=== PATIENT | female | born 1960 | race Caucasian/White ===

== ENCOUNTER 2020-06-28 12:04 | Outpatient (NON) | payer BC, SELFPAY ==
[2020-06-28 14:14] LABS: Influenza Control Positive
== END 2020-06-28 12:05 ==
PROVIDERS: Family Provider Nurse Practitioner Family; PCP Family Medicine; Visit Provider Family Medicine
DX: R05 Cough (principal)
CPT/HCPCS: 87804

== ENCOUNTER 2021-01-23 14:11 | Emergency (ER) | payer BC, SELFPAY ==
--- NOTE | ~2021-01-23 | XR_ITS ---
EXAMINATION: XR chest 2V DATE: 01/23/2021 15:20 INDICATION: Left chest pain. TECHNIQUE: Frontal and lateral views of the chest were obtained. COMPARISON: Chest 2 views 04/17/2019 FINDINGS: The chest demonstrates clear lungs without pneumonia, pleural effusion, or pneumothorax. Th e heart size is normal. There are changes of anterior fusion procedure in cervical spine. Surgical cl ips in the right upper quadrant are likely from cholecystectomy. IMPRESSION: 1. No acute cardiopulmonary disease. Reviewed, dictated and finalized at location A.
[2021-01-23 14:22] VITALS: BP 140/66; PULSE 75; RESP 18; TEMP 36.9; O2SAT 98
--- NOTE | 2021-01-23 14:37 | ED.GENADULT ---
HPI - General Adult General Chief complaint: Chest Pain Stated complaint: muscle spasms on left side Time Seen by Provider: 01/23/21 14:38 Source: patient and RN notes reviewed Mode of arrival: ambulatory Limitations: no limitations History of Present Illness HPI narrative: 60-year-old female presents with concern for left lateral muscle spasming and pain. Reports a gripping feeling with no precipitating or relieving factors. She denies shortness of breath, chest pain, chest pressure, diaphoresis, nausea, dizziness. She denies syncope or near syncope. She denies injury or trauma. She denies bruising, redness, warmth. Patient has a history of hypertension, obesity, anemia, high cholesterol. MD complaint: Muscle spasms Related Data Home Medications Medication Instructions Recorded Confirmed alosetron 1 mg tablet 1 - 2 mg PO DAILY PRN 04/22/19 01/23/21 aspirin 81 mg tablet,delayed 81 mg PO DAILY 04/22/19 01/23/21 release cholecalciferol (vitamin D3) 125 5,000 unit PO DAILY 04/22/19 01/23/21 mcg (5,000 unit) capsule naproxen 250 mg tablet 500 mg PO BID 04/22/19 01/23/21 phytonadione (vitamin K1) 100 mcg 90 mcg PO DAILY 04/22/19 01/23/21 tablet duloxetine 60 mg capsule,delayed 60 mg PO DAILY 11/24/19 01/23/21 release carbamazepine 200 mg 200 mg PO Q12H tablet 01/19/21 01/23/21 tablet,extended release,12 hr diltiazem HCl 240 mg PO DAILY 01/23/21 01/23/21 hydralazine 20 mg PO BID PRN 01/23/21 01/23/21 levocetirizine 5 mg PO .PRN 01/23/21 01/23/21 levothyroxine 75 mcg PO DAILY 01/23/21 01/23/21 losartan 100 mg PO DAILY 01/23/21 01/23/21 Allergies Allergy/AdvReac Type Severity Reaction Status Date / Time phenobarbital Allergy Unknown Rash Verified 01/23/21 14:57 Sulfa (Sulfonamide Allergy Unknown Nausea and Verified 01/23/21 14:57 Antibiotics) Vomiting Review of Systems Review of Systems: CONSTITUTIONAL: Denies malaise, chills, sweats, or fever. CARDIOVASCULAR: Denies chest pain, palpitations, or edema. Reports left lateral chest muscle spasming/gripping RESPIRATORY: Denies cough or dyspnea. GASTROINTESTINAL: Denies abdominal pain, nausea, vomiting SKIN: Denies bruising, redness, open skin, warmth MUSCULOSKELETAL: Denies myalgia. Reports left lateral chest muscle spasming/gripping NEUROLOGIC: Denies numbness, weakness, or headache. PSYCHIATRIC: Denies anxiety or depression. All systems reviewed & are unremarkable except as noted in HPI and below PMFSH Past Medical History Medical History Anemia Anxiety Arthritis Depression Fibromyalgia Gallbladder disease Hallux rigidus, left foot HLD (hyperlipidemia) HTN (hypertension) Hypothyroid IBS (irritable bowel syndrome) Lipoma of back PVC (premature ventricular contraction) Temporal lobe seizure Wears hearing aid Surgical History Surgical History History of appendectomy History of cholecystectomy Hx of cervical spine surgery Titanium plate and screws Family History Family History Mother Family history of thyroid disease Hypertension Grandparent Family history of thyroid disease Family history of kidney disease Family history of Alzheimer's disease Father Diabetes mellitus Hypertension Family history of malignant neoplasm Family history of kidney disease Other Cerebrovascular accident Family history of arthritis Social History Social History Smoking status: Never smoker Second hand tobacco smoke exposure: No Alcohol intake: never Substance use: never Substance use type: does not use 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
[2021-01-23 14:41] VITALS: PULSE 67
--- NOTE | 2021-01-23 14:59 | ECG_ITS ---
Measurements Intervals [place] Rate: 67 P: 55 SC: 171 QRS: 79 QRSD: 105 T: 83 QT: 414 QTc: 439 Interpretive Statements SINUS RHYTHM INCOMPLETE RIGHT BUNDLE BRANCH BLOCK BORDERLINE T WAVE ABNORMALITY- HIGH LATERAL LEADS BORDERLINE ECG Electronically Signed On 01-24-2021 11:38:25 CDT by Song Higginbotham D.O.
== END 2021-01-23 15:37 | disposition home or self-care (01) ==
PROVIDERS: Emergency Provider Nurse Practitioner; PCP Family Medicine
DX: R07.89 Other chest pain (principal); F41.9 Anxiety disorder, unspecified; M19.90 Unspecified osteoarthritis, unspecified site; M79.7 Fibromyalgia; E78.5 Hyperlipidemia, unspecified; I10 Essential (primary) hypertension; E03.9 Hypothyroidism, unspecified; Z79.82 Long term (current) use of aspirin
CPT/HCPCS: 71046; 93005; 99213; G0463

== ENCOUNTER 2021-02-28 10:05 | Emergency (ER) | payer BC, SELFPAY ==
[2021-02-28 10:43] VITALS: BP 129/83; PULSE 73; RESP 18; TEMP 36.3; O2SAT 97
--- NOTE | 2021-02-28 11:00 | ED.URI ---
HPI - URI/Sore Throat General Chief Complaint: Upper Respiratory Infection Stated Complaint: Sore Throat,Cough,Diarrhea Time Seen by Provider: 02/28/21 11:00 Source: patient and RN notes reviewed Mode of arrival: ambulatory Limitations: no limitations History of Present Illness HPI Narrative: 1-year-old female presents to the [facility] with complaints of sore throat, cough, diarrhea. Patient states she has had a cough for approximately 8 days. Woke up this morning with a sore throat. Denies fevers. Sore throat when swallowing. Denies nausea or vomiting. No abdominal pain or chest pain No treatment prior to arrival Related Data Home Medications Medication Instructions Recorded Confirmed alosetron 1 mg tablet 1 - 2 mg PO DAILY PRN 04/22/19 01/23/21 aspirin 81 mg tablet,delayed 81 mg PO DAILY 04/22/19 01/23/21 release cholecalciferol (vitamin D3) 125 5,000 unit PO DAILY 04/22/19 01/23/21 mcg (5,000 unit) capsule naproxen 250 mg tablet 500 mg PO BID 04/22/19 01/23/21 phytonadione (vitamin K1) 100 mcg 90 mcg PO DAILY 04/22/19 01/23/21 tablet duloxetine 60 mg capsule,delayed 60 mg PO DAILY 11/24/19 01/23/21 release carbamazepine 200 mg 200 mg PO Q12H tablet 01/19/21 01/23/21 tablet,extended release,12 hr hydralazine 20 mg PO BID PRN 01/23/21 01/23/21 levocetirizine 5 mg PO .PRN 01/23/21 01/23/21 Allergies Allergy/AdvReac Type Severity Reaction Status Date / Time phenobarbital Allergy Unknown Rash Verified 02/28/21 11:02 Sulfa (Sulfonamide Allergy Unknown Nausea and Verified 02/28/21 11:02 Antibiotics) Vomiting Review of Systems Review of Systems: All systems reviewed & are unremarkable except as noted in HPI and below Constitutional: Constitutional: Reports no additional constitutional complaints, Denies chills and Denies fever(s) Eyes: Eyes: Reports no additional eye complaints ENT: Reports as per HPI and Reports sore throat Cardiovascular: Cardiovascular: Reports no additional cardiovascular complaints and Denies chest pain Respiratory: Respiratory: Reports as per HPI, Reports cough, Denies dyspnea and Denies wheezing Gastrointestinal: Gastrointestinal: Reports no additional gastrointestinal complaints, Denies abdominal pain, Denies nausea and Denies vomiting Musculoskeletal: Musculoskeletal: Reports no additional musculoskeletal complaints Integumentary/Breasts: Skin/Breast: Reports system reviewed and no additional complaints, except as docu Neurologic: Reports system reviewed and no additional complaints, except as documented Psychiatric: Psychiatric: Reports no additional psychiatric complaints Allergic/Immunologic: Allergic/Immunologic: Reports no additional allergic/immunologic complaints PMFSH Past Medical History Medical History Anemia Anxiety Arthritis Depression Fibromyalgia Gallbladder disease Hallux rigidus, left foot HLD (hyperlipidemia) HTN (hypertension) Hypothyroid IBS (irritable bowel syndrome) Lipoma of back PVC (premature ventricular contraction) Temporal lobe seizure Wears hearing aid Surgical History Surgical History History of appendectomy History of cholecystectomy Hx of cervical spine surgery Titanium plate and screws Family History Family History Mother Family history of thyroid disease Hypertension Grandparent Family history of thyroid disease Family history of kidney disease Family history of Alzheimer's disease Father Diabetes mellitus Hypertension Family history of malignant neoplasm Family history of kidney disease Other Cerebrovascular accident Family history of arthritis Social History Social History Smoking status: Never smoker Second hand tobacco smoke exposure: No Alcohol intake: never Substance use: never Sub
[2021-03-02 01:27] LABS: SARS-CoV-2 RNA PCR Negative
== END 2021-02-28 11:38 | disposition home or self-care (01) ==
PROVIDERS: Emergency Provider Nurse Practitioner; PCP Family Medicine
DX: B34.9 Viral infection, unspecified (principal); I10 Essential (primary) hypertension; E03.9 Hypothyroidism, unspecified; E78.5 Hyperlipidemia, unspecified; Z79.82 Long term (current) use of aspirin; Z20.822 Contact with and (suspected) exposure to COVID-19
CPT/HCPCS: 87081; 87880; 99213; C9803; G0463; U0003; U0005

== ENCOUNTER 2021-05-10 07:37 | Outpatient (CLI) | payer BC, SELFPAY ==
--- NOTE | 2021-05-16 11:21 | WPDHOMESLEEP ---
Sleep Study - Home Unattended Date of Study: 05/10/21 <Mis Orozco DO - Last Filed: 05/16/21 11:53> Ordering Provider: Juan Jose Branch APRN <Mis Orozco DO - Last Filed: 05/16/21 11:53> Interpreting Provider: Mis Orozco DO <Mis Orozco, DO - Last Filed: 05/16/21 11:53> Home Sleep Study Type: Apnea Link Air <Mis Orozco DO - Last Filed: 05/16/21 11:53> Height: 1.65 m <Mis Orozco DO - Last Filed: 05/16/21 11:53> Weight: 97.976 kg <Mis Orozco DO - Last Filed: 05/16/21 11:53> Body Mass Index: 35.9 <Mis Orozco DO - Last Filed: 05/16/21 11:53> Neck Circumference (inches): 16 <Mis Orozco DO - Last Filed: 05/16/21 11:53> Romulus: 16 <Mis Orozco DO - Last Filed: 05/16/21 11:53> Reason for Sleep Study Unrefreshing sleep, daytime hypersomnia <Mis Orozco DO - Last Filed: 05/16/21 11:53> Sleep History The patient is a 61-year-old female with anxiety, depression, fibromyalgia, temporal lobe seizures, hypertension, hypothyroidism, irritable bowel syndrome, and anemia that had a home sleep test ordered by her practical ministries professor for unrefreshing sleep and daytime hypersomnia. The patient denies awakening from sleep short of breath. She rarely awakens at night with heartburn, belching or cough. She occasionally snores loud enough that others complain. She rarely has trouble sleeping when she has a cold. She denies waking up gasping for air throughout the night. He denies having breathing problems at night observed by others. She denies sweating excessively at night. She rarely notices heart palpitations or irregular heartbeats during the night. She occasionally falls asleep during the day but never while driving. She denies cataplexy. She denies having trouble at work due to sleepiness. She rarely feels unable to move when waking up her falling asleep. She rarely experiences vivid dreamlike scenes upon awakening or falling asleep. He rarely has nightmares. She rarely has thoughts racing through her mind. She occasionally feels sad or depressed but rarely feels anxious. She frequently has muscular tension. He rarely notices parts of her body jerk. She occasionally has crawling and aching feelings in her legs as well as leg pain during the night. She denies grinding her teeth during sleep when awakening with morning jaw pain. She is occasionally bothered by pain during the day and awakened by pain during the night. She frequently wakes up feeling stiff in the morning with sore and achy muscles. She goes to bed at 10:30 p.m. on weekdays and between 11:00 p.m. and midnight on the weekends. It takes her 10 minutes to fall asleep. She wakes up 1-2 times per night. When she awakens, she will use the restroom or find something boring on TV. She can fall asleep within 15 minutes. She awakens at 5:45 a.m. on weekdays and 10:00 a.m. on the weekends. She typically gets 7 hours of sleep per night. She currently lives with her . She does not consume any caffeinated beverages within 2 hours of bedtime. She does not engage in physical exercise before bedtime. She will read and watch television before falling asleep. She will take naps during the afternoon or evening on the weekends but they are not refreshing. She drinks 3-4 caffeinated beverages per day. She will drink 1 alcoholic beverage per month. She denies tobacco and recreational drug use. <Mis Orozco DO - Last Filed: 05/16/21 11:53> [facility] Past Medical History Medical History: Medical History Anemia Anxiety Arthritis Depression Fibromyalgia Gallbladder disease Hallux rigidus, left foot HLD (hyperlipidemia) HTN (hypertension) Hypothyroid IBS (irritable bowel syndrome) Lipoma of back PVC (premature ventricular contraction) Temporal lobe seizure We
[2021-05-16 11:27] VITALS: BMI 35.9
== END 2021-05-11 13:30 | disposition home or self-care (01) ==
LOC: ANHCSM 07:37
PROVIDERS: PCP Family Medicine; Visit Provider Nurse Practitioner Family
DX: G47.33 Obstructive sleep apnea (adult) (pediatric) (principal)
CPT/HCPCS: 95806

== ENCOUNTER 2021-09-21 08:07 | Outpatient (CLI) | payer BC, SELFPAY ==
--- NOTE | ~2021-09-21 | MM_ITS ---
EXAMINATION: MM screening lizbet BI w tl HISTORY: Screening mammogram TECHNIQUE: Craniocaudal and mediolateral oblique 3-D tomosynthesis images were obtained and synthetic 2-D images were generated. CAD analysis was submitted and interpreted. COMPARISON: 02/21/2019 bilateral screening mammogram examination BREAST PARENCHYMAL COMPOSITION: There are scattered areas of fibroglandular density. FINDINGS: There is no evidence of suspicious mass, calcification, or architectural distortion to sugg est malignancy in either breast. There has been no suspicious interval change. IMPRESSION: 1. No mammographic evidence of malignancy. 2. Recommend routine screening mammography in one year. BI-RADS Category 1: Negative Reviewed, dictated and finalized at location A.
== END 2021-09-21 08:08 | disposition home or self-care (01) ==
LOC: ANHIMG 08:09
PROVIDERS: PCP Family Medicine; Visit Provider Family Medicine
DX: Z12.31 Encounter for screening mammogram for malignant neoplasm of breast (principal)
CPT/HCPCS: 77063; 77067

== ENCOUNTER → 2021-12-24 12:18 | Outpatient (CLI) | payer BC, SELFPAY ==
--- NOTE | ~2021-12-24 | XR_ITS ---
XR chest 2V 12/24/2021 12:32 Indication: Edema. Dyspnea. Procedure: 2 view chest Comparison: 01/23/2021 Findings: Heart size normal for technique. There is left basilar atelectasis. No focal pneumonia, erin ma, pleural effusion or pneumothorax. The lungs are hyperinflated which is consistent with, but not d iagnostic of chronic obstructive pulmonary disease. There are anterior fusion changes at the cervicot horacic junction. Impression: 1: Left basilar atelectasis. Reviewed, dictated and finalized at location A. Impression: 1: Left basilar atelectasis.
== END ==
PROVIDERS: PCP Family Medicine; Visit Provider Family Medicine
DX: R60.9 Edema, unspecified (principal); J98.11 Atelectasis
CPT/HCPCS: 71046

== ENCOUNTER → 2022-01-19 11:03 | Outpatient (CLI) | payer BC, SELFPAY ==
--- NOTE | ~2022-01-19 | US_ITS ---
EXAMINATION: US pelvic complete w TV DATE: 01/19/2022 11:37 INDICATION: Left lower quadrant pain Comparison:No prior studies for comparison. TECHNIQUE: Multiple transabdominal and endovaginal sonographic images of the pelvis performed. FINDINGS: The uterus measures 5.4 x 1.8 x 3.1 cm. The endometrial complex measures 3 mm. There is tra ce fluid in the endometrium. There are cervical calcifications. The right ovary measures 1.8 x 0.7 x 1 cm and the left ovary is not visualized. There is no free fluid in the pelvis. There are no abnormal masses seen on either side. IMPRESSION: 1. Unremarkable pelvic ultrasound. Reviewed, dictated and finalized at location B.
== END ==
PROVIDERS: PCP Family Medicine; Visit Provider Family Medicine
DX: R10.2 Pelvic and perineal pain (principal); R10.32 Left lower quadrant pain
CPT/HCPCS: 76830; 76856

== ENCOUNTER → 2022-05-11 12:44 | Outpatient (CLI) | payer BC, SELFPAY ==
--- NOTE | ~2022-05-11 | CT_ITS ---
EXAMINATION: CT abdomen pelvis w con DATE: 05/11/2022 13:10 INDICATION: Pelvic and perineal pain TECHNIQUE: Computed tomography (CT) of the abdomen and pelvis was performed with 100 cc Omnipaque 350 intravenous contrast. The dose-length product was 922.65 mGy-cm. Automated exposure control and iter ative reconstruction technique were employed. COMPARISON: Ultrasound pelvis dated 01/19/2022 FINDINGS: Lung bases are unremarkable. Heart size normal. No significant pleural or pericardial effus ion. The liver, spleen, pancreas, adrenal glands and kidneys are unremarkable. There are cholecystect neto clips. Nonobstructive bowel gas pattern. No significant vascular abnormality. No lymphadenopathy. No abnormal pelvic masses or fluid collections. There is osteoarthritis of the hips. There is lumbar fusion at L4-5. There is severe lumbar spondylosis. IMPRESSION: 1. No acute abdominal abnormality. Reviewed, dictated and finalized at location A. C LEADER
[2022-05-11 13:03] LABS: Estimated Glomerular Filt Rate > 60
== END ==
PROVIDERS: PCP Family Medicine; Visit Provider Obstetrics & Gynecology
DX: R10.2 Pelvic and perineal pain (principal)
CPT/HCPCS: 74177; Q9967

== ENCOUNTER → 2022-06-02 12:26 | Outpatient (CLI) | payer BC, SELFPAY ==
--- NOTE | ~2022-06-02 | XR_ITS ---
EXAMINATION: XR hip BI wo pelvis INDICATION: Bilateral hip pain TECHNIQUE: Two views of each hip are obtained. COMPARISON: None available FINDINGS: Bone alignment is normal. There is no fracture. There is mild right and moderate left hip o steoarthritis. There are changes of posterior fusion at L4-5. IMPRESSION: 1. Mild right and moderate left hip osteoarthritis. Reviewed, dictated and finalized at location B. EE DEVELOPER
--- NOTE | ~2022-06-02 | XR_ITS ---
EXAMINATION: XR chest 2V DATE: 06/02/2022 13:15 INDICATION: Cough, unspecified TECHNIQUE: PA and lateral views of the chest are obtained. COMPARISON: 12/24/2021 FINDINGS: The lungs are free of acute opacities. No pleural effusion or pneumothorax. The cardiomedia stinal silhouette is normal. There is moderate thoracic spondylosis. Surgical clips in the upper abdo men on the lateral view are likely from prior cholecystectomy. There are changes of anterior fusion i n the lower cervical spine. IMPRESSION: 1. No acute cardiopulmonary abnormality. Reviewed, dictated and finalized at location B. RAL MAINTENANCE ENGINEER
== END ==
PROVIDERS: PCP Nurse Practitioner Family; Visit Provider Nurse Practitioner Family
DX: R05.9 Cough, unspecified (principal); M25.551 Pain in right hip; M25.552 Pain in left hip; M16.0 Bilateral primary osteoarthritis of hip
CPT/HCPCS: 71046; 73521

== ENCOUNTER 2022-07-31 10:29 | Outpatient (CLI) | payer BC, SELFPAY ==
--- NOTE | ~2022-07-31 | XR_ITS ---
EXAMINATION: XR lg joint inject/asp w image DATE: 07/31/2022 11:39 INDICATION: Left hip arthritis. TECHNIQUE: A time-out was performed to verify the patient's name, date of , and procedure to b e performed. The procedure including the risks, benefits, and alternatives was discussed with the pat ient. Risks discussed included bleeding and infection. The patient understood the risks and agreed to proceed. The skin overlying the left hip joint was prepped and draped in usual sterile fashion. An esthetic was administered with 1% lidocaine subcutaneously. A 22 G needle was advanced under fluoros copic guidance into the joint. Subsequently, injectate consisting of 2 mL 0.5% bupivacaine and 1 mL 80 mg/mL Depo-Medrol was instilled. The needle was removed and the entry site was cleaned and dresse d. There were no immediate complications. Fluoroscopy exposure time was 0.1 minutes. The total numbe r of images was 1. FINDINGS: Real-time fluoroscopy demonstrates the needle in the left hip joint. Patient's pain prior t o procedure:5/10. Patient's pain following the procedure: 0/10. IMPRESSION: 1. Fluoroscopy guided left hip joint injection of local anesthetic and steroid with decrease in the p atient's presenting pain. Reviewed, dictated and finalized at location A. IFIED CYTOTECHNOLOGIST IMPRESSION: 1. Fluoroscopy guided left hip joint injection of local anesthetic and steroid with decrease in the patient's presenting pain.
== END 2022-07-31 10:30 | disposition home or self-care (01) ==
PROVIDERS: PCP Nurse Practitioner Family; Visit Provider Nurse Practitioner Family
DX: M16.12 Unilateral primary osteoarthritis, left hip (principal)
CPT/HCPCS: 20610; 77002; J1040

== ENCOUNTER → 2022-09-08 08:01 | Outpatient (CLI) | payer BC, SELFPAY ==
--- NOTE | ~2022-09-08 | MR_ITS ---
EXAMINATION: MR hip LT wo con DATE: 09/08/2022 08:49 INDICATION: Left hip pain TECHNIQUE: Magnetic resonance imaging (MRI) of the left hip was performed without intravenous contra st. Sequences included full-field axial PD-weighted FS FSE and T1-weighted FSE, coronal of the pelvis with PD-weighted FS FSE, small field of view of the left hip with axial PD-weighted FS FSE, sagitta l PD-weighted FS FSE and coronal PD weighted FS FSE. Additional radial T1-weighted FGR oriented ortho gonal to the acetabular rim were obtained for evaluation of the labrum. COMPARISON: None FINDINGS: Bones/labrum/cartilage: Alignment is normal. No fracture, avascular necrosis or pathologic marrow replacing process. There i s moderate osteoarthritis at the left hip with prominent cartilage loss resulting in anterosuperior p redominant nonuniform joint space narrowing. There is subarticular cystic change at the anterosuperio r and superolateral aspects of the acetabulum and mild subarticular marrow edema at the anterosuperio r femoral head. There is degenerative tearing of the anterior to posterior superior left acetabular l abrum. The contralateral right hip joint space appears relatively preserved on the larger field-of-vi ew images. Lumbar spondylosis with moderate to severe right-sided predominant disc height loss at L3- L4 and associated degenerative endplate remodeling resulting in mild right-sided L3 vertebral body he ight loss. L4-L5 posterior spinal fusion with bilateral vertical jennifer and pedicle screw fixation. Fluid: Bilateral moderate sized likely reactive left hip joint effusion. Physiologic amount of fluid in the right hip. 7 mm diameter ganglion cyst arising from the right hip joint and extending 1.9 cm in proxi mal distal length between the anterior right acetabulum and the deep margin of the right iliacus musc le. No bursitis or other abnormal fluid collections. Soft tissues: Normal and symmetric muscle bulk and signal in the pelvis and visualized proximal thighs. The iliopso as, gluteal and proximal hamstring tendons are normal. 9 mm low signal intensity fibroid at the fundu s of the anteverted uterus. Limited evaluation of visceral organs of the pelvis is unremarkable. No pathologically enlarged pelvic/inguinal lymphadenopathy. IMPRESSION: 1. Moderate left hip osteoarthritis with high-grade acetabular chondromalacia, degenerative tearing o f the left acetabular labrum and moderate likely reactive left hip joint effusion. Reviewed, dictated and finalized at location A. IMPRESSION: 1. Moderate left hip osteoarthritis with high-grade acetabular chondromalacia, degenerative tearing of the left acetabular labrum and moderate likely reactive left hip joint effusion.
== END ==
PROVIDERS: PCP Family Medicine; Visit Provider Orthopaedic Surgery
DX: M25.552 Pain in left hip (principal); M16.12 Unilateral primary osteoarthritis, left hip; M94.252 Chondromalacia, left hip; S73.192A Other sprain of left hip, initial encounter
CPT/HCPCS: 73721

== ENCOUNTER 2022-10-23 13:52 | Outpatient (CLI) | payer BC, SELFPAY ==
[2022-10-23 17:36] LABS: Urine Cotinine NEGATIVE
[2022-10-27 17:38] LABS: Carbamazepine Tegretol 6.3 mcg/mL (4.0-12.0)
== END 2022-10-23 13:53 | disposition home or self-care (01) ==
PROVIDERS: Anesthesiology; PCP Family Medicine; Visit Provider Orthopaedic Surgery
DX: M16.12 Unilateral primary osteoarthritis, left hip (principal); G40.109 Localization-related (focal) (partial) symptomatic epilepsy and epileptic syndromes with simple partial seizures, not intractable, without status epilepticus; Z01.818 Encounter for other preprocedural examination
CPT/HCPCS: 36415; 80156; 80307; 87081

== ENCOUNTER 2022-10-26 08:14 | Outpatient (CLI) | payer BC, SELFPAY ==
[2022-10-26 09:00] LABS: Sodium 129 mmol/L (137-145)
== END 2022-10-26 08:15 | disposition home or self-care (01) ==
LOC: ANHSURGERY 08:16
PROVIDERS: Anesthesiology; PCP Family Medicine; Visit Provider Orthopaedic Surgery
DX: Z01.818 Encounter for other preprocedural examination (principal); M16.12 Unilateral primary osteoarthritis, left hip; I10 Essential (primary) hypertension
CPT/HCPCS: 36415; 84295; 86850; 86900; 86901

== ENCOUNTER 2022-11-07 15:52 | Observation (INO) | payer BC, SELFPAY ==
[2022-10-23 14:07] VITALS: BMI 37.2
--- NOTE | 2022-10-23 14:49 | PC.NURSE ---
Report to the Outpatient Waiting Room, entrance under the green pavilion located off [facility], at time _0600 on date _11/06/22 . Planned Procedure Time: __0730 . Time changes happen often and if your time is changed the preop area will call you the afternoon before. - You and your visitor will be asked to self-screen and do not enter if you have any COVID symptoms. - A mask is optional within the hospital at this time. Patients may have clear liquids (water, carbonated beverages, clear teas, apple juice) until 3 hours prior to surgery with a maximum of 20 ounces. - No food from midnight until time of surgery - Infants may have breast milk until 4 hours before surgery, formula 6 hours prior to surgery. - Children will be allowed to drink immediately following surgery. If applicable, please bring a bottle or sippy cup to assist with drinking. Juice, water, soda, and popsicles are readily available. For infants on formula, please bring formula the day of surgery. Pacifiers are allowed. Take the following medications with a SIP of water the morning of surgery: ___DILTIAZEM,HYDRALAZINE,LEVOTHYROXINE DO NOT STOP ANY OF YOUR OTHER PRESCRIPTION MEDICATIONS PRIOR TO SURGERY ?EXCEPT THE FOLLOWING Medications to discontinue per physician ASPIRIN AND NAPROXEN 7 DAYS PRE OP .LAST DOSE 10/29/22____.ALL VITAMINS/SUPPLEMENTS 3 DAYS PRE OP .LAST DOSE 11/02/22 Please no make-up, nail latvian, hairspray, perfume, deodorant, or body powder the day of surgery. No jewelry (including any body piercings) or valuables the day of surgery, leave them at home. Please take a shower or bath the night before, or the morning of, surgery with an antibacterial soap. Wear comfortable, loose fitting clothing. Children are encouraged to wear pajamas. - Jewelry must be removed prior to entering the operating room. Rings and piercings that are not removed may be cut off. - The hospital will not accept responsibility for valuables. - Please leave all valuables, including medications, at home the day of surgery. If you are going home after surgery, a licensed stage driver must drive you home. - NO public transportation without another adult if you receive anesthesia. - We recommend that an adult stay with you for 24 hours following discharge. - We also recommend that you do not drive, make important decision, drink alcoholic beverages, or take any drugs that were not prescribed by your health care provider for at least 24 hours after your discharge time. For Pediatric surgeries, we recommend two adults accompany the child home. Follow any additional instructions given to you from your surgeon. If you or anyone in your household have experienced Covid symptoms in the past week, please notify your surgeon or the nurse liaison at the phone number below for possible testing. VERBAL AND WRITTEN instructions given to _PATIENT AND SPOUSE SCOTT and asked if any additional questions and then verbalized understanding. Patient advised to call surgeon office or pre surgery nurse liaison [phone] if any additional questions.
--- NOTE | 2022-10-23 14:57 | PC.NURSE ---
Report to the Outpatient Waiting Room, entrance under the green pavilion located off [facility], at time _0600 on date ___11/06/22____. Planned Procedure Time: ___30 . Time changes happen often and if your time is changed the preop area will call you the afternoon before. - You and your visitor will be asked to self-screen and do not enter if you have any COVID symptoms. - A mask is optional within the hospital at this time. Patients may have clear liquids (water, carbonated beverages, clear teas, apple juice) until 3 hours prior to surgery with a maximum of 20 ounces. - No food from midnight until time of surgery - Infants may have breast milk until 4 hours before surgery, formula 6 hours prior to surgery. - Children will be allowed to drink immediately following surgery. If applicable, please bring a bottle or sippy cup to assist with drinking. Juice, water, soda, and popsicles are readily available. For infants on formula, please bring formula the day of surgery. Pacifiers are allowed. Take the following medications with a SIP of water the morning of surgery: _DILTIAZEM,LEVOTHYROXINE, HYDRALAZINE DO NOT STOP ANY OF YOUR OTHER PRESCRIPTION MEDICATIONS PRIOR TO SURGERY ?EXCEPT THE FOLLOWING Medications to discontinue per physician ASPIRIN AND NAPROXEN 7 DAYS PRE OP. LAST DOSE_10/29/22. ALL VITAMINS/SUPPLEMENTS 3 DAYS PRE OP.LAST DOSE 11/02/22 Please no make-up, nail lithuanian, hairspray, perfume, deodorant, or body powder the day of surgery. No jewelry (including any body piercings) or valuables the day of surgery, leave them at home. Please take a shower or bath the night before, or the morning of, surgery with an antibacterial soap. Wear comfortable, loose fitting clothing. Children are encouraged to wear pajamas. - Jewelry must be removed prior to entering the operating room. Rings and piercings that are not removed may be cut off. - The hospital will not accept responsibility for valuables. - Please leave all valuables, including medications, at home the day of surgery. If you are going home after surgery, a licensed furniture mover driver must drive you home. - NO public transportation without another adult if you receive anesthesia. - We recommend that an adult stay with you for 24 hours following discharge. - We also recommend that you do not drive, make important decision, drink alcoholic beverages, or take any drugs that were not prescribed by your health care provider for at least 24 hours after your discharge time. For Pediatric surgeries, we recommend two adults accompany the child home. Follow any additional instructions given to you from your surgeon. If you or anyone in your household have experienced Covid symptoms in the past week, please notify your surgeon or the nurse liaison at the phone number below for possible testing. VERBAL AND WRITTEN instructions given to ___PT AND SPOUSE SCOTT and asked if any additional questions and then verbalized understanding. Patient advised to call surgeon office or pre surgery nurse liaison [phone] if any additional questions.
[2022-10-23 15:18] VITALS: BP 149/74; PULSE 62; RESP 18; TEMP 37.4; O2SAT 98
--- NOTE | 2022-11-03 07:35 | PM.IMHP ---
H&P: HPI History of Present Illness Date/Time: 11/03/22 07:35 Chief Complaint: Left hip DJD Narrative: 62-year-old female patient of Dr. Barr who presents today for left anterior total hip arthroplasty. Patient has been having progressively worsening symptoms in the hip for the last year. She had a cortisone injection in the hip in July of this year which gave her minimal improvement of her symptoms. She does not tolerate anti-inflammatories due to GI intolerance. At this point patient is having severe pain in the hip and groin area with weight-bearing and activities. She has had an MRI scan recently left hip which is shown significant progression of the osteoarthritis in her hip. Patient is miserable and feels at this point she is ready proceed with total hip arthroplasty rather continue nonsurgical treatment. Review of Systems Review of Systems: All systems reviewed & are unremarkable except as noted in HPI and below PMFSH Past Medical History Medical History Anemia Anxiety Arthritis Chronic bronchitis Chronic right hip pain Degenerative joint disease (DJD) of hip Depression Fibromyalgia Gallbladder disease Hallux rigidus, left foot HLD (hyperlipidemia) HTN (hypertension) Hypothyroid IBS (irritable bowel syndrome) Lipoma of back Pain of left hip Preoperative clearance PVC (premature ventricular contraction) Temporal lobe seizure Trochanteric bursitis of left hip URI (upper respiratory infection) Wears hearing aid Surgical History Surgical History H/O esophagogastroduodenoscopy History of appendectomy History of cholecystectomy Hx of cervical spine surgery Titanium plate and screws Family History Family History Mother Family history of thyroid disease Hypertension Grandparent Family history of thyroid disease Family history of kidney disease Family history of Alzheimer's disease Father Diabetes mellitus Hypertension Family history of malignant neoplasm Family history of kidney disease Other Cerebrovascular accident Family history of arthritis Social History Social History Smoking status: Never smoker Second hand tobacco smoke exposure: No Additional smoking assessment comments: DENIES ANY FORM OF TOBACCO USE Alcohol intake: current Alcohol use details: ONE DRINK PER MONTH Substance use: never Substance use type: does not use Lack of Transportation: No Lack of Food: Never True Current Housing: I Have Housing Concerned About Future Housing: No Difficulty Paying Gas/Electric Bills: No Difficulty Paying for Meds: No Currently Unemployed: No Education: High School Diploma/GED Difficulty w/ Childcare or Family Care: No Living arrangements: with family 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/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: 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 Gender identity (if verbalized by the patient): Female Sexual Orientation (if Verbalized by the Patient): Straight or Heterosexual Spiritual care concerns: No Agree to blood products: Yes Meds Home Medications and Allergies Home Medications Medication Instructions Recorded Confirmed Type aspirin 81 mg tablet,delayed 81 mg PO DAILY 04/22/19 10/23/22 History release cholecalciferol (vitamin D3) 125 5,000 unit PO DAILY 04/22/19 10/23/22 History mcg (5,000 unit) capsule phytonadione (vitamin K1) 100 mcg 90 mcg PO DAILY 04/22/19 10/23/22 History tablet albuterol sulfate 90 mcg/actuation 2 puff inhalation Q4H PRN 03/04/21 10/23/22 History aerosol inhaler (Ventolin HFA) Shortness Of Breath pantoprazole 40 mg tablet,delayed 40 mg PO QAM 09/11/21 10/23/22 History release (Protonix) levothyroxine 75 mcg tablet See Rx Instructions .Route 06/06/22 10/23/22 Rx .COMPLEX #90 t
[2022-11-06] VITALS (12 sets, daily range): BP systolic 118–154; BP diastolic 64–92; PULSE 70–89; RESP 12–20; TEMP 35.8–37.2; O2SAT 92–98; BMI 36.3
--- NOTE | 2022-11-06 06:46 | WPDANESEPPF ---
Anes - Initial Pre Proc Eval Procedure: Operation Date: 11/06/22 07:30 Proposed Procedures p Left Total Hip Arthroplasty, Anterior Approach - Lalo Smith MD Date/Time: 11/06/22 06:46 Surgeon: Lalo Smith MD Pre Op Diagnosis: O.A. Left Hip Patient Data Age: 62 Gender: F Height: 1.6 m Weight: 95.4 kg Last Vital Signs Temp 37.4 C 10/23/22 15:18 Pulse 62 10/23/22 15:18 Resp 18 10/23/22 15:18 BP 149/74 H 10/23/22 15:18 Pulse Ox 98 10/23/22 15:18 O2 Del Method Room Air 10/23/22 15:18 Allergies Allergy/AdvReac Type Severity Reaction Status Date / Time phenobarbital Allergy Unknown Rash Verified 10/23/22 14:08 Sulfa (Sulfonamide AdvReac Unknown Nausea and Verified 11/05/22 09:13 Antibiotics) Vomiting atorvastatin AdvReac Cough Verified 10/23/22 14:33 lisinopril AdvReac Cough Verified 10/23/22 14:34 Home Medications Medication Instructions Recorded Confirmed Type aspirin 81 mg tablet,delayed 81 mg PO DAILY 04/22/19 10/23/22 History release cholecalciferol (vitamin D3) 125 5,000 unit PO DAILY 04/22/19 10/23/22 History mcg (5,000 unit) capsule phytonadione (vitamin K1) 100 mcg 90 mcg PO DAILY 04/22/19 10/23/22 History tablet albuterol sulfate 90 mcg/actuation 2 puff inhalation Q4H PRN 03/04/21 10/23/22 History aerosol inhaler (Ventolin HFA) Shortness Of Breath pantoprazole 40 mg tablet,delayed 40 mg PO QAM 09/11/21 10/23/22 History release (Protonix) levothyroxine 75 mcg tablet See Rx Instructions .Route 06/06/22 10/23/22 Rx .COMPLEX #90 tabs losartan 100 mg tablet See Rx Instructions .Route 06/06/22 10/23/22 Rx .COMPLEX #90 tabs levocetirizine 5 mg tablet See Rx Instructions .Route 07/06/22 10/23/22 Rx .COMPLEX #90 tabs spironolactone 25 mg tablet See Rx Instructions .Route 07/06/22 10/23/22 Rx .COMPLEX #90 tabs carbamazepine 200 mg See Rx Instructions .Route 09/04/22 10/23/22 Rx tablet,extended release,12 hr .COMPLEX #180 tabs (Tegretol XR) diltiazem HCl 240 mg capsule,24 See Rx Instructions .Route 09/04/22 10/23/22 Rx hr,extended release .COMPLEX #90 caps acetaminophen 500 mg capsule 1,000 mg PO BID PRN Pain 10/23/22 10/23/22 History ascorbic acid (vitamin C) 500 mg 500 mg PO DAILY 10/23/22 10/23/22 History tablet calcium carb,cit ER 600 mg-vit D3 1 tablet PO DAILY 10/23/22 10/23/22 History 12.5 mcg (500 unit) tablet,ext.rel (Citracal-D3 Slow Release) multivitamin 1 tablet PO DAILY 10/23/22 10/23/22 History naproxen 250 mg tablet 500 mg PO PRN PRN Pain 10/23/22 10/23/22 History vortioxetine 10 mg tablet 20 mg PO HS 10/23/22 10/23/22 History (Trintellix) meloxicam 7.5 mg tablet See Rx Instructions .Route 10/26/22 Rx .COMPLEX #60 tabs hydralazine 10 mg tablet See Rx Instructions .Route 11/01/22 Rx .COMPLEX #360 tabs tizanidine 4 mg tablet See Rx Instructions .Route 11/03/22 Rx .COMPLEX #20 tabs Patient hx anesthesia problems: none Family hx anesthesia problems: none Results Review: All pre-operative results and documents have been reviewed as part of the pre-operative evaluation. [facility] Past Medical History Medical History Anemia Anxiety Arthritis Chronic bronchitis Chronic right hip pain Degenerative joint disease (DJD) of hip Depression Fibromyalgia Gallbladder disease Hallux rigidus, left foot HLD (hyperlipidemia) HTN (hypertension) Hypothyroid IBS (irritable bowel syndrome) Lipoma of back Pain of left hip Preoperative clearance PVC (premature ventricular contraction) Temporal lobe seizure Trochanteric bursitis of left hip URI (upper respiratory infection) Wears hearing aid Surgical History Surgical History H/O esophagogastroduodenoscopy History of appendectomy History of cholecystectomy Hx of cervical spine surgery Titanium plate and screws Family History Family
[2022-11-06] MEDS: TRANEXAMIC ACID 1,000MG/ISO100 1,000 MG/100 ML BAG 200 MG IVPB (06:50)
[2022-11-06] MEDS: LACTATED RINGERS 1,000 ML 30 ML IV CONT ×2 (06:52→11:53)
[2022-11-06] MEDS: ACETAMINOPHEN 500 MG TABLET 1000 MG PO ×3 (06:53→17:20)
[2022-11-06 06:59] LABS: Sodium 129 mmol/L (137-145)
--- NOTE | 2022-11-06 07:15 | WPDHPUPDATE1 ---
History and Physical Update Update Date/Time: 11/06/22 07:15 History and Physical has been reviewed, including an updated exam of the patient. There are NO changes in the patient's condition. Risks, benefits, and alternatives have been discussed and questions answered. Patient agrees to proceed with procedure.
[2022-11-06] MEDS: ceFAZolin 2 GM/D5W 50 ML 2 GM/50 ML BAG IVPB (07:30)
[2022-11-06] MEDS: ceFAZolin SODIUM 1 GM VIAL 3 GM (07:54)
[2022-11-06] MEDS: ceFAZolin SODIUM 1 GM VIAL 2 GM IV PUSH (11:20)
[2022-11-06] MEDS: TRANEXAMIC ACID 1,000 MG/10 ML AMPUL 1000 MG IV PUSH (11:24)
[2022-11-06] MEDS: KETOROLAC 15 MG/ML VIAL (*BKC) IV PUSH ×3 (11:35→17:26)
--- NOTE | 2022-11-06 11:39 | W.PM.PROC2 ---
Procedure Note - Detailed Date of Procedure 11/06/22 Pre-op Diagnosis O.A. Left Hip ,obesity Post-op Diagnosis Same Procedure Performed Left total hip arthroplasty direct anterior approach Surgeon Lalo Smith MD [employer] Lul Anesthesia General Description of Procedure Patient was brought to the operating room and general anesthesia was administered. Boots were applied to the feet after supplemental padding and she was transferred to the OSI Pelham table and the left hip prepped draped usual fashion. Her obesity added to the difficulty of the procedure adding approximately 1 hour of working time. BMI 36.3. A 10 cm longitudinal incision was made starting 3 cm lateral to the ASIS and dissection carried down to the fascia over the tensor fascia nel which was longitudinally incised in its midportion. This was elevated off the anterior 1/2 of the TFL muscle in the interval between rectus femoris and TFL developed. Ascending lateral femoral circumflex vessels were identified and ligated with suture divided. A retractor was placed over the anteromedial capsule the hip joint the hip abducted internally rotated and the gluteus minimus elevated off the lateral capsule. Standard inverted T capsulotomy was performed. Lateral capsule released from saddle of the femur, femoral neck osteotomy made according to preoperative templating. Femoral head was removed. It measured 47 mm in diameter. Acetabulum was exposed labrum excised remaining articular cartilage curetted. The femur was externally rotated and extended and the interval between conjoined tendon and piriformis incised allowing the piriformis to slip posteriorly over tip the greater trochanter remaining well attached. This allowed the conjoined tendon to recess a little bit. A small tip of lateral capsule was excised for exposure. The leg back horizontal position external rotation traction acetabulum was exposed. We medialized to the medial wall with a 42 Reamer and gradually reamed up to 49 mm which was too tight for the 50 trial. A light reaming with a 50 mm Reamer was performed and the 50 trial fit snugly. The 50 mm pinnacle shell cluster hole was impacted at 40? of abduction and anteversion such at the anterior shell edge was just under the anterior rim of the acetabulum and the posterior edge of the shell about 3 mm proud of the posterior rim. An excellent Press-Fit was achieved a single screw placed in the ilium. Thirty-two inner diameter polyethylene liner was impacted without difficulty. The femur was externally rotated extended. Her obesity made access the proximal femur more difficult but we carefully optimized positions of the retractors without having to do additional releases and adequate access. The 6 broach still had rotational wiggle the 7 broach fit well. Initial trialing with the size 1 head and conservative depth on the broach revealed equal leg lengths according to the lesser trochanters matching the preoperative leg length and I felt the offset was a little bit diminished. Therefore we countersunk the broach another 3.5 mm and trialed with +5 head and this gave equal leg lengths appropriate stability and soft tissue tension and matched the preoperative template relative to offset. We calcar planed. The cancellous bone within the femur was very soft but the medial neck cortical bone was very satisfactory we will lower to be weight-bearing as tolerated. The size 7 Actis standard offset stem was impacted and fully seated without difficulty. There were no cracks. Excellent stability of the stem. We trialed and the +5 was still the appropriate choice and we placed the +5 ceramic head 32 diameter without difficulty after thorough irrigation of the wound and drying of the trunnion. Hip was again reduced stability soft tissue tension reconfirmed the appropriate. Intraoperative fluoroscopic x-ray was obtained. Capsule was reapproximated superiorly with 2. Vicryl. Local anesthetic
--- NOTE | 2022-11-06 12:04 | PM.OP ---
Procedure Note - Brief Procedure Note - Brief Date of procedure: 11/06/22 O.A. Left Hip Procedure performed: Left anterior total hip arthroplasty Surgeon: DEEPIKA Ye Description of procedure: 62-year-old female who underwent left anterior total hip arthroplasty on 11/06. I was involved procedure including positioning patient on the OR table in 1st assisting to time surgery. Total time spent was 4 hours Urine output (mL): -600.0
[2022-11-06] MEDS: ONDANSETRON INJ 4 MG/2 ML VIAL IV PUSH (12:30)
[2022-11-06] MEDS: diphenhydrAMINE HCl INJ 50 MG/ML VIAL 25 MG IV PUSH (13:01)
--- NOTE | 2022-11-06 13:10 | ADMGEN ---
This patient, Beata Gauthier, was admitted to 2 Medical Room 241-01. Patient/family oriented to hospital policies and general routines including ID bracelet, bed and alarms, visiting hours, pain management, procedures, bathroom and other care routines, personal items, smoking policy, room service/diet, and visiting hours. Information on how to activate the Rapid Response Team has been discussed. Patient/Family are encouraged to report perceived risks to care and to ask questions if they do not understand what they are told or what they should do.
[2022-11-06] MEDS: oxyCODONE HCL (*CRX) 5 MG TAB IR PO ×3 (13:20→21:21)
[2022-11-06] MEDS: SODIUM CHLORIDE 0.9% IV 1,000 ML 125 ML IV CONT ×2 (13:28→23:29)
[2022-11-06] MEDS: ceFAZolin 1 GM/NS 50 ML 1 GM/50 ML BAG IVPB ×2 (14:41→22:41)
--- NOTE | 2022-11-06 16:05 | PM.IMCN ---
Assessment and Plan Assessment and plan (1) History of total left hip replacement: Code(s): Z96.642 - Presence of left artificial hip joint Status: Acute Assessment and Plan: See operative report. Analgesic as per orthopedic surgeon PT OT per orthopedic surgeon Postop care per orthopedic surgeon DVT prophylaxis is as per orthopedic surgery, the patient has SCDs (2) Hypothyroid: Code(s): E03.9 - Hypothyroidism, unspecified Status: Acute Assessment and Plan: Continue with levothyroxine and check thyroid level. (3) Seizure: Code(s): R56.9 - Unspecified convulsions Status: Acute Assessment and Plan: Continue with home medications. Continue with carbamazepine (4) HLD (hyperlipidemia): Code(s): E78.5 - Hyperlipidemia, unspecified Status: Acute Assessment and Plan: Low-fat heart healthy diet (5) HTN (hypertension): Code(s): I10 - Essential (primary) hypertension Status: Acute Assessment and Plan: Continue with losartan. May consider holding spironolactone her sodium is low. Continue with diltiazem (6) Anemia: Code(s): D64.9 - Anemia, unspecified Status: Acute Assessment and Plan: Her H&H will need to be monitored. (7) Anxiety: Code(s): F41.9 - Anxiety disorder, unspecified Status: Acute Assessment and Plan: Continue with Trintellix HPI Data of Consult Consult date: 11/07/22 Requesting Physician: Lalo Smith MD Primary Care Provider: Lenard Barr MD Consult Narrative Narrative: Beata Gauthier is a 62 year old female who underwent a anterior approach left hip arthroplasty. Please see the operative report from 11/06/2022. The patient has been complaining of bilateral hip pain with the left being greater than the right. This is been chronic and it continues to cause her great pain it radiates to her inner thigh and her front of her quad. The patient has been taking Tylenol naproxen at home. The patient has had lumbar spine injections in the past. Patient has tried Tylenol and said I see rest and muscle relaxers. She has had a previous back surgery. The patient was admitted S same-day surgery per orthopedic physician. The hospitalist was consulted on 11/06/2022. Review of Systems Review of Systems: All systems reviewed & are unremarkable except as noted in HPI and below Constitutional: Constitutional: Reports as per HPI and Reports no additional constitutional complaints Eyes: Eyes: Reports as per HPI and Reports no additional eye complaints ENT: Reports system reviewed and no additional complaints, except as documented and Reports Normal hearing present Cardiovascular: Cardiovascular: Reports no additional cardiovascular complaints Respiratory: Respiratory: Reports no additional respiratory complaints and Reports no additional respiratory complaints Gastrointestinal: Gastrointestinal: Reports as per HPI and Reports no additional gastrointestinal complaints Musculoskeletal: Musculoskeletal: Reports no additional musculoskeletal complaints Integumentary/Breasts: Skin/Breast: Reports system reviewed and no additional complaints, except as docu and Reports as per HPI Neurologic: Reports system reviewed and no additional complaints, except as documented, Reports as per HPI and Reports Normal hearing present Psychiatric: Psychiatric: Reports no additional psychiatric complaints and Reports as per HPI Endocrine: Endocrine: Reports no additional endocrine complaints Hematologic/Lymphatic: Hematologic/Lymphatic: Reports no additional hematologic/lymphatic complaints Allergic/Immunologic: Allergic/Immunologic: Reports no additional allergic/immunologic complaints [facility] Past Medical History Medical History (Updated 11/07/22 @ 00:47 by Blanche Staples NP) Anemia Anxiety Arthritis Chronic bronchitis Chronic right hip pain Degenerative joint disease (DJD) of
--- NOTE | 2022-11-06 16:11 | PCPTNOTE ---
On 11/06/22, the student, [Macarena Dale], provided care and completed [facility] documentation on this patient. I have reviewed the student's documentation and agree with the findings.
[2022-11-06] MEDS: VANCOMYCIN 1,000 MG/NS 250 ML 1,000 MG/250 ML BAG 250 MG IVPB (18:19)
[2022-11-06] MEDS: FAMOTIDINE 20 MG TABLET PO (22:41)
[2022-11-06] MEDS: MORPHINE SULFATE (*CRX) 2 MG/ML INJ IV PUSH (22:50)
--- NOTE | ~2022-11-07 | XR_ITS ---
EXAMINATION: XR hip LT 1V w AP pelvis DATE: 11/06/2022 11:54 INDICATION: Left hip arthroplasty. Postop. TECHNIQUE: An anteroposterior view of the pelvis and single view of left hip were obtained. COMPARISON: Pelvis and hip radiographs 06/02/2022 FINDINGS: There is a total left hip arthroplasty in near-anatomic alignment. No fracture. There is mi ld right hip osteoarthritis. Soft tissue gas and a surgical drain are noted near left hip. IMPRESSION: 1. Total left hip arthroplasty in near-anatomic alignment. Reviewed, dictated and finalized at location A.
--- NOTE | ~2022-11-07 | XR_ITS ---
EXAMINATION: XR surgery orthopedic DATE: 11/06/2022 11:27 INDICATION: Left hip arthroplasty. TECHNIQUE: A single intraoperative fluoroscopic view of left hip was obtained. I was not present. Flu oroscopy exposure time was 61 seconds. COMPARISON: Left hip radiograph 11/06/2022 FINDINGS: There is a total left hip arthroplasty in near-anatomic alignment. IMPRESSION: 1. Total left hip arthroplasty in near-anatomic alignment. Reviewed, dictated and finalized at location A.
[2022-11-07] MEDS: ACETAMINOPHEN 500 MG TABLET 1000 MG PO ×4 (00:30→18:09)
[2022-11-07] MEDS: oxyCODONE HCL (*CRX) 5 MG TAB IR PO ×7 (01:43→20:58)
[2022-11-07 02:49] VITALS: BP 132/55; PULSE 99; RESP 18; TEMP 36.9; O2SAT 95
[2022-11-07] MEDS: MORPHINE SULFATE (*CRX) 2 MG/ML INJ IV PUSH ×2 (03:40→10:15)
[2022-11-07] MEDS: LEVOTHYROXINE SODIUM 75 MCG TABLET BY MOUTH (05:29)
[2022-11-07] MEDS: ceFAZolin 1 GM/NS 50 ML 1 GM/50 ML BAG IVPB (06:07)
[2022-11-07 06:09] LABS: Basophils Percent Auto 0.3 % (0.2-1.2); Eosinophils Percent Auto 0.1 % (0-4.4); Hematocrit 29.5 % (37.0-47.0); Hemoglobin 9.7 g/dL (12.0-15.0); Immature Granulocyte Absolute 0.06 K/mm3 (0.00-0.031); Immature Granulocyte Percent A 0.5 % (0-0.5); Lymphocytes Absolute Auto 1.37 K/mm3 (0.9-3.2); Lymphocytes Percent Auto 10.6 % (18.3-44.2); Mean Corpuscular HGB Conc 32.9 g/dl (32-36); Mean Corpuscular Hemoglobin 28.7 pg (26-34); Mean Corpuscular Volume 87.3 fl (80-100); Mean Platelet Volume 9.3 fl (7.4-10.4); Monocytes Absolute Auto 1.3 K/mm3 (0.1-0.6); Monocytes Percent Auto 10.2 % (2.6-8.5); Neutrophils Absolute Auto 10.2 K/mm3 (1.3-6.7); Neutrophils Percent Auto 78.3 % (45.5-73.1); Platelet Count Result 326 k/mm3 (150-375); Red Blood Count 3.38 M/mm3 (4.2-5.4)
[2022-11-07 06:24] LABS: Anion Gap 4 mmol/L (8-16); Blood Urea Nitrogen 12 mg/dL (7-17); Calcium 7.9 mg/dL (8.4-10.2); Carbon Dioxide 28 mmol/L (22-30); Chloride 93 mmol/L (98-107); Estimated CRCL calculation 67 ml/min; Estimated Glomerular Filt Rate > 60; Glucose 115 mg/dL (65-110); Potassium 3.9 mmol/L (3.4-5.0); Sodium 125 mmol/L (137-145)
--- NOTE | 2022-11-07 06:24 | PM.PNORT ---
Subjective Subjective Date/Time Seen: 11/07/22 06:24 Interval history: Postop day 1 patient is alert. Her drain is out. She was up walking yesterday with physical therapy she is afebrile. She is having more pain overnight with soft tissue block wore off. She did require 2 doses of morphine. She is having a little bit of nausea this morning most likely from that. Patient is not been getting her prn dosing of oxycodone and I spoke with the nurse about this. Dressing dry and intact. Patient's sodium was 125 this morning. Has a history of hyponatremia. She is asymptomatic from this. Hemoglobin is 9.7. Plan will be to have the patient work with therapy today. She will be discharged home either later this morning or this afternoon depending on how she does with therapy. We will have her recheck her sodium tomorrow to make sure that she is stabilized. Objective Data Vital Signs Vital Signs: Vital Signs - 24 hr 11/06/22 06:25 11/06/22 11:55 11/06/22 12:10 Temperature 37.2 C 36.4 C Pulse Rate 73 70 75 Respiratory Rate 16 13 13 Blood Pressure 118/70 125/64 142/71 H Pulse Oximetry 98 96 98 Oxygen Delivery Room Air Simple Face Mask Simple Face Mask Oxygen Flow Rate 8 8 11/06/22 12:25 11/06/22 12:40 11/06/22 13:04 Temperature 36.1 C L Pulse Rate 80 75 77 Respiratory Rate 16 12 18 Blood Pressure 142/92 H 129/69 129/74 Pulse Oximetry 92 92 97 Oxygen Delivery Simple Face Mask Room Air Oxygen Flow Rate 8 11/06/22 13:19 11/06/22 13:47 11/06/22 13:10 Temperature 36.1 C L 36.4 C L Pulse Rate 77 72 Respiratory Rate 18 18 18 Blood Pressure 129/74 124/73 Pulse Oximetry 97 98 98 Oxygen Delivery Room Air Oxygen Flow Rate 11/06/22 15:01 11/06/22 14:49 11/06/22 18:38 Temperature 35.8 C L 36.8 C Pulse Rate 81 87 Respiratory Rate 18 18 Blood Pressure 130/72 144/77 H Pulse Oximetry 96 98 Oxygen Delivery Room Air Oxygen Flow Rate 11/06/22 20:00 11/06/22 22:49 11/07/22 02:49 Temperature 36.5 C 36.9 C Pulse Rate 89 99 Respiratory Rate 20 18 Blood Pressure 154/74 H 132/55 L Pulse Oximetry 98 95 Oxygen Delivery Room Air Oxygen Flow Rate Intake/Output Intake/Output: Intake & Output 11/04/22 11/05/22 11/06/22 11/07/22 23:59 23:59 23:59 23:59 Intake Total 3240 Output Total 60 Balance 3240 -60 Meds/Results Medications: Active Medications Generic Name Dose Route Start Last Admin Trade Name Freq PRN Reason Stop Dose Admin Acetaminophen 1,000 mg 11/06/22 13:04 11/07/22 05:29 Acetaminophen 500 Mg Tablet PO 1,000 mg Q6HR GILLIAN Administration Albuterol 2 puff 11/06/22 13:04 Albuterol Sulfate (*Sp) Aerosol 1 Puff INHALATION Q4HRT PRN Shortness Of Breath Apixaban 2.5 mg 11/07/22 09:00 Apixaban 2.5 Mg Tablet PO Q12HR [facility] Aspirin 81 mg 11/07/22 09:00 Aspirin 81 Mg Enteric Tablet PO DAILY [facility] Celecoxib 100 mg 11/07/22 09:00 Celecoxib 100 Mg Capsule PO DAILY [facility] Diltiazem HCl 240 mg 11/07/22 09:00 Diltiazem Hcl Cd 240 Mg Cap.Er.24h BY MOUTH QAM [facility] Doxycycline Hyclate 100 mg 11/07/22 09:00 Doxycycline Hyclate 100 Mg Tablet PO Q12HR [facility] Famotidine 20 mg 11/06/22 21:00 11/06/22 22:41 Famotidine 20 Mg Tablet PO 20 mg Q12HR [facility] Administration Home Med 1 each 11/06/22 21:00 11/06/22 21:21 Home Medication Carbamazepine Xr 200 Mg Tab.Er.12h BY MOUTH 12/06/22 20:59 1 each Q12HR [facility] Administration Hydroxyzine HCl 50 mg 11/06/22 13:04 Hydroxyzine Hcl 25 Mg Tablet PO Q4H PRN Itching Cefazolin Sodium 1 gm in 50 mls @ 100 mls/hr 11/06/22 15:00 11/07/22 06:07 Ancef 1 Gm/Ns 50 Ml IVPB 11/07/22 07:29 100 mls/hr Q8H GILLIAN Administration Vancomycin HCl 1,000 mg in 250 mls @ 250 mls/hr 11/06/22 19:00 11/06/22 19:19 Vancomycin 1,000 Mg/Ns 250 Ml IVPB 11/07/22 07:59 Infused Q12H GILLIAN Infusion Levothyroxine Sodium 75 mcg 11/07/22 0
[2022-11-07] MEDS: ONDANSETRON INJ 4 MG/2 ML VIAL IV PUSH ×4 (06:31→22:20)
[2022-11-07] MEDS: VANCOMYCIN 1,000 MG/NS 250 ML 1,000 MG/250 ML BAG 125 MG IVPB (06:38)
--- NOTE | 2022-11-07 06:40 | PM.DS ---
DS: Admitting Diagnosis Discharge Date 11/07 Admitting Diagnosis Left hip DJD DS: Discharge Diagnosis Discharge Diagnosis (1) History of total left hip replacement: Code(s): Z96.642 - Presence of left artificial hip joint Status: Acute DS: Summary Hospital Course Hospital Course: 62-year-old female underwent left anterior total hip arthroplasty on 11/06. Underwent the procedure without complications postoperatively she is afebrile vital signs are stable. Postop day 1 she was alert. Pain is controlled. Drain is out dressing is dry. Morning labs show her sodium at 125.. Patient has a history of hyponatremia, she is asymptomatic from this. Hemoglobin is 9.7. Patient was up walking the day of surgery with therapy. She is weight-bearing as tolerated but she is to use the walker for the 1st month. She is on Eliquis for DVT prophylaxis. She will also go home on a 2 week course of doxycycline. She be on Celebrex 100 mg for 10 days for heterotopic bone formation prophylaxis. She will also go home on Senokot and MiraLax for constipation. She is on Tylenol as well as oxycodone 5 mg for pain control. She will be discharged home on 11/07. Patient was advised to keep leg elevated home swelling. She was advised any questions or concerns she is to call the office. Will have patient get another Chem panel done in 2 days to check her sodium level. Time Spent with Patient Time attestation: Total time spent providing and/or coordinating discharge services: DS: Data Data Completed and Pending Labs on day of discharge: Labs from last 24 hours 11/07/22 11/06/22 05:11 06:41 WBC 13.0 H RBC 3.38 L Hgb 9.7 L Hct 29.5 L MCV 87.3 MCH 28.7 MCHC 32.9 RDW 13.0 Plt Count 326 MPV 9.3 Immature Gran % (Auto) 0.5 Neut % (Auto) 78.3 H Lymph % (Auto) 10.6 L [place] % (Auto) 10.2 H Eos % (Auto) 0.1 Baso % (Auto) 0.3 Lymph # (Auto) 1.37 [place] # (Auto) 1.3 H Eos # (Auto) 0.0 Baso # (Auto) 0.0 Abs Immat Gran (auto) 0.06 H Absolute Neuts (auto) 10.2 H Absolute Nucleated RBC 0.0 Nucleated RBC % 0.0 Sodium 125 L 129 L Potassium 3.9 Chloride 93 L Carbon Dioxide 28 Anion Gap 4 L BUN 12 D Creatinine 0.80 Estim Creat Clear Calc 67 Estimated GFR > 60 Glucose 115 H Calcium 7.9 L TSH (Reflex) Pending Discharge Plan Discharge Patient Disposition: Home, Self-Care Discharge Instructions: LALO SMITH M[facility], [place] [id number] [place] [address] POST-OPERATIVE DISCHARGE INSTRUCTIONS ANTERIOR TOTAL HIP ARTHROPLASTY 1. Move toes/feet up and down every hour while awake. 2. Be up walking every hour while awake. 3. Use cane in hand opposite of side of hip surgery or walker as comfort allows. Avoid sitting in a chair unless eating, receiving visitors or using the toilet. 4. When resting, lie on back with leg elevated above heart to minimize swelling. Significant swelling could indicate a blood clot and if this occurs, call the office (or go to the ER) to have a venous ultrasound performed. 5. Wound Care: Keep dry sponge on wound for 2 weeks. Use minimal tape. 6. Follow weight bearing status as instructed. Use walker for 1 month 7. May shower with dressing off. Patient Instructions: Pain Management (DC), Joint Replacement Surgery (DC) Follow-up/Referrals: Lalo Smith MD [Physician] - Keep Reg. Scheduled Appt. Discharge Medications: New acetaminophen 500 mg Tablet 1,000 mg PO Q6HR Qty: 90 0RF Eliquis 2.5 mg Tablet 2.5 mg PO Q12HR Qty: 70 0RF celecoxib [Celebrex] 100 mg Capsule 100 mg PO DAILY Qty: 10 0RF sennosides-docusate sodium [Senokot-S] 8.6-50 mg Tablet 2 tab-cap PO BID Qty: 60 0RF doxycycline hyclate 100 mg Tablet 100 mg PO Q12HR Qty: 28 0RF oxycodone 5 mg Tablet 5 mg PO Q4H Qty: 40 0RF polyethylene glycol 3350 [
[2022-11-07 06:49] VITALS: BP 118/64; PULSE 95; RESP 18; TEMP 36.7; O2SAT 96
[2022-11-07 07:04] LABS: Thyroid Stimulating Hormone Reflex 0.319 uIU/mL (0.465-4.68)
--- NOTE | 2022-11-07 07:33 | P.PNAN_ITS ---
Anes - Prog Note Post-Op Date/Time: 11/07/22 07:33 Vital Signs: Last Vital Signs Temp 36.9 C 11/07/22 02:49 Pulse 99 11/07/22 02:49 Resp 18 11/07/22 02:49 BP 132/55 L 11/07/22 02:49 Pulse Ox 95 11/07/22 02:49 O2 Del Method Room Air 11/06/22 20:00 O2 Flow Rate 8 11/06/22 12:25 Pain Score (VAS): 1 I/O: Intake & Output 11/06/22 11/06/22 11/07/22 15:59 23:59 07:59 Intake Total 1200 2040 50 Output Total 60 Balance 1200 0 -10 Laboratory Tests 11/07/22 05:11 11/07/22 05:11 11/07/22 05:11 WBC 13.0 H RBC 3.38 L Hgb 9.7 L Hct 29.5 L MCV 87.3 MCH 28.7 MCHC 32.9 RDW 13.0 Plt Count 326 MPV 9.3 Immature Gran % (Auto) 0.5 Neut % (Auto) 78.3 H Lymph % (Auto) 10.6 L [place] % (Auto) 10.2 H Eos % (Auto) 0.1 Baso % (Auto) 0.3 Lymph # (Auto) 1.37 [place] # (Auto) 1.3 H Eos # (Auto) 0.0 Baso # (Auto) 0.0 Abs Immat Gran (auto) 0.06 H Absolute Neuts (auto) 10.2 H Absolute Nucleated RBC 0.0 Nucleated RBC % 0.0 Sodium 125 L Potassium 3.9 Chloride 93 L Carbon Dioxide 28 Anion Gap 4 L BUN 12 D Creatinine 0.80 Estim Creat Clear Calc 67 Estimated GFR > 60 Glucose 115 H Calcium 7.9 L TSH (Reflex) 0.319 L Free T4 Pending Patient Feedback: Patient satisfied with anesthetic care.
[2022-11-07 08:02] LABS: Free T4 Free Thyroxine Reflex 2.49 ng/dL (0.78-2.19)
--- NOTE | 2022-11-07 08:10 | PCPTNOTE ---
Attempted to see patient for PT, however patient was eating breakfast.
[2022-11-07] MEDS: DOXYCYCLINE HYCLATE 100 MG TABLET PO ×2 (08:21→22:23)
[2022-11-07] MEDS: SENNA/DOCUSATE SODIUM TABLET 2 TAB PO ×2 (08:21→16:59)
[2022-11-07] MEDS: LOSARTAN POTASSIUM 100 MG TABLET BY MOUTH (08:21)
[2022-11-07] MEDS: FAMOTIDINE 20 MG TABLET PO ×2 (08:21→22:22)
[2022-11-07] MEDS: SODIUM CHLORIDE 0.9% IV 1,000 ML 100 ML IV CONT (09:00)
[2022-11-07] MEDS: APIXABAN 2.5 MG TABLET PO ×2 (10:21→22:22)
[2022-11-07] MEDS: CELECOXIB 100 MG CAPSULE PO (10:21)
[2022-11-07] MEDS: ASPIRIN 81 MG ENTERIC TABLET PO (10:21)
[2022-11-07] MEDS: CHOLECALCIFEROL 1,000 UNITS TABLET 5000 UNITS PO (10:21)
[2022-11-07 10:50] VITALS: BP 137/62; PULSE 89; RESP 18; TEMP 36.8; O2SAT 96
--- NOTE | 2022-11-07 13:00 | PM.IMPN ---
Progress Note: A&P Assessment and Plan (1) History of total left hip replacement: Code(s): Z96.642 - Presence of left artificial hip joint Status: Acute Assessment and Plan: See operative report. Analgesic as per orthopedic surgeon PT OT per orthopedic surgeon Postop care per orthopedic surgeon DVT prophylaxis is as per orthopedic surgery, the patient has SCDs (2) Hyponatremia: Code(s): E87.1 - Hypo-osmolality and hyponatremia Status: Acute Assessment and Plan: On day of surgery patient's sodium was 129. Repeat BMP revealed sodium of 125. Hold spironolactone Repeat sodium q.6 hours Would recommend monitoring overnight (3) Hypothyroid: Code(s): E03.9 - Hypothyroidism, unspecified Status: Acute Assessment and Plan: Continue with levothyroxine TSH was 0.319 and free T4 was 2.49 (4) Seizure: Code(s): R56.9 - Unspecified convulsions Status: Acute Assessment and Plan: Continue with home medications. Continue with carbamazepine (5) HLD (hyperlipidemia): Code(s): E78.5 - Hyperlipidemia, unspecified Status: Acute Assessment and Plan: Low-fat heart healthy diet (6) HTN (hypertension): Code(s): I10 - Essential (primary) hypertension Status: Acute Assessment and Plan: Continue with losartan. May consider holding spironolactone her sodium is low. Continue with diltiazem Subjective Date/time seen: 11/07/22 13:00 Interval history: Pt continues to work with therapy. She is having pain in her left hip still. She had some nausea and vomiting early this morning but it has since resolved. She denies dizziness, headache, chest pain, shortness of breath, and diarrhea. Low sodium is likely due to a combination of things such as patient recently having surgery, antidepressant, anti seizure medication, and pain medication. Review of Systems Review of Systems: All systems reviewed & are unremarkable except as noted in HPI and below Exam Narrative: GENERAL: Comfortable, no acute distress HENMT: moist mucous membranes EYES: EOM intact b/l NECK: no lymphadenopathy RESPIRATORY: clear to auscultation CARDIO: RRR GI: soft, nontender, bowel sounds present SKIN: no rashes EXTREMITIES: Left hip Tegaderm intact and dry. Minimal bruising and swelling. Objective Data Vital Signs Vital Signs: Vital Signs - 24 hr 11/06/22 13:04 11/06/22 13:19 11/06/22 13:47 Temperature 97.0 F L 97.0 F L 97.5 F L Pulse Rate 77 77 72 Respiratory Rate 18 18 18 Blood Pressure 129/74 129/74 124/73 Pulse Oximetry 97 97 98 Oxygen Delivery 11/06/22 13:10 11/06/22 15:01 11/06/22 14:49 Temperature 96.5 F L Pulse Rate 81 Respiratory Rate 18 18 Blood Pressure 130/72 Pulse Oximetry 98 96 Oxygen Delivery Room Air Room Air 11/06/22 18:38 11/06/22 20:00 11/06/22 22:49 Temperature 98.3 F 97.7 F Pulse Rate 87 89 Respiratory Rate 18 20 Blood Pressure 144/77 H 154/74 H Pulse Oximetry 98 98 Oxygen Delivery Room Air 11/07/22 02:49 11/07/22 06:49 11/07/22 08:30 Temperature 98.4 F 98.0 F Pulse Rate 99 95 Respiratory Rate 18 18 Blood Pressure 132/55 L 118/64 Pulse Oximetry 95 96 Oxygen Delivery Room Air 11/07/22 10:50 Temperature 98.3 F Pulse Rate 89 Respiratory Rate 18 Blood Pressure 137/62 Pulse Oximetry 96 Oxygen Delivery Intake/Output Intake/Output: Intake & Output 11/04/22 11/05/22 11/06/22 11/07/22 23:59 23:59 23:59 23:59 Intake Total 3240 170 Output Total 360 Balance 3240 -190 Meds/Results Medications: Active Medications Generic Name Dose Route Start Last Admin Trade Name Jomarq PRN Reason Stop Dose Admin Acetaminophen 1,000 mg 11/06/22 13:04 11/07/22 12:17 Acetaminophen 500 Mg Tablet PO 1,000 mg Q6HR GILLIAN Administration Albuterol 2 puff 11/06/22 13:04 Albuterol Sulfate (*Sp) Ae
[2022-11-07 14:20] VITALS: BP 128/60; PULSE 76; RESP 18; TEMP 37; O2SAT 96
[2022-11-07 15:14] LABS: Sodium 123 mmol/L (137-145)
[2022-11-07 18:34] LABS: Creatinine Urine 32.5 mg/dL
[2022-11-07 18:36] LABS: Sodium Urine Random 9 meq/L
[2022-11-07 18:40] VITALS: BP 144/71; PULSE 78; RESP 16; TEMP 36.6; O2SAT 98
[2022-11-07 19:32] LABS: Sodium 124 mmol/L (137-145)
[2022-11-07 19:49] VITALS: BP 135/68; PULSE 82; RESP 18; TEMP 36.7; O2SAT 97
[2022-11-08] MEDS: oxyCODONE HCL (*CRX) 5 MG TAB IR PO ×4 (00:07→13:04)
[2022-11-08] MEDS: ACETAMINOPHEN 500 MG TABLET 1000 MG PO ×3 (00:07→11:49)
[2022-11-08 02:00] VITALS: BP 136/51; PULSE 90; RESP 18; TEMP 36.7; O2SAT 99
[2022-11-08 05:07] LABS: Basophils Percent Auto 0.4 % (0.2-1.2); Eosinophils Absolute Auto 0.1 K/mm3 (0-0.3); Eosinophils Percent Auto 0.6 % (0-4.4); Hematocrit 27.6 % (37.0-47.0); Hemoglobin 8.9 g/dL (12.0-15.0); Immature Granulocyte Absolute 0.04 K/mm3 (0.00-0.031); Immature Granulocyte Percent A 0.4 % (0-0.5); Lymphocytes Absolute Auto 1.58 K/mm3 (0.9-3.2); Lymphocytes Percent Auto 16.1 % (18.3-44.2); Mean Corpuscular HGB Conc 32.2 g/dl (32-36); Mean Corpuscular Hemoglobin 28.4 pg (26-34); Mean Corpuscular Volume 88.2 fl (80-100); Mean Platelet Volume 9.1 fl (7.4-10.4); Monocytes Absolute Auto 1.4 K/mm3 (0.1-0.6); Monocytes Percent Auto 13.8 % (2.6-8.5); Neutrophils Absolute Auto 6.7 K/mm3 (1.3-6.7); Neutrophils Percent Auto 68.7 % (45.5-73.1); Platelet Count Result 259 k/mm3 (150-375); Red Blood Count 3.13 M/mm3 (4.2-5.4); White Blood Count 9.8 K/mm3 (4.5-10.0)
[2022-11-08 05:18] LABS: Alanine Aminotransferase 37 U/L (6-35); Albumin Level 3.4 g/dL (3.5-5.1); Alkaline Phosphatase 83 U/L (38-126); Anion Gap 4 mmol/L (8-16); Aspartate Amino Transferase 35 U/L (14-36); Bilirubin,Total 0.5 mg/dL (0.2-1.3); Blood Urea Nitrogen 7 mg/dL (7-17); Calcium 8.2 mg/dL (8.4-10.2); Carbon Dioxide 29 mmol/L (22-30); Chloride 95 mmol/L (98-107); Estimated CRCL calculation 87 ml/min; Estimated Glomerular Filt Rate > 60; Glucose 103 mg/dL (65-110); Potassium 3.7 mmol/L (3.4-5.0); Sodium 128 mmol/L (137-145)
[2022-11-08] MEDS: ONDANSETRON INJ 4 MG/2 ML VIAL IV PUSH ×3 (05:32→13:04)
[2022-11-08] MEDS: LEVOTHYROXINE SODIUM 75 MCG TABLET BY MOUTH (05:34)
[2022-11-08 05:51] LABS: Cortisol Random 3.58 ug/dL
[2022-11-08 06:00] VITALS: BP 135/49; PULSE 93; RESP 18; TEMP 36.6; O2SAT 99
[2022-11-08 08:00] VITALS: O2SAT 99
[2022-11-08] MEDS: DOXYCYCLINE HYCLATE 100 MG TABLET PO (09:48)
[2022-11-08] MEDS: APIXABAN 2.5 MG TABLET PO (09:48)
[2022-11-08] MEDS: CELECOXIB 100 MG CAPSULE PO (09:48)
[2022-11-08] MEDS: CHOLECALCIFEROL 1,000 UNITS TABLET 5000 UNITS PO (09:48)
[2022-11-08] MEDS: ASPIRIN 81 MG ENTERIC TABLET PO (09:48)
[2022-11-08] MEDS: SENNA/DOCUSATE SODIUM TABLET 2 TAB PO (09:48)
[2022-11-08] MEDS: LOSARTAN POTASSIUM 100 MG TABLET BY MOUTH (09:48)
[2022-11-08] MEDS: FAMOTIDINE 20 MG TABLET PO (09:48)
--- NOTE | 2022-11-08 12:13 | PM.PNORT ---
Subjective Subjective Date/Time Seen: 11/08/22 12:13 Interval history: Day 2 patient is alert. Nausea has improved. His sodium is up to 128 this morning and is being rechecked right now. Patient's pain is not more manageable. She was having a lot of difficulty yesterday with nausea as well as pain control and with the low sodium she was kept overnight for fluid restrictions. Overall symptoms are improving. Patient is doing well with physical therapy as well. As long as her sodium level is stable or is improved from this morning's we will discharge her home this afternoon. Objective Data Vital Signs Vital Signs: Vital Signs - 24 hr 11/07/22 14:20 11/07/22 18:40 11/07/22 19:49 Temperature 37.0 C 36.6 C 36.7 C Pulse Rate 76 78 82 Respiratory Rate 18 16 18 Blood Pressure 128/60 144/71 H 135/68 Pulse Oximetry 96 98 97 Oxygen Delivery 11/08/22 02:00 11/08/22 06:00 11/08/22 08:00 Temperature 36.7 C 36.6 C Pulse Rate 90 93 Respiratory Rate 18 18 Blood Pressure 136/51 L 135/49 L Pulse Oximetry 99 99 99 Oxygen Delivery Room Air Intake/Output Intake/Output: Intake & Output 11/05/22 11/06/22 11/07/22 11/08/22 23:59 23:59 23:59 23:59 Intake Total 3240 2180 540 Output Total 2860 750 Balance 3246 -680 -210 Meds/Results Medications: Active Medications Generic Name Dose Route Start Last Admin Trade Name Freq PRN Reason Stop Dose Admin Acetaminophen 1,000 mg 11/06/22 13:04 11/08/22 11:49 Acetaminophen 500 Mg Tablet PO 1,000 mg Q6HR GILLIAN Administration Albuterol 2 puff 11/06/22 13:04 Albuterol Sulfate (*Sp) Aerosol 1 Puff INHALATION Q4HRT PRN Shortness Of Breath Apixaban 2.5 mg 11/07/22 09:00 11/08/22 09:48 Apixaban 2.5 Mg Tablet PO 2.5 mg Q12HR GILLIAN Administration Aspirin 81 mg 11/07/22 09:00 11/08/22 09:48 Aspirin 81 Mg Enteric Tablet PO 81 mg DAILY GILLIAN Administration Celecoxib 100 mg 11/07/22 09:00 11/08/22 09:48 Celecoxib 100 Mg Capsule PO 100 mg DAILY GILLIAN Administration Diltiazem HCl 240 mg 11/07/22 09:00 11/08/22 09:48 Diltiazem Hcl Cd 240 Mg Cap.Er.24h BY MOUTH 240 mg QAM GILLIAN Administration Doxycycline Hyclate 100 mg 11/07/22 09:00 11/08/22 09:48 Doxycycline Hyclate 100 Mg Tablet PO 100 mg Q12HR GILLIAN Administration Famotidine 20 mg 11/06/22 21:00 11/08/22 09:48 Famotidine 20 Mg Tablet PO 20 mg Q12HR GILLIAN Administration Home Med 1 each 11/06/22 21:00 11/08/22 10:53 Home Medication Carbamazepine Xr 200 Mg Tab.Er.12h BY MOUTH 12/06/22 20:59 1 each Q12HR GILLIAN Administration Hydroxyzine HCl 50 mg 11/06/22 13:04 Hydroxyzine Hcl 25 Mg Tablet PO Q4H PRN Itching Levothyroxine Sodium 75 mcg 11/07/22 06:30 11/08/22 05:34 Levothyroxine Sodium 75 Mcg Tablet BY MOUTH 75 mcg DAILY@0630 GILLIAN Administration Losartan Potassium 100 mg 11/07/22 09:00 11/08/22 09:48 Losartan Potassium 100 Mg Tablet BY MOUTH 100 mg QAM GILLIAN Administration Miscellaneous Information 0 each 11/06/22 00:01 11/07/22 18:10 Vortioxetine [Trintellix] 10 Mg = Non Form- Can Pt Use [facility]? XX 12/06/22 00:00 Not Given [facility] Miscellaneous Information 0 each 11/06/22 00:01 11/07/22 18:09 Phytonadione (Vitamin K1) 100 Mcg Tablet = Non Formulary XX 12/06/22 00:00 Not Given [facility] Morphine Sulfate 2 mg 11/06/22 13:04 11/07/22 10:15 Morphine Sulfate (*Crx) 2 Mg/Ml Inj IV PUSH 2 mg Q3H PRN Administration Pain Rated 7-10 Naloxone HCl 0.1 mg 11/06/22 13:04 Naloxone Hcl 0.4 Mg/Ml Vial IV PUSH Q2M PRN Opiate Reversal Non-Formulary Medication 90 mcg 11/07/22 09:00 Phytonadione (Vitamin K1) PO 12/07/22 08:59 DAILY GILLIAN Non-Formulary Medication 20 mg 11/06/22 21:00 Vortioxetine [Trintellix] PO 12/06/22 20:59 HS GILLIAN Ondansetron HCl 4 mg 11/06/22 13:04 11/08/22 09:20 Ondansetron Inj 4 Mg/2 Ml Vial IV PUSH 4
--- NOTE | 2022-11-08 12:14 | PM.DS ---
DS: Admitting Diagnosis Discharge Date 11/08 Admitting Diagnosis Left hip DJD DS: Discharge Diagnosis Discharge Diagnosis (1) History of total left hip replacement: Code(s): Z96.642 - Presence of left artificial hip joint Status: Acute DS: Summary Hospital Course Hospital Course: This is an addendum to original discharge summary. Patient had left total hip arthroplasty anterior approach done on 11/06. Postop day 1 her sodiums were low and went down to 123. She is having quite a bit of nausea and had difficulty with pain control as well. It was best felt at the patient should stay in additional night to his low sodium. She had fluid restrictions as well as IV fluids given. Overall her symptoms have improved. Pain overall is well controlled at this point. Nausea has gone away completely. The morning of postop day 2 sodium was 128. Patient typically runs between [id number]. It is going to be rechecked 1 more time prior to her discharge. I talked with the patient about her low sodium which is chronic and she is going to talk with her primary care doctor about possibly switching some her medications to see if this will improve this for the future. Otherwise patient is doing well. Time Spent with Patient Time attestation: Total time spent providing and/or coordinating discharge services: DS: Data Data Completed and Pending Labs on day of discharge: Labs from last 24 hours 11/08/22 11/08/22 11/07/22 12:02 04:35 19:09 WBC 9.8 RBC 3.13 L Hgb 8.9 L Hct 27.6 L MCV 88.2 MCH 28.4 MCHC 32.2 RDW 13.0 Plt Count 259 MPV 9.1 Immature Gran % (Auto) 0.4 Neut % (Auto) 68.7 Lymph % (Auto) 16.1 L [place] % (Auto) 13.8 H Eos % (Auto) 0.6 Baso % (Auto) 0.4 Lymph # (Auto) 1.58 [place] # (Auto) 1.4 H Eos # (Auto) 0.1 Baso # (Auto) 0.0 Abs Immat Gran (auto) 0.04 H Absolute Neuts (auto) 6.7 Absolute Nucleated RBC 0.0 Nucleated RBC % 0.0 Sodium Pending 128 L 124 L Potassium 3.7 Chloride 95 L Carbon Dioxide 29 Anion Gap 4 L BUN 7 D Creatinine 0.60 L Estim Creat Clear Calc 87 Estimated GFR > 60 Glucose 103 Calcium 8.2 L Total Bilirubin 0.5 AST 35 ALT 37 H Alkaline Phosphatase 83 Total Protein 6.0 L Albumin 3.4 L Random Cortisol 3.58 Ur Random Sodium Urine Creatinine 11/07/22 11/07/22 18:06 14:54 WBC RBC Hgb Hct MCV MCH MCHC RDW Plt Count MPV Immature Gran % (Auto) Neut % (Auto) Lymph % (Auto) [place] % (Auto) Eos % (Auto) Baso % (Auto) Lymph # (Auto) [place] # (Auto) Eos # (Auto) Baso # (Auto) Abs Immat Gran (auto) Absolute Neuts (auto) Absolute Nucleated RBC Nucleated RBC % Sodium 123 L Potassium Chloride Carbon Dioxide Anion Gap BUN Creatinine Estim Creat Clear Calc Estimated GFR Glucose Calcium Total Bilirubin AST ALT Alkaline Phosphatase Total Protein Albumin Random Cortisol Ur Random Sodium 9 Urine Creatinine 32.5 Discharge Plan Discharge Attending physician on discharge: Lalo Smith Consulting providers: Blanche Staples Discharging Clinician: Joshua Mccarty Patient Disposition: Home, Self-Care Activity: may shower Diet: as tolerated Discharge Instructions: LALO SMITH M[facility], [address] [address] POST-OPERATIVE DISCHARGE INSTRUCTIONS ANTERIOR TOTAL HIP ARTHROPLASTY 1. Move toes/feet up and down every hour while awake. 2. Be up walking every hour while awake. 3. Use cane in hand opposite of side of hip surgery or walker as comfort allows. Avoid sitting in a chair unless eating, receiving visitors or using the toilet. 4. When resting, lie on back with leg elevated above heart to minimize swelling. Significant swelling could indicate a blood clot
--- NOTE | 2022-11-08 12:36 | PM.IMPN ---
Progress Note: A&P Assessment and Plan (1) History of total left hip replacement: Code(s): Z96.642 - Presence of left artificial hip joint Status: Acute Assessment and Plan: See operative report. Analgesic as per orthopedic surgeon PT OT per orthopedic surgeon Postop care per orthopedic surgeon DVT prophylaxis is as per orthopedic surgery, the patient has SCDs (2) Hyponatremia: Code(s): E87.1 - Hypo-osmolality and hyponatremia Status: Acute Assessment and Plan: On day of surgery patient's sodium was 129. Repeat BMP revealed sodium of 125. Hold spironolactone Repeat sodium was 123 and IV fluids were dc'ed and pt put on fluid restriction of 1800 mL 6/7 sodium 128, repeat in the afternoon (3) Hypothyroid: Code(s): E03.9 - Hypothyroidism, unspecified Status: Acute Assessment and Plan: Continue with levothyroxine TSH was 0.319 and free T4 was 2.49 (4) Seizure: Code(s): R56.9 - Unspecified convulsions Status: Acute Assessment and Plan: Continue with home medications. Continue with carbamazepine (5) HLD (hyperlipidemia): Code(s): E78.5 - Hyperlipidemia, unspecified Status: Acute Assessment and Plan: Low-fat heart healthy diet (6) HTN (hypertension): Code(s): I10 - Essential (primary) hypertension Status: Acute Assessment and Plan: Continue with losartan. May consider holding spironolactone her sodium is low. Continue with diltiazem Subjective Date/time seen: 11/08/22 12:36 Interval history: patient up to the chair and discussed the working with therapy. Patient doing better than yesterday. Her nausea vomiting have stopped. She denies dizziness, chest pain, shortness a breath. Plan for repeat sodium this afternoon if sodium is at 128 or above she is clear for discharge. Review of Systems Review of Systems: All systems reviewed & are unremarkable except as noted in HPI and below Exam Narrative: GENERAL: Comfortable, no acute distress HENMT: moist mucous membranes EYES: EOM intact b/l NECK: no lymphadenopathy RESPIRATORY: clear to auscultation CARDIO: RRR GI: soft, nontender, bowel sounds present SKIN: no rashes EXTREMITIES: Left hip Tegaderm intact and dry. Minimal bruising and swelling. Objective Data Vital Signs Vital Signs: Vital Signs - 24 hr 11/07/22 14:20 11/07/22 18:40 11/07/22 19:49 Temperature 98.6 F 97.9 F 98.0 F Pulse Rate 76 78 82 Respiratory Rate 18 16 18 Blood Pressure 128/60 144/71 H 135/68 Pulse Oximetry 96 98 97 Oxygen Delivery 11/08/22 02:00 11/08/22 06:00 11/08/22 08:00 Temperature 98.0 F 97.9 F Pulse Rate 90 93 Respiratory Rate 18 18 Blood Pressure 136/51 L 135/49 L Pulse Oximetry 99 99 99 Oxygen Delivery Room Air Intake/Output Intake/Output: Intake & Output 11/05/22 11/06/22 11/07/22 11/08/22 23:59 23:59 23:59 23:59 Intake Total 3240 2180 540 Output Total 2860 750 Balance 3240 -680 -210 Meds/Results Medications: Active Medications Generic Name Dose Route Start Last Admin Trade Name Freq PRN Reason Stop Dose Admin Acetaminophen 1,000 mg 11/06/22 13:04 11/08/22 11:49 Acetaminophen 500 Mg Tablet PO 1,000 mg Q6HR GILLIAN Administration Albuterol 2 puff 11/06/22 13:04 Albuterol Sulfate (*Sp) Aerosol 1 Puff INHALATION Q4HRT PRN Shortness Of Breath Apixaban 2.5 mg 11/07/22 09:00 11/08/22 09:48 Apixaban 2.5 Mg Tablet PO 2.5 mg Q12HR GILLIAN Administration Aspirin 81 mg 11/07/22 09:00 11/08/22 09:48 Aspirin 81 Mg Enteric Tablet PO 81 mg DAILY GILLIAN Administration Celecoxib 100 mg 11/07/22 09:00 11/08/22 09:48 Celecoxib 100 Mg Capsule PO 100 mg DAILY GILLIAN Administration Diltiazem HCl 240 mg 11/07/22 09:00 11/08/22 09:48 Diltiazem Hcl Cd 240 Mg Cap.Er.24h BY MOUTH 240 mg QAM [facility] Administratio
[2022-11-08 13:47] LABS: Sodium 126 mmol/L (137-145)
== END 2022-11-08 14:53 | disposition home or self-care (01) ==
LOC: ANHSURGERY 16:32 → ANH2MED 16:32
PROVIDERS: Internal Medicine Critical Care Medicine; Nurse Practitioner; Physician Assistant Surgical; Admitting Provider Orthopaedic Surgery; PCP Family Medicine; Visit Provider Orthopaedic Surgery
PROC: (CPT 27130; principal; 2022-11-06 07:30)
DX: M16.12 Unilateral primary osteoarthritis, left hip (principal); D64.9 Anemia, unspecified; E87.1 Hypo-osmolality and hyponatremia; E03.9 Hypothyroidism, unspecified; E78.5 Hyperlipidemia, unspecified; F41.9 Anxiety disorder, unspecified; F32.A Depression, unspecified; M79.7 Fibromyalgia; I10 Essential (primary) hypertension; K58.9 Irritable bowel syndrome, unspecified; M70.62 Trochanteric bursitis, left hip; F10.90 Alcohol use, unspecified, uncomplicated; Z82.49 Family history of ischemic heart disease and other diseases of the circulatory system; Z82.61 Family history of arthritis; Z79.82 Long term (current) use of aspirin; Z79.51 Long term (current) use of inhaled steroids; Z79.1 Long term (current) use of non-steroidal anti-inflammatories (NSAID); Z79.899 Other long term (current) drug therapy
CPT/HCPCS: 27130; 36415; 73501; 80048; 80053; 82533; 82570; 84295; 84300; 84439; 84443; 85025; 97110; 97161; 97165; 97530; 97535; 99199; A9270; C1776; G0378; J0171; J0690; J1100; J1170; J1200; J1885; J2250; J2270; J2370; J2405; J2704; J2795; J3010; J3370; J7030; J7120

== ENCOUNTER 2023-03-05 11:58 | Outpatient (CLI) | payer BC, SELFPAY ==
--- NOTE | ~2023-03-05 | DEXA_ITS ---
Bone Density Report Name: CHRISTI MEI Age: 62 Sex: Female Ethnicity: White Date of : 1960 Indication: postmenopausal; screening for osteoporosis; parental hip fracture; height loss; seizure disorder; Referring Provider: YUMI MA Study: Bone densitometry was performed. Exam Date: March 05, 2023 Accession number: [id number] Bone Density: Region BMD T-score Z-score Classification AP Spine (L1, L2, L3) 1.318 2.7 4.4 Normal Femoral Neck (Right) 0.663 -1.7 -0.2 Osteopenia Total Hip (Right) 0.805 -1.1 0.1 Osteopenia World Health Organization criteria for BMD impression classify patients as: Normal (T-score at or above -1.0), Osteopenia (T-score between -1.0 and -2.5), or Osteoporosis (T-score at or below -2.5). 10-year Fracture Risk(1): Major Osteoporotic Fracture 17% Hip Fracture 1.0% Reported Risk Factors: [place] (), Neck BMD=0.663, BMI=32.8, parental fracture (1) FRAX(R) Version 3.08. Fracture probability calculated for an untreated patient. Fracture probability may be lower if the patient has received treatment. Clinical Information Provided by Patient: Parent has had a hip fracture Has used the following medications: Vitamin D, Calcium, LEVOTHYROXINE Has the following medical conditions: Any Seizure Disorders Patient maximum height was 65.5 Menopause Age: 44 No regular weight bearing exercise Drinks caffeinated beverages Onset of menses at age 9 Number of children 0 Impression: The patient has low bone mass, based on the Right Femoral Neck T-score. The patient has an estimated ten-year risk of hip fracture of 1% and an estimated ten-year risk of major fracture of 17%, based on the WHO FRAX algorithm. The patient has risk factors, including: parental hip fracture. Discussion: BONE DENSITY IS LOW AT ONE OR MORE SKELETAL SITES. This patient's lowest T-score is low at one or more skeletal sites. It meets the World Health Organization's (WHO) criteria for ?low bone mass? (T-score between -1.0 and -2.5). The patient's 10-year risk of fracture as calculated by FRAX is less than the threshold where pharmacological therapy is recommended by the National Osteoporosis Foundation (NOF). However, all treatment decisions require clinical judgment and consideration of individual patient factors, including patient preferences, comorbidities, previous drug use, risk factors not captured in the FRAX model (e.g., frailty, falls, vitamin D deficiency, increased bone turnover, interval significant decline in bone density) and possible under or overestimation of fracture risk by FRAX. The patient should follow a healthful lifestyle (good nutrition with adequate calcium and vitamin D, and appropriate weight-bearing exercise). Follow-Up: Consider repeating this study in 2 to 3 years to reassess this patient's status, or sooner if th
--- NOTE | ~2023-03-05 | DEXA_ITS ---
Bone Density Report Name: CHRISTI MEI Age: 62 Sex: Female Ethnicity: White Date of : 1960 Indication: postmenopausal; screening for osteoporosis; parental hip fracture; height loss; seizure disorder; Referring Provider: YUMI MA Study: Bone densitometry was performed. Exam Date: March 05, 2023 Accession number: [id number] Bone Density: Region BMD T-score Z-score Classification Total Forearm (Left) 0.394 -3.3 -1.7 1/3 Forearm (Left) 0.524 -2.8 -1.1 UD Forearm (Left) 0.270 -2.8 -1.5 World Health Organization criteria for BMD impression classify patients as: Normal (T-score at or above -1.0), Osteopenia (T-score between -1.0 and -2.5), or Osteoporosis (T-score at or below -2.5). Clinical Information Provided by Patient: Parent has had a hip fracture Has used the following medications: Vitamin D, Calcium, LEVOTHYROXINE Has the following medical conditions: Any Seizure Disorders Patient maximum height was 65.5 Menopause Age: 44 No regular weight bearing exercise Drinks caffeinated beverages Onset of menses at age 9 Number of children 0 Impression: The patient has osteoporosis, based on the Left Third Radius T-score. The patient has risk factors, including: parental hip fracture. Discussion: INCREASED RISK OF FRACTURE. BONE DENSITY IS UNDESIRABLY LOW AT ONE OR MORE SKELETAL SITES, CONSISTENT WITH POSTMENOPAUSAL OSTEOPOROSIS. This patient's lowest T-score meets the World Health Organization's (WHO) criteria for osteoporosis at one or more sites (T-score -2.5 or below). In untreated patients, the risk of osteoporotic fracture increases approximately two-fold for each 1.0 SD decrease in T-score. Low bone density is not the only risk factor for fracture; also consider factors such as patient's age, frailty or poor health, risk of falling, risk of injury, previous osteoporotic fracture, family history of osteoporosis, cigarette smoking, low body weight, etc. Not everyone with low bone mineral density has osteoporosis; osteomalacia and other metabolic bone disorders should also be considered. Patients who have osteoporosis should be evaluated for specific diseases and conditions (secondary causes) that may cause or contribute to bone loss. The [place] [employer]ocrin[employer] (AACE) and National Osteoporosis Foundation (NOF) recommend pharmacologic intervention for all postmenopausal women whose T-score is in this range. The patient should follow a healthful lifestyle (good nutrition with adequate calcium and vitamin D, and appropriate weight-bearing exercise). Follow-Up: Consider a repeat BMD and Vertebral Fracture Assessment (VFA) exam in 2 years or sooner if medically necessary, to reassess this patient's status. Reported by: [facility] on 03/05/2023 12:53:00 PM. Reviewed, dictated and finalized at location AKaykay MUNOZ
== END 2023-03-05 11:59 ==
LOC: MICIMG 12:00
PROVIDERS: PCP Obstetrics & Gynecology; Visit Provider Orthopaedic Surgery
DX: M81.0 Age-related osteoporosis without current pathological fracture (principal); M85.89 Other specified disorders of bone density and structure, multiple sites
CPT/HCPCS: 77080; 77081

== ENCOUNTER 2023-09-25 17:55 | Emergency (ER) | payer OTHER, BC, SELFPAY ==
[2023-09-25] VITALS (12 sets, daily range): BP systolic 119–183; BP diastolic 70–96; PULSE 68–83; RESP 10–36; TEMP 36.9; O2SAT 97–100
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
[2023-09-25] MEDS: ONDANSETRON INJ 4 MG/2 ML VIAL IV PUSH ×2 (18:31→19:36)
[2023-09-25 19:11] LABS: Basophils Absolute Auto 0.1 K/mm3 (0.0-0.1); Basophils Percent Auto 0.7 % (0.2-1.2); Eosinophils Absolute Auto 0.2 K/mm3 (0-0.3); Eosinophils Percent Auto 2.1 % (0-4.4); Hematocrit 36.8 % (37.0-47.0); Hemoglobin 12.4 g/dL (12.0-15.0); Immature Granulocyte Absolute 0.01 K/mm3 (0.00-0.031); Immature Granulocyte Percent A 0.1 % (0-0.5); Lymphocytes Absolute Auto 1.69 K/mm3 (0.9-3.2); Lymphocytes Percent Auto 22.4 % (18.3-44.2); Mean Corpuscular HGB Conc 33.7 g/dl (32-36); Mean Corpuscular Hemoglobin 28.2 pg (26-34); Mean Corpuscular Volume 83.6 fl (80-100); Mean Platelet Volume 8.8 fl (7.4-10.4); Monocytes Absolute Auto 0.7 K/mm3 (0.1-0.6); Monocytes Percent Auto 8.7 % (2.6-8.5); Platelet Count Result 290 k/mm3 (150-375); Red Cell Distribution Width 13.2 % (11.5-14.5); White Blood Count 7.6 K/mm3 (4.5-10.0)
[2023-09-25 19:21] LABS: Prothrombin Time 13.2 Seconds (11.1-14.7)
[2023-09-25 19:23] LABS: Partial Thromboplastin Time 31.1 Seconds (22.3-36.8)
[2023-09-25 19:26] LABS: Alanine Aminotransferase 20 U/L (6-35); Albumin Level 4.5 g/dL (3.5-5.1); Alkaline Phosphatase 95 U/L (38-126); Anion Gap 8 mmol/L (4-12); Aspartate Amino Transferase 25 U/L (14-36); Bilirubin,Total 0.5 mg/dL (0.2-1.3); Blood Urea Nitrogen 21 mg/dL (7-17); Carbon Dioxide 25 mmol/L (22-30); Chloride 99 mmol/L (98-107); Creatine Kinase 68 U/L (30-135); Estimated CRCL calculation 82 ml/min; Estimated Glomerular Filt Rate > 60; Glucose 101 mg/dL (65-110); Potassium 3.7 mmol/L (3.4-5.0); Sodium 132 mmol/L (137-145)
[2023-09-25 19:27] LABS: Lactic Acid Reflex 0.7 mmol/L (0.7-2.0)
[2023-09-25 19:39] LABS: Appearance Urine Clear (Clear); Bilirubin Urine Negative (Negative); Blood Urine Negative (Negative); Color Urine Yellow (Yellow); Glucose Urine UA Negative (Negative); Ketones Urine Negative (Negative); Leukocyte Esterase Ur Negative LEU/UL (Negative); Nitrate Urine Negative (Negative); Protein Urine Negative (Negative); Specific Grav Ur 1.009 (1.001-1.035); Urobilinogen Urine 0.2 mg/dL (<2.0); pH Urine 7.5 (5.0-9.0)
[2023-09-25 19:44] LABS: Add Urine Microscopic? NO
[2023-09-25] MEDS: TETANUS,DIPHTHERIA,AC PERTUSSIS ADULT (0.5 ML) BOOSTRIX IM (23:02)
== END 2023-09-25 23:13 | disposition home or self-care (01) ==
PROVIDERS: Emergency Provider Student in an Organized Health Care Education/Training Program; PCP Family Medicine
DX: S39.012A Strain of muscle, fascia and tendon of lower back, initial encounter (principal); F41.9 Anxiety disorder, unspecified; M19.90 Unspecified osteoarthritis, unspecified site; F32.A Depression, unspecified; G40.909 Epilepsy, unspecified, not intractable, without status epilepticus; I10 Essential (primary) hypertension; E78.5 Hyperlipidemia, unspecified; E03.9 Hypothyroidism, unspecified; M79.7 Fibromyalgia; V48.0XXA Car driver injured in noncollision transport accident in nontraffic accident, initial encounter; Z23 Encounter for immunization
CPT/HCPCS: 36415; 70450; 70496; 70498; 71260; 72125; 72129; 72132; 74177; 80053; 81003; 82550; 83605; 85025; 85610; 85730; 86850; 86900; 86901; 90471; 90715; 96374; 96376; 99284; J2405; Q9967

== ENCOUNTER 2024-01-02 15:46 | Outpatient (CLI) | payer BC, SELFPAY ==
--- NOTE | ~2024-01-02 | MM_ITS ---
EXAMINATION: MM screening lizbet BI w tl HISTORY: Screening mammogram TECHNIQUE: Craniocaudal and mediolateral oblique 3-D tomosynthesis images were obtained and synthetic 2-D images were generated. CAD analysis was submitted and interpreted. COMPARISON: 09/21/2021, 02/21/2019 BREAST PARENCHYMAL COMPOSITION:Not Dense. There are scattered areas of fibroglandular density. FINDINGS: No suspicious mass, calcification, or architectural distortion are identified in either seven ast to suggest malignancy. There has been no suspicious interval change. IMPRESSION: No mammographic evidence of malignancy. Recommend routine screening mammography in one year. BI-RADS Category 1: Negative Reviewed, dictated and finalized at location .
== END 2024-01-02 15:47 | disposition home or self-care (01) ==
LOC: ANHIMG 15:47
PROVIDERS: PCP Family Medicine; Visit Provider Nurse Practitioner Family
DX: Z12.31 Encounter for screening mammogram for malignant neoplasm of breast (principal)
CPT/HCPCS: 77063; 77067

== ENCOUNTER 2024-04-27 13:22 | Emergency (ER) | payer BC, SELFPAY ==
--- NOTE | 2024-04-27 13:29 | ED_ITS ---
HPI - General Adult General Chief complaint: Upper Respiratory Infection Stated complaint: upper respiratory Time Seen by Provider: 04/27/24 13:29 Source: patient Mode of arrival: ambulatory Limitations: no limitations History of Present Illness HPI narrative: 64-year-old female patient presents to [facility] with complaints of cold symptoms patient states last week when she got her COVID and influenza vaccine and states then has been having some sinus congestion, runny nose, fatigue, body aches and a cough. Patient states the cough got worse about 2 days ago. Denies any chest pain or shortness of breath. Patient states that she has been running just 99 fevers. Patient denies any fever today. Patient denies any abdominal pain, nausea, vomiting or diarrhea. Denies any ear pain or sore throat. Related Data Home Medications Medication Instructions Recorded Confirmed cholecalciferol (vitamin D3) 125 5,000 unit PO DAILY 04/22/19 04/27/24 mcg (5,000 unit) capsule pantoprazole 40 mg tablet,delayed 40 mg PO QAM 09/11/21 04/27/24 release (Protonix) ascorbic acid (vitamin C) 500 mg 500 mg PO DAILY 10/23/22 04/27/24 tablet calcium ER 600 mg (as carb,cit)-D3 1 tablet PO DAILY 10/23/22 04/27/24 12.5 mcg (500 unit) tablet, ext.rel (Citracal-D3 Slow Release) multivitamin 1 tablet PO DAILY 10/23/22 04/27/24 escitalopram oxalate 20 mg tablet 20 mg PO DAILY 09/28/23 04/27/24 (Lexapro) alosetron 1 mg tablet 1 mg DAILY 04/27/24 04/27/24 Allergies Allergy/AdvReac Type Severity Reaction Status Date / Time phenobarbital Allergy Unknown Rash Verified 04/27/24 13:34 Sulfa (Sulfonamide AdvReac Unknown Nausea and Verified 04/27/24 13:34 Antibiotics) Vomiting atorvastatin AdvReac Cough Verified 04/27/24 13:34 lisinopril AdvReac Cough Verified 04/27/24 13:34 Review of Systems Review of Systems: CONSTITUTIONAL: Denies fever, chills, or sweats. EYES: Denies visual changes, redness, or discharge. ENT: Denies rhinorrhea, congestion, sore throat, or otalgia. CARDIOVASCULAR: Denies chest pain, palpitations, or edema. RESPIRATORY: Denies cough or dyspnea. GASTROINTESTINAL: Denies abdominal pain, nausea, vomiting, or diarrhea. GENITOURINARY: Denies dysuria or hematuria. SKIN: Denies rash or itching. MUSCULOSKELETAL: Denies back pain, joint pain, or myalgia. NEUROLOGIC: Denies headache, numbness, or weakness. PSYCHIATRIC: Denies anxiety or depression. FOR[facility]LY [facility], [facility] Past Medical History Medical History Anemia Anxiety Arthritis Chronic bronchitis Chronic right hip pain Degenerative joint disease (DJD) of hip Depression Fibromyalgia Gallbladder disease Hallux rigidus, left foot HLD (hyperlipidemia) HTN (hypertension) Hypothyroid IBS (irritable bowel syndrome) Lipoma of back Pain of left hip Preoperative clearance PVC (premature ventricular contraction) Temporal lobe seizure Trochanteric bursitis of left hip URI (upper respiratory infection) Wears hearing aid Surgical History Surgical History H/O esophagogastroduodenoscopy History of appendectomy History of cholecystectomy History of total left hip replacement 11/06/2022 Hx of cervical spine surgery Titanium plate and screws Family History Family History Mother Family history of thyroid disease Hypertension Grandparent Family history of thyroid disease Family history of kidney disease Family history of Alzheimer's disease Father Diabetes mellitus Hypertension Family history of malignant neoplasm Family history of kidney disease Other Cerebrovascular accident Family history of arthritis Social History Social History Social History: She lives with her Bk. She has no children. 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 Code status full code Smoking status: Never smoker Second hand tobacco smoke exposure: No Additional smoking assessment comments: DENIES ANY FORM OF TOBACCO USE Alcohol intake: current Drinks per week: 1 Alcohol use details: ONE DRINK PER MONTH Substance use: never Substance use type: does not use Do You Feel Safe in your Home?: Yes Lack of Transportation: No Lack of Food: Never True Current Housing: I Have Housing Concerned About Future Housing: No Difficulty Paying Gas/Electric Bills: No Difficulty Paying for Meds: No Currently Unemployed: No Education: Master's Degree or Higher Difficulty w/ Childcare or Family Care: No Living arrangements: with family Occupation/Education: 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 There is no relevant family history perti nent to the presenting complaint. Exam Narrative: GENERAL: Well-appearing, well-nourished, and in no acute distress. HEAD: Normocephalic, atraumatic. EYES: PERRLA and EOMI. ENT: Nares With erythema edema noted bilaterally, no rhinorrhea or epistaxis. Mucous membranes moist. posterior pharynx with some postnasal drip present. Bilateral TMs are clear with no erythema or foreign bodies the canal. NECK: Supple. No lymphadenopathy CHEST: Clear to auscultation. No respiratory distress. Patient able talk in clear complete sentences. HEART: Regular rate and rhythm. No murmur heard. Normal peripheral pulses. ABDOMEN: Soft, nontender, nondistended, normal active bowel sounds. EXTREMITIES: Normal range of motion. No edema. SKIN: Warm, dry, no rash. NEURO: No focal deficits. Alert and oriented x3. Course Course Level of Care: Express Care Visit Vital Signs Vital signs: Vital Signs Temperature 36.6 C 04/27/24 13:35 Pulse Rate 84 04/27/24 13:35 Respiratory Rate 18 04/27/24 13:35 Blood Pressure 129/72 04/27/24 13:35 Pulse Oximetry 98 04/27/24 13:35 Oxygen Delivery Room Air 04/27/24 13:35 Temperature 36.6 C 04/27/24 13:35 Pulse Rate 84 04/27/24 13:35 Respiratory Rate 18 04/27/24 13:35 Blood Pressure 129/72 04/27/24 13:35 Pulse Oximetry 98 04/27/24 13:35 Oxygen Delivery Room Air 04/27/24 13:35 Vital signs reviewed. Medical Decision Making MDM Narrative Medical decision making narrative: Discussed with patient that her lungs sound nice and clear and I do not have any concerns for any pneumonia at this time. Discussed with her that this is most likely either a virus possibly immune reaction from after she got her vaccines. Discussed with patient that we will provide her some Tessalon Perles and some steroids to help with the coughing and sinus drainage she can also take [id number] 24 hour antihistamine as well as a Flonase to help with the symptoms discussed with patient if she has worsening symptoms the fever continues or the she develops chest pain or shortness of breath and the coughing does not improve I would highly that she either come back for re-evaluation or see her primary doctor. Patient verbalized understanding denies any other questions or concerns at this time. Differential Diagnosis Differential Diagnosis: Differential diagnosis: Allergic rhinitis, chronic sinusitis, tonsillitis, acute sinusitis, infectious mononucleosis, seasonal influenza, pertussis, diphtheria, meningococcal disease, viral syndrome, viral bronchitis, RSV, COVID- 19 Vital Signs Vital Signs: Vital Signs Temperature 36.6 C 04/27/24 13:35 Pulse Rate 84 04/27/24 13:35 Respiratory Rate 18 04/27/24 13:35 Blood Pressure 129/72 04/27/24 13:35 Pulse Oximetry 98 04/27/24 13:35 Oxygen Delivery Room Air 04/27/24 13:35 Temperature 36.6 C 04/27/24 13:35 Pulse Rate 84 04/27/24 13:35 Respiratory Rate 18 04/27/24 13:35 Blood Pressure 129/72 04/27/24 13:35 Pulse Oximetry 98 04/27/24 13:35 Oxygen Delivery Room Air 04/27/24 13:35 Critical Care Time Critical Care Time Critical Care Time: No Discharge Plan Discharge Clinical Impression: Viral URI with cough Patient Disposition: Home, Self-Care Condition: Stable Instructions: Antibiotic Form, Acute Cough (ED) Additional Instructions: Viral illness may last between 7-12days; antibiotic is NOT recommended at this time. Recommend antihistamine such as Benadryl at night time and Claritin/Zyrtec/Demetria during the day Cough syrup may cause drowsiness; avoid driving or take it at night time. Also, recommend symptomatic treatment includes: rest, fluids, and increase humidity of the air at home. Recommend Acetaminophen or nonsteroidal anti-inflammatory agents (NSAIDs) as directed in the bottle to reduce fever and/pain/headache. Avoid smoking/second-hand smoke. Limit visits to areas with large crowds. Please schedule a follow-up visit with your personal physician for further evaluation and treatment within 3-5days. Including recheck and discussion of your blood pressure. If your symptoms persist, change or worsen significantly before you can contact your personal physician then please, without delay, go to the emergency department for further evaluation. Prescriptions: New benzonatate 200 mg capsule 200 mg PO TID PRN (Reason: cough) 10 Days Qty: 30 0RF prednisone 20 mg tablet 20 mg PO DAILY 5 Days Qty: 5 0RF No Action alosetron 1 mg tablet 1 mg DAILY cholecalciferol (vitamin D3) 5,000 unit capsule 5,000 unit PO DAILY escitalopram oxalate [Lexapro] 20 mg tablet 20 mg PO DAILY tizanidine 4 mg tablet 4 mg PO TID PRN (Reason: muscle spasticity) Qty: 20 0RF spironolactone 25 mg tablet See Rx Instructions .ROUTE .COMPLEX Qty: 90 1RF Dose Instruction: TAKE 1 TABLET BY MOUTH DAILY Rx Instructions: TAKE 1 TABLET BY MOUTH DAILY albuterol sulfate [Ventolin HFA] 90 mcg/actuation HFA aerosol inhaler 2 puff inhalation Q4H PRN (Reason: shortness of breath or wheezing) Qty: 8.5 0RF rosuvastatin 5 mg tablet 5 mg PO DAILY Qty: 90 0RF calcium carb, citrate-vit D3 [Citracal-D3 Slow Release] 600 mg-12.5 mcg (500 unit) Tablet Extended Release 1 tablet PO DAILY ascorbic acid (vitamin C) 500 mg Tablet 500 mg PO DAILY multivitamin Tablet 1 tablet PO DAILY acetaminophen 500 mg Tablet 1,000 mg PO Q6HR Qty: 90 0RF pantoprazole [Protonix] 40 mg tablet,delayed release (DR/EC) 40 mg PO QAM carbamazepine [Tegretol XR] 200 mg tablet extended release 12 hr 400 mg PO .HS Qty: 180 2RF Patient Comments: TAKES 2 TABS AT HS Rx Instructions: name brand only losartan 100 mg tablet See Rx Instructions .ROUTE .COMPLEX Qty: 90 1RF Dose Instruction: TAKE 1 TABLET BY MOUTH DAILY Rx Instructions: TAKE 1 TABLET BY MOUTH DAILY diltiazem HCl 240 mg capsule,extended release 24 hr 240 mg PO DAILY Qty: 90 1RF levothyroxine 75 mcg tablet See Rx Instructions .ROUTE .COMPLEX Qty: 90 1RF Dose Instruction: TAKE 1 TABLET BY MOUTH DAILY Rx Instructions: TAKE 1 TABLET BY MOUTH DAILY hydralazine 10 mg tablet See Rx Instructions .ROUTE .COMPLEX Qty: 60 1RF Dose Instruction: TAKE 2 TABLETS BY MOUTH TWICE DAILY FOR HIGH BLOOD PRESSURE. DO NOT TAKE IF BLOOD PRESSURE IS AT OR BELOW 110/50 Rx Instructions: TAKE 2 TABLETS BY MOUTH TWICE DAILY FOR HIGH BLOOD PRESSURE. DO NOT TAKE IF BLOOD PRESSURE IS AT OR BELOW 110/50 Follow-up/Referrals: UNKNOWN,DOCTOR [Primary Care Provider] - Time of Disposition: 13:52
[2024-04-27 13:35] VITALS: BP 129/72; PULSE 84; RESP 18; TEMP 36.6; O2SAT 98
== END 2024-04-27 13:56 | disposition home or self-care (01) ==
PROVIDERS: Emergency Provider Nurse Practitioner Family
DX: J06.9 Acute upper respiratory infection, unspecified (principal); R05.9 Cough, unspecified; M79.7 Fibromyalgia; E78.5 Hyperlipidemia, unspecified; I10 Essential (primary) hypertension; E03.9 Hypothyroidism, unspecified; F41.9 Anxiety disorder, unspecified; F32.A Depression, unspecified; Z96.642 Presence of left artificial hip joint
CPT/HCPCS: 99213; G0463

== ENCOUNTER 2024-07-17 08:35 | Outpatient (CLI) | payer BC, SELFPAY ==
--- NOTE | ~2024-07-17 | US_ITS ---
EXAMINATION: US thyroid DATE: 07/17/2024 09:33 INDICATION: Goiter. TECHNIQUE: Multiple ultrasound images of the thyroid were obtained. COMPARISON: None. FINDINGS: The right thyroid lobe measures 4.7 x 1.8 x 2.0 cm. The left thyroid lobe measures 4.7 x 1.5 x 1.3 c m. In the right thyroid lobe, there is a 9 mm solid, hypoechoic, wider than tall nodule with ill-def ined margin without echogenic foci (TI-RADS TR4). In the right thyroid lobe, there is an 8 mm solid, hypoechoic, wider than tall nodule with ill-defined margin without echogenic foci (TR4). In the left thyroid lobe, there is a 12 mm solid, hypoechoic, wider than tall nodule with ill-defined margin and macrocalcification (TR4). IMPRESSION: 1. Small thyroid nodules. Thyroid ultrasound is recommended in one year. Reviewed, dictated and finalized at location A. FLAKER
--- OUTSIDE RECORDS SUMMARY | 2024-07-17 08:45 | XMS_ITS | Encounter Summary ---
Author Organization [facility] Address [facility] [place] [address] Care Team Providers Care Logging Assistant Name Role Phone YoshiTaryn Primary Care Provider [phone] Miguel Nguyen MD Unavailable [phone] Lenard Barr MD Primary Care Provider [phone] Encounter Details Date Type Department Care Team (Late st Contact Info) Description 08/28/2017 Abstract [facility] at [facility], [facility] [address] [place] [address] Asher Aparicio MA Social History Tobacco Use Types Packs/Day Years Used Date Smoking Tobacco: Never Smokeless Tobacco: Never Alcohol Use Standard Drinks/Week Comments Yes 0 (1 standard drink = 0.6 oz pur e alcohol) wine once a month Comments Unknown Sex and Gender Information Value Date Recorded Sex Assigned at Not on file Legal Sex Female 4:45 PM CDT Gender Identity Female 07/06/2021 4:30 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 [address] [place] [address] Loreta Ramirez PA [address] [facility], [address] [place] [address] 11/07/2024 2:40 PM CDT Office Visit [facility] [address] [id number] Nic Ricks MD [address] [facility] [address] [place] [address] documented as of this encounter Procedures Procedure Name Priority Date/Time Associated Diagnosis Comments FOLATE (OUTSIDE LAB) Routine 11/17/2020 CBC (OUTSIDE LAB) Routine 11/17/2020 VITAMIN B-12 Routine 11/17/2020 FREE T3 Routine 11/17/2020 COMPREHENSIVE METABOLIC PANEL Routine 11/17/2020 LIPID PANEL Routine 11/17/2020 HEMOGLOBIN, GLYCOSYLATED Routine 11/17/2020 THYROID STIM HORMONE TSH Routine 11/17/2020 VITAMIN D, 25 OH Routine 11/17/2020 COMPREHENSIVE METABOLIC PANEL Routine 08/10/2017 CBC (OUTSIDE LAB) Routine 06/01/2017 FREE T3 Routine 06/01/2017 THYROXINE, FREE (FT4) Routine 06/01/2017 THYROID STIM HORMONE TSH Routine 06/01/2017 MAGNESIUM Routine 06/01/2017 CBC (OUTSIDE LAB) Routine 03/10/2017 FREE T3 Routine 03/10/2017 COMPREHENSIVE METABOLIC PANEL Routine 03/10/2017 LIPID PANEL Routine 03/10/2017 THYROXINE, FREE (FT4) Routine 03/10/2017 documented in this encounter Results * HEMOGLOBIN, GLYCOSYLATED (11/17/2020) HGB A1C 5.3 % 11/17/2020 [facility] Final Result * VITAMIN D, 25 OH (11/17/2020) VITAMIN D 25 HYDROXY S/P/B 41 11/17/2020 us [facility] Final Result * FOLATE (OUTSIDE LAB) (11/17/2020) FOLATE 20.5 11/17/2020 us [facility] LAB-OUTSIDE/ABSTRACTED Final Result * VITAMIN B-12 (11/17/2020) VITAMIN B12 S/P/B 733 11/17/2020 us [facility] Final Result * CBC (OUTSIDE LAB) (11/17/2020) WBC 5.7 HGB 12.7 HCT 38.2 PLT 312 11/17/2020 us [facility] LAB-OUTSIDE/ABSTRACTED Final Result * FREE T3 (11/17/2020) FREE T3 3.0 11/17/2020 [facility] Final Result * THYROID STIM HORMONE, TSH (11/17/2020) TSH 1.15 11/17/2020 us [facility] Final Result * (ABNORMAL) COMPREHENSIVE METABOLIC PANEL (11/17/2020) Pathologist [facility] [place] SODIUM S/P/B 135 POTASSIUM S/P/B 4.7 CO2 31 CHLORIDE S/P/B 98 GLUCOSE 92 mg/dL CALCIUM S/P/B 9.2 BUN 18 CREATININE S/P/B 0.78 0.5 - 1.0 EGFR AFR. AMER. 94(A) <=90 EGFR NON-AFR. AMER. 81 <=90 ALKALINE PHOSPHATASE S/P/B 77 ALT 19 AST 15 BILIRUBIN TOTAL S/P/B 0.5 ALBUMIN S/P/B 4.4 3.5 - 5.0 TOTAL PROTEIN S/P/B 6.9 GLOBULIN 2.5 11/17/2020 us Doc [facility] Final Result * LIPID PANEL (11/17/2020) Pathologist [facility] [place] CHOLESTEROL 236 HDL 90 TRIGLYCERIDES 56 NON HDL CHOLESTEROL 146 LDL (CALCULATED) 131 11/17/2020 us Doc [facility] Final Result * COMPREHENSIVE METABOLIC PANEL (08/10/2017) Pathologist [facility] [place] SODIUM S/P/B 135 POTASSIUM S/P/B 4.4 CO2 30 CHLORIDE S/P/B 98 GLUCOSE 78 mg/dL CALCIUM S/P/B 9.5 BUN 16 CREATININE S/P/B 0.87 0.5 - 1.0 EGFR AFR. AMER. 85 <=90 EGFR NON-AFR. AMER. 73 <=90 ALKALINE PHOSPHATASE S/P/B 73 ALT 19 AST 14 BILIRUBIN TOTAL S/P/B 0.3 ALBUMIN S/P/B 4.3 3.5 - 5.0 TOTAL PROTEIN S/P/B 7.2 GLOBULIN 2.9 08/10/2017 us [facility] Final Result * CBC (OUTSIDE LAB) (06/01/2017) WBC 5.5 HGB 12.9 HCT 36.7 PLT 301 06/01/2017 us [facility] LAB-OUTSIDE/ABSTRACTED Final Result * FREE T3 (06/01/2017) FREE T3 2.8 06/01/2017 us [facility] Final Result * THYROXINE, FREE (FT4) (06/01/2017) FREE T4 1.4 06/01/2017 us [facility] Edited Resul t - Final * THYROID STIM HORMONE, TSH (06/01/2017) TSH 0.51 06/01/2017 us Doc [facility] Final Result * MAGNESIUM (06/01/2017) MAGNESIUM 2.1 06/01/2017 us Doc [facility] Final Result * THYROXINE, FREE (FT4) (03/10/2017) FREE T4 0.96 03/10/2017 us Doc [facility] Final Result * FREE T3 (03/10/2017) Pathologist [facility] [place] FREE T3 2.5 03/10/2017 us Doc [facility] Final Result * LIPID PANEL (03/10/2017) Pathologist [facility] [place] CHOLESTEROL 232 HDL 77 TRIGLYCERIDES 55 LDL (CALCULATED) 144 03/10/2017 us Doc [facility] Final Result * COMPREHENSIVE METABOLIC PANEL (03/10/2017) Pathologist [facility] [place] SODIUM S/P/B 131 POTASSIUM S/P/B 3.7 CO2 31 CHLORIDE S/P/B 91 GLUCOSE 86 mg/dL CALCIUM S/P/B 8.9 BUN 10 CREATININE S/P/B 0.74 0.5 - 1.0 EGFR NON-AFR. AMER. >60 <=90 ALKALINE PHOSPHATASE S/P/B 78 ALT 19 AST 15 BILIRUBIN TOTAL S/P/B 0.4 ALBUMIN S/P/B 3.9 3.5 - 5.0 TOTAL PROTEIN S/P/B 6.9 03/10/2017 us Doc [facility] Final Result * CBC (OUTSIDE LAB) (03/10/2017) [facility] [place] [facility] WBC 4.6 HGB 13.1 HCT 35.9 PLT 277 03/10/2017 us Doc [facility] LAB-OUTSIDE/ABSTRACTED Final Result documented in this encounter Visit Diagnoses Not on filedocumented in this encounter Care Teams Logging Assistant Relationship Specialty Start Date End Date Taryn Belle DO PCP - General FAMILY PRACTICE 07/05/17 07/04/22 Lenard Barr MD Counts include 234 beds at the [facility] [place] [address] PCP - General FAMILY PRACTICE 07/05/22 Miguel Nguyen MD [facility] [address] [place] [address] [place] [facility] Associate CARDIOVASCULAR DISEASE 07/27/17 documented as of this encounter
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
--- OUTSIDE RECORDS SUMMARY | 2024-07-17 08:45 | XMS_ITS | Data Portability ---
Author Organization [place] - [facility], Main Office Address [address] [place] [address] Care Team Providers Care Machine Staker Name Role Phone CARLOS BARR Primary Care Provider CARLOS BARR Referring Provider [phone] Assessment Encounter Date Assessment Date Assessment LastModified by Organization Details LastModified Time 10/11/2022 10/11/2022 Impression: Patient has severe osteoarthritis of the left hip. She has moderately severe superior joint space narrowing which has definitely progressed in only 4 and half months. She had intra-articular cortisone injection in the left hip 2 and half months ago on 07/31/2022. The MRI scan shows rather pronounced arthropathy change with diffuse bone marrow edema in the supra acetabular ileum and extensive subchondral cystic changes in the superolateral acetabulum which were present on the x-ray from 06/02/2022 but are now more pronounced. Also I think she has some fracturing through the thin remaining subchondral bone at the superolateral acetabular rim where there is extensive bone loss as seen in the MRI images due to subchondral cyst formation that location. I have discussed options with her. Her options are to continue living with this problem. It will not improve but will tend to progress with time. She is at some risk for continued rapid progression which can result in progressive fragmentation of the superolateral acetabulum which could potentially compromise acetabular shell fixation during hip replacement surgery. That is not predictable. She is not tolerating nonsteroidal anti-inflammatory medication currently. I would advise against any further cortisone injections in the setting of rapidly progressive osteoarthritis of the hip which can become destructive. This was explained to her. Her other option is to undergo total hip replacement. She is aware of this option and has decided that she would like to proceed with total hip replacement at this time. I have discussed with her my preference for direct anterior approach total hip replacement. I explained the OB numbness around the incision. I discussed risks of surgery with her in detail. She has had a little bit higher risk for complications because of her obesity. With her BMI of greater than 35 she would be a candidate for extended oral antibiotics after surgery. She has no personal or family history of DVT. I discussed my preference for using Eliquis for 5 weeks after surgery for DVT prophylaxis. She states that her teeth are fine. I explained that we would want her to take antibiotics before dental work in the future explained the risk of developing infection in a joint replacement if she has dental abscess or any other bacterial infection should arise during her lifetime. Risk of surgical complications such as fracture, component loosening, component wear and breakage, leg length discrepancy, dislocation of the hip were discussed . Risk of bleeding and transfusion, nerve injury discussed. Risk of medical complications such as heart attack stroke pulmonary embolism and were reviewed. Patient does have history of seizures and takes medication for that and there is risk of seizure perioperatively as well and risk of GI bleeding. She is currently taking pantoprazole to treat the ulceration her lower esophagus. Patient does take a baby aspirin daily. If she has coronary artery disease than she should continue with this. I would recommend that she consult with her binder fixer on that question. If she does continue with a baby aspirin she may have a little bit more blood loss during her surgery and it may increase the risk of her transfusion little bit. I explained that we would use [employer]. With her history of chest pain and her history of severe hypertension necessitating p.r.n. use of hydralazine, I would recommend that she have a thorough evaluation by her binder fixer before surgery for cardiac risk assessment. I have explained to her the possibility that may be developing a destructive rapidly progressive osteoarthritis problem in her left hip and it would be prudent for her to start using a walker cafeteria or lunchroom checker. 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 I would recommend we check a 25 hydroxy vitamin-D level and supplement it if it is low. She does take a calcium +D tablet 1200 mg 1 per day and 5000 units D3 1 per day. We will proceed as discussed. I have given her the Ortho info handout on total hip replacement as well as the direct anterior approach booklet . with respect to prophylaxis against heterotopic ossification, in her case, she has history of allergy to sulfa and intolerance to meloxicam and recent ulceration and her GE junction and risk of GI bleeding so I think the risk of complications from nonsteroidal anti-inflammatory medication be greater than the risk of her having clinically significant heterotopic ossification. 60 minutes were spent in total care this patient with more than half of this time spent in [id number] care. Not available 10/17/2022 18:58:24 11/17/2022 11/17/2022 HPI: Patient returns. She is 11 days out from left anterior total hip arthroplasty. Overall doing well. She is on her Eliquis. We did check her sodium since she has home and it was 130. She has not yet talked with primary care doctor about her hyponatremia and medications but is scheduled to do that. We did get a copy of bone density that was done in 2019 and her T-score was -2.3. We have reordered new 1. Bones were soft at the time surgery. She did have some bone loss of the acetabulum and we are having her use the walker for the 1st month. She has a couple more days of her doxycycline and 1 more day of her Celebrex. She is taking the Tylenol and the oxycodone. Physical exam: Patient appears to be doing well. She has no real complaints. She has some soreness around the incision area and in the thigh which is typical. Incisions well healed. No swelling in either lower extremity. She is walking with her walker. She is weight-bearing as tolerated. Impression: Patient is doing relatively well 11 days out left anterior total hip arthroplasty. Again she will continue with the walker to we see her back. She will remain on the Eliquis for her 5 week course. See her back at her 1 month follow-up with x-rays at that time Not available 11/17/2022 12:29:58 12/04/2022 12/04/2022 Patient returns up 4 weeks after left total hip arthroplasty direct anterior approach. She is doing well. She takes 1 oxycodone tablet at night and takes Tylenol for pain during the day if needed. She notes twinges of pain in the left hip with certain movements but otherwise is quite comfortable. She finished her 10 day course of Celebrex. She is taking Eliquis and has 7 more days remaining to take to complete the 5 week course. On exam today she is able to walk well with her walker. I showed her how to use a cane in the right hand and she walks well with that also. She does not feel she will require physical therapy. She feels ready to switch the cane now. Her incision looks perfect. She had glue remaining on the skin which we removed with isopropyl alcohol. She has no swelling in the knee calf or ankle. She would like to be released to health worker starting day after tomorrow as tolerated. I will see her back in 4 weeks assess her progress. She will keep practicing with her walking as her comfort allows. Not available 12/04/2022 15:08:55 01/01/2023 01/01/2023 HPI: Patient returns. She is 2 months out from left anterior total hip arthroplasty. At this point she is having no symptoms in the hip. She has been up and active is comfortable. She still carries the cane with her when she goes out of the house but is not using it around the house. Physical exam: Patient is walking very well. She is not lying on the cane at all. She has limp. No edema in either lower extremity. Impression: Patient is doing well 2 months out left anterior total hip arthroplasty. We will see her back at her 1 year follow-up with x-rays left hip at that time or sooner if she has problems. Long-term risk of infection was discussed. Not available 01/01/2023 14:26:05 Plan of Treatment Reminders Order Date Submit Date Provider Last Modified By Organization Details Last Modified Time Details Appointments None recorded. Lab vitamin D, 25-hydroxy, total, serum - fax results to 2022 023 BARBARA Not available 10:13:19 Referral None recorded. Procedures None recorded. Surgeries None recorded. Imaging XR, hip + pelvis, unilateral 2022 023 [facility] [place], [facility] [facility] [address], [place], [address], 10:08:46 XR, hip + pelvis, unilateral 2022 023 [facility] [place], [address], [place], [address], 14:41:08 Medication Orders None recorded. Patient TargetsNo targets recorded. Patient InstructionsNo instructions recorded. Reason for Referral None Reported. Results Created Date Observation Date Name Description Value Unit Range Abnormal Flag Note LastModifiedBy Organization Detail LastModifiedTime 10/12/19 XR, hip + pelvi s, unila teral No observ ation record ed. [facility] [address], [place], [address], 10/17/2022 18:46:01 10/12/1906/02/2022 XR, hip + pelvi s, bilat eral, 2 view No observ ation record ed. Not Available 2022 17:47:04 10/12/19 23 09/08/2022 MRI, hip, w/o contr ast No observ ation record ed. Not Available 2022 17:47:23 10/12/19 23 07/31/2022 CORTI SONE INJEC TION, HIP (PROC ) No observ ation record ed. Not Available 2022 17:47:45 11/07/19 23 11/06/2022 XR, knee No observ ation record ed. [address], [place], [address], 11/07/2022 12:04:30 11/07/19 23 11/06/2022 XR, hip, unila teral No observ ation record ed. [place] [id number] [facility] [address], [place], [address], 11/07/2022 12:05:07 11/07/19 23 07/26/2018 bone densi ty No observ ation record ed. Not Available 2022 15:49:00 11/18/1907/26/2018 DEXA No observ ation record ed. Not Available 2022 16:44:46 12/05/19 XR, hip + pelvi s, unila teral No observ ation record ed. [facility] [place] [address], [place], [address], 12/04/2022 15:07:22 03/05/20 23 03/05/2023 bone densi ty No observ ation record ed. [facility] [address], [place], [address], 03/06/2023 10:15:24 03/05/2003/05/2023 bone densi ty No observ ation record ed. [email or web address] [facility] [address], [place], [address], 03/13/2023 16:28:41 03/20/2003/05/2023 bone densi ty No observ ation record ed. [facility] [address], [place], [address], 03/20/2023 11:34:13 Result Notes None recorded. Problems Name Problem SNOMED Code Status Onset Date Resolution Date Notes Provider Name and Address Organization Details Recorded Time Pain of left hip joint 3464356707368 00 Active 2022 JOAQUÍN Rousseau, [employer] 3 10:00:23 Vitamin D deficiency 01597940 Active 2022 ANDREA Pro, [employer] 3 11:25:22 Osteoporosi s 02943387 Active 2022 ANDREA Pro, [facility] 3 12:22:46 Problem Notes None recorded. Procedures Surgical History Date Name Laterality Status Provider Name and Address Organization Details Recorded Time Back Surgery completed JOAQUÍN Rousseau [employer] 10/11/2022 10:16:45 procedure on neck completed Darcy stout [facility] 10/11/2022 10:16:52 Appendectomy completed Darcy Lizarraga [facility] 10/11/2022 10:17:06 Gallbladder Surgery completed Darcy Lizarraga [facility] 10/11/2022 10:17:13 Carpal tunnel completed Darcy Lizarraga [facility] 10/11/2022 10:17:23 Imaging Results Imaging Date Name Status LastModified by [facility] Details LastModified Time 10/11/2022 XR, hip + pelvis, unilateral completed [facility] [address] [facility] [address], [place], [address], 10/17/2022 18:46:01 06/02/2022 XR, hip + pelvis, bilateral, 2 view completed Information not available 10/11/2022 17:47:04 09/08/2022 MRI, hip, w/o contrast completed Information not available 10/11/2022 17:47:23 07/31/2022 CORTISONE INJECTION, HIP (PROC) completed Information not available 10/11/2022 17:47:45 11/06/2022 XR, knee completed [address], [place], [address], 11/07/2022 12:04:30 11/06/2022 XR, hip, unilateral completed [email or web address] [place] [address] [facility] [address], [place], [address], 11/07/2022 12:05:07 07/26/2018 bone density completed Information not available 11/08/2022 15:49:00 07/26/2018 DEXA completed Information no t available 11/17/2022 16:44:46 12/04/2022 XR, hip + pelvis, unilateral completed [facility] [address], [place], [address], 12/04/2022 15:07:22 03/05/2023 bone density completed [facility] [address], [place], [address], 03/06/2023 10:15:24 03/05/2023 bone density completed [facility] [address], [place], [address], 03/13/2023 16:28:41 03/05/2023 bone density completed [facility] [address], [place], [address], 03/20/2023 11:34:13 Procedure Notes None recorded. Medical Equipment None Reported. Allergies Allergen ID Allergen Name Allergen Category Reaction Reaction Severity Criticality Documentation Date Start Date Code Code System Note Provider Name and Address Organization Details Recorded Time 91431 phenobarb ital medicatio n Not available Not available Not available 10/11/2022 8134 RxNorm JOAQUÍN Rousseau [facility] [employer] 09:59:39 53045 Substance with sulfonami de structure and antibacte rial mechanism of action (substanc e) medicatio n Not available Not available Not available 10/11/2022 30002 8003 SNOMED JOAQUÍN Rousseau [facility] [employer] 3 09:59:46 Medications Name Sig Start Date Stop Date Status Note LastModified by Organization Details LastModified Time amoxicillin 500 mg capsule TAKE 4 CAPSULES 1 HOUR BEFORE DENTAL APPOINTME NT active Not Available Not Available No t Available cholestyram ine (bulk) powder 11/17 completed Not Available Not Available Not Available hydralazine 10 mg tablet TAKE 2 TABLETS BY MOUTH TWICE DAILY FOR HIGH BLOOD PRESSURE. DO NOT TAKE IF BLOOD PRESSURE IS AT OR BELOW 110/50 active Not Available Not Available No t Available polyethylen e glycol 3350 17 gram oral powder packet MIX AND DRINK 1 PACKET EVERY MORNING 06/16 /2023 completed Not Available Not Available Not Available atorvastati n 10 mg tablet Take 1 tablet every day by oral route. 11/17 completed Not Available Not Available Not Available tizanidine 4 mg tablet TAKE 1 TABLET BY MOUTH THREE TIMES A DAY NEEDED FOR MUSCLE SPASTICIT Y active Not Available Not Available No t Available Tegretol XR 200 mg tablet,exte nded release TAKE 2 TABLETS BY MOUTH AT BEDTIME active Not Available Not Available No t Available acetaminoph en 500 mg tablet TAKE 2 TABLETS BY MOUTH EVERY 6 HOURS active Not Available Not Available No t Available spironolact one 25 mg tablet TAKE 1 TABLET BY MOUTH EVERY DAY active Not Available Not Available No t Available levothyroxi ne 75 mcg tablet TAKE 1 TABLET BY MOUTH EVERY DAY active Not Available Not Available No t Available alosetron 1 mg tablet TAKE 1 TABLET BY MOUTH DAILY active Not Available Not Available No t Available pantoprazol e 40 mg tablet,jaymie yed release TAKE 1 TABLET BY MOUTH EVERY DAY active Not Available Not Available No t Available hyoscyamine 0.[address] by sublingua l route. active Not Available Not Available No t Available methylpredn isolone 4 mg tablets in a dose pack TAKE 6 TABLETS ON DAY 1 DIRECTED ON PACKAGE AND DECREASE BY 1 TAB EACH DAY FOR A TOTAL OF 6 DAYS active Not Available Not Available No t Available albuterol sulfate HFA 90 mcg/actuati on aerosol inhaler INHALE 2 PUFFS EVERY 4 HOURS NEEDED FOR WHEEZE OR FOR SHORTNESS OF BREATH active Not Available Not Available No t Available celecoxib 100 mg capsule TAKE 1 CAPSULE BY MOUTH DAILY 12/04 completed Not Available Not Available Not Available ondansetron 4 mg disintegrat ing tablet DISSOLVE 1 TABLET EVERY 8 HOURS NEEDED FOR NASUEA/VO MITING active Not Available Not Available No t Available losartan 100 mg tablet TAKE 1 TABLET BY MOUTH EVERY DAY active Not Available Not Available No t Available doxycycline hyclate 100 mg tablet TAKE 1 TABLET BY MOUTH EVERY 12 HOURS 12/04 completed Not Available Not Available Not Available oxycodone 5 mg tablet Take 1 tablet every 4 hours by oral route. 01/01 completed Not Available Not Available Not Available escitalopra m 10 mg tablet TAKE 1 TABLET BY MOUTH EVERY DAY active Not Available Not Available No t Available escitalopra m 20 mg tablet TAKE 1 TABLET BY MOUTH EVERY DAY active Not Available Not Available No t Available rosuvastati n 5 mg tablet TAKE 1 TABLET BY MOUTH NIGHTLY AT BEDTIME. active Not Available Not Available No t Available Vitamin C active Not Available Not Ashely ilable Not Available aspirin active Not Available Not Avail able Not Available naproxen 11/17 completed Not Available Not Available Not Available Tylenol 11/17 completed Not Available Not Available Not Available Citracal active Not Available Not Avai lable Not Available Brachial Plexus Tray 11/17 completed Not Available Not Available Not Available levocetiriz ine 5 mg tablet TAKE 1 TABLET BY MOUTH DAILY active Not Available Not Available No t Available Eliquis 2.5 mg tablet TAKE 1 TABLET BY MOUTH EVERY 12 HOURS 01/01 completed Not Available Not Available Not Available Stimulant Laxative Plus 8.6 mg-50 mg tablet TAKE 2 TABLETS BY MOUTH TWICE DAILY 12/04 completed Not Available Not Available Not Available Trintellix 10 mg tablet TAKE 1 TABLET BY MOUTH EVERY DAY 11/17 completed Not Available Not Available Not Available Trintellix 20 mg tablet Take 1 tablet every day by oral route. 12/04 completed Not Available Not Available Not Available Tiadylt ER 240 mg capsule,ext ended release TAKE 1 CAPSULE BY MOUTH DAILY active Not Available Not Available No t Available losartan potassium (bulk) active Not Available Not Available Not Available MK-7 active Not Available Not Availa ble Not Available Vitals Date Recorded Body height Body mass index (BMI) Body weight Provider Name and Address Organization Details Last Updated DateTime 10/11/2022 160.02 cm 38.1 kg/m2 65264.36 g Darcy Lizarraga [facility] [employer] 10/11/2022 10:21:35 Date Recorded Body height Provider Name an d Address Organization Details Last Updated DateTime 11/17/2022 160.02 cm Darcy Lizarraga [facility] [employer] [facility] [employer] 11/17/2022 11:17:56 Date Recorded Body height Provider Name an d Address Organization Details Last Updated DateTime 12/04/2022 160.02 cm Darcy Lizarraga [facility] [employer] [facility] 12/04/2022 14:21:10 Date Recorded Body height Provider Name an d Address Organization Details Last Updated DateTime 01/01/2023 160.02 cm JOAQUÍN Rousseau [place] [facility] 01/01/2023 14:04:50 Social History None recorded. Functional Status None recorded. Mental Status None recorded. Family History Relationship Description Onset Age of this Age Resolved Age Notes LastModified by Organization Details LastModified Time Father Family history of malignant neoplasm Not available 2022 10:15:30 Father Hypertensive disorder [email or web address] Not available 2022 10:15:54 Father Diabetes mellitus [email or web address] Not available 2022 10:16:11 Father Kidney disease [email or web address] Not available 2022 10:16:27 Mother Hypertensive disorder Not available 2022 10:15:54 Medical History Condition Response ARTHRITIS Y HYPERTENSION Y OSTEOPOROSIS Y Gynecological HistoryNo gynecological history recorded. Obstetrics History GPAL:G 0 P 0 0 0 0 Past Encounters Encounter ID Performer Location Encounter Start Date Encounter Closed Date Diagnosis/Indication Diagnosis SNOMED-CT Code Diagnosis ICD10 Code Diagnosis Note [id number] Lalo Smith MD [facility] [address] [place] [address] 10/11/2022 09:44:13 10/18/2022 14:41:08 Pain of left hip joint 4602789828 87070 M25.552 Vitamin D deficiency 347 83378 E55.9 [id number] DEEPIKA Lilly [facility] [address] [place] [address] 11/17/2022 11:08:44 11/17/2022 12:33:09 Pain of left hip joint 9845038744 32413 M25.552 [id number] Lalo Smith MD [facility] [address] [place] [address] 12/04/2022 14:18:11 12/04/2022 15:09:53 History of total replacement of left hip joint 1342472880 477416 Z96.642 [id number] DEEPIKA Lilly [facility] [address] [place] [address] 01/01/2023 14:02:02 01/01/2023 15:07:06 Pain of left hip joint 1786561951 20639 M25.552 Health Concerns Section Related Observation LastModified by Organization Detai ls LastModified Time None Recorded Concern Status LastModified by Organization Details LastModified Time None Recorded Advance Directives Directive None Recorded Payers Encounter Date Sequence Insurance Name Policy Number Policy Avilez Covered Member ID Avilez Member ID Guarantor Name 10/11/2022 1 [id number] Bk Gauthier [id number] Beata Brarwalter 11/17/2022 1 [place] [id number] Bk Parsonter [id number] Beata Buchwalter 12/04/2022 1 [place] [id number] Bk Gauthier [id number] Beata Buchwalter 01/01/2023 1 [place] [id number] Bk Gauthier [id number] Beatakristina Brarwalter Notes Date Note Type Note Provider Name and Address Organization Details Recorded Time 10/11/2022 text/html Patient is a 62-year-old female referred by Dr. Barr for evaluation of her left hip. She started having pain in her left hip approximately 8-10 months ago. She feels it in the left groin side of the hip thigh and knee. It bothers her walking climbing stairs and even lying in bed and sometimes she requires assistance putting on her underwear and pants. At time she feels a stinging sensation that radiates down her leg to her ankle. She denies pins and needle sensations or actual numbness. She can only walk about a quarter of a mi. She feels the left leg is become a little bit short. She has been limping more. She has tried naproxen 440 mg twice daily. Ten she tried meloxicam which she could not tolerate. She was started on a weight loss diet 1 month ago and has lost 10 lb in 1 month. Since starting her weight loss program she tried naproxen again and it bothers him quite a bit. Last fall she was diagnosed with shaft skis ring and underwent dilation of esophageal stricture and has a hiatal hernia. There was some ulceration in the distal esophagus according to patient. She had x-rays of both hips AP pelvis and the lumbar spine June 02, 2022 and I reviewed films. There is L4-5 posterior fusion with pedicle screws. She had moderate osteoarthritis changes of left hip. She had an MRI scan of her left hip on 09/08/2022 and it seemed that the joint space narrowing appeared much worse than on the previous x-rays and there is likely a fracture of the superior lateral acetabular rim with fracture line through subchondral bone at that location. There are extensive superolateral acetabular degenerative cysts through which the subchondral bone fracture is noted and mild subarticular marrow edema in the anterior superior femoral head. Incidental note was made of severe lumbar spondylosis changes with disc height loss at L3-4 and degenerative endplate remodeling changes the. Incidental note is made of a ganglion cyst arising from the right hip joint extending 1.9 cm proximal distal length between anterior right acetabulum and deep margin of right iliacus muscle. The abductor tendons looked intact. Reactive joint effusion moderate size was noted. There is rather diffuse bone marrow edema in the supra-acetabular ilium adjacent to where the extensive subchondral cystic changes are noted mild edema in the center of the femoral head and neck as well which is reactive due to severe arthropathy change.She had a cortisone shot under fluoroscopic guidance into the left hip on 07/31/2022, Prior to the MRI scan. Her past medical history is also significant for history of temporal lobe seizures. Her lumbar fusion was in 2007. She had cervical spine surgery in 2004. She does have history of bouts of severe hypertension and she uses hydralazine on as-needed basis. She has a binder fixer Dr.Anjan [facility] who she sees in [place]. She lists allergies to sulfa and phenobarbital. Lalo Smith MD [address] [place] [address], [facility] [address], [place], [address], [facility] [employer] 10/17/2022 18:58:42 OBGyn Episode No OBEpisode recorded.
--- OUTSIDE RECORDS SUMMARY | 2024-07-17 08:45 | XMS_ITS | Encounter Summary ---
Author Organization [facility] Address [facility] [place] [address] Care Team Providers Care Aircraft Motor Mechanic Name Role Phone Taryn Belle Primary Care Provider [phone] Miguel Nguyen MD Unavailable [phone] Lenard Barr MD Primary Care Provider [phone] Encounter Details Date Type Department Care Team (Latest Contact Info) Description 04/09/2018 Abstract [facility] , Rayna Gaming MD Social History Tobacco Use Types Packs/Day Years Used Date Smoking Tobacco: Never Smokeless Tobacco: Never Alcohol Use Standard Drinks/Week Comments Yes 0 (1 standard drink = 0.6 oz pur e alcohol) wine once a month Comments Unknown Sex and Gender Information Value Date Recorded Sex Assigned at Not on file Legal Sex Female 4:45 PM CDT Gender Identity Female 07/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. [facility] [address] [place] [address] Loreta Ramirez PA [address] [facility], [address] [place] [address] 11/07/2024 2:40 PM CDT Office Visit [facility] [address] [id number] Nic Ricks MD 3 [facility] [address] [place], [place] [id number] documented as of this encounter Visit Diagnoses Not on filedocumented in this encounter Care Teams Aircraft Motor Mechanic Relationship Specialty Start Date End Date Taryn Belle DO PCP - General FAMILY PRACTICE 07/05/17 07/04/22 Lenard Barr MD [address] [place] [address] PCP - General FAMILY PRACTICE 07/05/22 Miguel Nguyen MD Three [facility]. [address] [place] [address] [place] Skip Load Driver CARDIOVASCULAR DISEASE 07/27/17 documented as of this encounter
--- OUTSIDE RECORDS SUMMARY | 2024-07-17 08:45 | XMS_ITS ---
Author Organization [facility] [employer] Address [address] [place] [address] Care Team Providers Care Post Production Assistant Name Role Phone Rohan Jerry Unavailable [phone] Migration, Provider Unavailable Unavailable Allergies Allergen (clinical drug ingredient) Drug/Non Drug Allergy documented on EMR Reaction Allergy Type Onset Date Status Substance with sulfonamide structure and antibacterial mechanism of action (substance) SULFA (SULFONAMIDE ANTIBIOTICS) (uncoded) Unknown Allergy 11/30/2022 Active phenobarbital PHENobarbital Unknown Drug Allergy Active REASON FOR VISIT EMR-Arun Medications Medication SIG (Take, Route, Frequency, Duration) Notes Start Date End Date Status hydrALAZINE HCl 10 MG Oral 09/18/2023 Active Escitalopram Oxalate 10 MG Oral 09/18/2023 Active ALPRAZolam 0.5 MG Oral 09/18/2023 A ctive Ferrous Sulfate 325 (65 Fe) MG Oral 09/18/2023 Active TEGretol-XR 200 MG Oral 09/18/2023 Active Savella 50 MG Oral 09/18/2023 Activ e Rosuvastatin Calcium 5 MG Oral 09/18/2023 Active Viibryd 40 MG Oral 09/18/2023 Activ e DULoxetine HCl 30 MG Oral 09/18/2023 Active Atorvastatin Calcium 20 MG Oral 09/18/2023 Active Levocetirizine Dihydrochloride 5 MG Oral 09/18/2023 Active tiZANidine HCl 4 MG Oral 09/18/2023 Active ProAir HFA 108 (90 Base) MCG/ACT Inhalation 09/18/2023 Active Escitalopram Oxalate 20 MG Oral 09/18/2023 Active Spironolactone 25 MG Oral 09/18/2023 Active Ondansetron 4 MG Oral 09/18/2023 Ac tive Hyoscyamine Sulfate 0.125 MG Sublingual 09/18/2023 Active TIADYLT ER 240 MG CAPSULE,EXTENDED RELEASE *Reorder from [facility] for eRx and Interaction Alerts* 09/18/2023 Active Nitrofurantoin Monohyd Macro 100 MG Oral 09/18/2023 Active methylPREDNISolone 4 MG Oral 09/18/2023 Active DULoxetine HCl 60 MG Oral 09/18/2023 Active Acetaminophen Extra Strength 500 MG Oral 09/18/2023 Active Alosetron HCl 1 mg Oral 09/18/2023 Active Pantoprazole Sodium 40 MG Oral 09/18/2023 Active Levothyroxine Sodium 75 MCG Oral 09/18/2023 Active Losartan Potassium 100 MG Oral 09/18/2023 Active Amoxicillin 500 MG Oral 09/18/2023 Active Alosetron HCl 0.5 mg Oral 09/18/2023 Active Social History Sex Assigned At : Social History Observation Description Sex Assigned At Female [facility]ters En[facility] [address] [address] [facility]/21/[facility]23 Provider Migration Plan Of Treatment No Information Progress Notes * CHRISTI MEI JDOB:[birth year] (63 yo F)Acc No.[id number]:10/21/2023 Patient: CHRISTI HUERTA :1960 A ge:63 Y S ex:Female Address:[address] [place] [id number] Subjective: * Chief Complaints: * E MR-Arun * Medical History: * Federal Mediator History: M igrated GYNHistory M igrated GYNHistory:: Abnormal Pap: N Modified Date:05/02/2021,Age at First Child: 21 Modified Date:04/04/2023,Age at Menarche: 11 Modified Date:04/04/2023,Date of Last Mammogram: 06/04/2021 Modified Date:04/04/2023,LMP: Unknown Modified Date:04/04/2023,Sexual Problems: Y Modified Date:05/02/2021,Sexually Active: N Modified Date:05/02/2021, . * Surgical History: A ny surgical history Carpal tunnel surgery (85726) Removal of gallbladder (60785) Appendectomy (00752) Removal of ovarian cyst ([id number]) Cataract surgery (96016) Colectomy (81206) Procedure on neck ([id number]) Procedure on back ([id number]) * Hospitalization/Major Diagno stic Procedure: * Family History: U nspecified Relation: Depressive disorder . M aternal Aunt: Hypothyroidism . F ather: Hypothyroidism , Family history of cancer , Diabetes mellitus . M other: Hypothyroidism . M aternal Grandmother: Hypothyroidism . S ister: Hypothyroidism . * Social History: M igrated Social History: M igrated Social History: Alcohol Intake: Occasional 09/19/2019,Tobacco Years: Never smoker 09/19/2019. * Medications: T akingPantoprazole Sodium 40 MG Tablet Delayed Release Oral DULoxetine HCl 60 MG Capsule Delayed Release Particles Oral Levothyroxine Sodium 75 MCG Tablet Oral Acetaminophen Extra Strength 500 MG Tablet Oral Ondansetron 4 MG Tablet Disintegrating Oral TIADYLT ER 240 MG CAPSULE,EXTENDED RELEASE , Notes to Pharmacist: *Reorder from [employer] for eRx and Interaction Alerts*ALPRAZolam 0.5 MG Tablet Oral hydrALAZINE HCl 10 MG Tablet Oral Alosetron HCl 1 mg Tablet Oral Rosuvastatin Calcium 5 MG Tablet Oral ProAir HFA 108 (90 Base) MCG/ACT Aerosol Solution Inhalation tiZANidine HCl 4 MG Tablet Oral DULoxetine HCl 30 MG Capsule Delayed Release Particles Oral Escitalopram Oxalate 10 MG Tablet Oral Alosetron HCl 0.5 mg Tablet Oral Amoxicillin 500 MG Capsule Oral Losartan Potassium 100 MG Tablet Oral TEGretol-XR 200 MG Tablet Extended Release 12 Hour Oral Escitalopram Oxalate 20 MG Tablet Oral Levocetirizine Dihydrochloride 5 MG Tablet Oral Savella 50 MG Tablet Oral Viibryd 40 MG Tablet Oral Atorvastatin Calcium 20 MG Tablet Oral Ferrous Sulfate 325 (65 Fe) MG Tablet Oral Hyoscyamine Sulfate 0.125 MG Tablet Sublingual Sublingual methylPREDNISolone 4 MG Tablet Therapy Pack Oral Nitrofurantoin Monohyd Macro 100 MG Capsule Oral Spironolactone 25 MG Tablet Oral Taking Pantoprazole Sodium 40 MG Tablet Delayed Release Oral Taking DULoxetine HCl 60 MG Capsule Delayed Release Particles Oral Taking Levothyroxine Sodium 75 MCG Tablet Oral Taking Acetaminophen Extra Strength 500 MG Tablet Oral Taking Ondansetron 4 MG Tablet Disintegrating Oral Taking TIADYLT ER 240 MG CAPSULE,EXTENDED RELEASE , Notes to Pharmacist: *Reorder from [facility] for eRx and Interaction Alerts*Taking ALPRAZolam 0.5 MG Tablet Oral Taking hydrALAZINE HCl 10 MG Tablet Oral Taking Alosetron HCl 1 mg Tablet Oral Taking Rosuvastatin Calcium 5 MG Tablet Oral Taking ProAir HFA 108 (90 Base) MCG/ACT Aerosol Solution Inhalation Taking tiZANidine HCl 4 MG Tablet Oral Taking DULoxetine HCl 30 MG Capsule Delayed Release Particles Oral Taking Escitalopram Oxalate 10 MG Tablet Oral Taking Alosetron HCl 0.5 mg Tablet Oral Taking Amoxicillin 500 MG Capsule Oral Taking Losartan Potassium 100 MG Tablet Oral Taking TEGretol-XR 200 MG Tablet Extended Release 12 Hour Oral Taking Escitalopram Oxalate 20 MG Tablet Oral Taking Levocetirizine Dihydrochloride 5 MG Tablet Oral Taking Savella 50 MG Tablet Oral Taking Viibryd 40 MG Tablet Oral Taking Atorvastatin Calcium 20 MG Tablet Oral Taking Ferrous Sulfate 325 (65 Fe) MG Tablet Oral Taking Hyoscyamine Sulfate 0.125 MG Tablet Sublingual Sublingual Taking methylPREDNISolone 4 MG Tablet Therapy Pack Oral Taking Nitrofurantoin Monohyd Macro 100 MG Capsule Oral Taking Spironolactone 25 MG Tablet Oral * Allergies: S ULFA (SULFONAMIDE ANTIBIOTICS): Allergy - Onset Date 11/30/2022HENobarbital: Allergy - Onset Date 11/30/2022 Objective: * Vitals: * Physical Examination: Assessment: Plan: * Treatment: PDMP report request complete d on 01/03/2024 09:04:07 AM - Rohan Jerry Procedure Codes: * true * Date: Generated for Cordell ballesteros/Martha/Chandu on: 0 07/17/2024 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
--- OUTSIDE RECORDS SUMMARY | 2024-07-17 08:45 | XMS_ITS | Patient Health Record ---
Author Organization [facility] Address [address] [place] [address] Care Team Providers Care Rig Builder Helper Name Role Phone Kam Francis Primary Care Provider [phone] Reason For Referral No Information Immunizations Vaccine Route Administration Date Status Comme nts COVID-19 Vaccine Happy Kidz 2ND IM Intramuscular 05/25/2020 Administered EUA provided (publication date ). Pt tolerated well and denied questions or concerns. COVID-19 Vaccine Happy Kidz 2ND IM Intramuscular 06/11/2020 Administered Internet Marketing Coordinator: Meme. EUA given. Patient tolerated well. FLU VAC NO PRSV 4VAL 6 mo+ IM Intramuscular 03/19/2020 Administered Patient signed consent form. Patient tolerated well. VIS date 01/16/19 Plan Of Treatment No Information
--- OUTSIDE RECORDS SUMMARY | 2024-07-17 08:46 | XMS_ITS | Clinical Summary ---
Author Organization [facility] Address [address] [place] [address] Care Team Providers Care Manager Science Name Role Phone Miguel Nguyen MD Unavailable [phone] Lenard Barr MD Primary Care Provider [phone] Allergies Active Allergy Reactions Criticality Noted Date Comments Atorvastatin Unknown 07/20/2023 Phenobarbital Unknown 07/26/2017 Sulfa Antibiotics Unknown 04/26/2012 Medications TEGRETOL-XR 200 MG 12 hr tablet Take 2 tablets (400 mg total) by mouth daily. 4 07/23/19 18 Active levothyroxine 75 MCG tablet Take 1 tablet (75 mcg total) by mouth daily. 5 07/21/19 18 Active losartan 100 MG tablet Take 1 tablet (100 mg total) by mouth daily. 5 05/20/20 17 Active spironolactone 25 MG tablet Take 1 tablet (25 mg total) by mouth daily. 1 07/09/19 18 Active Menaquinone-7 (VITAMIN K2) 100 MCG Cap Take 1 capsule (100 mcg total) by mouth daily. 07/27/19 18 Active vitamin C 500 MG tablet Take 1 tablet (500 mg total) by mouth daily. 07/27/19 18 Active acetaminophen 325 MG tablet Take 2 tablets (650 mg total) by mouth 2 (two) times daily. And as needed 07/27/19 18 Active Cholecalciferol (VITAMIN D) 1000 UNIT tablet Take 1 tablet (1,000 Units total) by mouth daily. Active Levocetirizine Dihydrochloride 5 MG Tab Take 1 tablet (5 mg total) by mouth daily as needed. 0 05/13/20 18 Active hydrALAZINE 10 MG tablet Take 2 tablets (20 mg total) by mouth 2 (two) times daily. Evening dose is PRN 06/19/19 20 Active dilTIAZem ER 240 MG 24 hr capsule Take 1 capsule (240 mg total) by mouth daily. 06/09/19 21 Active HYOSCYAMINE 0.125 MG SL tabletIndications: Irritable bowel syndrome with diarrhea DISSOLVE 1 TABLET(0.12 5 MG) UNDER THE TONGUE EVERY 6 HOURS NEEDED FOR CRAMPING 360 tablet 1 08/09/19 22 Active cholestyramine (QUESTRAN) 4 GM/DOSE powderIndications: Diarrhea, unspecified type DISSOLVE 4GM(ONE SCOOPFUL) IN WATER AND DRINK TWICE DAILY BEFORE MEALS 378 g 2 06/08/19 23 Active calcium citrate-vitamin D (CITRACAL PETITES/VIT D) 200-6.25 MG-MCG Tab Take 1 tablet by mouth daily. Active escitalopram (LEXAPRO) 20 MG tablet Take 1 tablet (20 mg total) by mouth daily. 10/06/19 24 Active Alosetron HCl (LOTRONEX) 1 MG TabIndications:Irr itable bowel syndrome with diarrhea Take 1 tablet by mouth 2 (two) times daily. 60 tablet 11 11/06/19 24 025 Active Alosetron HCl 1 MG TabIndications:Irr itable bowel syndrome with diarrhea TAKE 1 TABLET BY MOUTH EVERY DAY 90 tablet 04/21/20 24 Active pantoprazole EC (PROTONIX) 40 MG tabletIndications: Schatzki's ring,Hiatal hernia TAKE 1 TABLET BY MOUTH EVERY DAY 90 tablet 1 04/22/20 24 Active rosuvastatin (CRESTOR) 5 MG tablet TAKE 1 TABLET BY MOUTH NIGHTLY AT BEDTIME. 90 tablet 1 07/01/19 25 Active rosuvastatin (CRESTOR) 5 MG tablet TAKE 1 TABLET BY MOUTH NIGHTLY AT BEDTIME. 90 tablet 1 01/01/20 24 025 Discontinued Active Problems Problem Noted Date Diagnosed Date Left lower quadrant pain 03/06/2022 Hiatal hernia 09/19/2021 Overview (09/19/2021): Added automatically from request for surgery [id number] Ulcer of esophagus without bleeding 09/19/2021 Overview (09/19/2021): Added automatically from request for surgery [id number] Pharyngoesophageal dysphagia 08/17/2021 Overview (08/17/2021): Added automatically from request for surgery [id number] Diarrhea, unspecified type 08/17/2021 Overview (08/17/2021): Added automatically from request for surgery [id number] Irritable bowel syndrome with diarrhea Overview (08/17/2021): Added automatically from request for surgery [id number] Schatzki's ring 08/17/2021 Overview (08/17/2021): Added automatically from request for surgery [id number] Obesity (BMI 30.0-34.9) 07/27/2017 Fibromyalgia 07/27/2017 PAC (premature atrial contraction) 07/27/2017 PVC (premature ventricular contraction) 07/27/19 18 PAT (paroxysmal atrial tachycardia) ([facility] [place] [facility]) 07/27/2017 Knee pain, left 10/13/2013 Rib pain on left side 08/28/2013 Lipoma 08/19/2013 Muscular aches 08/19/2013 Right shoulder pain 08/11/2013 Urinary frequency 08/11/2013 Urinary tract infection 08/11/2013 Muscle spasm 07/30/2013 Community acquired pneumonia 04/24/2013 Wheezing 04/24/2013 Cough 04/18/2013 Dermatofibroma 04/01/2013 Skin disorder 02/17/2013 Ingrowing toenail 01/24/2013 Depression 09/03/2012 Fatigue 07/21/2012 Hypothyroidism 07/21/2012 Arthralgia of toe, unspecified laterality 2011 Contusion of hand 04/26/2012 Contusion of hip 04/26/2012 Sprain of left wrist 04/26/2012 Palpitations Assessment & Plan (07/22/2022 10:36 AM EXTRACTIVE METALLURGIST): Symptoms are well controlled. Continue cardizem. Assessment & Plan (07/08/2021 8:17 AM EXTRACTIVE METALLURGIST): Previous HM obtained revealing isolated PACs PVCs and runs of premature atrial complexes. She underwent echocardiogram with Dr. jennings that showed normal left ventricular function and no significant valvular abnormalities. No issues at present Essential hypertension Assessment & Plan (07/22/2022 10:35 AM EXTRACTIVE METALLURGIST): Blood pressure is elevated today. Encouraged home blood pressure monitoring. Continue current antihypertensive regimen. No changes made to antihypertensive therapy. Assessment & Plan (07/08/2021 8:15 AM EXTRACTIVE METALLURGIST): Blood pressure is well controlled with no changes in regimen at this time Encouraged to continue to monitor at home and log and call office with any concerns in future. Hyperlipidemia Assessment & Plan (07/22/2022 10:36 AM EXTRACTIVE METALLURGIST): Lipids are elevated. She is intermediate risk for ASCVD and I have recommended that she start atorvastatin 20. Check lipids in 3 months. Assessment & Plan (07/08/2021 8:15 AM EXTRACTIVE METALLURGIST): Non known CAD or risk equivalent - Last lipid panel obtained 2017 - ASCVD 10 year risk based on those number is 5.8% - recommend lipid panel for review and encourage diet and exercise for risk modification. Resolved Problems Problem Noted Date Diagnosed Date Resolved Date Joint pain, hip 04/26/2012 07/20/2023 Immunizations Name Administration Dates Next Due Influenza Adult (Generic) 03/19/2020,03/04/2020 PFIZER COVID-19 (ORIGINAL FO RMULATION, PURPLE CAP) mRNA, LNP-S, PF, 30 MCG/0.3 ML DOSE 06/11/2020,05/25/2020 Tdap (Generic) 08/17/2013 Family History Relation Status Comments Brother 1 Alive Brother 2 Alive Father (Age 75) Maternal Grandfather (Age 86) Maternal Grandmother (Age 86) Mother Alive Paternal Grandfather (Age 74) Paternal Grandmother (Age 69) Sister Alive Social History Tobacco Use Types Packs/Day Years Used Date Smoking Tobacco: Never Smokeless Tobacco: Never Alcohol Use Standard Drinks/Week Comments Yes 0 (1 standard drink = 0.6 oz pur e alcohol) wine once a month PHQ-2 Answer Date Recorded Patient Health Questionnaire-2 Score 0 09/08/2022 Comments No Sex and Gender Information Value Date Recorded Sex Assigned at Not on file Legal Sex Female 4:45 PM CDT Gender Identity Female 07/06/2021 4:30 AM EXTRACTIVE METALLURGIST Sexual Orientation Not on file 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 on file Not on f ile Last Filed Vital Signs Vital Sign Reading Time Taken Comments Blood Pressure 134/66 11/06/2023 3:30 PM CDT Pulse 65 11/06/2023 3:30 PM CDT Temperature 36 C (96.8 F) 09/08/2022 3:04 PM CDT Respiratory Rate 12 11/06/2023 3:30 PM CDT Oxygen Saturation 98% 11/06/2023 3:30 PM CDT Inhaled Oxygen Concentration - - Weight 87.7 kg (193 lb 6.4 oz) 11/06/2023 3:30 P M CDT Height 165.1 cm (5' 5 ) 07/20/2023 1:52 PM EXTRACTIVE METALLURGIST Body Mass Index 32.18 07/20/2023 1:52 PM EXTRACTIVE METALLURGIST Plan of Treatment Upcoming Encounters Date Type Department Care Team (Late st Contact Info) Description 07/25/2024 10:45 AM EXTRACTIVE METALLURGIST [facility] [address] [place] [phone] Miguel Nguyen MD [facility]. [address] [place], [place] [phone] Loreta Ramirez PA [address] [facility], [address] [place], [place] [id number] 11/07/2024 2:40 PM CDT Office Visit [facility] [place] [address] [place] [address] Nic Ricks MD [address] [facility] [address] [place], [place] [phone] Health Maintenance Due Date Last Done Comments Colorectal Cancer Screening Colonoscopy (10 Years) 1960 Hepatitis C 1976 Zoster Vaccines (1 of 2) 2008 Mammogram Screening 07/11/2015 07/11/2013 RSV Immunization or 60+ Years (1 - Risk 60-74 years 1-dose series) 2018 Dexa Scan (General) 2023 07/11/2013 Pneumococcal Vaccine: 65+ Years (1 of 1 - PCV) 2023 DTaP, Tdap and Td Vaccines ( 2 - Td or Tdap) 08/18/2023 08/17/2013 COVID-19 Vaccine (3 - 2023-2 5 season) 2024 06/11/2020, 05/25/2020 Influenza Adult (#1) 2024 03/19/2020, 03/04/2020 PHQ-2 (Physician Kelly) 06/04/2024 09/08/2022 Meningococcal B Vaccine Aged Out No l onger eligible based on patient's age to complete this topic Meningococcal Vaccine Aged Out No concepcion fiona eligible based on patient's age to complete this topic RSV Immunizations Under 20 Months Aged Out No longer eligible b ased on patient's age to complete this topic Procedures Procedure Name Priority Date/Time Associated Diagnosis Comments MG SCREENING JULIA DIGI Routine 07/11/2013 3:48 PM EXTRACTIVE METALLURGIST BONE DENSITY/DEXA Routine 07/11/2013 2:3 3 PM EXTRACTIVE METALLURGIST from Last 3 Months or Most Recently Relevant to Health Maintenance Results * MG SCREENING JULIA DIGI (07/11/2013 3:48 PM EXTRACTIVE METALLURGIST) Anatomical Region Laterality Modality Breast Bilateral Mammography 07/11/2013 3:48 PM EXTRACTIVE METALLURGIST 07/11/2013 3:48 PM EXTRACTIVE METALLURGIST Narrative 07/11/2013 4:44 PM EXTRACTIVE METALLURGIST CHRISTI GAUTHIER MD: TYE VAZQUEZ ACCT: [id number] ADMIT/SERVICE DATE: 07/11/13 DISCHARGE DATE: : 1960 PT TYPE: REG CLI SEX: F ORD SITE: [facility] STUDY DATE REPORT # PROCEDURE CODE PROCEDURE 07/11/13 [id number] SCMAMDGB MG SCREEN MAMMO DIGITAL BI EXTORDERID [id number] CHART DOCUMENT DIVISION OF RADIOLOGY ACCESSION # EXAM DATE EXAM DESCRIPTION [id number] 07/11/2013 MG SCREEN MAMMO DIGITAL BI IMAGING STUDIES: BILATERAL SCREENING MAMMOGRAMS WITH COMPUTER DETECTION 07-11-2013 HISTORY: NO CURRENT COMPLAINTS. ROUTINE EXAM. FINDINGS: 1. BILATERAL SCREENING MAMMOGRAMS WITH COMPUTER DETECTION 07-11-2013. COMPARISON 10-19-2010 AND 12-11-2011 EXAMS. 2. MILD SCATTERED FIBROGLANDULAR TISSUE PATTERN IS SIMILAR IN OVERALL APPEARANCE. BENIGN NODULARITY AND BENIGN CALCIFICATIONS PRESENT. 3. NO MALIGNANT MICROCALCIFICATIONS, NEW DOMINANT MASSES OR ARCHITECTURAL DISTORTION. 4. NO SKIN THICKENING OR NIPPLE RETRACTION. AXILLARY REGIONS ARE WITHIN NORMAL LIMITS. CONCLUSION: 1. NO MAMMOGRAPHIC EVIDENCE OF MALIGNANCY. 2. BI RADS CATEGORY #2. ROUTINE YEARLY FOLLOW-UP IS SUGGESTED. MQSA MAMMOGRAM CLASSIFICATION BI-RADS CATEGORY 0-NEED ADDITIONAL IMAGING EVALUATION BI-RADS CATEGORY 1-NEGATIVE BI-RADS CATEGORY 2-BENIGN FINDINGS BI-RADS CATEGORY 3-PROBABLY BENIGN FINDING-SHORT INTERVAL FOLLOW UP SUGGESTED BI-RADS CATEGORY 4-SUSPICIOUS ABNORMALITY-BIOPSY SHOULD BE CONSIDERED BI-RADS CATEGORY 5-HIGHLY SUGGESTIVE OF MALIGNANCY-APPROPRIATE ACTION SHOULD BE TAKEN A. A NEGATIVE REPORT SHOULD NOT DELAY A BIOPSY IF A DOMINANT OR CLINICALLY SUSPICIOUS MASS IS PRESENT. B. ADENOSIS AND DENSE BREASTS MAY OBSCURE AN UNDERLYING NEOPLASM. C. COMPUTER AIDED DETECTION UTILIZED IN THE INTERPRETATION OF THIS STUDY ELECTRONICALLY SIGNED BY Yariel TAVAREZ MD 07/11/2013 16:42 PS/DJM 07/11/2013 3:48 P 07/11/2013 4:02 P JOB NO: DOC NO: [id number] CC: Procedure Note Rayna Coe MD - 03/27/2018 CHRISTI GAUTHIER ORDERING MD: TYE VAZQUEZ ACCT: [id number] ADMIT/SERVICE DATE: 07/11/13 DISCHARGE DATE: : 1960 PT TYPE: REG CLI SEX: F ORD SITE: [facility] STUDY DATE REPORT # PROCEDURE CODE PROCEDURE 07/11/13 [id number] SCMAMDGB MG SCREEN MAMMO DIGITAL BI EXTORDERID [id number] CHART DOCUMENT DIVISION OF RADIOLOGY ACCESSION # EXAM DATE EXAM DESCRIPTION [id number] 07/11/2013 MG SCREEN MAMMO DIGITAL BI IMAGING STUDIES: BILATERAL SCREENING MAMMOGRAMS WITH COMPUTER DETECTION 07-11-2013 HISTORY: NO CURRENT COMPLAINTS. ROUTINE EXAM. FINDINGS: 1. BILATERAL SCREENING MAMMOGRAMS WITH COMPUTER DETECTION 07-11-2013. COMPARISON 10-19-2010 AND 12-11-2011 EXAMS. 2. MILD SCATTERED FIBROGLANDULAR TISSUE PATTERN IS SIMILAR IN OVERALL APPEARANCE. BENIGN NODULARITY AND BENIGN CALCIFICATIONS PRESENT. 3. NO MALIGNANT MICROCALCIFICATIONS, NEW DOMINANT MASSES OR ARCHITECTURAL DISTORTION. 4. NO SKIN THICKENING OR NIPPLE RETRACTION. AXILLARY REGIONS ARE WITHIN NORMAL LIMITS. CONCLUSION: 1. NO MAMMOGRAPHIC EVIDENCE OF MALIGNANCY. 2. BI RADS CATEGORY #2. ROUTINE YEARLY FOLLOW-UP IS SUGGESTED. MQSA MAMMOGRAM CLASSIFICATION BI-RADS CATEGORY 0-NEED ADDITIONAL IMAGING EVALUATION BI-RADS CATEGORY 1-NEGATIVE BI-RADS CATEGORY 2-BENIGN FINDINGS BI-RADS CATEGORY 3-PROBABLY BENIGN FINDING-SHORT INTERVAL FOLLOW UP SUGGESTED BI-RADS CATEGORY 4-SUSPICIOUS ABNORMALITY-BIOPSY SHOULD BE CONSIDERED BI-RADS CATEGORY 5-HIGHLY SUGGESTIVE OF MALIGNANCY-APPROPRIATE ACTION SHOULD BE TAKEN A. A NEGATIVE REPORT SHOULD NOT DELAY A BIOPSY IF A DOMINANT ORCLINICALLY SUSPICIOUS MASS IS PRESENT. B. ADENOSIS AND DENSE BREASTS MAY OBSCURE AN UNDERLYING NEOPLASM. C. COMPUTER AIDED DETECTION UTILIZED IN THE INTERPRETATION OF THIS STUDY ELECTRONICALLY SIGNED BY Yariel TAVAREZ MD 07/11/2013 16:42 PS/DJM 07/11/2013 3:48 P 07/11/2013 4:02 P JOB NO: DOC NO: [id number] CC: Tye GONZALEZ MAMMO Final Result * BONE DENSITY/DEXA (07/11/2013 2:33 PM EXTRACTIVE METALLURGIST) Anatomical Region Laterality Modality Bone Bone Density 07/11/2013 2:33 PM EXTRACTIVE METALLURGIST 07/11/2013 2:33 PM EXTRACTIVE METALLURGIST Narrative 07/11/2013 3:42 PM EXTRACTIVE METALLURGIST CHRISTI GAUTHIER MD: TYE VAZQUEZ C ACCT: [id number] ADMIT/SERVICE DATE: 07/11/13 DISCHARGE DATE: : 1960 PT TYPE: REG CLI SEX: F ORD SITE: [facility] STUDY DATE REPORT # PROCEDURE CODE PROCEDURE 07/11/13 [id number] DEXASCAN XR DEXA SCAN EXTORDERID [id number] CHART DOCUMENT DIVISION OF RADIOLOGY ACCESSION # EXAM DATE EXAM DESCRIPTION [id number] 07/11/2013 XR DEXA SCAN IMAGING STUDIES: BONE DENSITY STUDY 07-11-2013 HISTORY: 53 Y/O FEMALE WITH MENOPAUSE IN 2004. NO CALCIUM SUPPLEMENTS. PRIOR HISTORY OF ACTONEL THERAPY. CONCLUSION: 07-11-2013 10-19-2010 1. L2-L4 LUMBAR SPINE A. BMD OF 1.303 GRAMS/CM. SQ. A. BMD OF 1.482 GRAMS/CM. SQ. B. T SCORE OF 2.0 B. T SCORE OF 2.4 C. NORMAL YOUNG ADULT RANGE T SCORE C. NORMAL YOUNG ADULT RANGE T SCORE D. NEGLIGIBLE FRACTURE RISK D. NEGLIGIBLE FRACTURE RISK 2. LEFT FEMORAL NECK A. BMD OF 0.768 GRAMS/CM. SQ. A. BMD OF 0.911GRAMS/CM.SQ. B. T SCORE OF -0.7 B. T SCORE OF -0.6 C. NORMAL YOUNG ADULT RANGE T SCORE C. NORMAL YOUNG ADULT RANGE T SCORE D. VERY LOW FRACTURE RISK D. VERY LOW FRACTURE RISK RECOMMENDATION: CONTINUATION OF REPLACEMENT THERAPY WITH REPEAT IMAGING IN TWO YEARS. ELECTRONICALLY SIGNED BY Yariel TAVAREZ MD 07/11/2013 15:41 PS/DJM 07/11/2013 2:33 P 07/11/2013 2:48 P JOB NO: DOC NO: [id number] CC: Procedure Note Rayna Coe MD - 03/28/2018 CHRISTI GAUTHIER ORDERING MD: TYE VAZQUEZ C ACCT: [id number] ADMIT/SERVICE DATE: 07/11/13 DISCHARGE DATE: : 1960 PT TYPE: REG CLI SEX: F ORD SITE: [facility] STUDY DATE REPORT # PROCEDURE CODE PROCEDURE 07/11/13 [id number] DEXASCAN XR DEXA SCAN EXTORDERID [id number] CHART DOCUMENT DIVISION OF RADIOLOGY ACCESSION # EXAM DATE EXAM DESCRIPTION [id number] 07/11/2013 XR DEXA SCAN IMAGING STUDIES: BONE DENSITY STUDY 07-11-2013 HISTORY: 53 Y/O FEMALE WITH MENOPAUSE IN 2004. NO CALCIUM SUPPLEMENTS. PRIOR HISTORY OF ACTONEL THERAPY. CONCLUSION: 07-11-2013 10-19-2010 1. L2-L4 LUMBAR SPINE A. BMD OF 1.303 GRAMS/CM. SQ. A. BMD OF 1.482 GRAMS/CM. SQ. B. T SCORE OF 2.0 B. T SCORE OF 2.4 C. NORMAL YOUNG ADULT RANGE T SCORE C. NORMAL YOUNG ADULT RANGE T SCORE D. NEGLIGIBLE FRACTURE RISK D. NEGLIGIBLE FRACTURE RISK 2. LEFT FEMORAL NECK A. BMD OF 0.768 GRAMS/CM. SQ. A. BMD OF 0.911GRAMS/CM.SQ. B. T SCORE OF -0.7 B. T SCORE OF -0.6 C. NORMAL YOUNG ADULT RANGE T SCORE C. NORMAL YOUNG ADULT RANGE T SCORE D. VERY LOW FRACTURE RISK D. VERY LOW FRACTURE RISK RECOMMENDATION: CONTINUATION OF REPLACEMENT THERAPY WITH REPEAT IMAGING IN TWO YEARS. ELECTRONICALLY SIGNED BY Yariel TAVAREZ MD 07/11/2013 15:41 PS/JORDY 07/11/2013 2:33 P 07/11/2013 2:48 P JOB NO: DOC NO: [id number] CC: Tye GONZALEZ DEXA Final Result from Last 3 Months or Most Recently Relevant to Health Maintenance Insurance Care Teams Manager Science Relationship Specialty Start Date End Date Lenard Barr MD [address] [place] [id number] PCP - General FAMILY PRACTICE 07/05/22 Miguel Nguyen MD [facility] [address] [place] [address] Filomena Clinical Nursing Professor CARDIOVASCULAR DISEASE 07/27/17
--- OUTSIDE RECORDS SUMMARY | 2024-07-17 08:46 | XMS_ITS | Patient Health Record ---
Author Organization [facility] [employer] Address [address] [place] [address] Care Team Providers Care Getter Welder Name Role Phone Rohan Jerry Unavailable [phone] Migration, Provider Unavailable Unavailable Allergies Allergen (clinical drug ingredient) Drug/Non Drug Allergy documented on EMR Reaction Allergy Type Onset Date Status Substance with sulfonamide structure and antibacterial mechanism of action (substance) SULFA (SULFONAMIDE ANTIBIOTICS) (uncoded) Unknown Allergy 11/30/2022 Active phenobarbital PHENobarbital Unknown Drug Allergy Active Reason For Referral No Information Medications Medication SIG (Take, Route, Frequency, Duration) Notes Start Date End Date Status Pantoprazole Sodium 40 MG Oral 09/18/2023 Active tiZANidine HCl 4 MG Oral 09/18/2023 Active Escitalopram Oxalate 20 MG 1 tablet Oral Once a day for 90 days 09/18/2023 Active Levothyroxine Sodium 75 MCG Oral 09/18/2023 Active Hyoscyamine Sulfate 0.125 MG Sublingual 09/18/2023 Active Acetaminophen Extra Strength 500 MG Oral 09/18/2023 Active Alosetron HCl 0.5 mg Oral 09/18/2023 Active hydrALAZINE HCl 10 MG Oral 09/18/2023 Active Rosuvastatin Calcium 5 MG Oral 09/18/2023 Active ProAir HFA 108 (90 Base) MCG/ACT Inhalation 09/18/2023 Active Losartan Potassium 100 MG Oral 09/18/2023 Active Spironolactone 25 MG Oral 09/18/2023 Active ALPRAZolam 0.5 MG Oral 09/18/2023 A ctive TEGretol-XR 200 MG Oral 09/18/2023 Active TIADYLT ER 240 MG CAPSULE,EXTENDED RELEASE *Reorder from Jajah for eRx and Interaction Alerts* 09/18/2023 Active Immunizations Vaccine Route Administration Date Status Comme nts Tdap Unknown 08/17/2013 Administered Tdap Unknown 03/09/2017 Administered Pfizer Biontech Covid-19 Vac cine 2nd dose Unknown 05/25/2020 Administered Pfizer Biontech Covid-19 Vac cine 2nd dose Unknown 06/11/2020 Administered Pfizer Biontech Covid-19 Vac cine 2nd dose Unknown 04/08/2021 Administered Influenza, seasonal, injecta ble, preservative free, 3 yrs and above Unknown 03/04/2020 Administered Influenza, high dose seasonal Unknown 04/04/2016 Admini stered Influenza virus vaccine, quadrivalent (IIV4), split virus, 0.25 mL dosage Unknown 03/23/2019 Administered Social History Sex Assigned At : Social History Observation Description Sex Assigned At Female Vital Signs Height-cm 165.10 cm 01/03/2024 Weight-kg 89.36 kg 01/03/2024 Height 65.00 in 01/03/2024 Weight 197 lbs 01/03/2024 BMI 32.78 kg/m2 01/03/2024 Encounters Encounter Location Date Provider Diagnosis [facility] [place] [address] [facility] [address] [address] 09/18/2023 Rohan Jerry Post-traumatic stress disorder, chronic F43.12 ; Generalized anxiety disorder F41.1 and Major depressive disorder, recurrent, mild F33.0 [facility] [address] [address] 01/03/2024 Rohan Jerry Generalized anxiety disorder F41.1 ; Post-traumatic stress disorder, chronic F43.12 ; Other fatigue R53.83 ; Primary insomnia F51.01 and Depression, major, recurrent, in remission F33.[address] [address] 08/24/[address] [facility] [place] [address] [facility] [address] [address] 10/20/[address] [facility] [address] [address] 10/21/2023 Provider Migration Assessments Encounter Date Diagnosis (ICD Code) Assessment Notes Treatment Notes Treatment Clinical Notes Section Notes 09/18/2023 Major depressive disorder, recurrent, mild (ICD-10 - F33.0) 09/18/2023 Generalized anxiety disorder (ICD-10 - F41.1) 09/18/2023 Post-traumatic stress disorder, chronic (ICD-10 - F43.12) 01/03/2024 Generalized anxiety disorder (ICD-10 - F41.1) [...] increased need for Alprazolam. Plan Of Treatment No Information Insurance Providers Payer Name Payer Address Payer Phone Subscriber Number Group Number Insured Name Patient Relationship to Insured Coverage Start Date Coverage End Date [employer] [address] [place] [address] [id number] CHRISTI GOLDBERG Self - patient is the insured Medical (General) History Medical History History ICD Code Problems: Acute bronchitis Anemia Chronic post-traumatic stress disorder Costal chondritis Dizziness Fatigue Generalized anxiety disorder Hyperlipidemia Hypertensive disorder Hyponatremia Impairment of balance Irritable bowel syndrome Lipoma of back Long-term drug therapy Mild recurrent major depression Moderate recurrent major depression Primary insomnia , Surgical History Surgery Date(Month/Year) Removal of gallbladder (87230) Procedure on neck (246487219) Removal of ovarian cyst (556480495) Any surgical history Cataract surgery (08041) Carpal tunnel surgery (75963) Colectomy (72730) Appendectomy (16026) Procedure on back ([id number])
--- OUTSIDE RECORDS SUMMARY | 2024-07-17 08:46 | XMS_ITS | Referral Summary ---
Author Organization [facility] Address [address] [place] [address] Care Team Providers Care Hydrogen Plant Operations Manager Name Role Phone Taryn Belle DO Primary Care Provider + Allergies Active Allergy Reactions Criticality Noted Date Comments Phenobarbital Hives Medium 12/31/2017 Sulfa (Sulfonamide Antibiotics) Nausea only Low Medications levothyroxine sodium (TIROSINT) 75 mcg capsule Take 75 mcg by mouth every morning. Active losartan (COZAAR) 50 mg tablet Take 50 mg by mouth every morning. Active diltiaZEM (CARDIZEM) 120 mg tablet Take 120 mg by mouth daily . Active spironolactone (ALDACTONE) 25 mg tablet Take 25 mg by mouth exercise teacher before breakfast. Active vilazodone (VIIBRYD) 40 mg tabletIndication s:major depressive disorder Take 40 mg by mouth every morning. Active carBAMazepine (TEGretol) 200 mg tablet Take 400 mg by mouth daily . Active folic acid (FOLVITE) 1 mg tablet Take 1 mg by mouth every morning. Active phytonadione, vit K1, (PHYTONADIONE, VITAMIN K1,) 100 mcg tablet Take 100 mcg by mouth every morning. Active acetaminophen (TYLENOL) 500 mg tablet Take 1,000 mg by mouth 2 (two) times a day as needed for pain. Active UNABLE TO FIND - ENTER DRUG NAME IN NOTES TO PHARMACY Med Name: [facility] Living Omegagize 2 caps AM Active UNABLE TO FIND - ENTER DRUG NAME IN NOTES TO PHARMACY Med Name: [facility] Living Sulfurzyme 1 tab per day in am Active UNABLE TO FIND - ENTER DRUG NAME IN NOTES TO PHARMACY Med Name: Multi Collagen 1 tab in AM Active glucosamine-flores droitin 500-400 mg capsule Take 3 capsules by mouth every morning. Active lactobacillus comb no.10 20 billion cell capsule Take by mouth. Activ e UNABLE TO FIND - ENTER DRUG NAME IN NOTES TO PHARMACY Med Name: Plexus XFactor Plus 1 tab in am Active aspirin 81 mg tablet Take 1 tablet (81 mg total) by mouth nightly. May resume in 7 days 8 Active cholecalciferol (VITAMIN D3) 2,000 unit capsule Take 2,000 Units by mouth daily . Active alosetron (LOTRONEX) 0.5 mg tabletIndication s:Diarrhea Predominant Irritable Bowel Syndrome Take 0.5 mg by mouth daily Indications: Diarrhea Predominant Irritable Colon. Active CALCIUM ORAL Take 1,600 mg by mouth daily . Active hydrALAZINE (APRESOLINE) 10 mg tabletIndication s:hypertension Take 20 mg by mouth 2 (two) times a day Active Active Problems Problem Noted Date Diagnosed Date Status post lumbar spinal fusion 08/14/2019 Assessment & Plan (08/14/2019 3:45 PM CDT): Ms. Gauthier is doing extremely well after posterior lumbar decompression and fusion at L4-5. She does not have any signs of radiculopathy or significant back pain. She does have a degenerative scoliosis of her lumbar spine. I will repeat some x-rays in two years time to make sure that this does not radiographically progress. She will call our office for an appointment around that time. We will get AP and lateral lumbar spine films at that visit for comparison. Resolved Problems Problem Noted Date Diagnosed Date Resolved Date Lumbar stenosis 08/08/2018 08/14/2019 Assessment & Plan (08/08/2018 5:30 PM RETAIL SUPPORT MANAGER): Ms. Gauthier is doing extremely well after lumbar decompression and fusion. She has had relief of her preoperative leg symptoms. She is working without any problems. I discussed with her that I think it is okay for her chiropractor to to the treatments of her low back without any restrictions. I plan to see her back in 1 year's time with AP and lateral lumbar spine films at that time. Social History Tobacco Use Types Packs/Day Years Used Date Smoking Tobacco: Never Smokeless Tobacco: Never Alcohol Use Standard Drinks/Week Comments Yes 0 (1 standard drink = 0.6 oz pur e alcohol) 1-2 per month Comments No Sex and Gender Information Value Date Recorded Sex Assigned at Not on file Legal Sex Female 10:51 AM CDT Gender Identity Not on file Sexual Orientation Not on file Last Filed Vital Signs Vital Sign Reading Time Taken Comments Blood Pressure 103/80 02/08/2018 8:01 AM CDT Pulse 98 02/08/2018 8:01 AM CDT Temperature 37.4 C (99.4 F) 02/08/2018 8:01 AM CDT Respiratory Rate 12 08/14/2019 2:14 PM CDT Oxygen Saturation 98% 02/08/2018 8:01 AM CDT Inhaled Oxygen Concentration - - Weight 89.1 kg (196 lb 6.4 oz) 08/14/2019 2:14 P M CDT Height 163.8 cm (5' 4.5 ) 08/14/2019 2:14 PM CDT Body Mass Index 33.19 08/14/2019 2:14 PM CDT Plan of Treatment Not on file Medical Devices Implanted Type Area Shelter Monitor Device Identifier Shelf Expiration Date Model / Serial / Lot Core Link [id number] West Point 6.5mm 40mm Spine Pedicle Screw Bone 5500 Series - [id number] Implanted:Qty: 4 on 02/06/2018 by Boogie Wesley MD at [facility] Screw N/A: Lumbar-Sacral Spine Core Link [id number] / / Core Link [id number] [place] Point Screw Set 5500 Series - [id number] Implanted:Qty: 4 on 02/06/2018 by Boogie Wesley MD at [facility] Screw N/A: Vertebrae Core Link [id number] / / Core Link [id number] West Point 5.5mm 35mm Line Prebent Estevan Spinal Nonsterile 5500 Series - [id number] Implanted:Qty: 1 on 02/06/2018 by Boogie Wesley MD at [facility] N/A: Vertebrae Core Link [id number] / / Core Link [id number] West Point 5.5mm 40mm Line Prebent Estevan Spinal Nonsterile 5500 Series - [id number] Implanted:Qty: 1 on 02/06/2018 by Boogie Wesley MD at [facility] N/A: Vertebrae Core Link [id number] / / [place] [address] [place] [address] Advance Directives For more information, please contact: [phone] * Full Code (Latest Code Status on File) Date Activated Date Inactivated Comments 02/06/2018 12:33 PM 02/08/2018 2:59 PM Care Teams Hydrogen Plant Operations Manager Relationship Specialty Start Date End Date Taryn Belle DO [address] [place] [address] PCP - General 03/25/18
--- OUTSIDE RECORDS SUMMARY | 2024-07-17 08:46 | XMS_ITS ---
Author Organization [facility] Address [address] [place] [address] Care Team Providers Care Interventional Sale Consultant Name Role Phone Rohan Jerry Unavailable [phone] Migration, Provider Unavailable Unavailable REASON FOR VISIT [facility] Social History Sex Assigned At : Social History Observation Description Sex Assigned At Female Encounters Encounter Location Date Provider Diagnosis [facility] gis.to [facility] [address] [place] [address] 10/20/2023 Provider Migration Plan Of Treatment No Information Progress Notes * CHRISTIANORADHA CHRISTI MikeDOB:[birth year] (63 yo F)Acc No.[id number]:10/20/2023 Patient: CHRISTI HUERTA :1960 A ge:63 Y S ex:Female Address:[address] [place] [address] Subjective: * Chief Complaints: * E MR-Arun * Medical History: * Surgical History: * Hospitalization/Major Diagno stic Procedure: * Medications: Objective: * Vitals: * Physical Examination: Assessment: Plan: * Treatment: PDMP report request complete d on 01/03/2024 09:04:07 AM - Rohan Jerry * Procedure Codes: * true * Date: Generated for Printi ng/Faxing/eTransmitting on: 0 07/17/2024 08:45 AM TRAVELING REPAIR ACCOUNTANT
--- OUTSIDE RECORDS SUMMARY | 2024-07-17 08:46 | XMS_ITS | Clinical Summary ---
Author Organization [facility] Address [address] [place] [address] Care Team Providers Care Dentist Attendant Name Role Phone Taryn Belle DO Primary [...] mg tablet Take 25 mg by mouth taker off hemp fiber before breakfast. Active vilazodone (VIIBRYD) 40 mg [...] 08/14/2019 Assessment & Plan (08/08/2018 5:30 PM METAL FURNITURE POLISHER): Ms. Gauthier is doing extremely well after [...] lateral lumbar spine films at that time. Surgical History Surgery Date Site/Laterality Comments APPENDECTOMY CHOLECYSTECTOMY OVARIAN CYSTECTOMY BREAST LUMPECTOMY CERVICAL FUSION CARPAL TUNNEL RELEASE LUMBAR FUSION 02/02/2018 - 03/03/2018 L4-5 Lumbar Fusion (Dr. Wesley) Medical History Medical History Date Comments Postmenopausal Seizure, temporal lobe (CMS/HCC) (HCC) Presents as wave sensation. Fully aware during. Last seizure about 1 year ago Hearing loss Hypertension Depression Heart palpitations PVCs, PACs--- noted on holter in June 2017. Followed with Dr Izquierdo for cardiology. Also had neg echo Lumbar stenosis Hypothyroidism Fibromyalgia Delayed emergence from general anesthesia PONV (postoperative nausea and vomiting) Obesity (BMI 30-39.9) BMI 32 Uterine fibroid Social History Tobacco Use Types Packs/Day Years [...] on file Sexual Orientation Not on file Obstetrics History Last Filed Vital Signs Vital Sign Reading [...] on file Medical Devices Implanted Type Area Portrait Studio Photographer Device Identifier Shelf Expiration Date Model / Serial / Lot Core Link [id number] Conesus 6.5mm 40mm Spine Pedicle Screw Bone 5500 Series - [id number] Implanted:Qty: 4 on 02/06/2018 by Boogie Wesley MD at [facility] Screw N/A: Lumbar-Sacral Spine Core Link [id number] / / Core Link [id number] Conesus Screw Set 5500 Series - [id number] Implanted:Qty: 4 on 02/06/2018 by Boogie Wesley MD at [facility] Screw N/A: Vertebrae Core Link [id number] / / Core Link [id number] Conesus 5.5mm 35mm Line Prebent Estevan Spinal Nonsterile 5500 Series - [id number] Implanted:Qty: 1 on 02/06/2018 by Boogie Wesley MD at [facility] N/A: Vertebrae Core Link [id number] / / Core Link [id number] Conesus 5.5mm 40mm Line Prebent Estevan Spinal Nonsterile 5500 Series - [id number] Implanted:Qty: 1 on 02/06/2018 by Boogie Wesley MD at [facility] N/A: Vertebrae Core Link [id number] / / Insurance [facility] Advance Directives For more information, please contact: [phone] * Full Code (Latest Code Status on File) Date Activated Date Inactivated Comments 02/06/2018 12:33 PM 02/08/2018 2:59 PM Care Teams Dentist Attendant Relationship Specialty Start Date End Date Taryn Belle DO [address] [place] [address] [facility] - General 03/25/18
--- OUTSIDE RECORDS SUMMARY | 2024-07-17 08:46 | XMS_ITS | Encounter Summary ---
Author Organization [facility] Address [address] [place] [address] Care Team Providers Care Purchasing Contracting Clerk Name Role Phone Miguel Nguyen MD Unavailable [phone] Lenard Barr MD Primary Care Provider [phone] Encounter Details Date Type Department Care Team ([facility] Contact Info) Description 07/25/2022 Abstract [facility] [address] Asher Aparicio MA Social History Tobacco Use Types Packs/Day Years Used Date Smoking Tobacco: Never Smokeless Tobacco: Never Alcohol Use Standard Drinks/Week Comments Yes 0 (1 standard drink = 0.6 oz pur e alcohol) wine once a month PHQ-2 Answer Date Recorded PHQ-2 Score - If the patient scores above 3, please move on to questions 3-9 0 08/05/2021 Comments No Sex and Gender Information Value Date Recorded Sex Assigned at Not on file Legal Sex Female 4:45 PM CDT Gender Identity Female 07/06/2021 4:30 AM ICE SKATING INSTRUCTOR Sexual Orientation Not on file 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 Unable to assess 07/21/2022 3:16 PM ICE SKATING INSTRUCTOR documented as of this encounter Plan of Treatment Upcoming Encounters Date Type Department Care Team ([facility] Contact Info) Description 07/25/2024 10:45 AM ICE SKATING INSTRUCTOR Office Visit [facility] [address] [place] [address] Miguel Nguyen MD Three [facility]. [address] [place] [address] Loreta Ramirez PA 3 [facility], [address] [place] [address] 11/07/2024 2:40 PM CDT Office Visit [facility] [place] [address] [place] [address] Nic Ricks MD [address] [facility] [address] [place] [address] documented as of this encounter Procedures Procedure Name Priority Date/Time Associated Diagnosis Comments LIPID PANEL Routine 11/14/2023 CK (CPK) Routine 11/14/2023 ALT/SGPT Routine 11/14/2023 CBC (OUTSIDE LAB) Routine 08/10/2023 LIPID PANEL Routine 08/10/2023 CK (CPK) Routine 08/10/2023 COMPREHENSIVE METABOLIC PANEL Routine 11/22/2022 COMPREHENSIVE METABOLIC PANEL Routine 11/10/2022 BNP Routine 12/23/2021 COMPREHENSIVE METABOLIC PANEL Routine 12/23/2021 LIPID PANEL Routine 12/23/2021 CBC, MANUAL DIFF Routine 12/23/2021 THYROID STIM HORMONE TSH Routine 12/23/2021 documented in this encounter Results * LIPID PANEL (11/14/2023) CHOLESTEROL 199 HDL 84 TRIGLYCERIDES 55 NON HDL CHOLESTEROL 115 LDL (CALCULATED) 101 11/14/2023 us Default History Genericprovider LABORATORY Edited Result - Final * CK (CPK) (11/14/2023) CPK 53 11/14/2023 us Default History Genericprovider LABORATORY Edited Result - Final * ALT/SGPT (11/14/2023) ALT 15 11/14/2023 us Default History Genericprovider LABORATORY Edited Result - Final * LIPID PANEL (08/10/2023) CHOLESTEROL 243 HDL 88 TRIGLYCERIDES 61 NON HDL CHOLESTEROL 155 LDL (CALCULATED) 140 08/10/2023 us Default History Genericprovider LABORATORY Edited Result - Final * CK (CPK) (08/10/2023) CPK 47 08/10/2023 us Default History Genericprovider LABORATORY Edited Result - Final * CBC (OUTSIDE LAB) (08/10/2023) WBC 5.9 HGB 11.7 HCT 35.6 PLT 317 08/10/2023 us Default History Genericprovider LAB-OUTSIDE/ABST RACTED Final Result * COMPREHENSIVE METABOLIC PANEL (11/22/2022) Pathologist [facility] SODIUM S/P/B 132 GLUCOSE 110 mg/dL BUN 17 CREATININE S/P/B 0.70 0.5 - 1.0 CALCIUM S/P/B 9.2 POTASSIUM S/P/B 4.5 CHLORIDE S/P/B 95 GFR ESTIMATE 97 Default History Genericprovider LABORATORY Final Result * COMPREHENSIVE METABOLIC PANEL (11/10/2022) Pathologist [facility] SODIUM S/P/B 130 GLUCOSE 100 mg/dL AST 21 BUN 7 CREATININE S/P/B 0.63 0.5 - 1.0 CALCIUM S/P/B 8.4 POTASSIUM S/P/B 3.6 CHLORIDE S/P/B 91 ALT 24 GFR ESTIMATE 99 [facility] Result * BNP (12/23/2021) [facility] B TYPE NATRIURETIC PEPTIDE 44 12/23/2021 [facility] Final Result * COMPREHENSIVE METABOLIC PANEL (12/23/2021) [facility] SODIUM S/P/B 138 GLUCOSE 95 mg/dL AST 16 BUN 11 CREATININE S/P/B 0.79 0.5 - 1.0 CALCIUM S/P/B 9.1 POTASSIUM S/P/B 4.3 CHLORIDE S/P/B 100 ALT 23 GFR ESTIMATE 84 Result [facility] Genericprovider LABORATORY Final Result * LIPID PANEL (12/23/2021) [facility] CHOLESTEROL 241 TRIGLYCERIDES 83 HDL 83 LDL (CALCULATED) 140 NON HDL CHOLESTEROL 158 [facility] Final Result * CBC, MANUAL DIFF (12/23/2021) [facility] WBC 5.5 HGB 12.1 HCT 35.9 PLT 310 Default History Genericprovider LABORATORY Final Result * THYROID STIM HORMONE, TSH (12/23/2021) TSH 1.06 us Default History Genericprovider LABORATORY Final Result documented in this encounter Visit Diagnoses Not on filedocumented in this encounter Additional Health Concerns Assessment Noted Time PHQ-9 Depression Total Score: 0 08/06/19 22 12:51 PM ICE SKATING INSTRUCTOR documented as of this encounter Care Teams Purchasing Contracting Clerk Relationship Specialty Start Date End Date Lenard Barr MD [facility] [place] [address] PCP - General FAMILY PRACTICE 07/05/22 Miguel Nguyen MD [facility] [address] [place] [address] Garrison Grooving Machine Operator CARDIOVASCULAR DISEASE 07/27/17 documented as of this encounter
== END 2024-07-17 08:36 | disposition home or self-care (01) ==
PROVIDERS: PCP Nurse Practitioner Family; Visit Provider Internal Medicine
DX: M81.0 Age-related osteoporosis without current pathological fracture (principal); E04.2 Nontoxic multinodular goiter; E03.9 Hypothyroidism, unspecified; I10 Essential (primary) hypertension; E87.1 Hypo-osmolality and hyponatremia
CPT/HCPCS: 76536

== ENCOUNTER 2024-08-08 12:31 | Outpatient (CLI) | payer BC, SELFPAY ==
--- NOTE | ~2024-08-08 | US_ITS ---
EXAMINATION: US FNA w image guidance DATE: 08/08/2024 13:23 INDICATION: Left thyroid nodule. TECHNIQUE: The procedure and its benefits and risks were discussed with the patient. Risks specifically discusse d included bleeding. The patient verbalized understanding of the risks and agreed to proceed. The nec k was prepped and draped in the usual sterile manner. 1% lidocaine was used for local anesthesia. 8 passes were made with a 25G needle into the lesion under ultrasound guidance. There were no immedia te complications. FINDINGS: Grayscale ultrasound images demonstrate needles advanced into a 12 mm nodule in left thyroid lobe for biopsy. IMPRESSION: 1. Ultrasound-guided fine needle aspiration of a left thyroid nodule. Reviewed, dictated and finalized at location A. MONIA REFRIGERATION WORKER
--- OUTSIDE RECORDS SUMMARY | 2024-08-08 12:54 | XMS_ITS | Encounter Summary ---
Author Organization [facility] Address [facility] [place] [address] Care Team Providers Care Complaint Analyst Name Role Phone YoshiTaryn Primary Care Provider [phone] Miguel Nguyen MD Unavailable [phone] Lenard Barr MD Primary Care Provider [phone] Encounter Details Date Type Department Care Team (Latest Contact Info) Description 04/09/2018 Abstract [facility] , Rayna Gaming MD Social History Tobacco Use Types Packs/Day Years Used Date Smoking Tobacco: Never Smokeless Tobacco: Never Alcohol Use Standard Drinks/Week Comments Yes 0 (1 standard drink = 0.6 oz pur e alcohol) wine once a month Comments Unknown Sex and Gender Information Value Date Recorded Sex Assigned at Female 08/01/2024 1:06 PM LOAN UNDERWRITER Legal Sex Female 4:45 PM CDT Gender Identity Female 07/06/2021 4:30 AM LOAN UNDERWRITER Sexual Orientation Not on file 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 [facility] [address] [place] [address] documented as of this encounter Visit Diagnoses Not on filedocumented in this encounter Care Teams Complaint Analyst Relationship Specialty Start Date End Date Taryn Belle DO PCP - General FAMILY PRACTICE 07/05/17 07/04/22 Lenard Barr MD [address] [place] [address] PCP - General FAMILY PRACTICE 07/05/22 Miguel Nguyen MD [facility]. [facility] [address] [place] [address] Filomena Director Of Student Financial Aid CARDIOVASCULAR DISEASE 07/27/17 documented as of this encounter
--- OUTSIDE RECORDS SUMMARY | 2024-08-08 12:54 | XMS_ITS | Encounter Summary ---
Author Organization [facility] Address [facility] [place] [address] Care Team Providers Care Breakdown Worker Name Role Phone YoshiTaryn Primary Care Provider [phone] Miguel Nguyen MD Unavailable [phone] Lenard Barr MD Primary Care Provider [phone] Encounter Details Date Type Department Care Team (Late st Contact Info) Description 08/28/2017 Abstract [facility] at [facility], [facility] [address] [place] [address] Asher Aparicio MA Social History Tobacco Use Types Packs/Day Years Used Date Smoking Tobacco: Never Smokeless Tobacco: Never Alcohol Use Standard Drinks/Week Comments Yes 0 (1 standard drink = 0.6 oz pur e alcohol) wine once a month Comments Unknown Sex and Gender Information Value Date Recorded Sex Assigned at Female 08/01/2024 1:06 PM AUTOMOTIVE LEASING SALES REPRESENTATIVE Legal Sex Female 4:45 PM CDT Gender Identity Female 07/06/2021 4:30 AM AUTOMOTIVE LEASING SALES REPRESENTATIVE Sexual Orientation Not on file 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 [place] [address] documented as of this encounter Procedures Procedure [...] Result * (ABNORMAL) COMPREHENSIVE METABOLIC PANEL (11/17/2020) SODIUM S/P/B 135 POTASSIUM S/P/B 4.7 CO2 [...] Result * LIPID PANEL (11/17/2020) Pathologist [facility] CHOLESTEROL 236 HDL 90 TRIGLYCERIDES 56 NON HDL CHOLESTEROL 146 LDL (CALCULATED) 131 11/17/2020 us Doc [facility] LABORATORY Final Result * COMPREHENSIVE METABOLIC PANEL (08/10/2017) SODIUM S/P/B 135 POTASSIUM S/P/B 4.4 CO2 [...] LABORATORY Final Result * FREE T3 (03/10/2017) FREE T3 2.5 03/10/2017 us Doc [facility] Abstract LABORATORY Final Result * LIPID PANEL (03/10/2017) Pathologist [facility] CHOLESTEROL 232 HDL 77 TRIGLYCERIDES 55 LDL (CALCULATED) 144 03/10/2017 us Doc [facility] Abstract LABORATORY Final Result * COMPREHENSIVE METABOLIC PANEL (03/10/2017) Pathologist [facility] SODIUM S/P/B 131 POTASSIUM S/P/B 3.7 CO2 [...] Final Result * CBC (OUTSIDE LAB) (03/10/2017) Pathologist [facility] WBC 4.6 HGB 13.1 HCT 35.9 PLT 277 03/10/2017 us Doc [facility] Abstract LAB-OUTSIDE/ABSTRACTED Final Result documented in this encounter Visit Diagnoses Not on filedocumented in this encounter Care Teams Breakdown Worker Relationship Specialty Start Date End Date Taryn Belle DO PCP - General FAMILY PRACTICE 07/05/17 07/04/22 Lenard Barr MD [address] [place] [address] PCP - General FAMILY PRACTICE 07/05/22 Miguel Nguyen MD Three [facility]. [facility] [address] [place] [address] [place] Senior Accounts Payable Clerk CARDIOVASCULAR DISEASE 07/27/17 documented as of this encounter
--- OUTSIDE RECORDS SUMMARY | 2024-08-08 12:54 | XMS_ITS | Patient Health Record ---
Author Organization Replaced by [facility] Address [address] [place] [address] Care Team Providers Care Roller Print Tender Name Role Phone Kam Francis Primary Care Provider Reason For Referral No Information Immunizations Vaccine Route Administration Date Status Comme nts COVID-19 Vaccine My Luv My Life My Heartbeats 2ND IM Intramuscular 05/25/2020 Administered EUA provided (publication date ). Pt tolerated well and denied questions or concerns. COVID-19 Vaccine My Luv My Life My Heartbeats 2ND IM Intramuscular 06/11/2020 Administered Tissue Inserter: [employer]. EUA given. Patient tolerated well. FLU VAC NO PRSV 4VAL 6 mo+ IM Intramuscular 03/19/2020 Administered Patient signed consent form. Patient tolerated well. VIS date 01/16/19 Plan Of Treatment No Information
--- OUTSIDE RECORDS SUMMARY | 2024-08-08 12:54 | XMS_ITS ---
Author Organization [facility] Address [address] [place] [address] Care Team Providers Care Hourly Shift Manager Name Role Phone Rohan Jerry Unavailable [phone] Allergies Allergen (clinical drug ingredient) Drug/Non Drug [...] ER 240 MG CAPSULE,EXTENDED RELEASE *Reorder from [facility] for eRx and Interaction Alerts* 09/18/2023 Active Pantoprazole Sodium 40 MG Oral 09/18/2023 Active Levothyroxine Sodium 75 MCG Oral 09/18/2023 Active Social History Sex Assigned At : Social History Observation Description Sex Assigned At Female Vital Signs Height 65.00 in 01/03/2024 Weight 197 lbs 01/03/2024 BMI 32.78 kg/m2 01/03/2024 Height-cm 165.10 cm 01/03/2024 Weight-kg 89.36 kg 01/03/2024 Encounters Encounter Location Date Provider Diagnosis [facility] [address] [facility] [address] [place] [address] 01/03/2024 Rohan Oropezaa Generalized anxiety disorder F41.1 [...] Follow Up: 6 Months, Reason: depression, anxiety Provider Name:Rohan herman, 08/21/2024 11:45:00 AM, [address] [facility] [address], [facility] [address], [place], [address], Progress Notes * CHRISTI MEIDOB:[birth year] (63 yo F)Acc No.[id number]:01/03/2024 Patient: CHRISTI HUERTA Provider: PRAFUL MICHEL :1960 A ge:63 Y S ex:Female Date:01/03/2024 Address:[address] [place], [place] [address] Subjective: * Chief Complaints: * 1 . [...] RELEASE , Notes to Pharmacist: *Reorder from [facility] for eRx and Interaction Alerts*, Taking ALPRAZolam [...] anxiety) * Billing Information: * Visit Code: 50730 OFFICE OUTPATIENT VISIT 25 MINUTES DETAILED HISTORY AND EXAM/MODERATE MEDICAL DECISION MAKING. * Procedure Codes: * Sign off status: Completed true * Provider: PRAFUL MICHEL Date: 01/03/2024 Generated for Cordell Mcmahon/Chandu on: 0 08/08/2024 12:54 PM MAJOR GIFTS DIRECTOR History and Physical Notes * HPI (History [...] Total: (0 to 4) No Anx iety [place]-Suicide Severity Rating Scale Suicide Risk (CSRS-screener) in [...]
--- OUTSIDE RECORDS SUMMARY | 2024-08-08 12:54 | XMS_ITS ---
Author Organization [facility] Address [address] [place] [address] Care Team Providers Care Hand Worker Name Role Phone Rohan Jerry Unavailable [phone] Migration, Provider Unavailable Unavailable Allergies Allergen (clinical [...] ER 240 MG CAPSULE,EXTENDED RELEASE *Reorder from [facility] for eRx and Interaction Alerts* 09/18/2023 [...] Female Encounters Encounter Location Date Provider Diagnosis [place] [id number] [address] 10/21/2023 Provider Migration Plan Of Treatment Next Appt Details Provider Name:Rohan herman, 08/21/2024 11:45:00 AM, [facility], [place] [address], [place], [address], Progress Notes * CHRISTI MEIDOB:[birth year] (63 yo F)Acc No.[id number]:10/21/2023 Patient: CHRISTI HUERTA :1960 A ge:63 Y S ex:Female Address:[address] [place] [address] Subjective: * Chief Complaints: * E MR-Raun * Medical History: * 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 * Surgical History: A ny surgical history Carpal tunnel surgery (56293) Removal of gallbladder (04876) Appendectomy (10287) Removal of ovarian cyst ([id number]) Cataract surgery (93309) Colectomy (48924) Procedure on neck (727234955) Procedure on back ([id number]) * Hospitalization/Major Diagno stic Procedure: * Family [...] RELEASE , Notes to Pharmacist: *Reorder from [facility] for eRx and Interaction Alerts*ALPRAZolam 0.5 MG [...] RELEASE , Notes to Pharmacist: *Reorder from [facility] for eRx and Interaction Alerts*Taking ALPRAZolam [...] Date: Generated for Cordell ballesteros/Martha/Chandu on: 0 08/08/2024 12:54 PM TACTICAL RESPONSE GROUP OFFICER
--- OUTSIDE RECORDS SUMMARY | 2024-08-08 12:54 | XMS_ITS ---
Author Organization [facility] Address [address] [place] [address] Care Team Providers Care Remote Encoding Center Manager Name Role Phone Rohan Jerry Unavailable [phone] Migration, Provider Unavailable Unavailable REASON FOR VISIT EMR-[facility] Social History Sex Assigned At : Social History Observation Description Sex Assigned At Female Encounters Encounter Location Date Provider Diagnosis [facility] [address] [place] [address] 10/20/2023 Provider Migration Plan Of Treatment Next Appt Details Provider Name:Rohan herman, 08/21/2024 11:45:00 AM, [address], [facility] [address], [place], [address], Progress Notes * CHRISTI MEIDOB:[birth year] (63 yo F)Acc No.[id number]:10/20/2023 Patient: Sherly MEJIACHRISTI :1960 A ge:63 Y S ex:Female Address:[address] [place], [address] Subjective: * Chief Complaints: * E MR-Arun * Medical History: * Surgical History: * Hospitalization/Major Diagno stic Procedure: * Medications: Objective: * Vitals: * Physical Examination: Assessment: Plan: * Treatment: PDMP report request complete d on 01/03/2024 09:04:07 AM - Rohan Jerry * Procedure Codes: * true * Date: Generated for Printi ng/Martha/Chandu on: 0 08/08/2024 12:54 PM ELECTRICAL ACCESSORIES II ASSEMBLER
--- OUTSIDE RECORDS SUMMARY | 2024-08-08 12:55 | XMS_ITS | Clinical Summary ---
Author Organization [facility] Address [address] [place] [address] Care Team Providers Care Pond Worker Name Role Phone Miguel Nguyen MD Unavailable Lenard Barr MD Primary Care Provider [phone] Allergies Active Allergy Reactions Criticality Noted Date Comments Atorvastatin Unknown 07/20/2023 Phenobarbital Unknown 07/26/2017 Sulfa Antibiotics Unknown 04/26/2012 Medications TEGRETOL-XR 200 MG 12 hr tablet Take 2 tablets (400 mg total) by mouth daily. 4 018 Active levothyroxine 75 MCG tablet Take 1 tablet (75 mcg total) by mouth daily. 5 018 Active losartan 100 MG tablet Take 1 tablet (100 mg total) by mouth daily. 5 017 Active spironolactone 25 MG tablet Take 1 tablet (25 mg total) by mouth daily. 1 018 Active vitamin C 500 MG tablet Take 1 tablet (500 mg total) by mouth daily. 018 Active acetaminophen 325 MG tablet Take 2 tablets (650 mg total) by mouth 2 (two) times daily. And as needed 018 Active Cholecalciferol (VITAMIN D) 1000 UNIT tablet Take 1 tablet (1,000 Units total) by mouth daily. Active hydrALAZINE 10 MG tablet Take 2 tablets (20 mg total) by mouth 2 (two) times daily. Evening dose is PRN 020 Active dilTIAZem ER 240 MG 24 hr capsule Take 1 capsule (240 mg total) by mouth daily. 021 Active HYOSCYAMINE 0.125 MG SL tabletIndications: Irritable bowel syndrome with diarrhea DISSOLVE 1 TABLET(0.125 MG) UNDER THE TONGUE EVERY 6 HOURS NEEDED FOR CRAMPING 360 tablet 1 022 Active calcium citrate-vitamin D (CITRACAL PETITES/VIT D) 200-6.25 MG-MCG Tab Take 1 tablet by mouth daily. Active escitalopram (LEXAPRO) 20 MG tablet Take 1 tablet (20 mg total) by mouth daily. 024 Active Alosetron HCl 1 MG TabIndications:Irr itable bowel syndrome with diarrhea TAKE 1 TABLET BY MOUTH EVERY DAY 90 tablet 024 Active pantoprazole EC (PROTONIX) 40 MG tabletIndications: Schatzki's ring,Hiatal hernia TAKE 1 TABLET BY MOUTH EVERY DAY 90 tablet 1 024 Active rosuvastatin (CRESTOR) 5 MG tablet TAKE 1 TABLET BY MOUTH NIGHTLY AT BEDTIME. 90 tablet 1 025 Active Denosumab (PROLIA SC) Inject into the skin every 6 (six) months. Active multi vitamin/minerals (CENTRUM ADULTS) tablet Take 1 tablet by mouth daily. Active NON FORMULARY Take 2 tablets by mouth 2 (two) times a day. LIPO FLAVORNOID Active Menaquinone-7 (VITAMIN K2) 100 MCG Cap Take 1 capsule (100 mcg total) by mouth daily. 018 2024 Discontinued( Discontinued by another clinician) Levocetirizine Dihydrochloride 5 MG Tab Take 1 tablet (5 mg total) by mouth daily as needed. 0 018 2024 Discontinued( Discontinued by another clinician) cholestyramine (QUESTRAN) 4 GM/DOSE powderIndications: Diarrhea, unspecified type DISSOLVE 4GM(ONE SCOOPFUL) IN WATER AND DRINK TWICE DAILY BEFORE MEALS 378 g 2 023 2024 Discontinued( Pt. elected to discontinue med) Alosetron HCl (LOTRONEX) 1 MG TabIndications:Irr itable bowel syndrome with diarrhea Take 1 tablet by mouth 2 (two) times daily. 60 tablet 11 024 2024 Discontinued( Duplicate Med) Active Problems Problem Noted Date Diagnosed Date Left lower quadrant pain 03/06/2022 Hiatal hernia 09/19/2021 Overview (09/19/2021): Added automatically from request for surgery [id number] Ulcer of esophagus without bleeding 09/19/2021 Overview (09/19/2021): Added automatically from request for surgery [id number] Pharyngoesophageal dysphagia 08/17/2021 Overview (08/17/2021): Added automatically from request for surgery [id number] Diarrhea, unspecified type 08/17/2021 Overview (08/17/2021): Added automatically from request for surgery [id number] Irritable bowel syndrome with diarrhea Overview (08/17/2021): Added automatically from request for surgery [id number] Schatzki's ring 08/17/2021 Overview (08/17/2021): Added automatically from request for surgery [id number] Obesity (BMI 30.0-34.9) 07/27/2017 Fibromyalgia 07/27/2017 PAC (premature atrial contraction) 07/27/2017 PVC (premature ventricular contraction) 07/27/19 18 PAT (paroxysmal atrial tachycardia) ([facility]) Knee pain, left 10/13/2013 Rib pain on [...] left wrist 04/26/2012 Palpitations Assessment & Plan (07/25/2024 1:45 PM WILDLIFE SCIENCE PROFESSOR): Patient denies any recent palpitations. Continue diltiazem. Assessment & Plan (07/22/2022 10:36 AM WILDLIFE SCIENCE PROFESSOR): Symptoms are well controlled. Continue cardizem. Assessment & Plan (07/08/2021 8:17 AM WILDLIFE SCIENCE PROFESSOR): Previous HM obtained revealing isolated PACs PVCs and runs of premature atrial complexes. She underwent echocardiogram with Dr. jennings that showed normal left ventricular function and no significant valvular abnormalities. No issues at present Essential hypertension Assessment & Plan (07/25/2024 1:46 PM WILDLIFE SCIENCE PROFESSOR): Blood pressure well-controlled in office today. Continue losartan, diltiazem, spironolactone, and hydralazine. Assessment & Plan (07/22/2022 10:35 AM WILDLIFE SCIENCE PROFESSOR): Blood pressure is elevated today. Encouraged home blood pressure monitoring. Continue current antihypertensive regimen. No changes made to antihypertensive therapy. Assessment & Plan (07/08/2021 8:15 AM WILDLIFE SCIENCE PROFESSOR): Blood pressure is well controlled with no changes in regimen at this time Encouraged to continue to monitor at home and log and call office with any concerns in future. Hyperlipidemia Assessment & Plan (07/25/2024 1:47 PM WILDLIFE SCIENCE PROFESSOR): Last lipid panel with an LDL of 101. Her ASCVD risk score is 6.2% over the next 10 years. She continues on rosuvastatin without any significant myalgias. Assessment & Plan (07/22/2022 10:36 AM WILDLIFE SCIENCE PROFESSOR): Lipids are elevated. She is intermediate risk for ASCVD and I have recommended that she start atorvastatin 20. Check lipids in 3 months. Assessment & Plan (07/08/2021 8:15 AM WILDLIFE SCIENCE PROFESSOR): Non known CAD or risk equivalent - Last lipid panel obtained 2017 - ASCVD 10 year risk based on those number is 5.8% - recommend lipid panel for review and encourage diet and exercise for risk modification. Resolved Problems Problem Noted Date Diagnosed Date Resolved Date Joint pain, hip 04/26/2012 07/20/2023 Encounters Date Type Department Care Team Description 07/25/2024 10:45 AM WILDLIFE SCIENCE PROFESSOR [facility] [address] [place] [address] Miguel Nguyen MD Lanter, Megan N, PA Hypertension; Lipids 07/25/2024 Travel from Last 3 Months Immunizations Name Administration Dates Next Due Influenza [...] Sex Assigned at Female 08/01/2024 1:06 PM WILDLIFE SCIENCE PROFESSOR Legal Sex Female 4:45 PM CDT Gender Identity Female 07/06/2021 4:30 AM WILDLIFE SCIENCE PROFESSOR Sexual Orientation Not on file 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 on file Not on f ile Last Filed Vital Signs Vital Sign Reading Time Taken Comments Blood Pressure 120/70 07/25/2024 10:39 AM WILDLIFE SCIENCE PROFESSOR Pulse 71 07/25/2024 10:39 AM WILDLIFE SCIENCE PROFESSOR Temperature 36 C (96.8 F) 09/08/2022 3:04 PM CDT Respiratory Rate 12 11/06/2023 3:30 PM CDT Oxygen Saturation 98% 11/06/2023 3:30 PM CDT Inhaled Oxygen Concentration - - Weight 91.6 kg (202 lb) 07/25/2024 10:39 AM WILDLIFE SCIENCE PROFESSOR Height 165.1 cm (5' 5 ) 07/25/2024 10:39 AM WILDLIFE SCIENCE PROFESSOR Body Mass Index 33.61 07/25/2024 10:39 AM WILDLIFE SCIENCE PROFESSOR Plan of Treatment Upcoming Encounters Date Type Department Care Team (Late st Contact Info) Description 11/07/2024 2:40 PM CDT Office Visit [facility] [place] [address] [place] [address] Nic Ricks MD [address] [facility] [address] [place] [address] 07/31/2025 10:15 AM WILDLIFE SCIENCE PROFESSOR [facility] [address] [place] [address] Miguel Nguyen MD Three [facility]. [facility] [address] [place], [place] [id number] Health Maintenance Due Date Last Done Comments [...] Adult (#1) 2024 03/19/2020, 03/04/2020 PHQ-2 (Physician [place]) 06/04/2024 09/08/2022 Meningococcal B Vaccine Aged Out [...] SCREENING JULIA DIGI Routine 07/11/2013 3:48 PM WILDLIFE SCIENCE PROFESSOR BONE DENSITY/DEXA Routine 07/11/2013 2:3 3 PM WILDLIFE SCIENCE PROFESSOR from Last 3 Months or Most Recently Relevant to Health Maintenance Results * MG SCREENING JULIA DIGI (07/11/2013 3:48 PM WILDLIFE SCIENCE PROFESSOR) Anatomical Region Laterality Modality Breast Bilateral Mammography 07/11/2013 3:48 PM WILDLIFE SCIENCE PROFESSOR 07/11/2013 3:48 PM WILDLIFE SCIENCE PROFESSOR Narrative 07/11/2013 4:44 PM WILDLIFE SCIENCE PROFESSOR CHRISTI GAUTHIER ORDERING MD: TYE BARROW ACCT: [id number] ADMIT/SERVICE DATE: 07/11/13 DISCHARGE DATE: : 1960 PT TYPE: REG CLI SEX: F ORD SITE: [facility] STUDY DATE REPORT # PROCEDURE CODE PROCEDURE 07/11/13 [id number] SCMAMDGB MG SCREEN MAMMO DIGITAL BI EXTORDERID [id number] CHART DOCUMENT DIVISION OF RADIOLOGY ACCESSION # EXAM DATE EXAM DESCRIPTION [id number] 07/11/2013 MG SCREEN MAMMO DIGITAL BI IMAGING [...] CATEGORY #2. ROUTINE YEARLY FOLLOW-UP IS SUGGESTED. [facility] MAMMOGRAM CLASSIFICATION BI-RADS CATEGORY 0-NEED ADDITIONAL IMAGING [...] 07/11/2013 4:02 P JOB NO: DOC NO: [id number] CC: Procedure Note Rayna Coe MD - 03/27/2018 CHRISTI GAUTHIER ORDERING MD: TYE BARROW ACCT: [id number] ADMIT/SERVICE DATE: 07/11/13 DISCHARGE DATE: : 1960 PT TYPE: REG CLI SEX: F ORD SITE: [facility] STUDY DATE REPORT # PROCEDURE CODE PROCEDURE 07/11/13 [id number] SCMAMDGB MG SCREEN MAMMO DIGITAL BI EXTORDERID [id number] CHART DOCUMENT DIVISION OF RADIOLOGY ACCESSION # EXAM DATE EXAM DESCRIPTION [id number] 07/11/2013 MG SCREEN MAMMO DIGITAL BI IMAGING [...] CATEGORY #2. ROUTINE YEARLY FOLLOW-UP IS SUGGESTED. [facility] MAMMOGRAM CLASSIFICATION BI-RADS CATEGORY 0-NEED ADDITIONAL IMAGING [...] 07/11/2013 4:02 P JOB NO: DOC NO: [id number] CC: Tye GONZALEZ MAMMO Final Result * BONE DENSITY/DEXA (07/11/2013 2:33 PM WILDLIFE SCIENCE PROFESSOR) Anatomical Region Laterality Modality Bone Bone Density 07/11/2013 2:33 PM WILDLIFE SCIENCE PROFESSOR 07/11/2013 2:33 PM WILDLIFE SCIENCE PROFESSOR Narrative 07/11/2013 3:42 PM WILDLIFE SCIENCE PROFESSOR CHRISTI GAUTHIER ORDERING MD: TYE BARROW C ACCT: [id number] ADMIT/SERVICE DATE: 07/11/13 DISCHARGE DATE: : 1960 PT TYPE: REG CLI SEX: F ORD SITE: [facility] STUDY DATE REPORT # PROCEDURE CODE PROCEDURE 07/11/13 [id number] DEXASCAN XR DEXA SCAN EXTORDERID [id number] CHART DOCUMENT DIVISION OF RADIOLOGY ACCESSION # EXAM DATE EXAM DESCRIPTION [id number] 07/11/2013 XR DEXA SCAN IMAGING STUDIES: BONE [...] 07/11/2013 2:48 P JOB NO: DOC NO: [id number] CC: Procedure Note Rayna Coe MD - 03/28/2018 CHRISTI GAUTHIER ORDERING MD: TYE BARROW ACCT: [id number] ADMIT/SERVICE DATE: 07/11/13 DISCHARGE DATE: : 1960 PT TYPE: REG CLI SEX: F ORD SITE: [facility] STUDY DATE REPORT # PROCEDURE CODE PROCEDURE 07/11/13 [id number] DEXASCAN XR DEXA SCAN EXTORDERID [id number] CHART DOCUMENT DIVISION OF RADIOLOGY ACCESSION # EXAM DATE EXAM DESCRIPTION [id number] 07/11/2013 XR DEXA SCAN IMAGING STUDIES: BONE [...] 07/11/2013 2:48 P JOB NO: DOC NO: [id number] CC: us Tye Mike Barrow DISTRIBUTOR OF DIRECTORIES DEXA Final Result from Last 3 Months or Most Recently Relevant to Health Maintenance Insurance Care Teams Pond Worker Relationship Specialty Start Date End Date Lenard Barr MD [address] [place] [address] PCP - General FAMILY PRACTICE 07/05/22 Miguel Nguyen MD [facility] [address] [place] [address] Filomena Chief Of Surgery CARDIOVASCULAR DISEASE 07/27/17
--- OUTSIDE RECORDS SUMMARY | 2024-08-08 12:55 | XMS_ITS | Clinical Summary ---
Author Organization [facility] Address [address] [place] [address] Care Team Providers Care Collections Specialist Name Role Phone Taryn Belle DO Primary [...] mg tablet Take 25 mg by mouth loan processing supervisor before breakfast. Active vilazodone (VIIBRYD) 40 mg [...] 08/14/2019 Assessment & Plan (08/08/2018 5:30 PM PRODUCT MANAGEMENT CONSULTANT): Ms. Gauthier is doing extremely well after [...] History Date Comments Postmenopausal Seizure, temporal lobe (HCC) Pre sents as wave sensation. Fully aware during. Last [...] on file Medical Devices Implanted Type Area Spanish Lecturer Device Identifier Shelf Expiration Date Model / Serial / Lot Core Link [id number] [place] 6.5mm 40mm Spine Pedicle Screw Bone 5500 Series - [id number] Implanted:Qty: 4 on 02/06/2018 by Boogie Wesley MD at [facility] Screw N/A: Lumbar-Sacral Spine Core Link [id number] / / Core Link [id number] [place] Screw Set 5500 Series - [id number] Implanted:Qty: 4 on 02/06/2018 by Boogie Wesley MD at [facility] Screw N/A: Vertebrae Core Link [id number] / / Core Link [id number] [place] 5.5mm 35mm Line Prebent Estevan Spinal Nonsterile 5500 Series - [id number] Implanted:Qty: 1 on 02/06/2018 by Boogie Wesley MD at [facility] N/A: Vertebrae Core Link [id number] / / Core Link [id number] [place] 5.5mm 40mm Line Prebent Estevan Spinal Nonsterile 5500 Series - [id number] Implanted:Qty: 1 on 02/06/2018 by Boogie Wesley MD at [facility] N/A: Vertebrae Core Link [id number] / / Insurance Advance Directives For more information, please contact: [phone] * Full Code (Latest Code Status on File) Date Activated Date Inactivated Comments 02/06/2018 12:33 PM 02/08/2018 2:59 PM Care Teams Collections Specialist Relationship Specialty Start Date End Date Taryn Belle DO [address] [place] [id number] [facility] - General 03/25/18
--- OUTSIDE RECORDS SUMMARY | 2024-08-08 12:55 | XMS_ITS | Encounter Summary ---
Author Organization [facility] Address [address] [place] [address] Care Team Providers Care Statue Carver Name Role Phone Miguel Nguyen MD Unavailable [phone] Lenard Barr MD Primary Care Provider [phone] Encounter Details Date Type Department Care Team ([facility] Contact Info) Description 07/25/2022 Abstract [facility] [address] Asher Aparicio MA Social History Tobacco Use [...] Sex Assigned at Female 08/01/2024 1:06 PM LITHOGRAPH DESIGNER Legal Sex Female 4:45 PM CDT Gender Identity Female 07/06/2021 4:30 AM LITHOGRAPH DESIGNER Sexual Orientation Not on file 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 Unable to assess 07/21/2022 3:16 PM LITHOGRAPH DESIGNER documented as of this encounter Plan of Treatment Upcoming Encounters Date Type Department Care Team (Late Contact Info) Description 11/07/2024 2:40 PM CDT Office Visit [facility] [place] [address] [place] [phone] Nic Ricks MD 3 [facility] [address] [place] [address] 07/31/2025 10:15 AM LITHOGRAPH DESIGNER [facility] [address] [place] [address] Miguel Nguyen MD Three [facility] [address] [place], [place] [id number] documented as of this encounter Procedures Procedure [...] Final * ALT/SGPT (11/14/2023) ALT 15 11/14/2023 Default History Genericprovider LABORATORY Edited Result - Final * LIPID PANEL (08/10/2023) CHOLESTEROL 243 HDL 88 TRIGLYCERIDES 61 NON HDL CHOLESTEROL 155 LDL (CALCULATED) 140 08/10/2023 Default History Genericprovider LABORATORY Edited Result - Final * CK (CPK) (08/10/2023) CPK 47 08/10/2023 us Default History Genericprovider LABORATORY Edited Result - Final * CBC (OUTSIDE LAB) (08/10/2023) WBC 5.9 HGB 11.7 HCT 35.6 PLT 317 08/10/2023 Default History Genericprovider LAB-OUTSIDE/ABST RACTED Final Result * COMPREHENSIVE METABOLIC PANEL (11/22/2022) SODIUM S/P/B 132 GLUCOSE 110 mg/dL BUN 17 CREATININE S/P/B 0.70 0.5 - 1.0 CALCIUM S/P/B 9.2 POTASSIUM S/P/B 4.5 CHLORIDE S/P/B 95 GFR ESTIMATE 97 Default History Genericprovider LABORATORY Final Result * COMPREHENSIVE METABOLIC PANEL (11/10/2022) Pathologist [facility] SODIUM S/P/B 130 GLUCOSE 100 mg/dL AST 21 BUN 7 CREATININE S/P/B 0.63 0.5 - 1.0 CALCIUM S/P/B 8.4 POTASSIUM S/P/B 3.6 CHLORIDE S/P/B 91 ALT 24 GFR ESTIMATE 99 Result [facility] Default History Genericprovider LABORATORY Final Result * BNP (12/23/2021) [facility] B TYPE NATRIURETIC PEPTIDE 44 12/23/2021 Result [facility] Default History Genericprovider LABORATORY Final Result * COMPREHENSIVE METABOLIC PANEL (12/23/2021) [facility] SODIUM S/P/B 138 GLUCOSE 95 mg/dL AST 16 BUN 11 CREATININE S/P/B 0.79 0.5 - 1.0 CALCIUM S/P/B 9.1 POTASSIUM S/P/B 4.3 CHLORIDE S/P/B 100 ALT 23 GFR ESTIMATE 84 Result [facility] Default History Genericprovider LABORATORY Final Result * LIPID PANEL (12/23/2021) [facility] CHOLESTEROL 241 TRIGLYCERIDES 83 HDL 83 LDL (CALCULATED) 140 NON HDL CHOLESTEROL 158 Result [facility] Default History Genericprovider LABORATORY Final Result * CBC, MANUAL DIFF (12/23/2021) [facility] WBC 5.5 HGB 12.1 HCT 35.9 PLT 310 Result [facility] Default History Genericprovider LABORATORY Final Result * THYROID STIM HORMONE, TSH (12/23/2021) [facility] TSH 1.06 Result [facility] Default History Genericprovider LABORATORY Final Result documented in this encounter Visit Diagnoses Not on filedocumented in this encounter Additional Health Concerns Assessment Noted Time PHQ-9 Depression Total Score: 0 08/06/19 22 12:51 PM LITHOGRAPH DESIGNER documented as of this encounter Care Teams Statue Carver Relationship Specialty Start Date End Date Lenard Barr MD [facility] [place] [address] PCP - General FAMILY PRACTICE 07/05/22 Miguel Nguyen MD [facility] [address] [place] [address] [employer] Packager CARDIOVASCULAR DISEASE 07/27/17 documented as of this encounter
--- OUTSIDE RECORDS SUMMARY | 2024-08-08 12:55 | XMS_ITS | Patient Health Record ---
Author Organization [facility] As [email or web address] Address [address] [place] [address] Care Team Providers Care Toilet Products Molder Name Role Phone Rohan Jerry Unavailable [phone] Migration, Provider Unavailable Unavailable Allergies Allergen (clinical [...] ER 240 MG CAPSULE,EXTENDED RELEASE *Reorder from [employer] for eRx and Interaction Alerts* 09/18/2023 Active Immunizations Vaccine Route Administration Date Status Comme nts Influenza virus vaccine, quadrivalent (IIV4), split virus, 0.25 mL dosage Unknown 03/23/2019 Administered Influenza, high dose seasonal Unknown 04/04/2016 Admini stered Influenza, seasonal, injecta ble, preservative free, 3 yrs and above Unknown 03/04/2020 Administered Pfizer [employer]iontech Covid-19 Vac cine 2nd dose Unknown 05/25/2020 Administered Pfizer [employer] Covid-19 Vac cine 2nd dose Unknown 06/11/2020 Administered Pfizer [employer] Covid-19 Vac cine 2nd dose Unknown 04/08/2021 Administered Tdap Unknown 08/17/2013 Administered Tdap Unknown 03/09/2017 Administered Social History Sex Assigned At : Social History Observation Description Sex Assigned At Female Vital Signs Height-cm 165.10 cm 01/03/2024 Weight-kg 89.36 kg 01/03/2024 Height 65.00 in 01/03/2024 Weight 197 lbs 01/03/2024 BMI 32.78 kg/m2 01/03/2024 Encounters Encounter Location Date Provider Diagnosis [facility] [place] [id number] [facility] [address] [address] 09/18/2023 Rohan Jerry Post-traumatic stress disorder, chronic F43.12 ; Generalized anxiety disorder F41.1 and Major depressive disorder, recurrent, 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 [facility] [email or web address] [address] 01/03/2024 Rohan Jerry Generalized anxiety disorder F41.1 ; Post-traumatic stress disorder, chronic F43.12 ; Other fatigue R53.83 ; Primary insomnia F51.01 and Depression, major, recurrent, in remission F33.40 [facility] [email or web address] [address] 08/24/2023 Provider Migration [facility] [email or web address] [address] 10/20/2023 Provider Migration [facility] [email or web address] [address] 10/21/2023 Provider Migration Assessments Encounter Date Diagnosis [...] increased need for Alprazolam. Plan Of Treatment Next Appt Details Provider Name:Rohan herman, 08/21/2024 11:45:00 AM, [address] [facility] [address], [facility] [address], [place], [address], Insurance Providers Payer Name Payer Address Payer Phone Subscriber Number Group Number Insured Name Patient Relationship to Insured Coverage Start Date Coverage End Date [facility] [address] [place] [address] [id number] CHRISTI GOLDBERG Self - patient is the [...] Surgical History Surgery Date(Month/Year) Removal of gallbladder (67351) Procedure on neck (365556002) Removal of ovarian cyst (671689121) Any surgical history Cataract surgery (49269) Carpal tunnel surgery (28268) Colectomy (09048) Appendectomy (46605) Procedure on back (644520058)
--- OUTSIDE RECORDS SUMMARY | 2024-08-08 12:55 | XMS_ITS | Referral Summary ---
Author Organization [facility] Address [address] [place] [address] Care Team Providers Care Lock And Dam Repairer Name Role Phone Taryn Belle DO Primary [...] mg tablet Take 25 mg by mouth looper operator before breakfast. Active vilazodone (VIIBRYD) 40 mg [...] 08/14/2019 Assessment & Plan (08/08/2018 5:30 PM BEATER LEAD): Ms. Gauthier is doing extremely well after [...] on file Medical Devices Implanted Type Area Clinical Physician Assistant Device Identifier Shelf Expiration Date Model / Serial / Lot Core Link [id number] [employer] 6.5mm 40mm Spine Pedicle Screw Bone 5500 Series - [id number] Implanted:Qty: 4 on 02/06/2018 by Boogie Wesley MD at [facility] Screw N/A: Lumbar-Sacral Spine Core Link [id number] / / Core Link [id number] [employer] Screw Set 5500 Series - [id number] Implanted:Qty: 4 on 02/06/2018 by Boogie Wesley MD at [facility] Screw N/A: Vertebrae Core Link [id number] / / Core Link [id number] [employer] 5.5mm 35mm Line Prebent Setevan Spinal Nonsterile 5500 Series - [id number] Implanted:Qty: 1 on 02/06/2018 by Boogie Wesley MD at [facility] N/A: Vertebrae Core Link [id number] / / Core Link [id number] [employer] 5.5mm 40mm Line Prebent Estevan Spinal Nonsterile 5500 Series - [id number] Implanted:Qty: 1 on 02/06/2018 by Boogie Wesley MD at [facility] N/A: Vertebrae Core Link [id number] / / Insurance [place] [address] [address] Advance Directives For more information, please contact: [phone] * Full Code (Latest Code Status on File) Date Activated Date Inactivated Comments 02/06/2018 12:33 PM 02/08/2018 2:59 PM Care Teams Lock And Dam Repairer Relationship Specialty Start Date End Date Taryn Belle DO [address] [place] [address] PCP - General 03/25/18
== END 2024-08-08 12:32 | disposition home or self-care (01) ==
PROVIDERS: PCP Nurse Practitioner Family; Visit Provider Internal Medicine
DX: E03.9 Hypothyroidism, unspecified (principal); E04.1 Nontoxic single thyroid nodule
CPT/HCPCS: 10005; 88172; 88173; 88305

== ENCOUNTER 2024-08-15 08:41 | Outpatient (CLI) | payer BC, SELFPAY ==
--- NOTE | ~2024-08-15 | MR_ITS ---
EXAMINATION: MR brain/brain stem wo/w con DATE: 08/15/2024 10:10 INDICATION: Multiple sclerosis. TECHNIQUE: Magnetic resonance imaging (MRI) of the brain and brainstem was performed without and with 18 mL ProHance intravenous contrast. COMPARISON: Brain MRI 04/29/2019 FINDINGS: There are scattered areas of nonspecific increased T2-weighted signal intensity in the cere bral white matter and darrell with slight worsening from 04/29/19, which is within normal limits for the patient's age. There is no intracranial hemorrhage, acute infarction, or abnormal intracranial mass lesion. The ventricles are normal in size. There are likely changes of ocular lens replacement surger ies. The paranasal sinuses are clear. The mastoid air cells are normal. IMPRESSION: 1. Normal aging brain. Reviewed, dictated and finalized at location L. IMPRESSION: 1. Normal aging brain.
--- OUTSIDE RECORDS SUMMARY | 2024-08-15 09:02 | XMS_ITS | Data Portability ---
Author Organization [place] [facility] [employer], Main Office Address [address] [place] [address] Care Team Providers Care Eligibility Worker Name Role Phone CARLOS BARR Primary Care Provider CARLOS BARR Referring Provider [phone] Assessment Encounter Date Assessment Date Assessment LastModified [...] would recommend that she consult with her item repair manager on that question. If she does continue [...] she have a thorough evaluation by her item repair manager before surgery for cardiac risk assessment. 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 I believe she does have some pathologic [...] than half of this time spent in [id number] care. Not available 10/17/2022 18:58:24 11/17/2022 11/17/2022 [...] She would like to be released to grain oilseed or pasture farm worker starting day after tomorrow as tolerated. [...] XR, hip + pelvis, unilateral 2022 023 [facility] [place], [facility] [facility] [address], [place], [address], 10:08:46 XR, hip + pelvis, unilateral 2022 023 [facility] [place], [address], [place], [address], 14:41:08 Medication Orders None recorded. Patient TargetsNo targets recorded. Patient InstructionsNo instructions recorded. Reason for Referral None Reported. Results Created Date Observation Date Name Description Value Unit Range Abnormal Flag Note LastModifiedBy Organization Detail LastModifiedTime 10/12/19 XR, hip + pelvi s, unila teral No observ ation record ed. [facility] [place] [address], [place], [address], 10/17/2022 18:46:01 10/12/1906/02/2022 XR, hip + pelvi [...] XR, knee No observ ation record ed. [address], [place], [address], 11/07/2022 12:04:30 11/07/19 23 11/06/2022 XR, hip, unila teral No observ ation record ed. [place] [id number] [facility] [address], [place], [address], 11/07/2022 12:05:07 11/07/19 23 07/26/2018 bone densi ty No observ ation record ed. Not Available 2022 15:49:00 11/18/1907/26/2018 DEXA No observ ation record ed. Not Available 2022 16:44:46 12/05/19 XR, hip + pelvi s, unila teral No observ ation record ed. [facility] [place] [address], [place], [address], 12/04/2022 15:07:22 03/05/20 23 03/05/2023 bone densi ty No observ ation record ed. [email or web address] [facility] [address], [place], [address], 03/06/2023 10:15:24 03/05/2003/05/2023 bone densi ty No observ ation record ed. [facility] [address], [place], [address], 03/13/2023 16:28:41 03/20/2003/05/2023 bone densi ty No observ ation record ed. [facility] [address], [place], [address], 03/20/2023 11:34:13 Result Notes None recorded. Problems Name Problem SNOMED Code Status Onset Date Resolution Date Notes Provider Name and Address Organization Details Recorded Time Pain of left hip joint 4813918147078 00 Active 2022 JOAQUÍN Rousseau, [employer] 3 10:00:23 Vitamin D deficiency 26520119 Active 2022 ANDREA Pro, [employer] 3 11:25:22 Osteoporosi s 48108380 Active 2022 ANDREA Pro, [employer] 3 12:22:46 Problem Notes None recorded. Procedures Surgical History Date Name Laterality Status Provider Name and Address Organization Details Recorded Time Back Surgery completed JOAQUÍN Rousseau [employer] 10/11/2022 10:16:45 procedure on neck completed Darcy stout [facility] 10/11/2022 10:16:52 Appendectomy completed Darcy Lizarraga [facility] 10/11/2022 10:17:06 Gallbladder Surgery completed Darcy Lizarraga [facility] 10/11/2022 10:17:13 Carpal tunnel completed Darcy Lizarraga [facility] 10/11/2022 10:17:23 Imaging Results Imaging Date Name Status LastModified by [facility] Details LastModified Time 10/11/2022 XR, hip + pelvis, unilateral completed [facility] [place] [address] [facility] [address], [place], [address], 10/17/2022 18:46:01 06/02/2022 XR, hip + pelvis, bilateral, 2 view completed Information not available 10/11/2022 17:47:04 09/08/2022 MRI, hip, w/o contrast completed Information not available 10/11/2022 17:47:23 07/31/2022 CORTISONE INJECTION, HIP (PROC) completed Information not available 10/11/2022 17:47:45 11/06/2022 XR, knee completed [address], [address], 11/07/2022 12:04:30 11/06/2022 XR, hip, unilateral completed [email or web address] [place] [address] [facility] [address], [place], [address], 11/07/2022 12:05:07 07/26/2018 bone density completed Information not available 11/08/2022 15:49:00 07/26/2018 DEXA completed Information no t available 11/17/2022 16:44:46 12/04/2022 XR, hip + pelvis, unilateral completed [facility] [place] [address], [place], [address], 12/04/2022 15:07:22 03/05/2023 bone density completed [email or web address] [facility] [address], [place], [address], 03/06/2023 10:15:24 03/05/2023 bone density completed [email or web address] [facility] [address], [place], [address], 03/13/2023 16:28:41 03/05/2023 bone density completed [facility] [address], [place], [address], 03/20/2023 11:34:13 Procedure Notes None recorded. Medical Equipment None Reported. Allergies Allergen ID Allergen Name Allergen Category Reaction Reaction Severity Criticality Documentation Date Start Date Code Code System Note Provider Name and Address Organization Details Recorded Time 52019 phenobarb ital medicatio n Not available Not available Not available 10/11/2022 8134 RxNorm JOAQUÍN Rousseau [facility] [employer] 09:59:39 47108 Substance with sulfonami de structure and antibacte rial mechanism of action (substanc e) medicatio n Not available Not available Not available 10/11/2022 23718 8003 SNOMED JOAQUÍN Rousseau [facility] [employer] 3 09:59:46 Medications Name Sig Start Date [...] Updated DateTime 10/11/2022 160.02 cm 38.1 kg/m2 73998.36 g Darcy Lizarraga [facility] [employer] 10/11/2022 10:21:35 Date Recorded Body height Provider Name an d Address Organization Details Last Updated DateTime 11/17/2022 160.02 cm Darcy Lizarraga [facility] [employer] [facility] [employer] 11/17/2022 11:17:56 Date Recorded Body height Provider Name an d Address Organization Details Last Updated DateTime 12/04/2022 160.02 cm Darcy Lizarraga [facility] [employer] [facility] 12/04/2022 14:21:10 Date Recorded Body height Provider Name an d Address Organization Details Last Updated DateTime 01/01/2023 160.02 cm JOAQUÍN Rousseau [place] [facility] 01/01/2023 14:04:50 Social History None recorded. Functional Status None recorded. Mental Status None recorded. Family History Relationship Description Onset Age of this Age Resolved Age Notes LastModified by Organization Details LastModified Time Father Family history of malignant neoplasm [email or web address] Not available 2022 10:15:30 Father Hypertensive disorder [email or web address] Not available 2022 10:15:54 Father Diabetes mellitus Not available 2022 10:16:11 Father Kidney disease [email or web address] Not available 2022 10:16:27 Mother Hypertensive disorder [email or web address] Not available 2022 10:15:54 Medical History Condition Response ARTHRITIS Y OSTEOPOROSIS Y HYPERTENSION Y Gynecological HistoryNo gynecological history recorded. Obstetrics History GPAL:G 0 P 0 0 0 0 Past Encounters Encounter ID Performer Location Encounter Start Date Encounter Closed Date Diagnosis/Indication Diagnosis SNOMED-CT Code Diagnosis ICD10 Code Diagnosis Note [id number] Lalo Smith MD [facility] [place] [address] [place] [address] 10/11/2022 09:44:13 10/18/2022 14:41:08 Pain of left hip joint 3299197425 76465 M25.552 Vitamin D deficiency 347 [id number] [facility] [place] [address] [place] [address] 11/17/2022 11:08:44 11/17/2022 12:33:09 Pain of left hip joint 3672317871 48673 M25.552 [id number] Lalo Smith MD [facility] [place] [address] [place] [address] 12/04/2022 14:18:11 12/04/2022 15:09:53 History of total replacement of left hip joint 6180566655 607456 Z96.[id number] [facility] [place] [address] [place] [address] 01/01/2023 14:02:02 01/01/2023 15:07:06 Pain of left hip joint 8775381699 31941 M25.552 Health Concerns Section Related Observation LastModified by Organization Detai ls LastModified Time None Recorded Concern Status LastModified by Organization Details LastModified Time None Recorded Advance Directives Directive None Recorded Payers Encounter Date Sequence Insurance Name Policy Number Policy Avilez Covered Member ID Avilez Member ID Guarantor Name 10/11/2022 1 [id number] Bk Gauthier [id number] Beata Brarwalter 11/17/2022 1 [place] [id number] Bk Parsonter [id number] Beaat Buchwalter 12/04/2022 1 [place] [id number] Bk Gauthier [id number] Beata Buchwalter 01/01/2023 1 [place] [id number] Bk Gauthier [id number] Beatakristina Brarwalter Notes Date Note Type [...] hydralazine on as-needed basis. She has a item repair manager Dr.Anjan [facility] [place] who she sees in [place]. She lists allergies to sulfa and phenobarbital. Lalo Smith MD [address] [place] [address], [facility] [address], [place], [address], [facility] [employer] 10/17/2022 18:58:42 OBGyn Episode No OBEpisode recorded.
--- OUTSIDE RECORDS SUMMARY | 2024-08-15 09:02 | XMS_ITS ---
Author Organization [facility] As [employer] Address [address] [place] [address] Care Team Providers Care Basket Patcher Name Role Phone Rohan Jerry Unavailable [phone] Migration, Provider Unavailable Unavailable Allergies Allergen (clinical [...] ER 240 MG CAPSULE,EXTENDED RELEASE *Reorder from [facility] for eRx and Interaction Alerts* 09/18/2023 Active [...] Female Encounters Encounter Location Date Provider Diagnosis [place] [address] [address] 10/21/2023 Provider Migration Plan Of Treatment Next Appt Details Provider Name:Rohan herman, 08/21/2024 11:45:00 AM, [facility], [place] [address], [place], [address], Progress Notes * CHRISTI MEIDOB:[birth year] (63 yo F)Acc No.[id number]:10/21/2023 Patient: CHRISTI HUERTA :1960 A ge:63 Y S ex:Female Address:[address] [place] [address] Subjective: * Chief Complaints: * E MR-Arun * Medical History: * Lump Inspector History: M igrated GYNHistory M igrated GYNHistory:: Abnormal Pap: N Modified Date:05/02/2021,Age at First Child: 21 Modified Date:04/04/2023,Age at Menarche: 11 Modified Date:04/04/2023,Date of Last Mammogram: 06/04/2021 Modified Date:04/04/2023,LMP: Unknown Modified Date:04/04/2023,Sexual Problems: Y Modified Date:05/02/2021,Sexually Active: N Modified Date:05/02/2021, . * Surgical History: A ny surgical history Carpal tunnel surgery (20570) Removal of gallbladder (11012) Appendectomy (65608) Removal of ovarian cyst (845776408) Cataract surgery (78913) Colectomy (55364) Procedure on neck (674762928) Procedure on back (070502607) * Hospitalization/Major Diagno stic Procedure: * Family [...] RELEASE , Notes to Pharmacist: *Reorder from [facility] for eRx and Interaction Alerts*ALPRAZolam 0.5 MG [...] RELEASE , Notes to Pharmacist: *Reorder from [facility] for eRx and Interaction Alerts*Taking ALPRAZolam 0.5 [...] Date: Generated for Cordell ballesteros/Martha/Chandu on: 0 08/15/2024 09:02 AM CDT
--- OUTSIDE RECORDS SUMMARY | 2024-08-15 09:02 | XMS_ITS | Encounter Summary ---
Author Organization [facility] Address [facility] [place] [address] Care Team Providers Care Die Press Operator Name Role Phone YoshiTaryn Primary Care Provider [phone] Miguel Nguyen MD Unavailable [phone] Lenard Barr MD Primary Care Provider + [phone] Encounter Details Date Type Department Care Team (Latest Contact Info) Description 04/09/2018 Abstract [facility] , Rayna Gaming MD Social History Tobacco Use Types Packs/Day Years Used Date Smoking Tobacco: Never Smokeless Tobacco: Never Alcohol Use Standard Drinks/Week Comments Yes 0 (1 standard drink = 0.6 oz pur e alcohol) wine once a month Comments Unknown Sex and Gender Information Value Date Recorded Sex Assigned at Female 08/01/2024 1:06 PM INTERVENTION NURSE Legal Sex Female 4:45 PM CDT Gender Identity Female 07/06/2021 4:30 AM INTERVENTION NURSE Sexual Orientation Not on file 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 [facility] [address] [place] [address] documented as of this encounter Visit Diagnoses Not on filedocumented in this encounter Care Teams Die Press Operator Relationship Specialty Start Date End Date Taryn Belle DO PCP - General FAMILY PRACTICE 07/05/17 07/04/22 Lenard Barr MD [address] [place] [address] PCP - General FAMILY PRACTICE 07/05/22 Miguel Nguyen MD [facility]. [facility] [address] [place] [address] Filomena Calenderer CARDIOVASCULAR DISEASE 07/27/17 documented as of this encounter
--- OUTSIDE RECORDS SUMMARY | 2024-08-15 09:02 | XMS_ITS | Encounter Summary ---
Author Organization [facility] Address [address] [place] [address] Care Team Providers Care Funeral Pre Need Consultant Name Role Phone Miguel Nguyen MD Unavailable [phone] Lenard Barr MD Primary Care Provider [phone] Encounter Details Date Type Department Care Team (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 Unable to assess 07/21/2022 3:16 PM CANDY CATCHER documented as of this encounter Plan of Treatment Upcoming Encounters Date Type Department Care Team (Late Contact Info) Description 11/07/2024 2:40 PM CDT Office Visit [facility] [address] [address] [place] [phone] Nic Ricks MD 3 [facility] [address] [place] [address] 07/31/2025 10:15 AM CANDY CATCHER [facility] [address] [place] [address] Miguel Nguyen MD [facility]. [facility] [address] [place], [place] [phone] documented as of this encounter Procedures Procedure [...] Result * COMPREHENSIVE METABOLIC PANEL (11/10/2022) Pathologist [facility] SODIUM S/P/B 130 GLUCOSE 100 mg/dL AST 21 BUN 7 CREATININE S/P/B 0.63 0.5 - 1.0 CALCIUM S/P/B 8.4 POTASSIUM S/P/B 3.6 CHLORIDE S/P/B 91 ALT 24 GFR ESTIMATE 99 Result [facility] Default History Genericprovider LABORATORY Final Result * BNP (12/23/2021) [facility] B TYPE NATRIURETIC PEPTIDE 44 12/23/2021 Result [facility] Default History Genericprovider LABORATORY Final Result * COMPREHENSIVE METABOLIC PANEL (12/23/2021) [facility] SODIUM S/P/B 138 GLUCOSE 95 mg/dL AST 16 BUN 11 CREATININE S/P/B 0.79 0.5 - 1.0 CALCIUM S/P/B 9.1 POTASSIUM S/P/B 4.3 CHLORIDE S/P/B 100 ALT 23 GFR ESTIMATE 84 Result [facility] Default History Genericprovider LABORATORY Final Result * LIPID PANEL (12/23/2021) [facility] CHOLESTEROL 241 TRIGLYCERIDES 83 HDL 83 LDL (CALCULATED) 140 NON HDL CHOLESTEROL 158 Result [facility] Default History Genericprovider LABORATORY Final Result * CBC, MANUAL DIFF (12/23/2021) [facility] WBC 5.5 HGB 12.1 HCT 35.9 PLT 310 Result [facility] Default History Genericprovider LABORATORY Final Result * THYROID STIM HORMONE, TSH (12/23/2021) [facility] TSH 1.06 Result [facility] Default History Genericprovider LABORATORY Final Result documented in this encounter Visit Diagnoses Not on filedocumented in this encounter Additional Health Concerns Assessment Noted Time PHQ-9 Depression Total Score: 0 08/06/19 22 12:51 PM CANDY CATCHER documented as of this encounter Care Teams Funeral Pre Need Consultant Relationship Specialty Start Date End Date Lenard Barr MD [facility] [place] [address] PCP - General FAMILY PRACTICE 07/05/22 Miguel Nguyen MD [facility] [address] [place] [address] Goodwin Supervisor [employer] CARDIOVASCULAR DISEASE 07/27/17 documented as of this encounter
--- OUTSIDE RECORDS SUMMARY | 2024-08-15 09:02 | XMS_ITS ---
Author Organization [facility] [employer] Address [address] [place] [address] Care Team Providers Care Lead Simulation Modeling Engineer Name Role Phone Rohan Jerry Unavailable [phone] Allergies Allergen (clinical drug ingredient) Drug/Non Drug [...] ER 240 MG CAPSULE,EXTENDED RELEASE *Reorder from [employer] for eRx and Interaction Alerts* 09/18/2023 Active Pantoprazole Sodium 40 MG Oral 09/18/2023 Active Levothyroxine Sodium 75 MCG Oral 09/18/2023 Active Social History Sex Assigned At : Social History Observation Description Sex Assigned At Female Vital Signs Height 65.00 in 01/03/2024 Weight 197 lbs 01/03/2024 BMI 32.78 kg/m2 01/03/2024 Height-cm 165.10 cm 01/03/2024 Weight-kg 89.36 kg 01/03/2024 Encounters Encounter Location Date Provider Diagnosis [facility] [employer] [facility] [address] [facility] [address] [place] [address] 01/03/2024 Rohan Oropezaa Generalized anxiety disorder F41.1 [...] Provider Name:Rohan herman, 08/21/2024 11:45:00 AM, [address] [facility] [address] [facility] [address], [place], [address], Progress Notes * CHRISTI MEIDOB:[birth year] (63 yo F)Acc No.[id number]:01/03/2024 Patient: CHRISTI HUERTA Provider: PRAFUL MICHEL :1960 A ge:63 Y S ex:Female Date:01/03/2024 Address:[address] [place], [place] [phone] Subjective: * Chief Complaints: * 1 . [...] RELEASE , Notes to Pharmacist: *Reorder from [employer] for eRx and Interaction Alerts*, Taking ALPRAZolam [...] anxiety) * Billing Information: * Visit Code: [id number] OFFICE OUTPATIENT VISIT 25 MINUTES DETAILED HISTORY AND EXAM/MODERATE MEDICAL DECISION MAKING. * Procedure Codes: * Sign off status: Completed true * Provider: PRAFUL MICHEL Date: 01/03/2024 Generated for Cordell Mcmahon/Chandu on: 0 08/15/2024 09:02 AM CDT History and Physical Notes * HPI (History [...] Total: (0 to 4) No Anx iety Mancos-Suicide Severity Rating Scale Suicide Risk (CSRS-screener) in [...]
--- OUTSIDE RECORDS SUMMARY | 2024-08-15 09:02 | XMS_ITS ---
Author Organization [facility] [employer] Address [address] [place] [address] Care Team Providers Care Manager Foreign Name Role Phone Rohan Jerry Unavailable [phone] Migration, Provider Unavailable Unavailable REASON FOR VISIT EMR-[facility] Social History Sex Assigned At : Social History Observation Description Sex Assigned At Female Encounters Encounter Location Date Provider Diagnosis [facility] [employer] [facility] [address] [place] [address] 10/20/2023 Provider Migration Plan Of Treatment Next Appt Details Provider Name:Rohan herman, 08/21/2024 11:45:00 AM, [address], [facility] [address], [place], [address], Progress Notes * CHRISTI MEIDOB:[birth year] (63 yo F)Acc No.[id number]:10/20/2023 Patient: Sherly MEJIACHRISTI :1960 A ge:63 Y S ex:Female Address:[address] [place], [address] Subjective: * Chief Complaints: * E MR-Arun * Medical History: * Surgical History: * Hospitalization/Major Diagno stic Procedure: * Medications: Objective: * Vitals: * Physical Examination: Assessment: Plan: * Treatment: PDMP report request complete d on 01/03/2024 09:04:07 AM - Rohan Jerry * Procedure Codes: * true * Date: Generated for Printi ng/Martha/Chandu on: 0 08/15/2024 09:02 AM CDT
--- OUTSIDE RECORDS SUMMARY | 2024-08-15 09:02 | XMS_ITS | Clinical Summary ---
Author Organization [facility] Address [address] [place] [address] Care Team Providers Care Vest Finisher Name Role Phone Taryn Belle DO Primary [...] mg tablet Take 25 mg by mouth otr hazmat company driver before breakfast. Active vilazodone (VIIBRYD) 40 mg [...] 08/14/2019 Assessment & Plan (08/08/2018 5:30 PM PILOT SUBMERSIBLE): Ms. Gauthier is doing extremely well after [...] on file Medical Devices Implanted Type Area Scoop Operator Device Identifier Shelf Expiration Date Model / Serial / Lot Core Link [id number] [place] 6.5mm 40mm Spine Pedicle Screw Bone 5500 Series - [id number] Implanted:Qty: 4 on 02/06/2018 by Boogie Wesley MD at [facility] Screw N/A: Lumbar-Sacral Spine Core Link [id number] / / Core Link [id number] [place] Screw Set 5500 Series - [id number] Implanted:Qty: 4 on 02/06/2018 by Boogie Wesley MD at [facility] Screw N/A: Vertebrae Core Link [id number] / / Core Link [id number] [place] 5.5mm 35mm Line Prebent Estevan Spinal Nonsterile 5500 Series - [id number] Implanted:Qty: 1 on 02/06/2018 by Boogie Wesley MD at [facility] N/A: Vertebrae Core Link [id number] / / Core Link [id number] [place] 5.5mm 40mm Line Prebent Estevan Spinal Nonsterile 5500 Series - [id number] Implanted:Qty: 1 on 02/06/2018 by Boogie Wesley MD at [facility] N/A: Vertebrae Core Link [id number] / / Insurance Advance Directives For more information, please contact: [phone] * Full Code (Latest Code Status on File) Date Activated Date Inactivated Comments 02/06/2018 12:33 PM 02/08/2018 2:59 PM Care Teams Vest Finisher Relationship Specialty Start Date End Date Taryn Belle DO [address] [place] [address] [facility] - General 03/25/18
--- OUTSIDE RECORDS SUMMARY | 2024-08-15 09:02 | XMS_ITS | Encounter Summary ---
Author Organization [facility] Address [facility] [place] [address] Care Team Providers Care Field Test Engineer Name Role Phone YoshiTaryn Primary Care Provider [phone] Miguel Nguyen MD Unavailable [phone] Lenard Barr MD Primary Care Provider [phone] Encounter Details Date Type Department Care Team (Late st Contact Info) Description 08/28/2017 Abstract [facility], [facility] [address] [place] [address] Asher Aparicio MA Social History Tobacco Use Types Packs/Day Years Used Date Smoking Tobacco: Never Smokeless Tobacco: Never Alcohol Use Standard Drinks/Week Comments Yes 0 (1 standard drink = 0.6 oz pur e alcohol) wine once a month Comments Unknown Sex and Gender Information Value Date Recorded Sex Assigned at Female 08/01/2024 1:06 PM ISOTOPE HYDROLOGIST Legal Sex Female 4:45 PM CDT Gender Identity Female 07/06/2021 4:30 AM ISOTOPE HYDROLOGIST Sexual Orientation Not on file 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 [place] [address] documented as of this encounter Procedures Procedure [...] Final Result * LIPID PANEL (11/17/2020) Pathologist [facility] CHOLESTEROL 236 HDL 90 TRIGLYCERIDES 56 NON [...] Final Result * LIPID PANEL (03/10/2017) Pathologist [facility] CHOLESTEROL 232 HDL 77 TRIGLYCERIDES 55 LDL (CALCULATED) 144 03/10/2017 [facility] Abstract LABORATORY Final Result * COMPREHENSIVE METABOLIC PANEL (03/10/2017) Pathologist [facility] SODIUM S/P/B 131 POTASSIUM S/P/B 3.7 CO2 [...] Result * CBC (OUTSIDE LAB) (03/10/2017) Pathologist [facility] WBC 4.6 HGB 13.1 HCT 35.9 PLT 277 03/10/2017 [facility] Abstract LAB-OUTSIDE/ABSTRACTED Final Result documented in this encounter Visit Diagnoses Not on filedocumented in this encounter Care Teams Field Test Engineer Relationship Specialty Start Date End Date Taryn Belle DO PCP - General FAMILY PRACTICE 07/05/17 07/04/22 Lenard Barr MD [address] [place] [address] PCP - General FAMILY PRACTICE 07/05/22 Miguel Nguyen MD Three [facility]. [facility] [address] [place] [address] [place] Choral Director CARDIOVASCULAR DISEASE 07/27/17 documented as of this encounter
--- OUTSIDE RECORDS SUMMARY | 2024-08-15 09:02 | XMS_ITS | Patient Health Record ---
Author Organization [facility] Address [address] [place] [address] Care Team Providers Care Local Telephone Operator Name Role Phone Kam Francis Primary Care Provider [phone] Reason For Referral No Information Immunizations Vaccine Route Administration Date Status Comme nts FLU VAC NO PRSV 4VAL 6 mo+ IM Intramuscular 03/19/2020 Administered Patient signed consent form. Patient tolerated well. VIS date 01/16/19 COVID-19 Vaccine Pfizer 2ND IM Intramuscular 05/25/2020 Administered EUA provided (publication date ). Pt tolerated well and denied questions or concerns. 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 EUA given. Patient tolerated well. Plan Of Treatment No Information
--- OUTSIDE RECORDS SUMMARY | 2024-08-15 09:03 | XMS_ITS | Clinical Summary ---
Author Organization [facility] Address [address] [place] [address] Care Team Providers Care Pen Tender Name Role Phone Miguel Nguyen MD Unavailable [phone] Lenard Barr MD Primary Care Provider [phone] Allergies Active Allergy Reactions Criticality Noted Date [...] (09/19/2021): Added automatically from request for surgery [id number] Ulcer of esophagus without bleeding 09/19/2021 Overview (09/19/2021): Added automatically from request for surgery [id number] Pharyngoesophageal dysphagia 08/17/2021 Overview (08/17/2021): Added automatically from request for surgery [id number] Diarrhea, unspecified type 08/17/2021 Overview (08/17/2021): Added automatically from request for surgery [id number] Irritable bowel syndrome with diarrhea Overview (08/17/2021): Added automatically from request for surgery [id number] Schatzki's ring 08/17/2021 Overview (08/17/2021): Added automatically from request for surgery [id number] Obesity (BMI 30.0-34.9) 07/27/2017 Fibromyalgia 07/27/2017 PAC (premature atrial contraction) 07/27/2017 PVC (premature ventricular contraction) 07/27/19 18 PAT (paroxysmal atrial tachycardia) ([facility]) Knee pain, left 10/13/2013 Rib pain on [...] Palpitations Assessment & Plan (07/25/2024 1:45 PM DEDICATED OWNER OPERATOR): Patient denies any recent palpitations. Continue diltiazem. Assessment & Plan (07/22/2022 10:36 AM DEDICATED OWNER OPERATOR): Symptoms are well controlled. Continue cardizem. Assessment & Plan (07/08/2021 8:17 AM DEDICATED OWNER OPERATOR): Previous HM obtained revealing isolated PACs PVCs and runs of premature atrial complexes. She underwent echocardiogram with Dr. jennings that showed normal left ventricular function and no significant valvular abnormalities. No issues at present Essential hypertension Assessment & Plan (07/25/2024 1:46 PM DEDICATED OWNER OPERATOR): Blood pressure well-controlled in office today. Continue losartan, diltiazem, spironolactone, and hydralazine. Assessment & Plan (07/22/2022 10:35 AM DEDICATED OWNER OPERATOR): Blood pressure is elevated today. Encouraged home blood pressure monitoring. Continue current antihypertensive regimen. No changes made to antihypertensive therapy. Assessment & Plan (07/08/2021 8:15 AM DEDICATED OWNER OPERATOR): Blood pressure is well controlled with no changes in regimen at this time Encouraged to continue to monitor at home and log and call office with any concerns in future. Hyperlipidemia Assessment & Plan (07/25/2024 1:47 PM DEDICATED OWNER OPERATOR): Last lipid panel with an LDL of 101. Her ASCVD risk score is 6.2% over the next 10 years. She continues on rosuvastatin without any significant myalgias. Assessment & Plan (07/22/2022 10:36 AM DEDICATED OWNER OPERATOR): Lipids are elevated. She is intermediate risk for ASCVD and I have recommended that she start atorvastatin 20. Check lipids in 3 months. Assessment & Plan (07/08/2021 8:15 AM DEDICATED OWNER OPERATOR): Non known CAD or risk equivalent - Last lipid panel obtained 2017 - ASCVD 10 year risk based on those number is 5.8% - recommend lipid panel for review and encourage diet and exercise for risk modification. 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 on file Not on f ile Last Filed Vital Signs Vital Sign Reading Time Taken Comments Blood Pressure 120/70 07/25/2024 10:39 AM DEDICATED OWNER OPERATOR Pulse 71 07/25/2024 10:39 AM DEDICATED OWNER OPERATOR Temperature 36 C (96.8 F) 09/08/2022 3:04 PM CDT Respiratory Rate 12 11/06/2023 3:30 PM CDT Oxygen Saturation 98% 11/06/2023 3:30 PM CDT Inhaled Oxygen Concentration - - Weight 91.6 kg (202 lb) 07/25/2024 10:39 AM DEDICATED OWNER OPERATOR Height 165.1 cm (5' 5 ) 07/25/2024 10:39 AM DEDICATED OWNER OPERATOR Body Mass Index 33.61 07/25/2024 10:39 AM DEDICATED OWNER OPERATOR Plan of Treatment Upcoming Encounters Date Type Department Care Team (Late st Contact Info) Description 11/07/2024 2:40 PM CDT Office Visit [facility] [place] [address] [place] [address] Nic Ricks MD 3 [facility] [address] [place] [address] 07/31/2025 10:15 AM DEDICATED OWNER OPERATOR [facility] [address] [place] [address] Miguel Nguyen MD Three [facility]. [facility] [address], [place] [id number] Health Maintenance Due Date Last Done Comments [...] Adult (#1) 2024 03/19/2020, 03/04/2020 PHQ-2 (Physician Craig) 06/04/2024 09/08/2022 Meningococcal B Vaccine Aged Out [...] SCREENING JULIA DIGI Routine 07/11/2013 3:48 PM DEDICATED OWNER OPERATOR BONE DENSITY/DEXA Routine 07/11/2013 2:3 3 PM DEDICATED OWNER OPERATOR from Last 3 Months or Most Recently Relevant to Health Maintenance Results * MG SCREENING JULIA DIGI (07/11/2013 3:48 PM DEDICATED OWNER OPERATOR) Anatomical Region Laterality Modality Breast Bilateral Mammography 07/11/2013 3:48 PM DEDICATED OWNER OPERATOR 07/11/2013 3:48 PM DEDICATED OWNER OPERATOR Narrative 07/11/2013 4:44 PM DEDICATED OWNER OPERATOR CHRISTI GAUTHIER ORDERING MD: TYE BARROW ACCT: [id number] ADMIT/SERVICE DATE: 07/11/13 DISCHARGE DATE: : 1960 PT TYPE: REG CLI SEX: F ORD SITE: [facility] STUDY DATE REPORT # PROCEDURE CODE PROCEDURE 07/11/13 [id number] SCMAMDGB MG SCREEN MAMMO DIGITAL BI EXTORDERID [id number] CHART DOCUMENT DIVISION OF RADIOLOGY ACCESSION # EXAM DATE EXAM DESCRIPTION [id number] 07/11/2013 MG SCREEN MAMMO DIGITAL BI IMAGING [...] CATEGORY #2. ROUTINE YEARLY FOLLOW-UP IS SUGGESTED. [facility] MAMMOGRAM CLASSIFICATION BI-RADS CATEGORY 0-NEED ADDITIONAL [...] 07/11/2013 4:02 P JOB NO: DOC NO: [id number] CC: Procedure Note Rayna Coe MD - 03/27/2018 CHRISTI GAUTHIER ORDERING MD: TYE BARROW ACCT: [id number] ADMIT/SERVICE DATE: 07/11/13 DISCHARGE DATE: : 1960 PT TYPE: REG CLI SEX: F ORD SITE: [facility] STUDY DATE REPORT # PROCEDURE CODE PROCEDURE 07/11/13 0210-2493 SCMAMDGB MG SCREEN MAMMO DIGITAL BI EXTORDERID [id number] CHART DOCUMENT DIVISION OF RADIOLOGY ACCESSION # EXAM DATE EXAM DESCRIPTION [id number] 07/11/2013 MG SCREEN MAMMO DIGITAL BI IMAGING [...] CATEGORY #2. ROUTINE YEARLY FOLLOW-UP IS SUGGESTED. [facility] MAMMOGRAM CLASSIFICATION BI-RADS CATEGORY 0-NEED ADDITIONAL [...] 07/11/2013 4:02 P JOB NO: DOC NO: [id number] CC: Tye GONZALEZ MAMMO Final Result * BONE DENSITY/DEXA (07/11/2013 2:33 PM DEDICATED OWNER OPERATOR) Anatomical Region Laterality Modality Bone Bone Density 07/11/2013 2:33 PM DEDICATED OWNER OPERATOR 07/11/2013 2:33 PM DEDICATED OWNER OPERATOR Narrative 07/11/2013 3:42 PM DEDICATED OWNER OPERATOR CHRISTI GAUTHIER ORDERING MD: TYE BARROW C ACCT: [id number] ADMIT/SERVICE DATE: 07/11/13 DISCHARGE DATE: : 1960 PT TYPE: REG CLI SEX: F ORD SITE: [facility] STUDY DATE REPORT # PROCEDURE CODE PROCEDURE 07/11/13 [id number] DEXASCAN XR DEXA SCAN EXTORDERID [id number] CHART DOCUMENT DIVISION OF RADIOLOGY ACCESSION # EXAM DATE EXAM DESCRIPTION [id number] 07/11/2013 XR DEXA SCAN IMAGING STUDIES: BONE [...] 07/11/2013 2:48 P JOB NO: DOC NO: [id number] CC: Procedure Note Rayna Coe MD - 03/28/2018 CHRISTI GAUTHIER ORDERING MD: TYE BARROW ACCT: [id number] ADMIT/SERVICE DATE: 07/11/13 DISCHARGE DATE: : 1960 PT TYPE: REG CLI SEX: F ORD SITE: [facility] STUDY DATE REPORT # PROCEDURE CODE PROCEDURE 07/11/13 [id number] DEXASCAN XR DEXA SCAN EXTORDERID [id number] CHART DOCUMENT DIVISION OF RADIOLOGY ACCESSION # EXAM DATE EXAM DESCRIPTION [id number] 07/11/2013 XR DEXA SCAN IMAGING STUDIES: BONE [...] 07/11/2013 2:48 P JOB NO: DOC NO: [id number] CC: us Tye Mike Barrow SLAG WORKER DEXA Final Result from Last 3 Months or Most Recently Relevant to Health Maintenance Insurance Care Teams Pen Tender Relationship Specialty Start Date End Date Lenard Barr MD [address] [place] [address] PCP - General FAMILY PRACTICE 07/05/22 Miguel Nguyen MD [facility] [address] [place] [address] Filomena Auto Hiker CARDIOVASCULAR DISEASE 07/27/17
--- OUTSIDE RECORDS SUMMARY | 2024-08-15 09:03 | XMS_ITS | Referral Summary ---
Author Organization [facility] Address [address] [place] [address] Care Team Providers Care Solder Making Laborer Name Role Phone Taryn Belle DO Primary [...] mg tablet Take 25 mg by mouth fund director before breakfast. Active vilazodone (VIIBRYD) 40 mg [...] 08/14/2019 Assessment & Plan (08/08/2018 5:30 PM PAINTER ORDNANCE): Ms. Gauthier is doing extremely well after [...] on file Medical Devices Implanted Type Area Sales And Service Agent Device Identifier Shelf Expiration Date Model / Serial / Lot Core Link [id number] Mcclellan 6.5mm 40mm Spine Pedicle Screw Bone 5500 Series - [id number] Implanted:Qty: 4 on 02/06/2018 by Boogie Wesley MD at [facility] Screw N/A: Lumbar-Sacral Spine Core Link [id number] / / Core Link [id number] Mcclellan Screw Set 5500 Series - [id number] Implanted:Qty: 4 on 02/06/2018 by Boogie Wesley MD at [facility] Screw N/A: Vertebrae Core Link [id number] / / Core Link [id number] Mcclellan 5.5mm 35mm Line Prebent Estevan Spinal Nonsterile 5500 Series - [id number] Implanted:Qty: 1 on 02/06/2018 by Boogie Wesley MD at [facility] N/A: Vertebrae Core Link [id number] / / Core Link [id number] Mcclellan 5.5mm 40mm Line Prebent Estevan Spinal Nonsterile 5500 Series - [id number] Implanted:Qty: 1 on 02/06/2018 by Boogie Wesley MD at [facility] N/A: Vertebrae Core Link [id number] / / Insurance [address] [address] Advance Directives For more information, please contact: [phone] * Full Code (Latest Code Status on File) Date Activated Date Inactivated Comments 02/06/2018 12:33 PM 02/08/2018 2:59 PM Care Teams Solder Making Laborer Relationship Specialty Start Date End Date Taryn Belle DO [address] [place] [phone] PCP - General 03/25/18
== END 2024-08-15 08:42 | disposition home or self-care (01) ==
PROVIDERS: PCP Nurse Practitioner Family; Visit Provider Psychiatry & Neurology Neurology
DX: G35 Multiple sclerosis (principal)
CPT/HCPCS: 70553; A9579

== ENCOUNTER 2024-09-05 09:00 | Outpatient (CLI) | payer BC, SELFPAY ==
--- OUTSIDE RECORDS SUMMARY | 2024-09-05 09:09 | XMS_ITS | Encounter Summary ---
Author Organization [facility] Address [facility] [place] [address] Care Team Providers Care Corrections Nurse Name Role Phone YoshiTaryn Primary Care Provider [phone] Miguel Nguyen MD Unavailable [phone] Lenard Barr MD Primary Care Provider [phone] Encounter Details Date Type Department Care Team (Latest Contact Info) Description 04/09/2018 Abstract [facility] , Rayna Gaming MD Social History Tobacco Use Types Packs/Day Years Used Date Smoking Tobacco: Never Smokeless Tobacco: Never Alcohol Use Standard Drinks/Week Comments Yes 0 (1 standard drink = 0.6 oz pur e alcohol) wine once a month Comments Unknown Sex and Gender Information Value Date Recorded Sex Assigned at Female 08/01/2024 1:06 PM SALES DEVELOPMENT CONSULTANT Legal Sex Female 4:45 PM CDT Gender Identity Female 07/06/2021 4:30 AM SALES DEVELOPMENT CONSULTANT Sexual Orientation Not on file 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 [facility] [address] [place] [address] documented as of this encounter Visit Diagnoses Not on filedocumented in this encounter Care Teams Corrections Nurse Relationship Specialty Start Date End Date Taryn Belle DO PCP - General FAMILY PRACTICE 07/05/17 07/04/22 Lenard Barr MD [address] [place] [address] PCP - General FAMILY PRACTICE 07/05/22 Miguel Nguyen MD [facility]. [facility] [address] [place] [address] Filomena Transportation Superintendent CARDIOVASCULAR DISEASE 07/27/17 documented as of this encounter
--- OUTSIDE RECORDS SUMMARY | 2024-09-05 09:09 | XMS_ITS | Data Portability ---
Author Organization [place] [facility], Main Office Address [address] [place] [address] Care Team Providers Care Metal Tile Lather Name Role Phone CARLOS BARR Primary Care Provider CARLOS BARR Referring Provider [phone] Assessment Encounter Date Assessment Date Assessment LastModified [...] would recommend that she consult with her machine room engineer on that question. If she does continue [...] she have a thorough evaluation by her machine room engineer before surgery for cardiac risk assessment. 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 I believe she does have some pathologic [...] than half of this time spent in [id number] care. Not available 10/17/2022 18:58:24 11/17/2022 11/17/2022 [...] She would like to be released to print binding worker starting day after tomorrow as tolerated. [...] XR, hip + pelvis, unilateral 2022 023 [facility] [place], [facility], [place], [address], 10:08:46 XR, hip + pelvis, unilateral 2022 023 [facility] [place], [address], [place], [address], 14:41:08 Medication Orders None recorded. Patient TargetsNo targets recorded. Patient InstructionsNo instructions recorded. Reason for Referral None Reported. Results Created Date Observation Date Name Description Value Unit Range Abnormal Flag Note LastModifiedBy Organization Detail LastModifiedTime 10/12/19 XR, hip + pelvi s, unila teral No observ ation record ed. [facility] [address], [place], [address], 10/17/2022 18:46:01 10/12/1906/02/2022 XR, hip + pelvi [...] XR, knee No observ ation record ed. [address], [place], [address], 11/07/2022 12:04:30 11/07/19 23 11/06/2022 XR, hip, unila teral No observ ation record ed. [place] [id number], [place], [address], 11/07/2022 12:05:07 11/07/19 23 07/26/2018 bone densi ty No observ ation record ed. Not Available 2022 15:49:00 11/18/1907/26/2018 DEXA No observ ation record ed. Not Available 2022 16:44:46 12/05/19 XR, hip + pelvi s, unila teral No observ ation record ed. [facility] [place] [address], [place], [address], 12/04/2022 15:07:22 03/05/20 23 03/05/2023 bone densi ty No observ ation record ed. [email or web address] [facility] [address], [place], [address], 03/06/2023 10:15:24 03/05/2003/05/2023 bone densi ty No observ ation record ed. [facility] [address], [place], [address], 03/13/2023 16:28:41 03/20/2003/05/2023 bone densi ty No observ ation record ed. [facility] [address], [place], [address], 03/20/2023 11:34:13 Result Notes None recorded. Problems Name Problem SNOMED Code Status Onset Date Resolution Date Notes Provider Name and Address Organization Details Recorded Time Pain of left hip joint 2242499954813 00 Active 2022 JOAQUÍN Rousseau, [employer] 3 10:00:23 Vitamin D deficiency 20619519 Active 2022 ANDREA Pro, [employer] 3 11:25:22 Osteoporosi s 38557952 Active 2022 ANDREA Pro, [employer] 3 12:22:46 Problem Notes None recorded. Procedures Surgical History Date Name Laterality Status Provider Name and Address Organization Details Recorded Time Back Surgery completed JOAQUÍN Rousseau [employer] 10/11/2022 10:16:45 procedure on neck completed Darcy stout [facility] 10/11/2022 10:16:52 Appendectomy completed Darcy Lizarraga [facility] 10/11/2022 10:17:06 Gallbladder Surgery completed Darcy Lizarraga [facility] 10/11/2022 10:17:13 Carpal tunnel completed Darcy Lizarraga [facility] 10/11/2022 10:17:23 Imaging Results Imaging Date Name Status LastModified by [facility] Details LastModified Time 10/11/2022 XR, hip + pelvis, unilateral completed [facility] [address], [place], [address], 10/17/2022 18:46:01 06/02/2022 XR, hip + pelvis, bilateral, 2 view completed Information not available 10/11/2022 17:47:04 09/08/2022 MRI, hip, w/o contrast completed Information not available 10/11/2022 17:47:23 07/31/2022 CORTISONE INJECTION, HIP (PROC) completed Information not available 10/11/2022 17:47:45 11/06/2022 XR, knee completed [address], [place], [address], 11/07/2022 12:04:30 11/06/2022 XR, hip, unilateral completed [place] [id number], [place], [address], 11/07/2022 12:05:07 07/26/2018 bone density completed Information not available 11/08/2022 15:49:00 07/26/2018 DEXA completed Information no t available 11/17/2022 16:44:46 12/04/2022 XR, hip + pelvis, unilateral completed [facility] [address], [place], [address], 12/04/2022 15:07:22 03/05/2023 bone density completed [email or web address] [facility] [address], [place], [address], 03/06/2023 10:15:24 03/05/2023 bone density completed [email or web address] [facility] [address], [place], [address], 03/13/2023 16:28:41 03/05/2023 bone density completed [facility] [address], [place], [address], 03/20/2023 11:34:13 Procedure Notes None recorded. Medical Equipment None Reported. Allergies Allergen ID Allergen Name Allergen Category Reaction Reaction Severity Criticality Documentation Date Start Date Code Code System Note Provider Name and Address Organization Details Recorded Time 57987 phenobarb ital medicatio n Not available Not available Not available 10/11/2022 8134 RxNorm JOAQUÍN Rousseau [facility] [employer] 09:59:39 20033 Substance with sulfonami de structure and antibacte rial mechanism of action (substanc e) medicatio n Not available Not available Not available 10/11/2022 10179 8003 SNOMED JOAQUÍN Rousseau [facility] [employer] 3 09:59:46 Medications Name Sig Start Date [...] Updated DateTime 10/11/2022 160.02 cm 38.1 kg/m2 04251.36 g Darcy Lizarraga [facility] 10/11/2022 10:21:35 Date Recorded Body height Provider Name an d Address Organization Details Last Updated DateTime 11/17/2022 160.02 cm Darcy Lizarraga [facility] [employer] [facility] 11/17/2022 11:17:56 Date Recorded Body height Provider Name an d Address Organization Details Last Updated DateTime 12/04/2022 160.02 cm Darcy Lizarraga [facility] [employer] [facility] 12/04/2022 14:21:10 Date Recorded Body height Provider Name an d Address Organization Details Last Updated DateTime 01/01/2023 160.02 cm JOAQUÍN Rousseau [place] [facility] 01/01/2023 14:04:50 Social History None recorded. Functional Status None recorded. Mental Status None recorded. Family History Relationship Description Onset Age of this Age Resolved Age Notes LastModified by Organization Details LastModified Time Father Family history of malignant neoplasm Not available 2022 10:15:30 Father Hypertensive disorder [email or web address] Not available 2022 10:15:54 Father Diabetes mellitus [email or web address] Not available 2022 10:16:11 Father Kidney disease [email or web address] Not available 2022 10:16:27 Mother Hypertensive disorder Not available 2022 10:15:54 Medical History Condition Response OSTEOPOROSIS Y ARTHRITIS Y HYPERTENSION Y Gynecological HistoryNo gynecological history recorded. Obstetrics History GPAL:G 0 P 0 0 0 0 Past Encounters Encounter ID Performer Location Encounter Start Date Encounter Closed Date Diagnosis/Indication Diagnosis SNOMED-CT Code Diagnosis ICD10 Code Diagnosis Note [id number] Lalo Smith MD [facility] [address] [place] [address] 10/11/2022 09:44:13 10/18/2022 14:41:08 Pain of left hip joint 0530780785 89277 M25.552 Vitamin D deficiency 347 26826 E55.9 [id number] DEEPIKA Lilly [facility] [address] [place] [address] 11/17/2022 11:08:44 11/17/2022 12:33:09 Pain of left hip joint 5997958762 58100 M25.552 [id number] Lalo Smith MD [facility] [address] [place] [address] 12/04/2022 14:18:11 12/04/2022 15:09:53 History of total replacement of left hip joint 6200783167 445547 Z96.642 [id number] DEEPIKA Lilly [facility] [address] [place] [address] 01/01/2023 14:02:02 01/01/2023 15:07:06 Pain of left hip joint 1016978349 14593 M25.552 Health Concerns Section Related Observation LastModified by Organization Detai ls LastModified Time None Recorded Concern Status LastModified by Organization Details LastModified Time None Recorded Advance Directives Directive None Recorded Payers Encounter Date Sequence Insurance Name Policy Number Policy Avilez Covered Member ID Avilez Member ID Guarantor Name 10/11/2022 1 [place] [id number] Bk Gauthier [id number] Beata Brarwalter 11/17/2022 1 [place] [id number] Bk Parsonter [id number] Beata Buchwalter 12/04/2022 1 [place] [id number] Bk Gauthier [id number] Beata Buchwalter 01/01/2023 1 [place] [id number] Bk Gauthier [id number] Beatakristina Brarwalter Notes Date Note Type [...] hydralazine on as-needed basis. She has a machine room engineer Dr.Anjan [facility] [place] who she sees in [place]. She lists allergies to sulfa and phenobarbital. Lalo Smith MD [address] [place] [address], [facility] [address], [place], [address], [facility] [employer] 10/17/2022 18:58:42 OBGyn Episode No OBEpisode recorded.
--- OUTSIDE RECORDS SUMMARY | 2024-09-05 09:09 | XMS_ITS | Encounter Summary ---
Author Organization [facility] Address [facility] [place] [address] Care Team Providers Care Jukebox Checker Name Role Phone YoshiTaryn Primary Care Provider [phone] Miguel Nguyen MD Unavailable [phone] Lenard Barr MD Primary Care Provider [phone] Encounter Details Date Type Department Care Team (Late st Contact Info) Description 08/28/2017 Abstract [facility] at [facility], [facility] [address] [place] [address] Asher Aparicio MA Social History Tobacco Use Types Packs/Day Years Used Date Smoking Tobacco: Never Smokeless Tobacco: Never Alcohol Use Standard Drinks/Week Comments Yes 0 (1 standard drink = 0.6 oz pur e alcohol) wine once a month Comments Unknown Sex and Gender Information Value Date Recorded Sex Assigned at Female 08/01/2024 1:06 PM KNITTED CLOTH EXAMINER Legal Sex Female 4:45 PM CDT Gender Identity Female 07/06/2021 4:30 AM KNITTED CLOTH EXAMINER Sexual Orientation Not on file 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 [place] [address] documented as of this encounter Procedures Procedure [...] on filedocumented in this encounter Care Teams Jukebox Checker Relationship Specialty Start Date End Date Taryn Belle DO PCP - General FAMILY PRACTICE 07/05/17 07/04/22 Lenard Barr MD [address] [place] [address] PCP - General FAMILY PRACTICE 07/05/22 Miguel Nguyen MD Three [facility]. [facility] [address] [place] [address] [place] Kayaking Instructor CARDIOVASCULAR DISEASE 07/27/17 documented as of this encounter
--- OUTSIDE RECORDS SUMMARY | 2024-09-05 09:09 | XMS_ITS | Clinical Summary ---
Author Organization [facility] Address [address] [place] [address] Care Team Providers Care Dispensing Operator Name Role Phone Miguel Nguyen MD Unavailable [phone] Lenard Barr MD Primary Care Provider [phone] Allergies Active Allergy Reactions Criticality Noted Date [...] by mouth daily. 1 07/09/19 18 Active vitamin C 500 MG tablet Take 1 tablet (500 mg total) by mouth daily. 07/27/19 18 Active acetaminophen 325 MG tablet Take 2 tablets (650 mg total) by mouth 2 (two) times daily. And as needed 07/27/19 18 Active Cholecalcifero l (VITAMIN D) 1000 UNIT tablet Take 1 tablet (1,000 Units total) by mouth daily. Active hydrALAZINE 10 MG tablet Take 2 tablets (20 mg total) by mouth 2 (two) times daily. Evening dose is PRN 06/19/19 20 Active dilTIAZem ER 240 MG 24 hr capsule Take 1 capsule (240 mg total) by mouth daily. 06/09/19 21 Active HYOSCYAMINE 0.125 MG SL tabletIndicati ons:Irritable bowel syndrome with diarrhea DISSOLVE 1 TABLET(0.125 MG) UNDER THE TONGUE EVERY 6 HOURS NEEDED FOR CRAMPING 360 tablet 1 08/09/19 22 Active calcium citrate-vitami n D (CITRACAL PETITES/VIT D) 200-6.25 MG-MCG Tab Take 1 tablet by mouth daily. Active escitalopram (LEXAPRO) 20 MG tablet Take 1 tablet (20 mg total) by mouth daily. 10/06/19 24 Active pantoprazole EC (PROTONIX) 40 MG tabletIndicati ons:Schatzki's ring,Hiatal hernia TAKE 1 TABLET BY MOUTH EVERY DAY 90 tablet 1 04/22/20 24 Active rosuvastatin (CRESTOR) 5 MG tablet TAKE 1 TABLET BY MOUTH NIGHTLY AT BEDTIME. 90 tablet 1 07/01/19 25 Active Denosumab (PROLIA SC) Inject into the skin every 6 (six) months. Active multi vitamin/minera ls (CENTRUM ADULTS) tablet Take 1 tablet by mouth daily. Active NON FORMULARY Take 2 tablets by mouth 2 (two) times a day. LIPO FLAVORNOID Active Alosetron HCl 1 MG TabIndications :Irritable bowel syndrome with diarrhea TAKE 1 TABLET BY MOUTH EVERY DAY 90 tablet 08/29/19 25 Active Alosetron HCl 1 MG TabIndications :Irritable bowel syndrome with diarrhea TAKE 1 TABLET BY MOUTH EVERY DAY 90 tablet 04/21/20 24 025 Discontinued Active Problems Problem Noted Date Diagnosed Date Left lower quadrant pain 03/06/2022 Hiatal hernia 09/19/2021 Overview (09/19/2021): Added automatically from request for surgery [id number] Ulcer of esophagus without bleeding 09/19/2021 Overview (09/19/2021): Added automatically from request for surgery [id number] Pharyngoesophageal dysphagia 08/17/2021 Overview (08/17/2021): Added automatically from request for surgery [id number] Diarrhea, unspecified type 08/17/2021 Overview (08/17/2021): Added automatically from request for surgery [id number] Irritable bowel syndrome with diarrhea Overview (08/17/2021): Added automatically from request for surgery [id number] Schatzki's ring 08/17/2021 Overview (08/17/2021): Added automatically from request for surgery [id number] Obesity (BMI 30.0-34.9) 07/27/2017 Fibromyalgia 07/27/2017 PAC (premature atrial contraction) 07/27/2017 PVC (premature ventricular contraction) 07/27/19 PAT (paroxysmal atrial tachycardia) ([facility]/HCC) Knee pain, left 10/13/2013 Rib pain on [...] Palpitations Assessment & Plan (07/25/2024 1:45 PM MONKEY KEEPER): Patient denies any recent palpitations. Continue diltiazem. Assessment & Plan (07/22/2022 10:36 AM MONKEY KEEPER): Symptoms are well controlled. Continue cardizem. Assessment & Plan (07/08/2021 8:17 AM MONKEY KEEPER): Previous HM obtained revealing isolated PACs PVCs and runs of premature atrial complexes. She underwent echocardiogram with Dr. jennings that showed normal left ventricular function and no significant valvular abnormalities. No issues at present Essential hypertension Assessment & Plan (07/25/2024 1:46 PM MONKEY KEEPER): Blood pressure well-controlled in office today. Continue losartan, diltiazem, spironolactone, and hydralazine. Assessment & Plan (07/22/2022 10:35 AM MONKEY KEEPER): Blood pressure is elevated today. Encouraged home blood pressure monitoring. Continue current antihypertensive regimen. No changes made to antihypertensive therapy. Assessment & Plan (07/08/2021 8:15 AM MONKEY KEEPER): Blood pressure is well controlled with no changes in regimen at this time Encouraged to continue to monitor at home and log and call office with any concerns in future. Hyperlipidemia Assessment & Plan (07/25/2024 1:47 PM MONKEY KEEPER): Last lipid panel with an LDL of 101. Her ASCVD risk score is 6.2% over the next 10 years. She continues on rosuvastatin without any significant myalgias. Assessment & Plan (07/22/2022 10:36 AM MONKEY KEEPER): Lipids are elevated. She is intermediate risk for ASCVD and I have recommended that she start atorvastatin 20. Check lipids in 3 months. Assessment & Plan (07/08/2021 8:15 AM MONKEY KEEPER): Non known CAD or risk equivalent - Last lipid panel obtained 2017 - ASCVD 10 year risk based on those number is 5.8% - recommend lipid panel for review and encourage diet and exercise for risk modification. Resolved Problems Problem Noted Date Diagnosed Date Resolved Date Joint pain, hip 04/26/2012 07/20/2023 Encounters Date Type Department Care Team Description 07/25/2024 10:45 AM MONKEY KEEPER Office Visit [facility] [address] [place] [address] Miguel Nguyen MD Lanter, Megan N, PA Hypertension; Lipids 07/25/2024 Travel 07/22/2024 Scan [facility] SRV[facility] Scanned, [facility] (SCAN) 07/21/2024 Scan [facility] SRV[facility] Scanned, [facility] (SCAN) from Last 3 Months Immunizations Name Administration [...] Sex Assigned at Female 08/01/2024 1:06 PM MONKEY KEEPER Legal Sex Female 4:45 PM CDT Gender Identity Female 07/06/2021 4:30 AM MONKEY KEEPER Sexual Orientation Not on file 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 on file Not on f ile Last Filed Vital Signs Vital Sign Reading Time Taken Comments Blood Pressure 120/70 07/25/2024 10:39 AM MONKEY KEEPER Pulse 71 07/25/2024 10:39 AM MONKEY KEEPER Temperature 36 C (96.8 F) 09/08/2022 3:04 PM CDT Respiratory Rate 12 11/06/2023 3:30 PM CDT Oxygen Saturation 98% 11/06/2023 3:30 PM CDT Inhaled Oxygen Concentration - - Weight 91.6 kg (202 lb) 07/25/2024 10:39 AM MONKEY KEEPER Height 165.1 cm (5' 5 ) 07/25/2024 10:39 AM MONKEY KEEPER Body Mass Index 33.61 07/25/2024 10:39 AM MONKEY KEEPER Plan of Treatment Upcoming Encounters Date Type Department Care Team (Late st Contact Info) Description 11/07/2024 2:40 PM CDT Office Visit [facility] [address] [address] Nic Ricks MD 3 [facility] [address] [place] [address] 07/31/2025 10:15 AM MONKEY KEEPER [facility] [address] [place] [address] Miguel Nguyen MD Three [facility]. [address] [place] [address] Health Maintenance Due Date Last Done Comments [...] - 2023-2 5 season) 2024 06/11/2020, 05/25/2020 PHQ-2 (Physician [place]) 06/04/2024 09/08/2022 Meningococcal B Vaccine Aged Out No l onger eligible based on patient's age to complete this topic Meningococcal Vaccine Aged Out No concepcion fiona eligible based on patient's age to complete this topic RSV Immunizations Under 20 Months Aged Out No longer eligible b ased on patient's age to complete this topic Procedures Procedure Name Priority Date/Time Associated Diagnosis Comments OUTSIDE LAB (SCAN ORDER) 07/22/2024 OUTSIDE LAB (SCAN ORDER) 07/21/2024 MG SCREENING JULIA DIGI Routine 07/11/2013 3:48 PM MONKEY KEEPER BONE DENSITY/DEXA Routine 07/11/2013 2:3 3 PM MONKEY KEEPER from Last 3 Months or Most Recently Relevant to Health Maintenance Results * OUTSIDE LAB (SCAN ORDER) (07/22/2024) Only the most recent of2 resultswithin the time period is included. 07/22/2024 [facility] Scanned SCANNING Final Resu lt * MG SCREENING JULIA DIGI (07/11/2013 3:48 PM MONKEY KEEPER) Anatomical Region Laterality Modality Breast Bilateral Mammography 07/11/2013 3:48 PM MONKEY KEEPER 07/11/2013 3:48 PM MONKEY KEEPER Narrative 07/11/2013 4:44 PM MONKEY KEEPER CHRISTI GAUTHIER ORDERING MD: TYE BARROW ACCT: [id number] ADMIT/SERVICE DATE: 07/11/13 DISCHARGE DATE: : 1960 PT TYPE: REG CLI SEX: F ORD SITE: [facility] STUDY DATE REPORT # PROCEDURE CODE PROCEDURE 07/11/13 [id number] SCMAMDGB MG SCREEN MAMMO DIGITAL BI EXTORDERID [id number] CHART DOCUMENT DIVISION OF RADIOLOGY ACCESSION # EXAM DATE EXAM DESCRIPTION [id number] 07/11/2013 MG SCREEN MAMMO DIGITAL BI IMAGING [...] CATEGORY #2. ROUTINE YEARLY FOLLOW-UP IS SUGGESTED. SA MAMMOGRAM CLASSIFICATION BI-RADS CATEGORY 0-NEED ADDITIONAL IMAGING [...] 07/11/2013 4:02 P JOB NO: DOC NO: [id number] CC: Procedure Note Rayna Coe MD - 03/27/2018 CHRISTI GAUTHIER ORDERING MD: TYE BARROW ACCT: [id number] ADMIT/SERVICE DATE: 07/11/13 DISCHARGE DATE: : 1960 PT TYPE: REG CLI SEX: F ORD SITE: [facility] STUDY DATE REPORT # PROCEDURE CODE PROCEDURE 07/11/13 [id number] SCMAMDGB MG SCREEN MAMMO DIGITAL BI EXTORDERID [id number] CHART DOCUMENT DIVISION OF RADIOLOGY ACCESSION # EXAM DATE EXAM DESCRIPTION [id number] 07/11/2013 MG SCREEN MAMMO DIGITAL BI IMAGING [...] CATEGORY #2. ROUTINE YEARLY FOLLOW-UP IS SUGGESTED. SA MAMMOGRAM CLASSIFICATION BI-RADS CATEGORY 0-NEED ADDITIONAL IMAGING [...] 07/11/2013 4:02 P JOB NO: DOC NO: [id number] CC: Tye GONZALEZ MAMMO Final Result * BONE DENSITY/DEXA (07/11/2013 2:33 PM MONKEY KEEPER) Anatomical Region Laterality Modality Bone Bone Density 07/11/2013 2:33 PM MONKEY KEEPER 07/11/2013 2:33 PM MONKEY KEEPER Narrative 07/11/2013 3:42 PM MONKEY KEEPER CHRISTI GAUTHIER ORDERING MD: TYE BARROW C ACCT: [id number] ADMIT/SERVICE DATE: 07/11/13 DISCHARGE DATE: : 1960 PT TYPE: REG CLI SEX: F ORD SITE: [facility] STUDY DATE REPORT # PROCEDURE CODE PROCEDURE 07/11/13 [id number] DEXASCAN XR DEXA SCAN EXTORDERID [id number] CHART DOCUMENT DIVISION OF RADIOLOGY ACCESSION # EXAM DATE EXAM DESCRIPTION [id number] 07/11/2013 XR DEXA SCAN IMAGING STUDIES: BONE [...] 07/11/2013 2:48 P JOB NO: DOC NO: [id number] CC: Procedure Note Rayna Coe MD - 03/28/2018 CHRISTI GAUTHIER ORDERING MD: TYE BARROW ACCT: [id number] ADMIT/SERVICE DATE: 07/11/13 DISCHARGE DATE: : 1960 PT TYPE: REG CLI SEX: F ORD SITE: [facility] STUDY DATE REPORT # PROCEDURE CODE PROCEDURE 07/11/13 [id number] DEXASCAN XR DEXA SCAN EXTORDERID [id number] CHART DOCUMENT DIVISION OF RADIOLOGY ACCESSION # EXAM DATE EXAM DESCRIPTION [id number] 07/11/2013 XR DEXA SCAN IMAGING STUDIES: BONE [...] 07/11/2013 2:48 P JOB NO: DOC NO: [id number] CC: Tye Barrow GARAGE DOOR OPENER INSTALLER DEXA Final Result from Last 3 Months or Most Recently Relevant to Health Maintenance Insurance Care Teams Dispensing Operator Relationship Specialty Start Date End Date Lenard Barr MD [address] [place] [address] PCP - General FAMILY PRACTICE 07/05/22 Miguel Nguyen MD [facility] [address] [place] [address] Filomena Notch Grinder CARDIOVASCULAR DISEASE 07/27/17
--- OUTSIDE RECORDS SUMMARY | 2024-09-05 09:09 | XMS_ITS | Referral Summary ---
Author Organization [facility] Address [address] [place] [address] Care Team Providers Care R Programmer Name Role Phone Taryn Belle DO Primary [...] mg tablet Take 25 mg by mouth cvt rn before breakfast. Active vilazodone (VIIBRYD) 40 mg [...] 08/14/2019 Assessment & Plan (08/08/2018 5:30 PM FIBERGLASS BOAT BUILDER): Ms. Gauthier is doing extremely well after [...] on file Medical Devices Implanted Type Area Corporate Legal Assistant Device Identifier Shelf Expiration Date Model / Serial / Lot Core Link [id number] Colby 6.5mm 40mm Spine Pedicle Screw Bone 5500 Series - [id number] Implanted:Qty: 4 on 02/06/2018 by Boogie Wesley MD at [facility] Screw N/A: Lumbar-Sacral Spine Core Link [id number] / / Core Link [id number] Colby Screw Set 5500 Series - [id number] Implanted:Qty: 4 on 02/06/2018 by Boogie Wesley MD at [facility] Screw N/A: Vertebrae Core Link [id number] / / Core Link [id number] Colby 5.5mm 35mm Line Prebent Estevan Spinal Nonsterile 5500 Series - [id number] Implanted:Qty: 1 on 02/06/2018 by Boogie Wesley MD at [facility] N/A: Vertebrae Core Link [id number] / / Core Link [id number] Colby 5.5mm 40mm Line Prebent Estevan Spinal Nonsterile 5500 Series - [id number] Implanted:Qty: 1 on 02/06/2018 by Boogie Wesley MD at [facility] N/A: Vertebrae Core Link [id number] / / [place] [address] [place] [address] Advance Directives For more information, please contact: [phone] * Full Code (Latest Code Status on File) Date Activated Date Inactivated Comments 02/06/2018 12:33 PM 02/08/2018 2:59 PM Care Teams R Programmer Relationship Specialty Start Date End Date Taryn Belle DO [address] [place] [id number] PCP - General 03/25/18
--- OUTSIDE RECORDS SUMMARY | 2024-09-05 09:09 | XMS_ITS | Encounter Summary ---
Author Organization [facility] Address [address] [place] [address] Care Team Providers Care Utilities Operator Name Role Phone Miguel Nguyen MD Unavailable [phone] Lenard Barr MD Primary Care Provider [phone] Encounter Details Date Type Department Care Team ([facility] Contact Info) Description 07/25/2022 Abstract [facility] [address] Asher Aparicio MA Social History Tobacco Use [...] Sex Assigned at Female 08/01/2024 1:06 PM HOME SERVICE DIRECTOR Legal Sex Female 4:45 PM CDT Gender Identity Female 07/06/2021 4:30 AM HOME SERVICE DIRECTOR Sexual Orientation Not on file 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 Unable to assess 07/21/2022 3:16 PM HOME SERVICE DIRECTOR documented as of this encounter Plan of Treatment Upcoming Encounters Date Type Department Care Team (Late Contact Info) Description 11/07/2024 2:40 PM CDT Office Visit [facility] [place] [address] [place] [phone] Nic Ricks MD 3 [facility] [address] [place] [address] 07/31/2025 10:15 AM HOME SERVICE DIRECTOR [facility] [address] [place] [address] Miguel Nguyen MD Three [facility]. [facility] [address] [place], [place] [id number] documented as of this encounter Procedures Procedure [...] Result * COMPREHENSIVE METABOLIC PANEL (11/10/2022) Pathologist [facility] SODIUM S/P/B 130 GLUCOSE 100 mg/dL AST 21 BUN 7 CREATININE S/P/B 0.63 0.5 - 1.0 CALCIUM S/P/B 8.4 POTASSIUM S/P/B 3.6 CHLORIDE S/P/B 91 ALT 24 GFR ESTIMATE 99 Result [facility] Default History Genericprovider LABORATORY Final Result * BNP (12/23/2021) [facility] B TYPE NATRIURETIC PEPTIDE 44 12/23/2021 Result [facility] Default History Genericprovider LABORATORY Final Result * COMPREHENSIVE METABOLIC PANEL (12/23/2021) [facility] SODIUM S/P/B 138 GLUCOSE 95 mg/dL AST 16 BUN 11 CREATININE S/P/B 0.79 0.5 - 1.0 CALCIUM S/P/B 9.1 POTASSIUM S/P/B 4.3 CHLORIDE S/P/B 100 ALT 23 GFR ESTIMATE 84 Result [facility] Default History Genericprovider LABORATORY Final Result * LIPID PANEL (12/23/2021) [facility] CHOLESTEROL 241 TRIGLYCERIDES 83 HDL 83 LDL (CALCULATED) 140 NON HDL CHOLESTEROL 158 Result [facility] Default History Genericprovider LABORATORY Final Result * CBC, MANUAL DIFF (12/23/2021) [facility] WBC 5.5 HGB 12.1 HCT 35.9 PLT 310 Result [facility] Default History Genericprovider LABORATORY Final Result * THYROID STIM HORMONE, TSH (12/23/2021) [facility] TSH 1.06 Result [facility] Default History Genericprovider LABORATORY Final Result documented in this encounter Visit Diagnoses Not on filedocumented in this encounter Additional Health Concerns Assessment Noted Time PHQ-9 Depression Total Score: 0 08/06/19 22 12:51 PM HOME SERVICE DIRECTOR documented as of this encounter Care Teams Utilities Operator Relationship Specialty Start Date End Date Lenard Barr MD [facility] [place] [address] PCP - General FAMILY PRACTICE 07/05/22 Miguel Nguyen MD [facility] [address] [place] [address] [employer] Sales Manager CARDIOVASCULAR DISEASE 07/27/17 documented as of this encounter
--- OUTSIDE RECORDS SUMMARY | 2024-09-05 09:09 | XMS_ITS | Clinical Summary ---
Author Organization [facility] Address [address] [place] [address] Care Team Providers Care Motion Picture Actor Name Role Phone Taryn Belle DO Primary [...] mg tablet Take 25 mg by mouth vp publisher development before breakfast. Active vilazodone (VIIBRYD) 40 mg [...] 08/14/2019 Assessment & Plan (08/08/2018 5:30 PM APPIAN BPM DEVELOPER): Ms. Gauthier is doing extremely well after [...] on file Medical Devices Implanted Type Area Payment Specialist Device Identifier Shelf Expiration Date Model / Serial / Lot Core Link [id number] Harvest 6.5mm 40mm Spine Pedicle Screw Bone 5500 Series - [id number] Implanted:Qty: 4 on 02/06/2018 by Boogie Wesley MD at [facility] Screw N/A: Lumbar-Sacral Spine Core Link [id number] / / Core Link [id number] Harvest Screw Set 5500 Series - [id number] Implanted:Qty: 4 on 02/06/2018 by Boogie Wesley MD at [facility] Screw N/A: Vertebrae Core Link [id number] / / Core Link [id number] Harvest 5.5mm 35mm Line Prebent Estevan Spinal Nonsterile 5500 Series - [id number] Implanted:Qty: 1 on 02/06/2018 by Boogie Wesley MD at [facility] N/A: Vertebrae Core Link [id number] / / Core Link [id number] Harvest 5.5mm 40mm Line Prebent Estevan Spinal Nonsterile 5500 Series - [id number] Implanted:Qty: 1 on 02/06/2018 by Boogie Wesley MD at [facility] N/A: Vertebrae Core Link [id number] / / Insurance Advance Directives For more information, please contact: [phone] * Full Code (Latest Code Status on File) Date Activated Date Inactivated Comments 02/06/2018 12:33 PM 02/08/2018 2:59 PM Care Teams Motion Picture Actor Relationship Specialty Start Date End Date Taryn Belle DO [address] [place] [address] [facility] - General 03/25/18
--- OUTSIDE RECORDS SUMMARY | 2024-09-05 09:09 | XMS_ITS | Patient Health Record ---
Author Organization [facility] Address [address] [place] [address] Care Team Providers Care Entrepreneurship Program Director Name Role Phone Kam Francis Primary Care Provider Reason For Referral No Information Immunizations Vaccine Route Administration Date Status Comme nts COVID-19 Vaccine Sell My Timeshare NOW 2ND IM Intramuscular 05/25/2020 Administered EUA provided (publication date ). Pt tolerated well and denied questions or concerns. COVID-19 Vaccine Sell My Timeshare NOW 2ND IM Intramuscular 06/11/2020 Administered 3D Animator: Wipebook. EUA given. Patient tolerated well. FLU VAC NO PRSV 4VAL 6 mo+ IM Intramuscular 03/19/2020 Administered Patient signed consent form. Patient tolerated well. VIS date 01/16/19 Plan Of Treatment No Information
--- NOTE | 2024-09-07 13:38 | WPDNEUROLOGY ---
Neurology EEG Report General Information Date of Study: 09/05/24 TEST EEG DIAGNOSIS Personal history of physical injury and trauma. CONDITION OF RECORDING Awake, drowsy and asleep. EEG NUMBER [id number] CLINICAL HISTORY Patient reports she was diagnosed with temporal lobe seizures about 40 years ago. Seizures are well controlled but she has been having a strange feelings, described as a wave of going through her had at least 6 to 7 times a month, which makes it hard to focus and concentrate. EEG DESCRIPTION Basic resting occipital frequency consists of low to medium voltage 8 to 10 hertz per 2nd alpha admixed with low-voltage 15 to 21 hertz per 2nd beta activity with good anteroposterior gradient. Low-voltage beta activity seen diffusely admixed with waxing and waning alpha activity 6 to 7 hertz per 2nd theta activity during drowsiness bilateral symmetrical sleep spindles are noted during sleep. Photic stimulation produced normal drive. Hyperventilation was not done. Non paroxysmal. Nonfocal nonlateralizing. IMPRESSION Normal record but this tracing does not rule out the possibility of partial or partial complex seizure clinical correlation recommended.
== END 2024-09-05 09:01 | disposition home or self-care (01) ==
PROVIDERS: PCP Nurse Practitioner Family; Visit Provider Psychiatry & Neurology Neurology
DX: Z87.828 Personal history of other (healed) physical injury and trauma (principal)
CPT/HCPCS: 95816

== ENCOUNTER 2024-11-20 08:40 | Emergency (ER) | payer BC, SELFPAY ==
--- NOTE | ~2024-11-20 | XR_ITS ---
XR wrist LT min 3V Ordering provider: Yosi Dior APRN History: . fall, posterior pain and bruising . Comparison: None. FINDINGS: BONES: No acute fracture or dislocation. No definite scaphoid fracture. JOINT SPACES: Osteoarthritic changes of the first carpometacarpal joint. Narrowing of the joint betwe en the scaphoid and lunate bones. SOFT TISSUES: Normal. IMPRESSION: No acute osseous abnormality left wrist. Reviewed, dictated and finalized at location A.
--- NOTE | ~2024-11-20 | XR_ITS ---
XR ankle RT min 3V Ordering provider: Yosi Dior APRN History: . fall, lateral pain and swelling . Comparison: None. FINDINGS: BONES: Fracture of the lateral malleolus with no significant displacement. Fracture of the fifth meta tarsal bone. JOINT SPACES: Normal. SOFT TISSUES: Soft tissue swelling over the lateral malleolus. Calcaneal spur. IMPRESSION: Fracture lateral malleolus. Fracture of the fifth metatarsal bone. Reviewed, dictated and finalized at location A.
--- NOTE | ~2024-11-20 | XR_ITS ---
[id number] Ordering provider: Yosi Dior APRN History: . fall, left lower lat pain . Comparison: None. FINDINGS: BONES: Highly suggestive fracture in the left 11th rib. LEFT LUNG: No effusions or infiltrates. No pneumothorax. SOFT TISSUES: Normal. Degenerative changes of the spine. IMPRESSION: Possible fracture in the left 11th rib. Clinical correlation and follow-up advised. Reviewed, dictated and finalized at location A. IMPRESSION: Possible fracture in the left 11th rib. Clinical correlation and follow-up advi sed.
--- NOTE | ~2024-11-20 | XR_ITS ---
XR toe 5th LT min 2V 11/20/2024 09:44 Indication: Fifth toe pain Procedure: 4 views left fifth toe Comparison: 10/25/2017 Findings: There is a nondisplaced intra-articular fracture proximal aspect of the fifth proximal phal anx. Lisfranc joint intact. There is osteoarthritis of the first MTP joint. Impression: 1: Nondisplaced intra-articular fracture proximal aspect of the left proximal phalanx. Reviewed, dictated and finalized at location A. Impression: 1: Nondisplaced intra-articular fracture proximal aspect of the left proximal p halanx.
--- NOTE | ~2024-11-20 | XR_ITS ---
XR foot RT min 3V 11/20/2024 09:44 Indication: Right foot pain after fall Procedure: 4 views right foot Comparison: 02/06/2019 Findings: There is a healing oblique extra-articular fracture involving the right fifth metatarsal ne ck with medial displacement approximately one bone width. Lisfranc joint intact. There is a distal fi bular fracture. Moderate ankle swelling. Mild soft tissue swelling lateral to the fifth metatarsal fr acture. Impression: 1: Displaced healing extra-articular fracture right fifth metatarsal neck. 2: Nondisplaced distal fibula fracture. Reviewed, dictated and finalized at location A. Impression: 1: Displaced healing extra-articular fracture right fifth metatarsal neck. 2: Nondisplaced distal fibula fracture.
[2024-11-20 08:53] VITALS: BP 148/82; PULSE 82; RESP 16; TEMP 36.8; O2SAT 100
--- NOTE | 2024-11-20 09:07 | ED.LOWEXIN ---
HPI - Extremity Injury (Lower) General Chief Complaint: Fall Stated Complaint: Fell in bathroom and twisted right ankle, injured Source: patient and RN notes reviewed Mode of arrival: ambulatory Limitations: no limitations History of Present Illness HPI Narrative: 64-year-old female presents Express Care complaining of fall this morning. Patient reports she fell asleep on the toilet when her alarm went off and she woke when she stood up she said her right leg was sleep and she fell to the ground. Patient states she rolled her right ankle when she fell. Patient denies loss of consciousness. Patient reports she said this left side of her head. She is not taking blood thinners. Patient denies any headaches, blurry vision, dizziness, lightheadedness, nausea, vomiting, slurred speech, focal weakness, retrograde amnesia, or facial droop. Patient reports having is and neck soreness on the left side. Patient denies any back pain. Patient is complaining right ankle pain and swelling, right foot pain, left pinky toe pain, left wrist pain, and left rib pain. Patient denies any numbness or tingling, or any other injuries. Related Data Home Medications ?Medication ?Instructions ?Recorded ?Confirmed ?Last Taken ?Type cholecalciferol (vitamin D3) 125 5,000 unit PO DAILY 04/22/19 11/20/24 3 Days Ago History mcg (5,000 unit) capsule ~11/03/22 pantoprazole 40 mg tablet,delayed 40 mg PO QAM 09/11/21 11/20/24 Unknown History release (Protonix) ascorbic acid (vitamin C) 500 mg 500 mg PO DAILY 10/23/22 11/20/24 3 Days Ago History tablet ~11/03/22 calcium ER 600 mg (as carb,cit)-D3 1 tablet PO DAILY 10/23/22 11/20/24 3 Days Ago History 12.5 mcg (500 unit) tablet, ~11/03/22 ext.rel (Citracal-D3 Slow Release) multivitamin 1 tablet PO DAILY 10/23/22 11/20/24 3 Days Ago History ~11/03/22 escitalopram oxalate 20 mg tablet 20 mg PO DAILY 09/28/23 11/20/24 Unknown History (Lexapro) alosetron 1 mg tablet 1 mg PO DAILY 04/27/24 11/20/24 Unknown History denosumab 60 mg/mL subcutaneous 60 mg subcut [id number] 06/17/24 11/20/24 Unknown History syringe (Prolia) vitamins-lipotropics tablet 1 tablet PO DAILY 06/17/24 11/20/24 Unknown History buspirone 7.5 mg tablet 7.5 mg PO BID 09/03/24 11/20/24 Unknown History Allergies Allergy/AdvReac Type Severity Reaction Status Date / Time phenobarbital Allergy Unknown Rash Verified 11/20/24 08:56 Sulfa (Sulfonamide AdvReac Unknown Nausea and Verified 11/20/24 08:56 Antibiotics) Vomiting atorvastatin AdvReac Cough Verified 11/20/24 08:56 lisinopril AdvReac Cough Verified 11/20/24 08:56 Review of Systems Review of Systems: CONSTITUTIONAL: Denies fever, chills, or sweats. EYES: Denies visual changes, redness, blurry vision, or discharge. ENT: Denies rhinorrhea, congestion, sore throat, or otalgia. CARDIOVASCULAR: Denies chest pain, palpitations, lightheadedness, dizziness, syncope, presyncope, or edema. RESPIRATORY: Denies cough, wheezing, or dyspnea. GASTROINTESTINAL: Denies abdominal pain, nausea, vomiting, or diarrhea. GENITOURINARY: Denies dysuria or hematuria. SKIN: Denies rash or itching. MUSCULOSKELETAL: Denies back pain, joint pain, or myalgia. Positive for injuries. NEUROLOGIC: Denies headache, numbness, seizures, slurred speech, facial droop, or weakness. PSYCHIATRIC: Denies anxiety or depression. All other systems reviewed are negative, except as documented in HPI. [facility] Past Medical History Medical History Preoperative clearance Degenerative joint disease (DJD) of hip Trochanteric bursitis of left hip Pain of left hip Chronic right hip pain Chronic bronchitis URI (upper respiratory infection) Wears hearing aid Anxiety Depression Hypothyroid Arthritis Fibromyalgia Hallux rigidus, left foot Gallbladder disease PVC (premature ventricular contraction) Lipoma of back Anemia HLD (hyperlipidemia) IBS (irritable bowel syndrome) HTN (hypertension) Temporal lobe seizure Surgical History Surgical History History of total left hip replacement 11/06/2022 H/O esophagogastroduodenoscopy Hx of cervical spine surgery Titanium plate and screws History of cholecystectomy History of appendectomy Family History Family History Mother Family history of thyroid disease Hypertension Grandparent Family history of thyroid disease Family history of kidney disease Family history of Alzheimer's disease Father Diabetes mellitus Hypertension Family history of malignant neoplasm Family history of kidney disease Other Cerebrovascular accident Family history of arthritis Social History Social History Social History: She lives with her Bk. She has no children. 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 Code status full code Smoking status: Never smoker Second hand tobacco smoke exposure: No Additional smoking assessment comments: DENIES ANY FORM OF TOBACCO USE Alcohol intake: current Drinks per week: 1 Alcohol use details: ONE DRINK PER MONTH Substance use: never Substance use type: does not use Do You Feel Safe in your Home?: Yes Lack of Transportation: No Lack of Food: Never True Current Housing: I Have Housing Concerned About Future Housing: No Difficulty Paying Gas/Electric Bills: No Difficulty Paying for Meds: No Currently Unemployed: No Education: Master's Degree or Higher Difficulty w/ Childcare or Family Care: No Living arrangements: with family Occupation/Education: 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 There is no relevant family history pertinent to the patient complaint. Exam Narrative: GENERAL: This is a well-nourished, well-developed adult, in no apparent distress. They are non ill-appearing, nontoxic appearing. HEAD: normocephalic. No raccoon eyes or Estevez signs. Small Hematoma present to the left lateral scalp. EYES: Sclera clear/white. Conjunctiva normal. Vision is grossly intact. Extraocular movements intact. Pupils PERRLA. No subconjunctival hemorrhage or hyphema. EARS: External ears normal, auditory canals clear and without drainage, TMs normal without perforation. Hearing grossly intact. NOSE: External nose normal with no obvious nasal discharge, nasal turbinates without redness, no rhinorrhea. THROAT: Mucous membranes moist, NECK: Neck supple, non-tender without lymphadenopathy, masses or thyromegaly. No cervical point tenderness, no midline tenderness, crepitus, or step-offs. There is tenderness to palpation to the left trapezius muscle. CARDIOVASCULAR: Regular rate and rhythm without murmurs, gallops, or rubs. CHEST WALL: Paradoxical movements, no flail chest segment. Tenderness to palpation to the left lower lateral ribs. RESPIRATORY: Clear to auscultation. Breath sounds equal bilaterally. No wheezes, rales, or rhonchi. Respiratory rate normal, respiratory effort nonlabored, no respiratory distress. SKIN: warm, Dry, intact with no suspicious lesions or rash, good texture and turgor. NEURO: awake, alert, and oriented to person, place and time. There were no obvious focal neurologic abnormalities. EXTREMITIES: Left wrist: Mild swelling present to the posterior wrist. No bony tenderness. Mild tenderness or full range of motion of wrist. Patient will or fingers, make a fist, stop sign, okay sign, a thumbs-up sign. Neurovascular status intact distal injury. Left radial pulse 2 +and palpable. Capillary refill less than 2 seconds. Radial and ulnar nerve distribution intact. Right ankle/foot: There is obvious swelling and deformity to right ankle. Primarily to lateral side. It is tender to palpate throughout the ankle. Right pedal pulse 2 +and palpable. Limited range of motion due to pain and swelling. Patient can wiggle her toes. Capillary refill less than 2 seconds. There is tenderness to palpation to the mid plantar surface of the foot. No obvious swelling, bruising, deformity, redness, or injury to her right foot. Neurovascular status intact distal to injury. Left 5th toe: There is mild swelling and redness to left 5th toe. Mild tenderness to palpation. Capillary refill less than 2 seconds. Pedal pulse 2 +and palpable. Neurovascular status intact distal injury. Patient wiggle her toes. BACK: Nontender without deformity. No CVA tenderness. Course Course Emergency Course: Portions of this record may have been created with voice recognition software Level of Care: Express Care Visit Vital Signs Vital signs: Vital Signs Temperature 98.2 F 11/20/24 08:53 Pulse Rate 82 11/20/24 08:53 Respiratory Rate 16 11/20/24 08:53 Blood Pressure 148/82 H 11/20/24 08:53 Pulse Oximetry 100 11/20/24 08:53 Oxygen Delivery Room Air 11/20/24 08:53 Temperature 98.2 F 11/20/24 08:53 Pulse Rate 82 11/20/24 08:53 Respiratory Rate 16 11/20/24 08:53 Blood Pressure 148/82 H 11/20/24 08:53 Pulse Oximetry 100 11/20/24 08:53 Oxygen Delivery Room Air 11/20/24 08:53 Reviewed Transfer Transfered to: [facility] Transportation: Other (Private vehicle) Transfer rationale: Fall, multiple fractures, scalp hematoma, possible head CT, Higher level care Accepting physician: Bailee LA Procedures Orthopedic Splinting/Casting Injury #1: Splinting/Casting Date: 11/20/24 Splinting/Casting Time: 10:30 Side: right Lower Extremity Injury Location: ankle and foot Splint: customized in ED OCL: stirrup (With posterior short-leg) Pre-Procedure Neuro Vascular Exam: normal Post-Procedure Neuro Vascular Exam: normal Other Orthopedic Equipment: crutches Additional Comments: Posterior short-leg and stirrup splint applied. Patient tolerated procedure well. Injury #2: Splinting/Casting Date: 11/20/24 Splinting/Casting Time: 13:35 Side: left Lower Extremity Injury Location: toe Lower Extremity Immobilizer: post-op shoe Pre-Procedure Neuro Vascular Exam: normal Post-Procedure Neuro Vascular Exam: normal Additional Comments: Patient tolerated procedure well. MDM - Extremity Injury (Lower) MDM Narrative Medical decision making narrative: X-rays revealed nondisplaced fracture of the lateral malleolus, displaced fracture of the 5th metatarsal, nondisplaced fracture of the left 5th proximal phalanx, and probable fracture to left 11th rib. Left wrist x-ray showed no evidence of fracture or acute findings. Other significant or acute findings found on x-ray imaging. Patient placed in a posterior short-leg/stirrup splint to the right leg. Patient given postop shoe for left foot. NEXCUS c-spine criteria score of 0. No cervical point tenderness, no midline tenderness. Patient's pain is primarily in her left trapezius muscle. [place] CT head rule cannot exclude head injury given age and recommends considering a CT. Given patient's multiple injuries, scalp contusion from hitting her head it is recommended she go to the ER immediately and seek a higher level care for possible imaging her head, and management of her condition. Patient is agreeable to go to [facility]. [facility] and spoke to Bailee LA who is aware this patient and accepted the patient for transfer. Patient advised to remain NPO proceed immediately to the ER. Differential Diagnosis Differential diagnosis: Likely fracture of toe, ankle fracture and other (Rib fracture, hemothorax, pneumothorax, close head injury, intracranial hemorrhage,) Imaging Data Radiologist's impression: ITS Impressions Ankle X-Ray 11/20/24 09:48 IMPRESSION: Fracture lateral malleolus. Fracture of the fifth metatarsal bone. Wrist X-Ray 11/20/24 09:50 IMPRESSION: No acute osseous abnormality left wrist. Foot X-Ray 11/20/24 09:53 Impression: 1: Displaced healing extra-articular fracture right fifth metatarsal neck. 2: Nondisplaced distal fibula fracture. Toe X-Ray 11/20/24 09:55 Impression: 1: Nondisplaced intra-articular fracture proximal aspect of the left proximal phalanx. Ribs w/Chest X-Ray 11/20/24 09:57 IMPRESSION: Possible fracture in the left 11th rib. Clinical correlation and follow-up advised. Critical Care Time Critical Care Time Critical Care Time: No Discharge Plan Discharge Clinical Impression: Fall Qualifiers: Encounter type: initial encounter Qualified Code(s): W19.XXXA - Unspecified fall, initial encounter Fracture of fifth metatarsal bone of right foot Qualifiers: Encounter type: initial encounter Fracture type: closed Fracture alignment: displaced Qualified Code(s): S92.351A - Displaced fracture of fifth metatarsal bone, right foot, initial encounter for closed fracture Fracture of lateral malleolus of right ankle Qualifiers: Encounter type: initial encounter Fracture type: closed Fracture alignment: nondisplaced Qualified Code(s): S82.64XA - Nondisplaced fracture of lateral malleolus of right fibula, initial encounter for closed fracture Closed fracture of fifth toe of left foot Qualifiers: Encounter type: initial encounter Qualified Code(s): S92.502A - Displaced unspecified fracture of left lesser toe(s), initial encounter for closed fracture Left rib fracture Qualifiers: Encounter type: initial encounter Rib fracture type: single rib Fracture type: closed Qualified Code(s): S22.32XA - Fracture of one rib, left side, initial encounter for closed fracture Contusion of scalp Qualifiers: Encounter type: initial encounter Qualified Code(s): S00.03XA - Contusion of scalp, initial encounter Patient Disposition: Acute Care Hospital Condition: Stable Additional Instructions: Please go to the ER immediately. Please keep the splint on all times and keep it dry. You need to cover while taking a shower. Rest and elevate the leg. Apply ice 20 minutes at a time a few times a day to help with swelling. May take Tylenol ibuprofen for pain. You will need to keep weight off your right foot until your evaluated by an orthopedist. Orthopedist has been given to you. Patient Language: Mosotho Prescriptions: No Action alosetron 1 mg tablet 1 mg PO DAILY cholecalciferol (vitamin D3) 5,000 unit capsule 5,000 unit PO DAILY escitalopram oxalate [Lexapro] 20 mg tablet 20 mg PO DAILY tizanidine 4 mg tablet 4 mg PO TID PRN (Reason: muscle spasticity) Qty: 20 0RF albuterol sulfate [Ventolin HFA] 90 mcg/actuation HFA aerosol inhaler 2 puff inhalation Q4H PRN (Reason: shortness of breath or wheezing) Qty: 8.5 0RF rosuvastatin 5 mg tablet 5 mg PO DAILY Qty: 90 0RF buspirone 7.5 mg tablet 7.5 mg PO BID Prolia 60 mg/mL syringe 60 mg subcut [id number] vitamins-lipotropics Tablet 1 tablet PO DAILY ibuprofen 800 mg tablet 800 mg PO TID PRN (Reason: pain) 7 Days Qty: 21 0RF acetaminophen 500 mg tablet 1,000 mg PO TID PRN (Reason: dontae) 7 Days Qty: 42 0RF lidocaine 5 % adhesive patch,medicated 1 patch topical DAILY Qty: 15 0RF Rx Instructions: leave on most painful area for up to 12 hrs calcium carb, citrate-vit D3 [Citracal-D3 Slow Release] 600 mg-12.5 mcg (500 unit) Tablet Extended Release 1 tablet PO DAILY ascorbic acid (vitamin C) 500 mg Tablet 500 mg PO DAILY multivitamin Tablet 1 tablet PO DAILY acetaminophen 500 mg Tablet 1,000 mg PO Q6HR Qty: 90 0RF Patient Comments: . pantoprazole [Protonix] 40 mg tablet,delayed release (DR/EC) 40 mg PO QAM carbamazepine [Tegretol XR] 200 mg tablet extended release 12 hr 400 mg PO .HS Qty: 180 2RF Patient Comments: TAKES 2 TABS AT HS Rx Instructions: name brand only diltiazem HCl 240 mg capsule,extended release 24hr 240 mg PO DAILY Qty: 90 1RF levothyroxine 75 mcg tablet See Rx Instructions .ROUTE .COMPLEX Qty: 90 1RF Dose Instruction: TAKE 1 TABLET BY MOUTH DAILY Rx Instructions: TAKE 1 TABLET BY MOUTH DAILY losartan 100 mg tablet See Rx Instructions .ROUTE .COMPLEX Qty: 90 1RF Dose Instruction: TAKE 1 TABLET BY MOUTH DAILY Rx Instructions: TAKE 1 TABLET BY MOUTH DAILY spironolactone 25 mg tablet See Rx Instructions .ROUTE .COMPLEX Qty: 90 1RF Dose Instruction: TAKE 1 TABLET BY MOUTH DAILY Rx Instructions: TAKE 1 TABLET BY MOUTH DAILY hydralazine 10 mg tablet See Rx Instructions .ROUTE .COMPLEX Qty: 180 0RF Dose Instruction: TAKE 2 TABLETS BY MOUTH TWICE DAILY FOR HIGH BLOOD PRESSURE. DO NOT TAKE IF BLOOD PRESSURE IS AT OR BELOW 110/50 Rx Instructions: TAKE 2 TABLETS BY MOUTH TWICE DAILY FOR HIGH BLOOD PRESSURE. DO NOT TAKE IF BLOOD PRESSURE IS AT OR BELOW 110/50 Follow-up/Referrals: Cee Nava, RECOVERY AUDITOR-C [Primary Care Provider] - Abraham Pop MD [Physician] - Time of Disposition: 10:30
--- NOTE | 2024-11-20 09:08 | PC.NURSE ---
0900 Patient also complains of mild discomfort to left lateral ribs and left wrist without obvious deformity or swelling; mild bruising at base of 5th left toe.
== END 2024-11-20 11:10 | disposition short-term general hospital (02) ==
PROVIDERS: PCP Nurse Practitioner Family
DX: S92.351A Displaced fracture of fifth metatarsal bone, right foot, initial encounter for closed fracture (principal); S82.64XA Nondisplaced fracture of lateral malleolus of right fibula, initial encounter for closed fracture; S92.515A Nondisplaced fracture of proximal phalanx of left lesser toe(s), initial encounter for closed fracture; S22.32XA Fracture of one rib, left side, initial encounter for closed fracture; W19.XXXA Unspecified fall, initial encounter; S00.03XA Contusion of scalp, initial encounter; I10 Essential (primary) hypertension; E03.9 Hypothyroidism, unspecified; M79.7 Fibromyalgia; E78.5 Hyperlipidemia, unspecified; F41.9 Anxiety disorder, unspecified; F32.A Depression, unspecified; M19.90 Unspecified osteoarthritis, unspecified site; Z96.642 Presence of left artificial hip joint
CPT/HCPCS: 29515; 71101; 73110; 73610; 73630; 73660; 99214; G0463

== ENCOUNTER 2024-11-20 11:30 | Emergency (ER) | payer BC, SELFPAY ==
--- NOTE | ~2024-11-20 | CT_ITS ---
CT brain wo con Ordering provider: Bailee Jovel PA-C History: 64 years Female with . fall, [place] . Comparison: None. Technique: CT of the head without contrast. Radiation reduction technique utilized.The dose-length pr oduct was 605.33 mGy-cm. FINDINGS: BRAIN PARENCHYMA AND CSF SPACES: No midline shift, mass effect or hemorrhage. The brain parenchyma a nd CSF spaces are otherwise normal. VISUALIZED PARANASAL SINUSES: Well aerated. MASTOIDS: Well aerated. BONES: The bones appear intact. SOFT TISSUES: Visualized nasopharynx is normal. Superficial soft tissues are normal. IMPRESSION: No acute intracranial findings. Reviewed, dictated and finalized at location A.
--- NOTE | ~2024-11-20 | CT_ITS ---
CT Scan of the Chest without Contrast: Clinical Indication: Rib fracture Technique: Contiguous sections were acquired throughout the chest without intravenous contrast. Dose reduction technique was used on this scan by utilizing automated exposure control and iterative recon struction technique. The dose-length product (DLP) was 194.24 mGy-cm. Findings: There is no evidence of any significant mediastinal, hilar or axillary lymphadenopathy. The mediastin al soft tissues appear normal. There is no evidence of pleural or pericardial effusion. The lungs are clear. No pulmonary nodules or infiltrates are noted. Images through the upper abdomen reveal no abnormalities. There is multilevel moderate degenerative d isc narrowing thoracic spine. Impression: No significant abnormalities seen. No rib fracture. Reviewed, dictated and finalized at [facility]. Impression: No significant abnormalities seen. No rib fracture.
--- NOTE | ~2024-11-20 | CT_ITS ---
EXAMINATION: CT cervical spine wo con DATE: 11/20/2024 12:33 INDICATION: Fall with head injury TECHNIQUE: Computed tomography (CT) of the cervical spine was performed without intravenous contrast. The mA was adjusted according to patient size. Iterative reconstruction technique was employed. The dose-length product was 410.16 mGy-cm. COMPARISON: None FINDINGS: Mild reversal of the normal cervical lordosis. 2 mm anterolisthesis C4 on C5. 1 mm anterolisthesis C7 on T1. There is an instrumented C5-C7 anterior spinal fusion with anterior plate and screw fixation. There is solid fusion across the C5-C6 disc space. There is bone graft material at the C6-C7 disc sp yoni which appears incorporated the C6 vertebral body but with residual thin lucency extending between the bone graft material at the C7 vertebral body which likely remains ununited. Vertebral body heigh ts are normal. No fracture. Moderate disc height loss at C4-C5, mild disc height loss at C2-C3, C3-C4 , C7-T1 and T1-T2 and severe disc height loss at T2-T3. No significant central canal stenosis. Multil evel mild to moderate cervical uncovertebral osteoarthritis. There is severe facet osteoarthritis on the left at C4-C5 and bilaterally at C7-T1 through T3-T4. Mild to moderate facet osteoarthritis the r emaining cervical levels. There is mild neural foraminal stenosis on the right at C3-C4 and bilateral ly at C4-C5 through C7-T1. Paravertebral soft tissues are unremarkable. Mild left apical pleural-pare nchymal scarring. IMPRESSION: 1. Moderate cervical spondylosis with instrumented C5-C7 anterior spinal fusion. No acute osseous abn ormality. Reviewed, dictated and finalized at location A. IMPRESSION: 1. Moderate cervical spondylosis with instrumented C5-C7 anterior spinal fusion . No acute osseous abnormality.
--- OUTSIDE RECORDS SUMMARY | 2024-11-20 12:20 | XMS_ITS | Patient Health Record ---
Author Organization [facility] Address [address] [place] [address] Care Team Providers Care Car Dumper Operator Helper Name Role Phone Kam Francis Primary [...] Vaccine Pfizer 2ND IM Intramuscular 06/11/2020 Administered Property Loss Insurance Claim Adjuster: [employer]. EUA given. Patient tolerated well. Plan Of Treatment No Information
--- OUTSIDE RECORDS SUMMARY | 2024-11-20 12:20 | XMS_ITS | Encounter Summary ---
Author Organization [facility] Address [facility] [place] [address] Care Team Providers Care Career Development Engineer Name Role Phone YoshiTaryn Primary Care Provider [phone] Miguel Nguyen MD Unavailable [phone] Lenard Barr MD Primary Care Provider [phone] Cee Nava Primary Care Provider [phone] Encounter Details Date Type Department Care Team (Late st Contact Info) Description 08/28/2017 Abstract [facility] at [address] [address] Asher Aparicio MA Social History Tobacco Use Types Packs/Day Years Used Date Smoking Tobacco: Never Smokeless Tobacco: Never Alcohol Use Standard Drinks/Week Comments Yes 0 (1 standard drink = 0.6 oz pur e alcohol) wine once a month Comments Unknown Sex and Gender Information Value Date Recorded Sex Assigned at Female 08/01/2024 1:06 PM FUEL ATTENDANT Legal Sex Female 4:45 PM CDT Gender Identity Female 07/06/2021 4:30 AM FUEL ATTENDANT Sexual Orientation Not on file 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 on file Not on f ile documented as of this encounter Plan of Treatment Upcoming Encounters Date Type Department Care Team (Latest Contact Info) Description 02/13/2025 1:01 PM CDT Hospital Encounter [facility] [address] [place] [address] Nic Ricks MD [address] [facility] [address] [place] [address] 02/13/2025 1:01 PM CDT - 02/13/2025 1:30 PM CDT Surgery [facility] [address] [place] [address] Nic Ricks MD 3 [facility] [address] [place] [address] COLONOSCOPY DIAGNOSTIC WITH/WITHOUT SPECIMEN BRUSH/WASH 07/31/2025 10:15 AM FUEL ATTENDANT Office Visit [facility] [address] [place] [id number] Miguel Nguyen MD Three [facility]. [address] [place] [address] Scheduled Procedures Name Priority Associated Diagnoses Date/Ti me COLONOSCOPY DIAGNOSTIC WITH/WITHOUT SPECIMEN BRUSH/WASH Change in bowel habit Diarrhea, unspecified type 02/13/2025 1:01 PM CDT documented as of this encounter Procedures Procedure [...] Final Result * CBC (OUTSIDE LAB) (11/17/2020) [facility] WBC 5.7 HGB 12.7 HCT 38.2 PLT 312 11/17/2020 us Doc [facility] Abstract LAB-OUTSIDE/ABSTRACTED Final Result * FREE T3 (11/17/2020) [facility] FREE T3 3.0 11/17/2020 us Doc [facility] Abstract LABORATORY Final Result * THYROID STIM HORMONE, TSH (11/17/2020) [facility] TSH 1.15 11/17/2020 us Doc [facility] LABORATORY Final Result * (ABNORMAL) COMPREHENSIVE METABOLIC PANEL (11/17/2020) [facility] SODIUM S/P/B 135 POTASSIUM S/P/B 4.7 CO2 [...] LABORATORY Final Result * LIPID PANEL (11/17/2020) [facility] CHOLESTEROL 236 HDL 90 TRIGLYCERIDES 56 NON [...] Abstract LABORATORY Final Result * MAGNESIUM (06/01/2017) Pathologist [facility] MAGNESIUM 2.1 06/01/2017 us Doc [facility] LABORATORY Final Result * THYROXINE, FREE (FT4) (03/10/2017) [facility] FREE T4 0.96 03/10/2017 us Doc [facility] Abstract LABORATORY Final Result * FREE T3 (03/10/2017) [facility] FREE T3 2.5 03/10/2017 us Doc [facility] Abstract LABORATORY Final Result * LIPID PANEL (03/10/2017) Pathologist [facility] CHOLESTEROL 232 HDL 77 TRIGLYCERIDES 55 LDL (CALCULATED) 144 03/10/2017 us Doc [facility] Abstract LABORATORY Final Result * COMPREHENSIVE METABOLIC PANEL (03/10/2017) Pathologist [facility] SODIUM S/P/B 131 POTASSIUM S/P/B 3.7 CO2 [...] Final Result * CBC (OUTSIDE LAB) (03/10/2017) [facility] WBC 4.6 HGB 13.1 HCT 35.9 PLT 277 03/10/2017 us Doc [facility] Abstract LAB-OUTSIDE/ABSTRACTED Final Result documented in this encounter Visit Diagnoses Not on filedocumented in this encounter Care Teams Career Development Engineer Relationship Specialty Start Date End Date Taryn Belle DO PCP - General FAMILY PRACTICE 07/05/17 07/04/22 Lenard Barr MD [facility] [place] [address] PCP - General FAMILY PRACTICE 07/05/22 10/29/24 Cee Nava FNP [address] [place] [id number] PCP - General Nurse Practitioner Family 10/30/24 Miguel Nguyen MD [facility] [address] [place] [address] Filomena Patient Care Assistant CARDIOVASCULAR DISEASE 07/27/17 documented as of this encounter
--- OUTSIDE RECORDS SUMMARY | 2024-11-20 12:21 | XMS_ITS | Encounter Summary ---
Author Organization [facility] Address [address] [place] [address] Care Team Providers Care School Curriculum Developer Name Role Phone Miguel Nguyen MD Unavailable [phone] Lenard Barr MD Primary Care Provider [phone] Cee Nava Primary Care Provider [phone] Encounter Details Date Type Department Care Team (Late st Contact Info) Description 07/25/2022 Abstract [facility] [address] Asher Aparicio MA Social History Tobacco Use [...] Sex Assigned at Female 08/01/2024 1:06 PM MOBILITY ARCHITECT MANAGER Legal Sex Female 4:45 PM CDT Gender Identity Female 07/06/2021 4:30 AM MOBILITY ARCHITECT MANAGER Sexual Orientation Not on file 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 Unable to assess 07/21/2022 3:16 PM MOBILITY ARCHITECT MANAGER documented as of this encounter Plan of Treatment Upcoming Encounters Date Type Department Care Team (Latest Contact Info) Description 02/13/2025 1:01 PM CDT Hospital Encounter [facility] [address] [place] [address] Nic Ricks MD 3 [facility] [address] [place] [address] 02/13/2025 1:01 PM CDT - 02/13/2025 1:30 PM CDT Surgery [facility] [address] [place] [address] Nic Ricks MD 3 [facility] [address] [place] [address] COLONOSCOPY DIAGNOSTIC WITH/WITHOUT SPECIMEN BRUSH/WASH 07/31/2025 10:15 AM MOBILITY ARCHITECT MANAGER Office Visit [facility] [address] [place] [address] Miguel Nguyen MD Three [facility]. [facility] [address] [place] [address] Scheduled Procedures Name Priority Associated Diagnoses Date/Ti [...] HDL CHOLESTEROL 115 LDL (CALCULATED) 101 11/14/2023 Default History Genericprovider LABORATORY Edited Result - Final * CK (CPK) (11/14/2023) CPK 53 11/14/2023 Default History Genericprovider LABORATORY Edited Result - Final * ALT/SGPT (11/14/2023) ALT 15 11/14/2023 us Default History Genericprovider LABORATORY Edited Result - Final * LIPID PANEL (08/10/2023) CHOLESTEROL 243 HDL 88 TRIGLYCERIDES 61 NON HDL CHOLESTEROL 155 LDL (CALCULATED) 140 08/10/2023 Default History Genericprovider LABORATORY Edited Result - Final * CK (CPK) (08/10/2023) CPK 47 08/10/2023 [facility] History Genericprovider LABORATORY Edited Result - Final * CBC (OUTSIDE LAB) (08/10/2023) Pathologist [facility] WBC 5.9 HGB 11.7 HCT 35.6 PLT 317 08/10/2023 [facility] History Genericprovider LAB-OUTSIDE/ABST RACTED Final Result * COMPREHENSIVE METABOLIC PANEL (11/22/2022) Pathologist [facility] SODIUM S/P/B 132 GLUCOSE 110 mg/dL BUN 17 CREATININE S/P/B 0.70 0.5 - 1.0 CALCIUM S/P/B 9.2 POTASSIUM S/P/B 4.5 CHLORIDE S/P/B 95 GFR ESTIMATE 97 Default History Genericprovider LABORATORY Final Result * COMPREHENSIVE METABOLIC PANEL (11/10/2022) Pathologist [facility] SODIUM S/P/B 130 GLUCOSE 100 mg/dL AST 21 BUN 7 CREATININE S/P/B 0.63 0.5 - 1.0 CALCIUM S/P/B 8.4 POTASSIUM S/P/B 3.6 CHLORIDE S/P/B 91 ALT 24 GFR ESTIMATE 99 Result [facility] Default History Genericprovider LABORATORY Final Result * BNP (12/23/2021) Pathologist [facility] B TYPE NATRIURETIC PEPTIDE 44 12/23/2021 Default History Genericprovider LABORATORY Final Result * COMPREHENSIVE METABOLIC PANEL (12/23/2021) Pathologist [facility] SODIUM S/P/B 138 GLUCOSE 95 mg/dL AST 16 BUN 11 CREATININE S/P/B 0.79 0.5 - 1.0 CALCIUM S/P/B 9.1 POTASSIUM S/P/B 4.3 CHLORIDE S/P/B 100 ALT 23 GFR ESTIMATE 84 Default History Genericprovider LABORATORY Final Result * LIPID PANEL (12/23/2021) CHOLESTEROL 241 TRIGLYCERIDES 83 HDL 83 LDL (CALCULATED) 140 NON HDL CHOLESTEROL 158 us Default History Genericprovider LABORATORY Final Result * CBC, MANUAL DIFF (12/23/2021) WBC 5.5 HGB 12.1 HCT 35.9 PLT 310 us Default History Genericprovider LABORATORY Final Result * THYROID STIM HORMONE, TSH (12/23/2021) TSH 1.06 us Default History Genericprovider LABORATORY Final Result documented in this encounter Visit Diagnoses Not on filedocumented in this encounter Additional Health Concerns Assessment Noted Time PHQ-9 Depression Total Score: 0 08/06/19 12:51 PM MOBILITY ARCHITECT MANAGER documented as of this encounter Care Teams School Curriculum Developer Relationship Specialty Start Date End Date Lenard Barr MD [address] [place] [address] PCP - General FAMILY PRACTICE 07/05/22 10/29/24 Cee Nava FNP [address] [place] [address] PCP - General Nurse Practitioner Family 10/30/24 Miguel Nguyen MD [facility]. [facility] [address] [place] [address] [place] Gun Perforator CARDIOVASCULAR DISEASE 07/27/17 documented as of this encounter
--- OUTSIDE RECORDS SUMMARY | 2024-11-20 12:21 | XMS_ITS | Clinical Summary ---
Author Organization [facility] Address [address] [place] [address] Care Team Providers Care Delivery Analyst Name Role Phone Taryn Belle DO Primary [...] mg tablet Take 25 mg by mouth spooler rubber strand before breakfast. Active vilazodone (VIIBRYD) 40 mg [...] Assessment & Plan (08/08/2018 5:30 PM METAL HANGER): Ms. Gauthier is doing extremely well after [...] lateral lumbar spine films at that time. Encounters Date Type Department Care Team Description 10/29/2024 Orders Only [facility] [address] [place] [address] Unknown, Notinfile from Last 3 Months Surgical History Surgery Date Site/Laterality Comments APPENDECTOMY [...] P M CDT Height 163.8 cm (5' 4.5) 08/14/2019 2:14 PM CDT Body Mass Index 33.19 08/14/2019 2:14 PM CDT Plan of Treatment Health Maintenance Due Date Last Done Comments Breast Cancer Screening-Mammogram 1960 Colon Cancer Screening-Colonoscopy 1960 Depression Screening 1960 Fall Risk Assessment 1960 Hepatitis C Screening 1960 Hepatitis B Screening 1976 Pneumococcal vaccine 65+ (1 of 1 - PCV) 2008 Zoster Vaccine (1 of 2) 2008 Osteoporosis Screening-Bone Density Scan 07/11/2015 07/11/2013 Well Visit 65+ 2023 Covid-19 Vaccine ( season) 2024 04/17/2024, 06/11/2020, 05/25/2020 DTaP/Tdap/Td Vaccine (3 - Td or Tdap) 09/24/2033, 08/17/2013 Influenza Vaccine Completed 04/17/2024, , 03/04/2020 Medical Devices Implanted Type Area Shooter'S Helper Device Identifier Shelf Expiration Date Model / Serial / Lot Core Link [id number] [place] 6.5mm 40mm Spine Pedicle Screw Bone 5500 Series - [id number] Implanted:Qty: 4 on 02/06/2018 by Boogie Wesley MD at [facility] Screw N/A: Lumbar-Sacral Spine Core Link [id number] / / Core Link [id number] [place] Screw Set 5500 Series - [id number] Implanted:Qty: 4 on 02/06/2018 by Boogie Wesley MD at [facility] Screw N/A: Vertebrae Core Link [id number] / / Core Link [id number] [place] 5.5mm 35mm Line Prebent Estevan Spinal Nonsterile 5500 Series - [id number] Implanted:Qty: 1 on 02/06/2018 by Boogie Wesley MD at [facility] N/A: Vertebrae Core Link [id number] / / Core Link [id number] [place] 5.5mm 40mm Line Prebent Estevan Spinal Nonsterile 5500 Series - [id number] Implanted:Qty: 1 on 02/06/2018 by Boogie Wesley MD at [facility] N/A: Vertebrae Core Link [id number] / / Procedures Procedure Name Priority Date/Time Associated Diagnosis Comments SURGICAL PATHOLOGY Routine 10/29/2024 2: 10 PM CDT from Last 3 Months Results * Surgical pathology (10/29/2024 2:10 PM CDT) Skin, shave biopsy 10/29/2024 2:10 PM CDT 10/30/2024 9:17 AM CDT Narrative 10/31/2024 4:18 PM CDT EPIC results best viewed via link to PDF [facility] [address], [place] [address] [email or web address] Note to Patients: This report may contain a detailed description of human tissue sent by a health care provider to the laboratory for pathologic evaluation. The content of this report is essential for diagnosis and may provide important critical findings. This information may be unfamiliar to patients to review without a medical professional present. It is advised that the patient review this report in the presence of a health care provider who can answer questions and explain the details. FINAL REPORT Patient Information: PATIENT NAME: CHRISTI GAUTHIER SEX: F : 1960 (Age: 64) Specimen Information: COLLECTED: 10/29/2024 RECEIVED: 10/30/2024 REPORTED: 10/31/2024 Submitting Physician Information: Viki Deleon [facility], [address] [place] [address], DERMATOPATHOLOGY REPORT RESULTS DIAGNOSIS: A. SKIN, RIGHT SUPERIOR ANTERIOR NECK, SHAVE BIOPSY: SEBORRHEIC KERATOSIS B. SKIN, RIGHT SUPERIOR UPPER BACK, SHAVE BIOPSY: COMPOUND MELANOCYTIC NEVUS, RUBBED exr/spng By this signature, I attest that the above diagnosis is based upon my personal examination of the slides(and/or other material indicated in the diagnosis). Patrick An MD, PhD Report Electronically Reviewed and Signed Out By Patrick An MD, PhD 10/31/2024 16:18:13 CLINICAL INFORMATION A-B. NEOPLASM OF UNCERTAIN BEHAVIOR VS IRRITATED SK SPECIMEN DATA MICROSCOPIC DESCRIPTION: A. There is hyperkeratosis, papillated and reticulated epithelial hyperplasia and horn pseudocysts. (L82.1) B. Enlarged monomorphous melanocytes are arranged as solitary units and nests at the dermo-epidermal junction and as uniform nests, cords and strands within the dermis. (D22.9) GROSS DESCRIPTION: A. Received in a formalin-containing bottle is a superficial fragment of dome- shaped and finely scaling skin measuring 0.8 by 0.5 by 0.3 cm. The surgical margin is inked blue. The specimen is sectioned into 4 pieces and submitted entirely in a single cassette. Due to shrinkage, measurements may be different than those at time of procedure. B. Received in a formalin-containing bottle is a superficial fragment of pale figueroa, finely scaling, and hair-bearing skin measuring 0.6 by 0.5 by 0.1 cm. The surgical margin is inked blue. The specimen bears a brown, flesh-colored, well- circumscribed area measuring 0.2 by 0.2 cm. The specimen is sectioned into 2 pieces and submitted entirely in a single cassette. Due to shrinkage, measurements may be different than those at the time of procedure. /[facility] ICD-9 ZSD.1411 ZSD.407 Clerical Data A; 27257 B; 00850 The characteristics of special, immunohistochemical, and immunofluorescence stains and in-situ hybridization tests performed by the [facility] were deemed acceptable in ongoing quality systems manager measures and in compliance with regulations drawn from the Clinical Laboratory Improvement Act zh2496 (CLIA '88). Control reactions for all stains performed were deemed adequate and appropriate by a pathologist prior to evaluation of patient tissue. Some diagnoses were rendered with the assistance of laboratory-developed tests utilizing analyte-specific reagents; the performance characteristic of these tests were determined by [facility] and are not cleared or approved by the [place] Food an Drug administration. Laboratory developed test may only be performed in a facility that is certified by the [facility] as a high-complexity laboratory under CLIA '88. These tests are used for clinical purposes and are not investigational. us Notinfile Unknown LAB PATHOLOGY ORDERABLES Final Result from Last 3 Months Insurance [facility] BLUE ACCESS OOS Advance Directives For more information, please contact: [phone] * Full Code (Latest Code Status on File) Date Activated Date Inactivated Comments 02/06/2018 12:33 PM 02/08/2018 2:59 PM Care Teams Delivery Analyst Relationship Specialty Start Date End Date Taryn Belle DO [address] [place] [address] PCP - General 03/25/18
--- OUTSIDE RECORDS SUMMARY | 2024-11-20 12:21 | XMS_ITS | Referral Summary ---
Author Organization [facility] Address [address] [place] [address] Care Team Providers Care Dentist Attendant Name Role Phone Taryn Belle DO Primary Care Provider + Encounters Date Type Department Care Team Description 10/29/2024 Orders Only [facility] [address] [place] [address] Unknown, Notinfile from Last 3 Months Allergies Active Allergy Reactions Criticality Noted Date [...] mg tablet Take 25 mg by mouth early childhood assistant before breakfast. Active vilazodone (VIIBRYD) 40 mg [...] 08/14/2019 Assessment & Plan (08/08/2018 5:30 PM DIVE SUPERINTENDENT): Ms. Gauthier is doing extremely well after [...] on file Medical Devices Implanted Type Area Hot Plate Plywood Press Laborer Device Identifier Shelf Expiration Date Model / Serial / Lot Core Link [id number] Cement 6.5mm 40mm Spine Pedicle Screw Bone 5500 Series - [id number] Implanted:Qty: 4 on 02/06/2018 by Boogie Wesley MD at [facility] Screw N/A: Lumbar-Sacral Spine Core Link [id number] / / Core Link [id number] Cement Screw Set 5500 Series - [id number] Implanted:Qty: 4 on 02/06/2018 by Boogie Wesley MD at [facility] Screw N/A: Vertebrae Core Link [id number] / / Core Link [id number] Cement 5.5mm 35mm Line Prebent Estevan Spinal Nonsterile 5500 Series - [id number] Implanted:Qty: 1 on 02/06/2018 by Boogie Wesley MD at [facility] N/A: Vertebrae Core Link [id number] / / Core Link [id number] Cement 5.5mm 40mm Line Prebent Estevan Spinal Nonsterile 5500 Series - [id number] Implanted:Qty: 1 on 02/06/2018 by Boogie Wesley MD at [facility] N/A: Vertebrae Core Link [id number] / / Procedures Procedure Name Priority Date/Time Associated Diagnosis Comments SURGICAL PATHOLOGY Routine 10/29/2024 2: 10 PM CDT from Last 3 Months Results * Surgical pathology (10/29/2024 2:10 PM CDT) Skin, shave biopsy 10/29/2024 2:10 PM CDT 10/30/2024 9:17 AM CDT Narrative 10/31/2024 4:18 PM CDT EPIC results best viewed via link to PDF [facility] [address], [address], [place] [address] [email or web address] Note to Patients: This report may contain [...] REPORTED: 10/31/2024 Submitting Physician Information: Viki Deleon MOBILE SALES EXPERT- [facility], [address] [place] [address], DERMATOPATHOLOGY REPORT RESULTS DIAGNOSIS: A. SKIN, RIGHT [...] than those at the time of procedure. dh/anc ICD-9 ZSD.1411 ZSD.407 Clerical Data A; 44476 B; 56689 The characteristics of special, immunohistochemical, and immunofluorescence stains and in-situ hybridization tests performed by the [facility] were deemed acceptable in ongoing quality assurance assessor measures and in compliance with regulations drawn from the Clinical Laboratory Improvement Act gj0757 (CLIA '88). Control reactions for all stains performed were deemed adequate and appropriate by a pathologist prior to evaluation of patient tissue. Some diagnoses were rendered with the assistance of laboratory-developed tests utilizing analyte-specific reagents; the performance characteristic of these tests were determined by [facility] and are not cleared or approved by the [place] Food an Drug administration. Laboratory developed test may only be performed in a facility that is certified by the [facility] as a high-complexity laboratory under CLIA '88. These tests are used for clinical purposes and are not investigational. us Notinfile Unknown LAB PATHOLOGY ORDERABLES Final Result from Last 3 Months Insurance [employer] [place] [employer] OOS Advance Directives For more information, please contact: [phone] * Full Code (Latest Code Status on File) Date Activated Date Inactivated Comments 02/06/2018 12:33 PM 02/08/2018 2:59 PM Care Teams Dentist Attendant Relationship Specialty Start Date End Date Taryn Belle DO [address] [place] [address] PCP - General 03/25/18
--- OUTSIDE RECORDS SUMMARY | 2024-11-20 12:21 | XMS_ITS | Patient Health Record ---
Author Organization [facility] [employer] Address [address] [place] [address] Care Team Providers Care Demurrage Worker Name Role Phone Rohan Jerry Unavailable [phone] Allergies Allergen (clinical drug ingredient) Drug/Non Drug Allergy documented on EMR Reaction Allergy Type Onset Date Status Substance with sulfonamide structure and antibacterial mechanism of action (substance) SULFA (SULFONAMIDE ANTIBIOTICS) (uncoded) Unknown Allergy 11/30/2022 Active phenobarbital PHENobarbital Unknown Drug Allergy Active Reason For Referral No Information Medications Medication SIG (Take, Route, Frequency, Duration) Notes Start Date End Date Status ProAir HFA 108 (90 Base) MCG/ACT Inhalation 09/18/2023 Active Rosuvastatin Calcium 5 MG Oral 09/18/2023 Active busPIRone HCl 7.5 MG 1 tablet Orally Twice a day for 90 days Active hydrALAZINE HCl 10 MG Oral 09/18/2023 Active Escitalopram Oxalate 20 MG 1 tablet Oral Once a day for 90 days Active ALPRAZolam 0.5 MG Oral 09/18/2023 A ctive TEGretol-XR 200 MG Oral 09/18/2023 Active Losartan Potassium 100 MG Oral 09/18/2023 Active Alosetron HCl 0.5 mg Oral 09/18/2023 Active tiZANidine HCl 4 MG Oral 09/18/2023 Active TIADYLT ER 240 MG CAPSULE,EXTENDED RELEASE *Reorder from [employer] for eRx and Interaction Alerts* 09/18/2023 Active Acetaminophen Extra Strength 500 MG Oral 09/18/2023 Active Spironolactone 25 MG Oral 09/18/2023 Active Levothyroxine Sodium 75 MCG Oral 09/18/2023 Active Pantoprazole Sodium 40 MG Oral 09/18/2023 Active Hyoscyamine Sulfate 0.125 MG Sublingual 09/18/2023 Active Immunizations Vaccine Route Administration Date [...] mL dosage Unknown 03/23/2019 Administered Social History Tobacco Use: Social History Observation Description Date Details (start date - stop date) Never Smoker NA - NA Sex Assigned At : Social History Observation Description Sex Assigned At Female Tobacco Control (Standard) Question Answer Notes Tobacco use: Nonsmoker Problems Problem Type SNOMED Code ICD Code Onset Dates Problem Status W/U Status Risk Notes Problem Generalized anxiety disorder (83222172) Generalized anxiety disorder (F41.1) Active confirmed Problem Posttraumatic stress disorder (63017054) Post-traumatic stress disorder, chronic (F43.12) Active confirmed Problem Primary insomnia (2756870) Primary insomnia (F51.01) Active confirmed Problem Depression, major, recurrent, 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) Active confirmed Vital Signs Heart Rate 88 /min 10/02/2024 Blood pressure diastolic 80 mm Hg 10/02/2024 Height-cm 165.10 cm 10/02/2024 Weight-kg 93.44 kg 10/02/2024 Height 65.00 in 10/02/2024 Blood pressure systolic 126 mm Hg 10/02/2024 Weight 206 lbs 10/02/2024 BMI 34.28 kg/m2 10/02/2024 Encounters Encounter Location Date Provider Diagnosis [facility] [employer] [facility] [address] [facility] [address] [place] [address] 01/03/2024 Rohan Jerry Generalized anxiety disorder F41.1 ; Post-traumatic stress disorder, chronic F43.12 ; Other fatigue R53.83 ; Primary insomnia F51.01 and Depression, major, recurrent, in remission F33.40 [facility] [employer] [facility] [address] [place] [address] 08/21/2024 Rohan Jerry Encounter for screen ing for cardiovascular disorders Z13.6 ; Dietary counseling and surveillance Z71.3 ; Generalized anxiety disorder F41.1 ; Post-traumatic stress disorder, chronic F43.12 ; Other fatigue R53.83 ; Primary insomnia F51.01 and Depression, major, recurrent, in remission F33.40 [facility] [address] [place] [address] 10/02/2024 Rohan Jerry Encounter for screen ing for cardiovascular disorders Z13.6 ; Dietary counseling and surveillance Z71.3 ; Generalized anxiety disorder F41.1 ; Post-traumatic stress disorder, chronic F43.12 ; Other fatigue R53.83 ; Primary insomnia F51.01 and Depression, major, recurrent, in remission F33.40 Assessments Encounter Date Diagnosis (ICD Code) Assessment Notes Treatment Notes Treatment Clinical Notes Section Notes 08/21/2024 Encounter for screening for cardiovascular disorders (ICD-10 - Z13.6) 10/02/2024 Encounter for screening for cardiovascular disorders (ICD-10 - Z13.6) 01/03/2024 Generalized anxiety disorder (ICD-10 - F41.1) [...] anxiety levels or increased need for Alprazolam. 10/02/2024 Dietary counseling and surveillance (ICD-10 - Z71.3) 08/21/2024 Dietary counseling and surveillance (ICD-10 - Z71.3) 10/02/2024 Generalized anxiety disorder (ICD-10 - F41.1) alprazolam 0.5mg prn - prior to medical appointments 08/21/2024 Generalized anxiety disorder (ICD-10 - F41.1) alprazolam 0.5mg prn - prior to medical appointments 01/03/2024 Primary insomnia (ICD-10 - F51.01) 1. [...] anxiety levels or increased need for Alprazolam. 08/21/2024 Post-traumatic stress disorder, chronic (ICD-10 - F43.12) 10/02/2024 Post-traumatic stress disorder, chronic (ICD-10 - F43.12) 08/21/2024 Other fatigue (ICD-10 - R53.83) 10/02/2024 Other fatigue (ICD-10 - R53.83) 10/02/2024 Primary insomnia (ICD-10 - F51.01) 08/21/2024 Primary insomnia (ICD-10 - F51.01) 08/21/2024 Depression, major, recurrent, in remission (ICD-10 - F33.40) cont escitalopram 20mg daily 10/02/2024 Depression, major, recurrent, in remission (ICD-10 - F33.40) cont escitalopram 20mg daily 08/21/2024 Monique Gauthier, female, presents with ongoing anxiety, depression, and fatigue, exacerbated by recent medical tests and work stress. Anxiety and Depression Assessment: Patient reports ongoing anxiety with intrusive thoughts and depression symptoms, including fatigue and excessive sleep. Current stressors include inconclusive medical tests (thyroid biopsy, MRI) and work-related stress. Patient is currently on maximum dose of escitalopram (Lexapro 20 mg) with partial response. Previous trials of buspirone, Trintellix, duloxetine, Abilify, sertraline, Effexor, Prozac, and Paxil were ineffective or not tolerated. Patient expresses desire to augment current medication regimen rather than switch due to high stress levels. Plan: - Continue Lexapro 20 mg PO daily - Add buspirone (BuSpar) 7.5 mg PO BID for anxiety - Informed consent: Discussed potential side effects of buspirone, including dizziness and nausea. Patient agreed to trial. - Follow-up appointment in 6 weeks to assess response to medication changes Fatigue Assessment: Patient reports persistent fatigue and excessive sleep, particularly on weekends. This may be related to depression, but ongoing medical workup for thyroid issues and possible neurological conditions (including MS) may reveal underlying medical causes. Wellbutrin (bupropion) was discussed as a potential option to address energy levels, but patient's history of seizures (currently on Tegretol) precludes its use. Plan: - Continue current medical workup with endocrinology and neurology - Await results of pending EEG and other tests - Reassess energy levels at follow-up appointment Medical System Navigation Assessment: Patient expresses frustration with navigating the medical system, including difficulty obtaining test results, concerns about copayments, and dissatisfaction with some medical staff. This is contributing to overall stress levels and may impact adherence to medical recommendations. Plan: - Encourage patient to follow up with dining services manager regarding thyroid biopsy results - Discuss strategies for effective communication with healthcare providers - Provide support and validation for patient's frustrations with the healthcare system the note is transcribed using speech recognition software. It is a reflection of a visit with the patient. It might have some inaccuracy, including medication names and transcribing errors, though efforts have been made to correct them. 10/02/2024 Monique Gauthier, an adult female with a history of depression, anxiety, and possible seizure disorder, presents with ongoing cognitive difficulties, intrusive thoughts, and work-related struggles. Major Depressive Disorder with Anxiety Assessment: Patient reports some improvement with buspirone but continues to struggle with intrusive thoughts and cognitive difficulties, particularly at work. She experiences challenges with focus, memory, and task completion. Multiple antidepressants have been tried in the past, including Trintellix, duloxetine, Abilify, Effexor, Prozac, and Paxil. Current regimen includes Lexapro 20 mg daily and buspirone 7.5 mg twice daily, with as-needed Xanax. The cognitive symptoms are impacting her work performance, leading her to consider [facility]. Plan: - Continue Lexapro 20 mg PO daily - Continue buspirone 7.5 mg PO twice daily - Continue Xanax as needed (PRN) - Follow up in 2 months after neurology and endocrinology appointments Possible Seizure Disorder vs. Tinnitus Assessment: Patient has a history of diagnosed temporal lobe seizures but is currently working with a neurologist to determine if symptoms are due to seizures or possibly tinnitus. Symptoms include a wave sensation rolling through ears and head, pulsing wave sound or sensation, without loss of consciousness. These episodes can lead to emotional distress and interfere with hearing, focus, and attention. Recent MRI and EEG were reported as normal. Patient is currently on carbamazepine 200 mg extended-release twice daily (400 mg total daily dose). She reports improvement with sifm-hxv-dsbcpyw tinnitus medication (lipo-flavonoid). Plan: - Continue carbamazepine 200 mg extended-release PO twice daily - Patient to follow up with neurologist - Consider messaging neurologist to inquire about potentially reducing carbamazepine dose - Discussed possibility of nortriptyline for dual management of tinnitus and depression/anxiet y, but deferred decision pending neurology follow-up Hypothyroidism Assessment: Patient reports thyroid function tests showing low-normal results. She believes her thyroid medication may need adjustment, as she feels the current dosage is not adequately managing her symptoms. Plan: - Patient to follow up with dining services manager - Reassess thyroid function and medication management at next visit after endocrinology consultation the note is transcribed using speech recognition software. It is a reflection of a visit with the patient. It might have some inaccuracy, including medication names and transcribing errors, though efforts have been made to correct them. Plan Of Treatment Next Appt Details Provider Name:Rohan herman, 12/15/2024 08:45:00 AM, [address], [facility] [address], [place], [address], Insurance Providers Payer Name Payer Address Payer Phone Subscriber Number Group Number Insured Name Patient Relationship to Insured Coverage Start Date Coverage End Date [facility] [address] [place] [address] [id number] CHRISTI GOLDBERG Self - patient is the [...] Surgical History Surgery Date(Month/Year) Removal of gallbladder (19745) Procedure on neck (743674467) Removal of ovarian cyst (963277437) Any surgical history Cataract surgery (82333) Carpal tunnel surgery (25317) Colectomy (65106) Appendectomy (05635) Procedure on back ([id number])
--- OUTSIDE RECORDS SUMMARY | 2024-11-20 12:21 | XMS_ITS | Data Portability ---
Author Organization [place] [facility], Main Office Address [address] [place] [address] Care Team Providers Care Marina Manager Name Role Phone CARLOS BARR Primary Care Provider CARLOS BARR Referring Provider [phone] Assessment Encounter Date Assessment Date Assessment LastModified [...] would recommend that she consult with her fish filleter on that question. If she does continue [...] she have a thorough evaluation by her fish filleter before surgery for cardiac risk assessment. 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 I believe she does have some pathologic [...] than half of this time spent in riop-hv-xlms care. Not available 10/17/2022 18:58:24 11/17/2022 11/17/2022 [...] She would like to be released to paste up worker starting day after tomorrow as tolerated. [...] XR, hip + pelvis, unilateral 2022 023 [facility] [place], [facility] [facility] [address], [place], [address], 10:08:46 XR, hip + pelvis, unilateral 2022 023 [facility] [place], [address], [place], [address], 14:41:08 Medication Orders None recorded. Patient TargetsNo targets recorded. Patient InstructionsNo instructions recorded. Reason for Referral None Reported. Results Created Date Observation Date Name Description Value Unit Range Abnormal Flag Note LastModifiedBy Organization Detail LastModifiedTime 10/12/19 XR, hip + pelvi s, unila teral No observ ation record ed. [facility] [place] [address], [place], [address], 10/17/2022 18:46:01 10/12/1906/02/2022 XR, hip + pelvi [...] XR, knee No observ ation record ed. [address], [place], [address], 11/07/2022 12:04:30 11/07/19 23 11/06/2022 XR, hip, unila teral No observ ation record ed. [place] [id number] [facility] [address], [place], [address], 11/07/2022 12:05:07 11/07/19 23 07/26/2018 bone densi ty No observ ation record ed. Not Available 2022 15:49:00 11/18/1907/26/2018 DEXA No observ ation record ed. Not Available 2022 16:44:46 12/05/19 XR, hip + pelvi s, unila teral No observ ation record ed. [facility] [place] [address], [place], [address], 12/04/2022 15:07:22 03/05/20 23 03/05/2023 bone densi ty No observ ation record ed. [email or web address] [facility] [address], [place], [address], 03/06/2023 10:15:24 03/05/2003/05/2023 bone densi ty No observ ation record ed. [email or web address] [facility] [address], [place], [address], 03/13/2023 16:28:41 03/20/2003/05/2023 bone densi ty No observ ation record ed. [facility] [address], [place], [address], 03/20/2023 11:34:13 Result Notes None recorded. Problems Name Problem SNOMED Code Status Onset Date Resolution Date Notes Provider Name and Address Organization Details Recorded Time Pain of left hip joint 9999105232504 00 Active 2022 JOAQUÍN Rousseau, [facility] 3 10:00:23 Vitamin D deficiency 33320441 Active 2022 ANDREA Pro, [facility] 3 11:25:22 Osteoporosi s 06615683 Active 2022 ANDREA Pro, [facility] 3 12:22:46 Problem Notes None recorded. Procedures Surgical History Date Name Laterality Status Provider Name and Address Organization Details Recorded Time Back Surgery completed JOAQUÍN Rousseau [facility] 10/11/2022 10:16:45 procedure on neck completed Darcy stout [facility] 10/11/2022 10:16:52 Appendectomy completed Darcy Lizarraga Luna [facility] 10/11/2022 10:17:06 Gallbladder Surgery completed Darcy Lizarraga [facility] 10/11/2022 10:17:13 Carpal tunnel completed Darcy Lizarraga [facility] 10/11/2022 10:17:23 Imaging Results None recorded. Procedure Notes None recorded. Medical Equipment None Reported. Allergies Allergen ID Allergen Name Allergen Category Reaction Reaction Severity Criticality Documentation Date Start Date Code Code System Note Provider Name and Address Organization Details Recorded Time 08866 phenobarb ital medicatio n Not available Not available Not available 10/11/2022 8134 RxNorm JOAQUÍN Rousseau [facility] 09:59:39 05076 Substance with sulfonami de structure and antibacte rial mechanism of action (substanc e) medicatio n Not available Not available Not available 10/11/2022 46407 8003 [facility]ED [facility]46 Medications Name Sig Start Date Stop [...] MIX AND DRINK 1 PACKET EVERY MORNING 11/17 completed Not Available Not Available Not [...] Updated DateTime 10/11/2022 160.02 cm 38.1 kg/m2 99486.36 g Darcy Zia [facility] [employer] [facility] 10/11/2022 10:21:35 Date Recorded Body height Provider Name an d Address Organization Details Last Updated DateTime 11/17/2022 160.02 cm Darcy Lizarraga [facility] [employer] [facility] 11/17/2022 11:17:56 Date Recorded Body height Provider Name an d Address Organization Details Last Updated DateTime 12/04/2022 160.02 cm Darcy Lizarraga [facility] [employer] [facility] 12/04/2022 14:21:10 Date Recorded Body height Provider Name an d Address Organization Details Last Updated DateTime 01/01/2023 160.02 cm Darcy Lizarraga [facility] [employer] [facility] 01/01/2023 14:04:50 Social History None recorded. Functional Status None recorded. Mental Status None recorded. Family History Relationship Description Onset Age of this Age Resolved Age Notes LastModified by Organization Details LastModified Time Father Family history of malignant neoplasm Not available 2022 10:15:30 Father Hypertensive disorder [email or web address] Not available 2022 10:15:54 Father Diabetes mellitus [email or web address] Not available 2022 10:16:11 Father Kidney disease [email or web address] Not available 2022 10:16:27 Mother Hypertensive disorder [email or web address] Not available 2022 10:15:54 Medical History Condition Response ARTHRITIS Y OSTEOPOROSIS Y HYPERTENSION Y Gynecological HistoryNo gynecological history recorded. Obstetrics History GPAL:G 0 P 0 0 0 0 Past Encounters Encounter ID Performer Location Encounter Start Date Encounter Closed Date Diagnosis/Indication Diagnosis SNOMED-CT Code Diagnosis ICD10 Code Diagnosis Note [id number] Lalo Smith MD [facility] [place] [address] [place] [address] 10/11/2022 09:44:13 10/18/2022 14:41:08 Pain of left hip joint 9508101467 24923 M25.552 Vitamin D deficiency 347 63353 E55.9 [id number] Lalo Smith MD [facility] [place] [address] [place] [address] 11/17/2022 11:08:44 11/17/2022 12:33:09 Pain of left hip joint 1997721764 32192 M25.552 [id number] Lalo Smith MD [facility] [place] [address] [place] [address] 12/04/2022 14:18:11 12/04/2022 15:09:53 History of total replacement of left hip joint 3656563809 399688 Z96.642 [id number] Lalo Smith MD [facility] [place] [address] [place] [address] 01/01/2023 14:02:02 01/01/2023 15:07:06 Pain of left hip joint 5060615369 45591 M25.552 Health Concerns Section Related Observation LastModified by Organization Detai ls LastModified Time None Recorded Concern Status LastModified by Organization Details LastModified Time None Recorded Advance Directives Directive None Recorded Payers Insurance Date Sequence Insurance Name Policy Number Policy Avilez Covered Member ID Avilez Member ID Guarantor Name 11/04/2023 1 [place]) [id number] Bk Gauthier [id number] Beata Gauthier Notes Date Note Type Note Provider Name [...] hydralazine on as-needed basis. She has a fish filleter Dr.[facility] [place] who she sees in [place]. She lists allergies to sulfa and phenobarbital. Lalo Smith MD [address] [place] [address], [place] [address], [place], [address], [place] [facility] [employer] [facility] 10/17/2022 18:58:42 OBGyn Episode No OBEpisode recorded.
--- OUTSIDE RECORDS SUMMARY | 2024-11-20 13:07 | XMS_ITS | Encounter Summary ---
Author Organization [facility] Address [address] [place] [address] Care Team Providers Care Basting Cleaner Name Role Phone Miguel Nguyen MD Unavailable [phone] Lenard Barr MD Primary Care Provider [phone] Cee Nava Primary Care Provider [phone] Encounter Details Date Type Department Care Team (Late st Contact Info) Description 07/25/2022 Abstract [facility] [address] Asher Aparicio MA Social History Tobacco Use [...] Sex Assigned at Female 08/01/2024 1:06 PM DYE MIXER Legal Sex Female 4:45 PM CDT Gender Identity Female 07/06/2021 4:30 AM DYE MIXER Sexual Orientation Not on file 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 Unable to assess 07/21/2022 3:16 PM DYE MIXER documented as of this encounter Plan of Treatment Upcoming Encounters Date Type Department Care Team (Latest Contact Info) Description 02/13/2025 1:01 PM CDT Hospital Encounter [facility] [address] [place] [address] Nic Ricks MD 3 [facility] [address] [place] [address] 02/13/2025 1:01 PM CDT - 02/13/2025 1:30 PM CDT Surgery [facility] [address] [place] [address] Nic Ricks MD 3 [facility] [address] [place] [address] COLONOSCOPY DIAGNOSTIC WITH/WITHOUT SPECIMEN BRUSH/WASH 07/31/2025 10:15 AM DYE MIXER Office Visit [facility] [address] [place] [address] Miguel Nguyen MD Three [facility]. [facility] [address] [place] [address] Scheduled Procedures Name Priority Associated Diagnoses Date/Ti [...] * CK (CPK) (08/10/2023) CPK 47 08/10/2023 [facility] History Genericprovider LABORATORY Edited Result - Final * CBC (OUTSIDE LAB) (08/10/2023) Pathologist [facility] WBC 5.9 HGB 11.7 HCT 35.6 PLT 317 08/10/2023 [facility] History Genericprovider LAB-OUTSIDE/ABST RACTED Final Result * COMPREHENSIVE METABOLIC PANEL (11/22/2022) Pathologist [facility] SODIUM S/P/B 132 GLUCOSE 110 mg/dL BUN [...] 91 ALT 24 GFR ESTIMATE 99 Result [facility] Default History Genericprovider LABORATORY Final Result * BNP (12/23/2021) Pathologist [facility] B TYPE NATRIURETIC PEPTIDE 44 12/23/2021 Default History Genericprovider LABORATORY Final Result * COMPREHENSIVE METABOLIC PANEL (12/23/2021) Pathologist [facility] SODIUM S/P/B 138 GLUCOSE 95 mg/dL AST [...] Depression Total Score: 0 08/06/19 12:51 PM DYE MIXER documented as of this encounter Care Teams Basting Cleaner Relationship Specialty Start Date End Date Lenard Barr MD [address] [place] [address] PCP - General FAMILY PRACTICE 07/05/22 10/29/24 Cee Nava FNP [address] [place] [address] PCP - General Nurse Practitioner Family 10/30/24 Miguel Nguyen MD [facility]. [facility] [address] [place] [address] [employer] Account Manager Trainee CARDIOVASCULAR DISEASE 07/27/17 documented as of this encounter
--- OUTSIDE RECORDS SUMMARY | 2024-11-20 13:07 | XMS_ITS | Clinical Summary ---
Author Organization [facility] Address [address] [place] [address] Care Team Providers Care Affiliate Marketing Specialist Name Role Phone Taryn Belle DO [...] mg tablet Take 25 mg by mouth washing machine assembler before breakfast. Active vilazodone (VIIBRYD) 40 mg [...] 08/14/2019 Assessment & Plan (08/08/2018 5:30 PM ELECTRICAL ENGINEER): Ms. Gauthier is doing extremely well after [...] Orders Only [facility] [address] [place] [address] Unknown, Notinfile from Last 3 Months Surgical [...] , 03/04/2020 Medical Devices Implanted Type Area Biomedical Equipment Technician Device Identifier Shelf Expiration Date Model / Serial / Lot Core Link [id number] [place] 6.5mm 40mm Spine Pedicle Screw Bone 5500 Series - [id number] Implanted:Qty: 4 on 02/06/2018 by Boogie Wesley MD at [facility] Screw N/A: Lumbar-Sacral Spine Core Link [id number] / / Core Link [id number] [place] Screw Set 5500 Series - [id number] Implanted:Qty: 4 on 02/06/2018 by Boogie Wesley MD at [facility] Screw N/A: Vertebrae Core Link [id number] / / Core Link [id number] [place] 5.5mm 35mm Line Prebent Estevan Spinal Nonsterile 5500 Series - [id number] Implanted:Qty: 1 on 02/06/2018 by Boogie Wesley MD at [facility] N/A: Vertebrae Core Link [id number] / / Core Link [id number] [place] 5.5mm 40mm Line Prebent Estevan Spinal Nonsterile 5500 Series - [id number] Implanted:Qty: 1 on 02/06/2018 by Boogie Wesley MD at [facility] N/A: Vertebrae Core Link [id number] / / Procedures Procedure Name Priority Date/Time Associated Diagnosis Comments SURGICAL PATHOLOGY Routine 10/29/2024 2: 10 PM CDT from Last 3 Months Results * Surgical pathology (10/29/2024 2:10 PM CDT) Skin, shave biopsy 10/29/2024 2:10 PM CDT 10/30/2024 9:17 AM CDT Narrative 10/31/2024 4:18 PM CDT EPIC results best viewed via link to PDF [facility] D[facility]at[facility], [address], [place] [address] [email or web address] Note to [...] REPORTED: 10/31/2024 Submitting Physician Information: Viki Deleon [facility], [address] [place] [address], DERMATOPATHOLOGY REPORT RESULTS DIAGNOSIS: A. SKIN, RIGHT [...] than those at the time of procedure. /[facility] ICD-9 ZSD.1411 ZSD.407 Clerical Data A; 80202 B; 43894 The characteristics of special, immunohistochemical, and immunofluorescence stains and in-situ hybridization tests performed by the [facility] were deemed acceptable in ongoing quality assurance group leader measures and in compliance with regulations drawn from the Clinical Laboratory Improvement Act uu4449 (CLIA '88). Control reactions for all stains performed were deemed adequate and appropriate by a pathologist prior to evaluation of patient tissue. Some diagnoses were rendered with the assistance of laboratory-developed tests utilizing analyte-specific reagents; the performance characteristic of these tests were determined by [facility] and are not cleared or approved by the US Food an Drug administration. Laboratory developed test may only be performed in a facility that is certified by the [facility] as a high-complexity laboratory under CLIA '88. These tests are used for clinical purposes and are not investigational. us Notinfile Unknown LAB PATHOLOGY ORDERABLES Final Result from Last 3 Months Insurance [facility] BLUE ACCESS OOS Advance Directives For more information, please contact: [phone] * Full Code (Latest Code Status on File) Date Activated Date Inactivated Comments 02/06/2018 12:33 PM 02/08/2018 2:59 PM Care Teams Affiliate Marketing Specialist Relationship Specialty Start Date End Date Taryn Belle DO [address] [place] [id number] PCP - General 03/25/18
--- OUTSIDE RECORDS SUMMARY | 2024-11-20 13:07 | XMS_ITS | Referral Summary ---
Author Organization [facility] Address [address] [place] [address] Care Team Providers Care Fur Pointer Name Role Phone Taryn Belle DO Primary Care Provider + Encounters Date Type Department Care Team Description 10/29/2024 Orders Only [facility] [address] [place] [address] Unknown, Notinfile from Last 3 Months Allergies [...] mg tablet Take 25 mg by mouth health information provider before breakfast. Active vilazodone (VIIBRYD) 40 mg [...] 08/14/2019 Assessment & Plan (08/08/2018 5:30 PM MEDICAL OBSERVER): Ms. Gauthier is doing extremely well after [...] on file Medical Devices Implanted Type Area Successfactors Consultant Device Identifier Shelf Expiration Date Model / Serial / Lot Core Link [id number] [place] 6.5mm 40mm Spine Pedicle Screw Bone 5500 Series - [id number] Implanted:Qty: 4 on 02/06/2018 by Boogie Wesley MD at [facility] Screw N/A: Lumbar-Sacral Spine Core Link [id number] / / Core Link [id number] [place] Screw Set 5500 Series - [id number] Implanted:Qty: 4 on 02/06/2018 by Boogie Wesley MD at [facility] Screw N/A: Vertebrae Core Link [id number] / / Core Link [id number] [place] 5.5mm 35mm Line Prebent Estevan Spinal Nonsterile 5500 Series - [id number] Implanted:Qty: 1 on 02/06/2018 by Boogie Wesley MD at [facility] N/A: Vertebrae Core Link [id number] / / Core Link [id number] [place] 5.5mm 40mm Line Prebent Estevan Spinal Nonsterile 5500 Series - [id number] Implanted:Qty: 1 on 02/06/2018 by Boogie Wesley MD at [facility] N/A: Vertebrae Core Link [id number] / / Procedures Procedure Name Priority Date/Time Associated Diagnosis Comments SURGICAL PATHOLOGY Routine 10/29/2024 2: 10 PM CDT from Last 3 Months Results * Surgical pathology (10/29/2024 2:10 PM CDT) Skin, shave biopsy 10/29/2024 2:10 PM CDT 10/30/2024 9:17 AM CDT Narrative 10/31/2024 4:18 PM CDT EPIC results best viewed via link to PDF [facility]ermat[facility] [address], [address], [place] [address] [email or web address] Note to Patients: This report may contain [...] REPORTED: 10/31/2024 Submitting Physician Information: Viki Deleon CEMENT LOADER- [facility], [address] [place] [address], DERMATOPATHOLOGY REPORT RESULTS DIAGNOSIS: A. SKIN, RIGHT [...] dh/anc ICD-9 ZSD.1411 ZSD.407 Clerical Data A; 71259 B; 07187 The characteristics of special, immunohistochemical, and immunofluorescence stains and in-situ hybridization tests performed by the [facility]erm[facility] were deemed acceptable in ongoing head of quality measures and in compliance with regulations drawn from the Clinical Laboratory Improvement Act [id number] (CLIA '88). Control reactions for all stains performed were deemed adequate and appropriate by a pathologist prior to evaluation of patient tissue. Some diagnoses were rendered with the assistance of laboratory-developed tests utilizing analyte-specific reagents; the performance characteristic of these tests were determined by [facility] and are not cleared or approved by the US Food an Drug administration. Laboratory developed test may only be performed in a facility that is certified by the [facility] as a high-complexity laboratory under CLIA '88. These tests are used for clinical purposes and are not investigational. us Notinfile Unknown LAB PATHOLOGY ORDERABLES Final Result from Last 3 Months Insurance [facility] [place] [facility] [employer] Advance Directives For more information, please contact: [phone] * Full Code (Latest Code Status on File) Date Activated Date Inactivated Comments 02/06/2018 12:33 PM 02/08/2018 2:59 PM Care Teams Fur Pointer Relationship Specialty Start Date End Date Taryn Belle DO [address] [place] [id number] PCP - General 03/25/18
--- NOTE | 2024-11-20 13:16 | ED_ITS ---
HPI - General Adult General Chief complaint: Extremity Injury, Lower Stated complaint: fall Time Seen by Provider: 11/20/24 12:01 History of Present Illness HPI narrative: This is a 64-year-old female presenting after ground level fall. Patient had an early at work today so she took some melatonin and Benadryl. She then fell asleep on her toilet when she woke up she tried to walk and fell. She had pain to both of her feet and her left side of her ribs. She did strike her head but she is not lose consciousness. She is not use blood thinners. She was seen in urgent care earlier today and had x-rays multiple areas. Patient is tablets with Dr. Mchugh is requesting a referral. Related Data Home Medications ?Medication ?Instructions ?Recorded ?Confirmed ?Last Taken ?Type cholecalciferol (vitamin D3) 125 5,000 unit PO DAILY 04/22/19 11/20/24 3 Days Ago History mcg (5,000 unit) capsule ~11/03/22 pantoprazole 40 mg tablet,delayed 40 mg PO QAM 09/11/21 11/20/24 Unknown History release (Protonix) ascorbic acid (vitamin C) 500 mg 500 mg PO DAILY 10/23/22 11/20/24 3 Days Ago History tablet ~11/03/22 calcium ER 600 mg (as carb,cit)-D3 1 tablet PO DAILY 10/23/22 11/20/24 3 Days Ago History 12.5 mcg (500 unit) tablet, ~11/03/22 ext.rel (Citracal-D3 Slow Release) multivitamin 1 tablet PO DAILY 10/23/22 11/20/24 3 Days Ago History ~11/03/22 escitalopram oxalate 20 mg tablet 20 mg PO DAILY 09/28/23 11/20/24 Unknown History (Lexapro) alosetron 1 mg tablet 1 mg PO DAILY 04/27/24 11/20/24 Unknown History denosumab 60 mg/mL subcutaneous 60 mg subcut [id number] 06/17/24 11/20/24 Unknown History syringe (Prolia) vitamins-lipotropics tablet 1 tablet PO DAILY 06/17/24 11/20/24 Unknown History buspirone 7.5 mg tablet 7.5 mg PO BID 09/03/24 11/20/24 Unknown History Allergies Allergy/AdvReac Type Severity Reaction Status Date / Time phenobarbital Allergy Unknown Rash Verified 11/20/24 08:56 Sulfa (Sulfonamide AdvReac Unknown Nausea and Verified 11/20/24 08:56 Antibiotics) Vomiting atorvastatin AdvReac Cough Verified 11/20/24 08:56 lisinopril AdvReac Cough Verified 11/20/24 08:56 [facility] Past Medical History Medical History Preoperative clearance Degenerative joint disease (DJD) of hip Trochanteric bursitis of left hip Pain of left hip Chronic right hip pain Chronic bronchitis URI (upper respiratory infection) Wears hearing aid Anxiety Depression Hypothyroid Arthritis Fibromyalgia Hallux rigidus, left foot Gallbladder disease PVC (premature ventricular contraction) Lipoma of back Anemia HLD (hyperlipidemia) IBS (irritable bowel syndrome) HTN (hypertension) Temporal lobe seizure Surgical History Surgical History History of total left hip replacement 11/06/2022 H/O esophagogastroduodenoscopy Hx of cervical spine surgery Titanium plate and screws History of cholecystectomy History of appendectomy Family History Family History Mother Family history of thyroid disease Hypertension Grandparent Family history of thyroid disease Family history of kidney disease Family history of Alzheimer's disease Father Diabetes mellitus Hypertension Family history of malignant neoplasm Family history of kidney disease Other Cerebrovascular accident Family history of arthritis Social History Social History Social History: She lives with her Bk. She has no children. 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 Code status full code Smoking status: Never smoker Second hand tobacco smoke exposure: No Additional smoking assessment comments: DENIES ANY FORM OF TOBACCO USE Alcohol intake: current Drinks per week: 1 Alcohol use details: ONE DRINK PER MONTH Substance use: never Substance use type: does not use Do You Feel Safe in your Home?: Yes Lack of Transportation: No Lack of Food: Never True Current Housing: I Have Housing Concerned About Future Housing: No Difficulty Paying Gas/Electric Bills: No Difficulty Paying for Meds: No Currently Unemployed: No Education: Master's Degree or Higher Difficulty w/ Childcare or Family Care: No Living arrangements: with family Occupation/Education: 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 Head: atraumatic. EYES: EOMI, NOSE: Atraumatic NECK: Trachea midline RESPIRATORY: No increased rate of breathing clear to auscultation CARDIOVASCULAR: RRR, no peripheral edema ABDOMINAL: Non-distended MUSCULOSKELETAl: Right ankle is in a OCL splint. Toes are neurovascularly intact. Left foot is in a walking boot. Neurovascularly intact. Tenderness over the left rib cage without crepitus NEURO: Alert. Cranial nerves 2-12 grossly intact. Sensation light touch, motor function cerebellar function intact for 4 extremities. Gait exam was normal. SKIN:: Warm, dry. Normal color PSYCHIATRIC: Normal affect Medical Decision Making MDM Narrative Medical decision making narrative: -Course: 64-year-old female sent urgent care advanced imaging after a ground level fall. Fractures of her foot ankle of already splinted. CT imaging of her brain C-spine and chest did not reveal any acute injuries. There was no evidence of rib fractures on the CT scan. Patient will be discharged with pain medication and given a referral to Dr. Wild who she has requested. -DDX includes but is not limited to: Intracranial hemorrhage concussion, rib fracture, rib contusion Discharge Plan Discharge Clinical Impression: Rib contusion, Ankle fracture, Foot fracture, Fracture of toe Patient Disposition: Home Condition: Stable Instructions: Antibiotic Form, Ankle Fracture (DC), Muscle Strain (DC), Rib Contusion (ED) Additional Instructions: You were seen in the emergency department after a fall. You have an ankle fracture, a foot fracture and a [address] did NOT show any rib fractures. Please use the incentive spirometer 10 times daily while awake. Use Motrin, Tylenol, lidocaine patches for pain. If you develops signs of pneumonia such as difficulty breathing fevers productive please return to the ED for re-evaluation. Otherwise please follow-up with your orthopedic surgeon Dr. Pearce. If you develop severe pain or numbness in extremities please return to the ED for re-evaluation. Patient Language: Comoran Prescriptions: New ibuprofen 800 mg tablet 800 mg PO TID PRN (Reason: pain) 7 Days Qty: 21 0RF acetaminophen 500 mg tablet 1,000 mg PO TID PRN (Reason: dontae) 7 Days Qty: 42 0RF lidocaine 5 % adhesive patch,medicated 1 patch topical DAILY Qty: 15 0RF Rx Instructions: leave on most painful area for up to 12 hrs No Action alosetron 1 mg tablet 1 mg PO DAILY cholecalciferol (vitamin D3) 5,000 unit capsule 5,000 unit PO DAILY escitalopram oxalate [Lexapro] 20 mg tablet 20 mg PO DAILY tizanidine 4 mg tablet 4 mg PO TID PRN (Reason: muscle spasticity) Qty: 20 0RF albuterol sulfate [Ventolin HFA] 90 mcg/actuation HFA aerosol inhaler 2 puff inhalation Q4H PRN (Reason: shortness of breath or wheezing) Qty: 8.5 0RF rosuvastatin 5 mg tablet 5 mg PO DAILY Qty: 90 0RF buspirone 7.5 mg tablet 7.5 mg PO BID Prolia 60 mg/mL syringe 60 mg subcut [id number] vitamins-lipotropics Tablet 1 tablet PO DAILY calcium carb, citrate-vit D3 [Citracal-D3 Slow Release] 600 mg-12.5 mcg (500 unit) Tablet Extended Release 1 tablet PO DAILY ascorbic acid (vitamin C) 500 mg Tablet 500 mg PO DAILY multivitamin Tablet 1 tablet PO DAILY acetaminophen 500 mg Tablet 1,000 mg PO Q6HR Qty: 90 0RF Patient Comments: . pantoprazole [Protonix] 40 mg tablet,delayed release (DR/EC) 40 mg PO QAM carbamazepine [Tegretol XR] 200 mg tablet extended release 12 hr 400 mg PO .HS Qty: 180 2RF Patient Comments: TAKES 2 TABS AT HS Rx Instructions: name brand only diltiazem HCl 240 mg capsule,extended release 24hr 240 mg PO DAILY Qty: 90 1RF levothyroxine 75 mcg tablet See Rx Instructions .ROUTE .COMPLEX Qty: 90 1RF Dose Instruction: TAKE 1 TABLET BY MOUTH DAILY Rx Instructions: TAKE 1 TABLET BY MOUTH DAILY losartan 100 mg tablet See Rx Instructions .ROUTE .COMPLEX Qty: 90 1RF Dose Instruction: TAKE 1 TABLET BY MOUTH DAILY Rx Instructions: TAKE 1 TABLET BY MOUTH DAILY spironolactone 25 mg tablet See Rx Instructions .ROUTE .COMPLEX Qty: 90 1RF Dose Instruction: TAKE 1 TABLET BY MOUTH DAILY Rx Instructions: TAKE 1 TABLET BY MOUTH DAILY hydralazine 10 mg tablet See Rx Instructions .ROUTE .COMPLEX Qty: 180 0RF Dose Instruction: TAKE 2 TABLETS BY MOUTH TWICE DAILY FOR HIGH BLOOD PRESSURE. DO NOT TAKE IF B LOOD PRESSURE IS AT OR BELOW 110/50 Rx Instructions: TAKE 2 TABLETS BY MOUTH TWICE DAILY FOR HIGH BLOOD PRESSURE. DO NOT TAKE IF BLOOD PRESSURE IS AT OR BELOW 110/50 Follow-up/Referrals: Cee Nava, [facility]-C [Primary Care Provider] - Lalo Smith MD [Physician] - 1 Day (Foot and ankle fractures )
--- NOTE | 2024-11-20 13:29 | PC.NURSE ---
ED respiratory called to bedside for incentive spirometry.
== END 2024-11-20 13:44 | disposition home or self-care (01) ==
PROVIDERS: Emergency Provider Emergency Medicine; PCP Nurse Practitioner Family
DX: S92.902A Unspecified fracture of left foot, initial encounter for closed fracture (principal); S82.891A Other fracture of right lower leg, initial encounter for closed fracture; S20.212A Contusion of left front wall of thorax, initial encounter; I10 Essential (primary) hypertension; J42 Unspecified chronic bronchitis; E03.9 Hypothyroidism, unspecified; E78.5 Hyperlipidemia, unspecified; K58.9 Irritable bowel syndrome, unspecified; M79.7 Fibromyalgia; M16.9 Osteoarthritis of hip, unspecified; F32.A Depression, unspecified; F41.9 Anxiety disorder, unspecified; M47.812 Spondylosis without myelopathy or radiculopathy, cervical region; Z98.1 Arthrodesis status; Z96.642 Presence of left artificial hip joint; Z86.2 Personal history of diseases of the blood and blood-forming organs and certain disorders involving the immune mechanism; Z90.49 Acquired absence of other specified parts of digestive tract; W18.39XA Other fall on same level, initial encounter
CPT/HCPCS: 70450; 71101; 71250; 72125; 73110; 73610; 73630; 73660; 99284

== ENCOUNTER 2025-03-09 13:37 | Outpatient (CLI) | payer BC, SELFPAY ==
--- OUTSIDE RECORDS SUMMARY | 2024-12-15 03:45 | XMS_ITS ---
Author Organization [facility] [employer] [facility] Address [address] [facility] [address] [place] [address] Care Team Providers Care Lead Press Operator Name Role Phone Rohan Jerry Unavailable [phone] REASON FOR VISIT Patient sent a message on Sunday requesting a telehealth visit Social History Sex Assigned At : Social History Observation Description Sex Assigned At Female Encounters Encounter Location Date Provider Diagnosis [facility] [employer] [facility] [address] [facility] [address] [place] [address] 12/15/2024 Rohan Jerry Plan Of Treatment Next Appt Details Provider Name:Rohan herman, 05/22/2025 11:15:00 AM, [address], [facility] [address], [place], [address], Progress Notes * CHRISTI MEIDOB:[birth year] (64 yo F)Acc No.[id number]:12/15/2024 Patient: Sherly CHRISTI MEJIA Provider: PRAFUL MICHEL :1960 A ge:64 Y S ex:Female Date:12/15/2024 Address:[address] [place] [phone] Subjective: * Chief Complaints: * P atient sent a message on Sunday requesting a telehealth visit Billing Information: * Procedure Codes: * Electronic signature of PRAFUL Ayala on 03/09/2025 at 02:29 PM CDT Sign off status: Pending * Provider: PRAFUL MICHEL Date: 0 12/15/2024 Generated for Cordell ballesteros/Martha/Chandu on: 1 02:29 PM CDT
--- OUTSIDE RECORDS SUMMARY | 2024-12-16 04:15 | XMS_ITS ---
Author Organization [facility] [employer] Address [address] [place] [address] Care Team Providers Care Finishing Operator Name Role Phone Rohan Jerry Unavailable [phone] REASON FOR VISIT r/s from 12/15 Medications [...] ER 240 MG CAPSULE,EXTENDED RELEASE *Reorder from [employer] for eRx and Interaction Alerts* 09/18/2023 Active [...] Female Encounters Encounter Location Date Provider Diagnosis [facility] [address] [facility] [address] [place] [address] 12/16/2024 Rohan Jerry Plan Of Treatment Next Appt Details Provider Name:Rohan Chapincito Johnna virgil, 05/22/2025 11:15:00 AM, [address], [facility] [address], [place], [address], Progress Notes * CHRISTI MEI JDOB:[birth year] (64 yo F)Acc No.[id number]:12/16/2024 Patient: Sherly CHRISTI MEJIA Provider: PRAFUL MICHEL :1960 A ge:64 Y S ex:Female Date:12/16/2024 Address:[address] [place], [place] [phone] Subjective: * Chief Complaints: * R /s [...] RELEASE , Notes to Pharmacist: *Reorder from [facility] for eRx and Interaction Alerts*ALPRAZolam 0.5 MG [...] RELEASE , Notes to Pharmacist: *Reorder from [facility] for eRx and Interaction Alerts*Taking ALPRAZolam [...] signature of PRAFUL Ayala on 03/09/2025 at 02:30 PM CDT Sign off status: Pending * Provider: PRAFUL MICHEL Date: 0 12/16/2024 Generated for Cordell ballesteros/Martha/Chandu on: 1 02:30 PM CDT
--- NOTE | ~2025-03-09 | DEXA_ITS ---
CORRECTED REPORT attached MM DEXA extremity order to report [facility] [place] This report was recreated on 03/26/2025. Original report was Reported by: LÓPEZ on 03/09/2025 2:37:00 PM. Bone Density Report Name: CHRISTI MEI Age: 64 Sex: Female Ethnicity: White Date of : 1960 Indication: osteopenia; parental hip fracture; height loss; seizure disorder; Referring Provider: SHEILA CASTAÑEDA Study: Bone densitometry was performed. Exam Date: March 09, 2025 Accession number: [id number] Bone Density: Region BMD T-score Z-score Classification AP Spine(L1, L2, L3) 1.382 3.3 5.2 Normal Femoral Neck (Right) 0.663 -1.7 -0.1 Osteopenia Total Hip (Right) 0.819 -1.0 0.3 Normal Total Forearm (Left) 0.416 -3.0 -1.3 1/3 Forearm (Left) 0.514 -3.0 -1.2 UD Forearm (Left) 0.341 -1.8 -0.5 World Health Organization criteria for BMD impression classify patients as: Normal (T-score at or above -1.0), Osteopenia (T-score between -1.0 and -2.5), or Osteoporosis (T-score at or below -2.5). 10-year Fracture Risk(1): Major Osteoporotic Fracture 15% Hip Fracture 1.4% Reported Risk Factors: [place] (), Neck BMD=0.663, BMI=39.2, parental fracture (1) FRAX(R) Version 3.08. Fracture probability calculated for an untreated patient. Fracture probability may be lower if the patient has received treatment. Previous Exams: Region Exam Age BMD T-score BMD Change BMD Change Date g/cm2 vs Baseline vs Previous AP Spine (L1-L3) 03/09/2025 64 1.382 3.3 0.065 (4.9%)* 0.065 (4.9%)* 03/05/2023 62 1.318 2.7 Total Hip(Right) 03/09/2025 64 0.819 -1.0 0.014 (1.7%) 0.014 (1.7%) 03/05/2023 62 0.805 -1.1 *Denotes significance at 95% confidence level, LSC for AP Spine = 0.022 g/cm2, LSC for Total Hip = 0.027 g/cm2 Clinical Information Provided by Patient: Parent has had a hip fracture Has used the following medications: Prolia (i.e. denosumab), Vitamin D, Calcium Has the following medical conditions: Any Seizure Disorders Patient maximum height was 65.5 Menopause Age: 44 No regular weight bearing exercise Drinks caffeinated beverages Onset of menses at age 9 Number of children 0 Impression: The patient has low bone mass, based on the Right Femoral Neck T-score. The patient has an estimated ten-year risk of hip fracture of 1.4% and an estimated ten-year risk of major fracture of 15%, based on the WHO FRAX algorithm. The patient has risk factors, including: parental hip fracture. No significant bone loss was observed. Discussion: BONE DENSITY IS LOW AT ONE OR MORE SKELETAL SITES. This patient's lowest T-score is low at one or more skeletal sites. It meets the World Health Organization's (WHO) criteria for ?low bone mass? (T-score between -1.0 and -2.5). The patient's 10-year risk of fracture as calculated by FRAX is less than the threshold where pharmacological therapy is recommended by the National Osteoporosis Foundation (NOF). However, all treatment decisions require clinical judgment and consideration of individual patient factors, including patient preferences, comorbidities, previous drug use, risk factors not captured in the FRAX model (e.g., frailty, falls, vitamin D deficiency, increased bone turnover, interval significant decline in bone density) and possible under or overestimation of fracture risk by FRAX. The patient should follow a healthful lifestyle (good nutrition with adequate calcium and vitamin D, and appropriate weight-bearing exercise). Follow-Up: Consider repeating this study in 2 to 3 years to reassess this patient's status, or sooner if there is some new clinical indication. Reported by: LÓPEZ on 03/09/2025 2:37:00 PM. Reviewed, dictated and finalized at location A.
--- OUTSIDE RECORDS SUMMARY | 2025-03-09 14:30 | XMS_ITS | Clinical Summary ---
Author Organization [facility] Address [address] [place] [address] Care Team Providers Care Briquette Machine Operator Name Role Phone Cee Nava NP Primary Care Provider Allergies Active Allergy Reactions Criticality Noted Date Comments Atorvastatin Cough,Unknown Low 07/20/2023 Lisinopril Cough Low 11/20/2024 Phenobarbital Hives Medium 12/31/2017 Sulfa (Sulfonamide Antibiotics) Nausea only Low Medications levothyroxine sodium (TIROSINT) 75 mcg capsule Take 75 mcg by mouth every morning. Active losartan (COZAAR) 50 mg tablet Take 50 mg by mouth every morning. Active diltiaZEM (CARDIZEM) 120 mg tablet Take 120 mg by mouth daily . Active spironolactone (ALDACTONE) 25 mg tablet Take 25 mg by mouth roll forming machine set up operator before breakfast. Active vilazodone (VIIBRYD) 40 [...] mouth 2 (two) times a day Active denosumab (PROLIA) 60 mg/mL syringe Inject under the skin once Active rosuvastatin (CRESTOR) 5 mg tablet Take 1 tablet (5 mg total) by mouth daily Active Active Problems Problem Noted Date Diagnosed [...] 08/14/2019 Assessment & Plan (08/08/2018 5:30 PM MANAGER OF MANUFACTURING): Ms. Gauthier is doing extremely well after [...] Encounters Date Type Department Care Team Description 02/16/2025 2:31 PM CDT - 02/16/2025 11:59 PM CDT Hospital Encounter [address] [facility] [address] [place] [address] Pain in both feet Discharge Disposition: Discharge to home or self care 02/16/2025 2:31 PM CDT - 02/16/2025 11:59 PM CDT Hospital Encounter [address] [address] [place] [address] Pain in both feet Discharge Disposition: Discharge to home or self care 02/16/2025 2:30 PM CDT - 02/16/2025 11:59 PM CDT Hospital Encounter [address] [place] [address] Pain in both feet Discharge Disposition: Discharge to home or self care 02/16/2025 2:15 PM CDT Office Visit [facility] Medicine Orthopaedic Surgery [address] [place] [address] Medical Office Building 1 [address] [place] [address] Michael Hein, CEE Pain in both feet (Primary Dx) from Last 3 Months Surgical History Surgery Date Site/Laterality Comments APPENDECTOMY CHOLECYSTECTOMY OVARIAN CYSTECTOMY BREAST LUMPECTOMY CERVICAL FUSION CARPAL TUNNEL RELEASE LUMBAR FUSION 02/02/2018 - 03/03/2018 L4-5 Lumbar Fusion (Dr. Wesley) SPINE SURGERY Neck - 2024; lower back - 2014 CATARACT EXTRACTION 2014 Medical History Medical History Date Comments Postmenopausal [...] Obesity (BMI 30-39.9) BMI 32 Uterine fibroid Cataract Osteoporosis 2022 Family History Medical History Relation Name Comments Stroke Brother Gonzalo Hyman Cancer Father Brandyn Hyman Depression Father Brandyn Hyman Diabetes Father Brandyn Hyman Hypertension Father Brandyn Hyman Kidney disease Father Brandyn Hyman Hearing loss Maternal Grandmother Christel Mizer Arthritis Mother Lizbeth Barrera Hearing loss Mother Lizbeth Barrera Hypertension Mother Lizbeth Barrera Alzheimer's disease Mother's Sister Juan Alzheimer's disease Paternal Grandmother Raeann Relation Name Status Comments Brother Gonzalo Hyman Alive Father Brandyn Hyman Maternal Grandmother Christel Mizer Mother Lizbeth Barrera Alive Mother's Sister Juan Paternal Grandmother Raeann Social History Tobacco Use Types Packs/Day Years [...] CDT Inhaled Oxygen Concentration - - Weight 88.9 kg (196 lb) 02/16/2025 1:47 PM CDT Height 162.6 cm (5' 4) 02/16/2025 1:47 PM CDT Body Mass Index 33.64 02/16/2025 1:47 PM CDT Plan of Treatment Health Maintenance Due Date Last Done Comments Breast Cancer Screening-Mammogram 1960 Colon Cancer Screening-Colonoscopy 1960 Depression Screening 1960 Fall Risk Assessment 1960 Hepatitis C Screening 1960 Hepatitis B Screening 1976 Pneumococcal vaccine 65+ (1 of 1 - PCV) 2008 Zoster Vaccine (1 of 2) 2008 Osteoporosis Screening-Bone Density Scan 07/11/2015 07/11/2013 Well Visit 65+ 2023 Covid-19 Vaccine (5 - Pfizer risk season) 2025 04/17/2024, 04/08/2021, 06/11/2020, Additional history exists Influenza Vaccine (#1) 2025 , 04/04/2021, 03/19/2020, Additional history exists DTaP/Tdap/Td Vaccine (4 - Td or Tdap) 09/24/2033 09/25/2023, 03/09/2017, 08/17/2013 Medical Devices Implanted Type Area Telecommunications Support Device Identifier Shelf Expiration Date Model / Serial / Lot Core Link [id number] Aneta 6.5mm 40mm Spine Pedicle Screw Bone 5500 Series - [id number] Implanted:Qty: 4 on 02/06/2018 by Boogie Wesley MD at [facility] Screw N/A: Lumbar-Sacral Spine Core Link [id number] / / Core Link [id number] Aneta Screw Set 5500 Series - [id number] Implanted:Qty: 4 on 02/06/2018 by Boogie Wesley MD at [facility] Screw N/A: Vertebrae Core Link [id number] / / Core Link [id number] Aneta 5.5mm 35mm Line Prebent Estevan Spinal Nonsterile 5500 Series - [id number] Implanted:Qty: 1 on 02/06/2018 by Boogie Wesley MD at [facility] N/A: Vertebrae Core Link [id number] / / Core Link [id number] Aneta 5.5mm 40mm Line Prebent Estevan Spinal Nonsterile 5500 Series - [id number] Implanted:Qty: 1 on 02/06/2018 by Boogie Wesley MD at [facility] N/A: Vertebrae Core Link [id number] / / Procedures Procedure Name Priority Date/Time Associated Diagnosis Comments XR FOOT RIGHT 3 OR MORE VIEWS Schedule Routine, Read Routine (OP Routine) 02/16/2025 2:48 PM CDT Pain in both feet XR FOOT LEFT 3 OR MORE VIEWS Schedule Routine, Read Routine (OP Routine) 02/16/2025 2:48 PM CDT Pain in both feet XR ANKLE RIGHT 3 OR MORE VIEWS Schedule Routine, Read Routine (OP Routine) 02/16/2025 2:48 PM CDT Pain in both feet from Last 3 Months Results * XR Foot Right 3 or More Views (02/16/2025 2:48 PM CDT) Anatomical Region Laterality Modality Lower Extremities, Foot Right Digital Radiography 02/17/2025 9:38 AM CDT Impressions 02/17/2025 9:38 AM CDT 1. Acute nondisplaced transverse fracture distal fibula. Soft tissue swelling medial greater than lateral joint line and anterior and posterior right ankle joint with possible anterior tibiotalar joint effusion. 2. Advanced degenerative narrowing of the left first MTP joint. 3. Healing or healed oblique fracture distal right fifth metatarsal. 4. Small bilateral plantar calcaneal spurs. 5. Soft tissue fullness surrounding the right ankle medial greater than lateral joint line and anterior posterior joint line with ankle joint effusion. There is mild soft tissue fullness posterior left ankle joint. Electronically signed by: Angie Collado M.D. Narrative 02/17/2025 9:38 AM CDT RIGHT ANKLE 3 OR MORE VIEWS, RIGHT FOOT 3 MORE VIEWS LEFT FOOT 3 OR MORE VIEWS DATE: 02/16/2025 3:00 PM INDICATION: Right Ankle Pain. Bilateral feet pain. M 79.671. M 79.672. COMPARISON: None TECHNIQUE: AP lateral and oblique weightbearing views of the right ankle. AP weightbearing view both feet and lateral weightbearing view both feet and oblique view both feet. FINDINGS: Osteopenia bony structures. Right ankle: There is a acute transverse nondisplaced fracture of the distal fibula metaphysis. Ankle mortise intact. Mild soft tissue swelling anterior and posterior ankle joint and medial joint line. Right foot: There is a healing fracture of the distal right fifth metatarsal metadiaphysis. Remainder bones intact. Plantar calcaneal spur. Soft tissue swelling anterior and posterior ankle joint with possible ankle joint effusion. Small bony density anterior tibiotalar joint indeterminate and joint bodies cannot be excluded. Left foot: Advanced degenerative narrowing of the left first MTP joint with near complete loss of joint space and subchondral irregularity and spurring head of the left first metatarsal and the base of the left first proximal phalanx. Remainder bones intact. Small plantar calcaneal spur. There is some soft tissue fullness posterior joint line. Procedure Note Angie Collado MD - 02/17/2025 RIGHT ANKLE 3 OR MORE VIEWS, RIGHT FOOT 3 MORE VIEWS LEFT FOOT 3 OR MORE VIEWS DATE: 02/16/2025 3:00 PM INDICATION: Right Ankle Pain. Bilateral feet pain. M 79.671. M 79.672. COMPARISON: None TECHNIQUE: AP lateral and oblique weightbearing views of the right ankle. AP weightbearing view both feet and lateral weightbearing view both feet and oblique view both feet. FINDINGS: Osteopenia bony structures. Right ankle: There is a acute transverse nondisplaced fracture of the distal fibula metaphysis. Ankle mortise intact. Mild soft tissue swelling anterior and posterior ankle joint and medial joint line. Right foot: There is a healing fracture of the distal right fifth metatarsal metadiaphysis. Remainder bones intact. Plantar calcaneal spur. Soft tissue swelling anterior and posterior ankle joint with possible ankle joint effusion. Small bony density anterior tibiotalar joint indeterminate and joint bodies cannot be excluded. Left foot: Advanced degenerative narrowing of the left first MTP joint with near complete loss of joint space and subchondral irregularity and spurring head of the left first metatarsal and the base of the left first proximal phalanx. Remainder bones intact. Small plantar calcaneal spur. There is some soft tissue fullness posterior joint line. IMPRESSION: 1. Acute nondisplaced transverse fracture distal fibula. Soft tissue swelling medial greater than lateral joint line and anterior and posterior right ankle joint with possible anterior tibiotalar joint effusion. 2. Advanced degenerative narrowing of the left first MTP joint. 3. Healing or healed oblique fracture distal right fifth metatarsal. 4. Small bilateral plantar calcaneal spurs. 5. Soft tissue fullness surrounding the right ankle medial greater than lateral joint line and anterior posterior joint line with ankle joint effusion. There is mild soft tissue fullness posterior left ankle joint. Electronically signed by: Angie Collado M.D. us Michael Hein SCOURING MACHINE TENDER IMG XR PROCEDURES Final Re sult * XR Foot Left 3 or More Views (02/16/2025 2:48 PM CDT) Anatomical Region Laterality Modality Lower Extremities, Foot Left Digital Radiography 02/17/2025 9:38 AM CDT Impressions 02/17/2025 9:38 AM CDT 1. Acute nondisplaced transverse fracture distal fibula. Soft tissue swelling medial greater than lateral joint line and anterior and posterior right ankle joint with possible anterior tibiotalar joint effusion. 2. Advanced degenerative narrowing of the left first MTP joint. 3. Healing or healed oblique fracture distal right fifth metatarsal. 4. Small bilateral plantar calcaneal spurs. 5. Soft tissue fullness surrounding the right ankle medial greater than lateral joint line and anterior posterior joint line with ankle joint effusion. There is mild soft tissue fullness posterior left ankle joint. Electronically signed by: Angie Collado M.D. Narrative 02/17/2025 9:38 AM CDT RIGHT ANKLE 3 OR MORE VIEWS, RIGHT FOOT 3 MORE VIEWS LEFT FOOT 3 OR MORE VIEWS DATE: 02/16/2025 3:00 PM INDICATION: Right Ankle Pain. Bilateral feet pain. M 79.671. M 79.672. COMPARISON: None TECHNIQUE: AP lateral and oblique weightbearing views of the right ankle. AP weightbearing view both feet and lateral weightbearing view both feet and oblique view both feet. FINDINGS: Osteopenia bony structures. Right ankle: There is a acute transverse nondisplaced fracture of the distal fibula metaphysis. Ankle mortise intact. Mild soft tissue swelling anterior and posterior ankle joint and medial joint line. Right foot: There is a healing fracture of the distal right fifth metatarsal metadiaphysis. Remainder bones intact. Plantar calcaneal spur. Soft tissue swelling anterior and posterior ankle joint with possible ankle joint effusion. Small bony density anterior tibiotalar joint indeterminate and joint bodies cannot be excluded. Left foot: Advanced degenerative narrowing of the left first MTP joint with near complete loss of joint space and subchondral irregularity and spurring head of the left first metatarsal and the base of the left first proximal phalanx. Remainder bones intact. Small plantar calcaneal spur. There is some soft tissue fullness posterior joint line. Procedure Note Angie Collado MD - 02/17/2025 RIGHT ANKLE 3 OR MORE VIEWS, RIGHT FOOT 3 MORE VIEWS LEFT FOOT 3 OR MORE VIEWS DATE: 02/16/2025 3:00 PM INDICATION: Right Ankle Pain. Bilateral feet pain. M 79.671. M 79.672. COMPARISON: None TECHNIQUE: AP lateral and oblique weightbearing views of the right ankle. AP weightbearing view both feet and lateral weightbearing view both feet and oblique view both feet. FINDINGS: Osteopenia bony structures. Right ankle: There is a acute transverse nondisplaced fracture of the distal fibula metaphysis. Ankle mortise intact. Mild soft tissue swelling anterior and posterior ankle joint and medial joint line. Right foot: There is a healing fracture of the distal right fifth metatarsal metadiaphysis. Remainder bones intact. Plantar calcaneal spur. Soft tissue swelling anterior and posterior ankle joint with possible ankle joint effusion. Small bony density anterior tibiotalar joint indeterminate and joint bodies cannot be excluded. Left foot: Advanced degenerative narrowing of the left first MTP joint with near complete loss of joint space and subchondral irregularity and spurring head of the left first metatarsal and the base of the left first proximal phalanx. Remainder bones intact. Small plantar calcaneal spur. There is some soft tissue fullness posterior joint line. IMPRESSION: 1. Acute nondisplaced transverse fracture distal fibula. Soft tissue swelling medial greater than lateral joint line and anterior and posterior right ankle joint with possible anterior tibiotalar joint effusion. 2. Advanced degenerative narrowing of the left first MTP joint. 3. Healing or healed oblique fracture distal right fifth metatarsal. 4. Small bilateral plantar calcaneal spurs. 5. Soft tissue fullness surrounding the right ankle medial greater than lateral joint line and anterior posterior joint line with ankle joint effusion. There is mild soft tissue fullness posterior left ankle joint. Electronically signed by: Angie Collado M.D. us Michael Hein SCOURING MACHINE TENDER IMG XR PROCEDURES Final Re sult * XR Ankle Right 3 or More Views (02/16/2025 2:48 PM CDT) Anatomical Region Laterality Modality Lower Extremities, Ankle Right Digital Radiography 02/17/2025 9:38 AM CDT Impressions 02/17/2025 9:38 AM CDT 1. Acute nondisplaced transverse fracture distal fibula. Soft tissue swelling medial greater than lateral joint line and anterior and posterior right ankle joint with possible anterior tibiotalar joint effusion. 2. Advanced degenerative narrowing of the left first MTP joint. 3. Healing or healed oblique fracture distal right fifth metatarsal. 4. Small bilateral plantar calcaneal spurs. 5. Soft tissue fullness surrounding the right ankle medial greater than lateral joint line and anterior posterior joint line with ankle joint effusion. There is mild soft tissue fullness posterior left ankle joint. Electronically signed by: Angie Collado M.D. Narrative 02/17/2025 9:38 AM CDT RIGHT ANKLE 3 OR MORE VIEWS, RIGHT FOOT 3 MORE VIEWS LEFT FOOT 3 OR MORE VIEWS DATE: 02/16/2025 3:00 PM INDICATION: Right Ankle Pain. Bilateral feet pain. M 79.671. M 79.672. COMPARISON: None TECHNIQUE: AP lateral and oblique weightbearing views of the right ankle. AP weightbearing view both feet and lateral weightbearing view both feet and oblique view both feet. FINDINGS: Osteopenia bony structures. Right ankle: There is a acute transverse nondisplaced fracture of the distal fibula metaphysis. Ankle mortise intact. Mild soft tissue swelling anterior and posterior ankle joint and medial joint line. Right foot: There is a healing fracture of the distal right fifth metatarsal metadiaphysis. Remainder bones intact. Plantar calcaneal spur. Soft tissue swelling anterior and posterior ankle joint with possible ankle joint effusion. Small bony density anterior tibiotalar joint indeterminate and joint bodies cannot be excluded. Left foot: Advanced degenerative narrowing of the left first MTP joint with near complete loss of joint space and subchondral irregularity and spurring head of the left first metatarsal and the base of the left first proximal phalanx. Remainder bones intact. Small plantar calcaneal spur. There is some soft tissue fullness posterior joint line. Procedure Note Angie Collado MD - 02/17/2025 RIGHT ANKLE 3 OR MORE VIEWS, RIGHT FOOT 3 MORE VIEWS LEFT FOOT 3 OR MORE VIEWS DATE: 02/16/2025 3:00 PM INDICATION: Right Ankle Pain. Bilateral feet pain. M 79.671. M 79.672. COMPARISON: None TECHNIQUE: AP lateral and oblique weightbearing views of the right ankle. AP weightbearing view both feet and lateral weightbearing view both feet and oblique view both feet. FINDINGS: Osteopenia bony structures. Right ankle: There is a acute transverse nondisplaced fracture of the distal fibula metaphysis. Ankle mortise intact. Mild soft tissue swelling anterior and posterior ankle joint and medial joint line. Right foot: There is a healing fracture of the distal right fifth metatarsal metadiaphysis. Remainder bones intact. Plantar calcaneal spur. Soft tissue swelling anterior and posterior ankle joint with possible ankle joint effusion. Small bony density anterior tibiotalar joint indeterminate and joint bodies cannot be excluded. Left foot: Advanced degenerative narrowing of the left first MTP joint with near complete loss of joint space and subchondral irregularity and spurring head of the left first metatarsal and the base of the left first proximal phalanx. Remainder bones intact. Small plantar calcaneal spur. There is some soft tissue fullness posterior joint line. IMPRESSION: 1. Acute nondisplaced transverse fracture distal fibula. Soft tissue swelling medial greater than lateral joint line and anterior and posterior right ankle joint with possible anterior tibiotalar joint effusion. 2. Advanced degenerative narrowing of the left first MTP joint. 3. Healing or healed oblique fracture distal right fifth metatarsal. 4. Small bilateral plantar calcaneal spurs. 5. Soft tissue fullness surrounding the right ankle medial greater than lateral joint line and anterior posterior joint line with ankle joint effusion. There is mild soft tissue fullness posterior left ankle joint. Electronically signed by: Angie Collado M.D. Michael Hein SCOURING MACHINE TENDER IMG XR PROCEDURES Final Re sult from Last 3 Months Insurance [facility] * Guarantor: Beata Gauthier Account Type Relation to Patient Date of Phone Billing Address Personal/Family Self 1960 [address] [phone] [employer] ACCESS [employer] Advance Directives For more information, please contact: [phone] * Full Code (Latest Code Status on File) Date Activated Date Inactivated Comments 02/06/2018 12:33 PM 02/08/2018 2:59 PM Care Teams Briquette Machine Operator Relationship Specialty Start Date End Date Cee Nava NP [address] [address] PCP - General Nurse Practitioner 12/10/24
--- OUTSIDE RECORDS SUMMARY | 2025-03-09 14:30 | XMS_ITS | Encounter Summary ---
Author Organization [facility] Address [address] [place] [address] Care Team Providers Care Atmospheric Physics Professor Name Role Phone Miguel Nguyen MD Unavailable [phone] Cee Nava Primary Care Provider [phone] Encounter Details Date Type Department Care Team (Late Contact Info) Description 02/06/2025 Prep for Procedure [facility] [address] [place] [address] Connie Kim, RN Social History Tobacco Use Types Packs/Day Years Used Date Smoking Tobacco: Never Smokeless Tobacco: Never Alcohol Use Standard Drinks/Week Comments Yes 0 (1 standard drink = 0.6 oz pur e alcohol) wine once a month PHQ-2 Answer Date Recorded Patient Health Questionnaire-2 Score 1 11/07/2024 Comments No Sex and Gender Information Value Date Recorded Sex Assigned at Female 08/01/2024 1:06 PM SOUND EFFECTS SUPERVISOR Legal Sex Female 4:45 PM CDT Gender Identity Female 07/06/2021 4:30 AM SOUND EFFECTS SUPERVISOR Sexual Orientation Not on file 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 on file Not on f ile documented as of this encounter Plan of Treatment Upcoming Encounters Date Type Department Care Team (Late Contact Info) Description 07/31/2025 10:15 AM SOUND EFFECTS SUPERVISOR Office Visit [facility] [address] [place] [id number] Miguel Nguyen MD [address] [address] Loreta Ramirez PA [address] [facility], [address] [place], [place] [address] documented as of this encounter Results * ECG 12-Lead (02/09/2025 8:48 AM CDT) 02/09/2025 8:48 AM CDT Narrative [facility] RAD - 02/10/2025 6:16 PM CDT [facility] Test Date: 2025-02-09 Pat Name: [facility] Department: 85 Room: Gender: Female Resin Coater: : 1960 Requested By: BRENNAN TERRAZAS Order Number: [id number] Reading MD: Miguelangel Damian Measurements Intervals [place] Rate: 68 P: 71 IA: 193 QRS: 83 QRSD: 113 T: 81 QT: 414 QTc: 442 Interpretive Statements SINUS RHYTHM INCOMPLETE RIGHT BUNDLE BRANCH BLOCK [90+ ms QRS DURATION, TERMINAL R IN V1/V2, 40+ ms S IN I/aVL/V4/V5/V6] Compared to ECG 11/11/2021 07:15:28 No significant changes Procedure Note Miguelangel Damian MD - 02/10/2025 [facility] Test Date: 2025-02-09 Pat Name: [facility] Department: 85 Room: Gender: Female Resin Coater: : 1960 Requested By: BRENNAN TERRAZAS Order Number: [id number] Reading BROOKE Damian Measurements Intervals [place] Rate: 68 P: 71 IA: 193 QRS: 83 QRSD: 113 T: 81 QT: 414 QTc: 442 Interpretive Statements SINUS RHYTHM INCOMPLETE RIGHT BUNDLE BRANCH BLOCK [90+ ms QRS DURATION, TERMINAL RIN V1/V2, 40+ ms S IN I/aVL/V4/V5/V6] Compared to ECG 11/11/2021 07:15:28 No significant changes Brennan Terrazas MD ECG ORDERABLES Final Result [facility] documented in this encounter Visit Diagnoses Diagnosis Preop testing- Primary Preoperative examination, unspecified Preop testing Preoperative examination, unspecified documented in this encounter Additional Health Concerns Assessment Noted Time PHQ-9 Depression Total Score: 0 08/06/19 22 12:51 PM SOUND EFFECTS SUPERVISOR documented as of this encounter Care Teams Atmospheric Physics Professor Relationship Specialty Start Date End Date Cee Nava FNP Counts include 234 beds at the [facility] [place] [address] PCP - General Nurse Practitioner Family 10/30/24 Miguel Nguyen MD [facility]. [facility] [address] [place] [address] Thornton Wall Washer CARDIOVASCULAR DISEASE 07/27/17 documented as of this encounter
--- OUTSIDE RECORDS SUMMARY | 2025-03-09 14:30 | XMS_ITS | Patient Health Record ---
Author Organization [facility] Address [address] [place] [address] Care Team Providers Care Clock And Watch Assembler Name Role Phone Kam Francis Primary Care Provider [phone] Reason For Referral No Information Immunizations Vaccine Route Administration Date Status Comme nts FLU VAC NO PRSV 4VAL 6 mo+ IM Intramuscular 03/19/2020 Administered Patient signed consent form. Patient tolerated well. VIS date 01/16/19 COVID-19 Vaccine Pfizer 2ND IM Intramuscular 05/25/2020 Administered EUA provided (publication date ). Pt tolerated well and denied questions or concerns. COVID-19 Vaccine Pfizer 2ND IM Intramuscular 06/11/2020 Administered Full Service Supervisor: [employer]. EUA given. Patient tolerated well. Plan Of Treatment No Information
--- OUTSIDE RECORDS SUMMARY | 2025-03-09 14:30 | XMS_ITS | Patient Health Record ---
Author Organization [facility] Address [address] [place] [address] Care Team Providers Care Chicken Cutter Name Role Phone Rohan Jerry Unavailable [phone] Allergies Allergen (clinical drug ingredient) Drug/Non Drug Allergy documented on EMR Reaction Allergy Type Onset Date Status Substance with sulfonamide structure and antibacterial mechanism of action (substance) SULFA (SULFONAMIDE ANTIBIOTICS) (uncoded) Unknown Allergy 11/30/2022 Active phenobarbital PHENobarbital Unknown Drug Allergy Active Reason For Referral No Information Medications Medication SIG (Take, Route, Frequency, Duration) Notes Start Date End Date Status Acetaminophen Extra Strength 500 MG Tablet Oral 09/18/2023 Active Spironolactone 25 MG Tablet Oral 09/18/2023 Active TIADYLT ER 240 MG CAPSULE,EXTENDED RELEASE *Reorder from [facility] for eRx and Interaction Alerts* 09/18/2023 Active ALPRAZolam 0.5 MG Tablet Oral 09/18/2023 Active Sunosi 75 MG Tablet 1 tablet in the morning Orally Once a day; Duration: 30 days 02/20/2025 Active Alosetron HCl 0.5 mg Tablet Oral 09/18/2023 Active Losartan Potassium 100 MG Tablet Oral 09/18/2023 Active Pantoprazole Sodium 40 MG Tablet Delayed Release Oral 09/18/2023 Active TEGretol-XR 200 MG Tablet Extended Release 12 Hour Oral 09/18/2023 Active Levothyroxine Sodium 75 MCG Tablet Oral 09/18/2023 Active Hyoscyamine Sulfate 0.125 MG Tablet Sublingual Sublingual 09/18/2023 Active hydrALAZINE HCl 10 MG Tablet Oral 09/18/2023 Active Sunosi 75 MG Tablet 1 tablet in the morning Orally Once a day; Duration: 30 days 01/26/2025 Active Rosuvastatin Calcium 5 MG Tablet Oral 09/18/2023 Active Escitalopram Oxalate 20 MG Tablet 1 tablet Oral Once a day; Duration: 90 days 02/20/2025 Active ProAir HFA 108 (90 Base) MCG/ACT Aerosol Solution Inhalation 09/18/2023 Active busPIRone HCl 10 MG Capsule 1 tablet Orally Twice a day; Duration: 90 days 02/20/2025 08/19/2025 Active tiZANidine HCl 4 MG Tablet Oral 09/18/2023 Active Immunizations Vaccine Route Administration Date [...] Administered Tdap Unknown 03/09/2017 Administered Social History Tobacco Use: Social History Observation Description Date Details (start date - stop date) Never Smoker NA - NA Sex Assigned At : Social History Observation Description Sex Assigned At Female Social History Miscellaneous: Social Info Question Answer Notes Advance Care Planning Advance Directive FULL CODE Tobacco Use: Social Info Question Answer Notes Tobacco Control (Standard) Tobacco use: Nonsmoker Additional Details Category Social Info Options Details Migrated Social History Migrated Social History Alcohol Intake: Occasional 09/19/2019,Tobacco Years: Never smoker 09/19/2019 Problems Problem Type SNOMED Code ICD Code Onset Dates Problem Status W/U Status Risk Notes Problem Generalized anxiety disorder (60991602) Generalized anxiety disorder (F41.1) Active confirmed Problem Posttraumatic stress disorder (38537677) Post-traumatic stress disorder, chronic (F43.12) Active confirmed Problem Primary insomnia (7124016) Primary insomnia (F51.01) Active confirmed Problem Recurrent major depression (13320559) Depression, major, recurrent, 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) Active confirmed Vital Signs Heart Rate 88 /min 10/02/2024 Height-cm 165.10 cm 10/02/2024 Blood pressure diastolic 80 mm Hg 10/02/2024 Weight-kg 93.44 kg 10/02/2024 Height 65.00 in 10/02/2024 Blood pressure systolic 126 mm Hg 10/02/2024 Weight 206 lbs 10/02/2024 BMI 34.28 kg/m2 10/02/2024 Encounters [facility] [address] [address] 08/21/2024 Rohan Jerry Encounter for screen ing for cardiovascular disorders Z13.6 ; Dietary counseling and surveillance Z71.3 ; Generalized anxiety disorder F41.1 ; Post-traumatic stress disorder, chronic F43.12 ; Other fatigue R53.83 ; Primary insomnia F51.01 and Depression, major, recurrent, in remission F33.[address] [address] 10/02/2024 Rohan Jerry Encounter for screen ing for cardiovascular disorders Z13.6 ; Dietary counseling and surveillance Z71.3 ; Generalized anxiety disorder F41.1 ; Post-traumatic stress disorder, chronic F43.12 ; Other fatigue R53.83 ; Primary insomnia F51.01 and Depression, major, recurrent, in remission F33.[address] [address] 01/23/2025 Rohan Jerry Generalized anxiety disorder F41.1 ; Post-traumatic stress disorder, chronic F43.12 ; Other fatigue R53.83 ; Primary insomnia F51.01 ; Depression, major, recurrent, in remission F33.40 and Obstructive sleep apnea, adult G47.[address] [address] 02/20/2025 Rohan Jerry Generalized anxiety disorder F41.1 ; Post-traumatic stress disorder, chronic F43.12 ; Other fatigue R53.83 ; Primary insomnia F51.01 ; Depression, major, recurrent, in remission F33.40 and Obstructive sleep apnea, adult G47.33 [facility] [address] [address] 12/12/2024 Rohan Jerry [facility] [address] [place] [address] 01/23/2025 Rohangabriele Jerry Primary insomnia F51 .01 [facility] [address] [place] [address] 12/13/2024 Rohan Jerry Assessments Encounter Date Diagnosis (ICD Code) Assessment Notes Treatment Notes Treatment Clinical Notes Section Notes 08/21/2024 Encounter for screening for cardiovascular disorders (ICD-10 - Z13.6) 10/02/2024 Encounter for screening for cardiovascular disorders (ICD-10 - Z13.6) 01/23/2025 Generalized anxiety disorder (ICD-10 - F41.1) alprazolam 0.5mg prn - prior to medical appointments 01/23/2025 Post-traumatic stress disorder, chronic (ICD-10 - F43.12) 02/20/2025 Generalized anxiety disorder (ICD-10 - F41.1) alprazolam 0.5mg prn - prior to medical appointments 02/20/2025 Post-traumatic stress disorder, chronic (ICD-10 - F43.12) 01/23/2025 Primary insomnia (ICD-10 - F51.01) Electronic Prior Authorization was requested for Sunosi 75 MG Tablet. Provider can order medication once approval received. 01/23/2025 Other fatigue (ICD-10 - R53.83) 10/02/2024 Dietary counseling and surveillance (ICD-10 - Z71.3) 08/21/2024 Dietary counseling and surveillance (ICD-10 - Z71.3) 08/21/2024 Generalized anxiety disorder (ICD-10 - F41.1) alprazolam 0.5mg prn - prior to medical appointments 10/02/2024 Generalized anxiety disorder (ICD-10 - F41.1) alprazolam 0.5mg prn - prior to medical appointments 01/23/2025 Primary insomnia (ICD-10 - F51.01) 02/20/2025 Other fatigue (ICD-10 - R53.83) 02/20/2025 Primary insomnia (ICD-10 - F51.01) 01/23/2025 Depression, major, recurrent, in remission (ICD-10 - F33.40) cont escitalopram 20mg daily 10/02/2024 Post-traumatic stress disorder, chronic (ICD-10 - F43.12) 08/21/2024 Post-traumatic stress disorder, chronic (ICD-10 - F43.12) 01/23/2025 Obstructive sleep apnea, adult (ICD-10 - G47.33) 08/21/2024 Other fatigue (ICD-10 - R53.83) 10/02/2024 Other fatigue (ICD-10 - R53.83) 02/20/2025 Depression, major, recurrent, in remission (ICD-10 - F33.40) cont escitalopram 20mg daily 02/20/2025 Obstructive sleep apnea, adult (ICD-10 - G47.33) 08/21/2024 Primary insomnia (ICD-10 - F51.01) 10/02/2024 Primary insomnia (ICD-10 - F51.01) 08/21/2024 Depression, major, recurrent, in remission (ICD-10 - F33.40) cont escitalopram 20mg daily 10/02/2024 Depression, major, recurrent, in remission (ICD-10 - F33.40) cont escitalopram 20mg daily 08/21/2024 Other Christi Gauthier, female, presents with ongoing anxiety, depression, [...] - Encourage patient to follow up with control area operator regarding thyroid biopsy results - Discuss strategies [...] her work performance, leading her to consider senior living. Plan: - Continue Lexapro 20 mg PO [...] total daily dose). She reports improvement with [id number] tinnitus medication (lipo-flavonoid). Plan: - Continue carbamazepine 200 mg extended-release PO twice daily - Patient to follow up with neurologist - Consider messaging neurologist to inquire about potentially reducing carbamazepine dose - Discussed possibility of nortriptyline for dual management of tinnitus and depression/anxiety , but deferred decision pending neurology follow-up Hypothyroidism Assessment: Patient reports thyroid function tests showing low-normal results. She believes her thyroid medication may need adjustment, as she feels the current dosage is not adequately managing her symptoms. Plan: - Patient to follow up with control area operator - Reassess thyroid function and medication management at next visit after endocrinology consultation the note is transcribed using speech recognition software. It is a reflection of a visit with the patient. It might have some inaccuracy, including medication names and transcribing errors, though efforts have been made to correct them. 01/23/2025 Monique Gauthier presents with ongoing foot fracture healing issues, mood disturbances, and excessive daytime sleepiness, impacting her daily functioning and relationship. Mood Disturbance (Depression and Anxiety) Assessment: Patient reports mood as pretty mani due to limited mobility and increased dependence on partner. Current treatment includes escitalopram 20 mg daily (at maximum dose) and buspirone 7.5 mg twice daily for anxiety and as an adjunct for depression. Patient inquired about increasing buspirone for mood improvement and energy enhancement. Plan: - Increase buspirone to 10 mg PO twice daily - Continue escitalopram 20 mg PO daily - Monitor for improvement in mood and energy levels - Follow up in one month, with telehealth option available Excessive Daytime Sleepiness Assessment: Patient reports significant daytime fatigue, sleeping excessively on weekends (after breakfast until lunch, then from 1 PM to 4 PM). Possible sleep apnea considered as underlying cause, though not confirmed. Decision made to trial medication for daytime fatigue management. Plan: - Initiate Sunosi 75 mg PO daily for daytime fatigue - Educate patient on potential dose increase to 150 mg if needed - Monitor for improvement in daytime alertness the note is transcribed using speech recognition software. It is a reflection of a visit with the patient. It might have some inaccuracy, including medication names and transcribing errors, though efforts have been made to correct them. 02/20/2025 Monique Gauthier, a patient with a history of depression and excessive daytime sleepiness, reports improvement in symptoms with current medication regimen and discusses recent medical procedures and ongoing recovery from a fracture. Depression Assessment: Patient reports improvement in depressive symptoms with the current medication regimen of escitalopram and Sunosi. The addition of Sunosi has significantly helped with both depression and daytime wakefulness. Patient states it has been an easier month due to the medication effects. Plan: - Continue escitalopram, buspirone - Continue Sunosi - Follow up in 3 months Excessive Daytime Sleepiness Assessment: Patient reports significant improvement in daytime sleepiness with Sunosi. The medication has helped with staying awake during the day and has made a huge difference in the patient's daily functioning. Plan: - Continue Sunosi - Monitor blood pressure and heart rate for potential cardiac effects the note is transcribed using speech recognition software. It is a reflection of a visit with the patient. It might have some inaccuracy, including medication names and transcribing errors, though efforts have been made to correct them. Plan Of Treatment Next Appt Details Provider Name:Rohan herman, 05/22/2025 11:15:00 AM, [address], [facility] [address], [place], [address], Insurance Providers Payer Name Payer Address Payer Phone Subscriber Number Group Number Insured Name Patient Relationship to Insured Coverage Start Date Coverage End Date [facility] [address] [place] [address] [id number] CHRISTI GOLDBERG Self - patient is the [...] Surgical History Surgery Date(Month/Year) Removal of gallbladder (90186) Procedure on neck (443530549) Removal of ovarian cyst (266361121) Any surgical history Cataract surgery (63480) Carpal tunnel surgery (78883) Colectomy (46742) Appendectomy (65271) Procedure on back ([id number])
--- OUTSIDE RECORDS SUMMARY | 2025-03-09 14:30 | XMS_ITS | Encounter Summary ---
Author Organization [facility] Address [facility] [place] [address] Care Team Providers Care Psych Np Name Role Phone Yoshi Taryn Primary Care Provider [phone] Miguel Nguyen MD Unavailable [phone] Lenard Barr MD Primary Care Provider [phone] Cee Nava Primary Care Provider [phone] Encounter Details Date Type Department Care Team (Late st Contact Info) Description 08/28/2017 Abstract [facility] at [address] [address] Asher Aparicio MA Social History Tobacco Use Types Packs/Day Years Used Date Smoking Tobacco: Never Smokeless Tobacco: Never Alcohol Use Standard Drinks/Week Comments Yes 0 (1 standard drink = 0.6 oz pur e alcohol) wine once a month Comments Unknown Sex and Gender Information Value Date Recorded Sex Assigned at Female 08/01/2024 1:06 PM REJOGGER Legal Sex Female 4:45 PM CDT Gender Identity Female 07/06/2021 4:30 AM REJOGGER Sexual Orientation Not on file 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 [address] [place], [place] [address] Loreta Ramirez PA [address] [facility], [address] [place] [address] documented as of this encounter Procedures Procedure [...] Final Result * LIPID PANEL (11/17/2020) Pathologist [facility] CHOLESTEROL 236 HDL 90 TRIGLYCERIDES 56 NON [...] Final Result * LIPID PANEL (03/10/2017) Pathologist [facility] CHOLESTEROL 232 HDL 77 TRIGLYCERIDES 55 LDL (CALCULATED) 144 03/10/2017 us Doc [facility] Abstract LABORATORY Final Result * COMPREHENSIVE METABOLIC PANEL (03/10/2017) Pathologist [facility] SODIUM S/P/B 131 POTASSIUM S/P/B 3.7 CO2 [...] Result * CBC (OUTSIDE LAB) (03/10/2017) Pathologist [facility] WBC 4.6 HGB 13.1 HCT 35.9 PLT 277 03/10/2017 us Doc [facility] Abstract LAB-OUTSIDE/ABSTRACTED Final Result documented in this encounter Visit Diagnoses Not on filedocumented in this encounter Care Teams Psych Np Relationship Specialty Start Date End Date Taryn Belle DO PCP - General FAMILY PRACTICE 07/05/17 07/04/22 Lenard Barr MD [address] [place] [address] PCP - General FAMILY PRACTICE 07/05/22 10/29/24 Cee Nava FNP [address] [place] [address] PCP - General Nurse Practitioner Family 10/30/24 Miguel Nguyen MD [facility]. [facility] [address] [place] [address] [place] [employer] CARDIOVASCULAR DISEASE 07/27/17 documented as of this encounter
--- OUTSIDE RECORDS SUMMARY | 2025-03-09 14:30 | XMS_ITS | Encounter Summary ---
Author Organization [facility] Address [facility] [place] [address] Care Team Providers Care Software Test Technician Name Role Phone Taryn Belle Primary Care Provider [phone] Miguel Nguyen MD Unavailable [phone] Lenard Barr MD Primary Care Provider [phone] Cee Nava Primary Care Provider [phone] Encounter Details Date Type Department Care Team (Latest Contact Info) Description 04/09/2018 Abstract [facility] , Rayna Gaming MD Social History Tobacco Use Types Packs/Day Years Used Date Smoking Tobacco: Never Smokeless Tobacco: Never Alcohol Use Standard Drinks/Week Comments Yes 0 (1 standard drink = 0.6 oz pur e alcohol) wine once a month Comments Unknown Sex and Gender Information Value Date Recorded Sex Assigned at Female 08/01/2024 1:06 PM BUSINESS DEVELOPMENT OFFICER Legal Sex Female 4:45 PM CDT Gender Identity Female 07/06/2021 4:30 AM BUSINESS DEVELOPMENT OFFICER Sexual Orientation Not on file 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 on file Not on f ile documented as of this encounter Plan of Treatment Upcoming Encounters Date Type Department Care Team (Late st Contact Info) Description 07/31/2025 10:15 AM BUSINESS DEVELOPMENT OFFICER [facility] [address] [place] [address] Miguel Nguyen MD [address] [place] [address] Loreta Ramirez PA [address] [facility], [address] [place], [place] [phone] documented as of this encounter Visit Diagnoses Not on filedocumented in this encounter Care Teams Software Test Technician Relationship Specialty Start Date End Date Taryn Belle DO PCP - General FAMILY PRACTICE 07/05/17 07/04/22 Lenard Barr MD [address] [place] [id number] PCP - General FAMILY PRACTICE 07/05/22 10/29/24 Cee Nava, LISA [address] [place] [address] PCP - General Nurse Practitioner Family 10/30/24 Miguel Nguyen MD Three [facility]. [address] [place], [place] [phone] [employer] CARDIOVASCULAR DISEASE 07/27/17 documented as of this encounter
--- OUTSIDE RECORDS SUMMARY | 2025-03-09 14:30 | XMS_ITS | Encounter Summary ---
Author Organization [facility] Address [address] [place] [address] Care Team Providers Care Manager Contact Name Role Phone Miguel Nguyen MD Unavailable Cee Nava Primary Care Provider [phone] Reason for Visit * Reason Onset Date Comments Results 02/17/2025 Encounter Details Date Type Department Care Team (Late st Contact Info) Description 02/17/2025 Results Follow-Up [facility] [address] [place] [address] Nic Ricks MD [address] [address] Pathology Social History Tobacco Use Types Packs/Day Years Used Date Smoking Tobacco: Never Smokeless Tobacco: Never Alcohol Use Standard Drinks/Week Comments Yes 0 (1 standard drink = 0.6 oz pur e alcohol) wine once a month PHQ-2 Answer Date Recorded Patient Health Questionnaire-2 Score 1 11/07/2024 Comments No Sex and Gender Information Value Date Recorded Sex Assigned at Female 08/01/2024 1:06 PM LEGAL NURSE CONSULTANT Legal Sex Female 4:45 PM CDT Gender Identity Female 07/06/2021 4:30 AM LEGAL NURSE CONSULTANT Sexual Orientation Not on file 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 Nic Ricks sent at 02/17/2025 3:31 PM CDT ----- Your colon biopsies were all normal. No specific cause for the diarrhea identified. ----- Message ----- From: User, [email or web address] Sent: 02/17/2025 11:34 AM CDT To: Nic Ricks MD * Nic Ricks MD - 02/17/2025 3:31 PM CDT Your colon biopsies were all normal. No specific cause for the diarrhea identified. documented in this encounter Plan of Treatment Upcoming Encounters Date Type Department Care Team (Late st Contact Info) Description 07/31/2025 10:15 AM LEGAL NURSE CONSULTANT Office Visit [facility] [address] [place] [address] Miguel Nguyen MD Three [facility]. [address] [place], [place] [phone] Loreta Ramirez PA [address] [facility], [address] [place] [address] documented as of this encounter Visit Diagnoses Not on filedocumented in this encounter Additional Health Concerns Assessment Noted Time PHQ-9 Depression Total Score: 0 08/06/19 22 12:51 PM LEGAL NURSE CONSULTANT documented as of this encounter Care Teams Manager Contact Relationship Specialty Start Date End Date Cee Nava FNP [facility] [address] [place], [place] [phone] PCP - General Nurse Practitioner Family 10/30/24 Miguel Nguyen MD Three [facility]. [facility] [address] [place] [address] [employer]omen[employer] Machine Feeder CARDIOVASCULAR DISEASE 07/27/17 documented as of this encounter
--- OUTSIDE RECORDS SUMMARY | 2025-03-09 14:30 | XMS_ITS | Clinical Summary ---
Author Organization [facility] Address [address] [place] [address] Care Team Providers Care Absorption Plant Operator Name Role Phone Miguel Nguyen MD Unavailable [phone] Cee Nava Primary Care Provider [phone] Allergies Active Allergy Reactions Criticality Noted Date Comments Atorvastatin Unknown 07/20/2023 Lisinopril Cough 11/20/2024 Phenobarbital Unknown 07/26/2017 Sulfa Antibiotics Unknown 04/26/2012 [...] total) by mouth daily. 10/06/19 24 Active Denosumab (PROLIA SC) Inject into the skin every 6 (six) months. Active multi vitamin/minera ls (CENTRUM ADULTS) tablet Take 1 tablet by mouth daily. Active NON FORMULARY Take 2 tablets by mouth 2 (two) times a day. LIPO FLAVORNOID Active rosuvastatin (CRESTOR) 5 MG tablet TAKE 1 TABLET BY MOUTH NIGHTLY AT BEDTIME. 90 tablet 3 10/07/19 25 Active pantoprazole EC (PROTONIX) 40 MG tabletIndicati ons:Schatzki's ring,Hiatal hernia TAKE 1 TABLET BY MOUTH EVERY DAY 90 tablet 3 11/13/19 25 Active busPIRone (BUSPAR) 7.5 MG tablet Take 1 tablet (7.5 mg total) by mouth 2 (two) times a day. 10/18/19 25 Active SUNOSI 75 MG tablet Take 1 tablet (75 mg total) by mouth daily. 01/28/20 25 Active tiZANidine (ZANAFLEX) 4 MG tablet Take 1 tablet (4 mg total) by mouth every 6 (six) hours as needed (muscle spasms). Active dicyclomine (BENTYL) 20 MG tabletIndicati ons:Irritable bowel syndrome with diarrhea TAKE 1 TABLET BY MOUTH 3 TIMES DAILY NEEDED. 270 tablet 1 02/26/20 25 Active Alosetron HCl 1 MG TabIndications :Irritable bowel syndrome with diarrhea TAKE 1 TABLET BY MOUTH EVERY DAY 90 tablet 2 02/27/20 25 Active Alosetron HCl 1 MG TabIndications :Irritable bowel syndrome with diarrhea TAKE 1 TABLET BY MOUTH EVERY DAY 90 tablet 10/07/19 25 025 Discontinued dicyclomine (BENTYL) 20 MG tabletIndicati ons:Irritable bowel syndrome with diarrhea TAKE 1 TABLET BY MOUTH 3 TIMES DAILY NEEDED. 180 tablet 11/13/19 25 025 Discontinued Active Problems Problem Noted Date Diagnosed Date Change in bowel habit 11/07/2024 Left lower quadrant pain 03/06/2022 Hiatal hernia 09/19/2021 Overview (09/19/2021): Added automatically from request for surgery [id number] Ulcer of esophagus without bleeding 09/19/2021 Overview (09/19/2021): Added automatically from request for surgery [id number] Pharyngoesophageal dysphagia 08/17/2021 Overview (08/17/2021): Added automatically from request for surgery [id number] Diarrhea, unspecified type 08/17/2021 Overview (08/17/2021): Added automatically from request for surgery [id number] Irritable bowel syndrome with diarrhea Overview (08/17/2021): Added automatically from request for surgery [id number] Schatzki's ring 08/17/2021 Overview (08/17/2021): Added automatically from request for surgery [id number] Obesity (BMI 30.0-34.9) 07/27/2017 Fibromyalgia 07/27/2017 PAC (premature atrial contraction) 07/27/2017 PVC (premature ventricular contraction) 07/27/19 18 PAT (paroxysmal atrial tachycardia) ([facility]) Knee pain, left 10/13/2013 Rib pain on [...] Palpitations Assessment & Plan (07/25/2024 1:45 PM ENGINEERING SPECIALIST): Patient denies any recent palpitations. Continue diltiazem. Assessment & Plan (07/22/2022 10:36 AM ENGINEERING SPECIALIST): Symptoms are well controlled. Continue cardizem. Assessment & Plan (07/08/2021 8:17 AM ENGINEERING SPECIALIST): Previous HM obtained revealing isolated PACs PVCs and runs of premature atrial complexes. She underwent echocardiogram with Dr. jennings that showed normal left ventricular function and no significant valvular abnormalities. No issues at present Essential hypertension Assessment & Plan (07/25/2024 1:46 PM ENGINEERING SPECIALIST): Blood pressure well-controlled in office today. Continue losartan, diltiazem, spironolactone, and hydralazine. Assessment & Plan (07/22/2022 10:35 AM ENGINEERING SPECIALIST): Blood pressure is elevated today. Encouraged home blood pressure monitoring. Continue current antihypertensive regimen. No changes made to antihypertensive therapy. Assessment & Plan (07/08/2021 8:15 AM ENGINEERING SPECIALIST): Blood pressure is well controlled with no changes in regimen at this time Encouraged to continue to monitor at home and log and call office with any concerns in future. Hyperlipidemia Assessment & Plan (07/25/2024 1:47 PM ENGINEERING SPECIALIST): Last lipid panel with an LDL of 101. Her ASCVD risk score is 6.2% over the next 10 years. She continues on rosuvastatin without any significant myalgias. Assessment & Plan (07/22/2022 10:36 AM ENGINEERING SPECIALIST): Lipids are elevated. She is intermediate risk for ASCVD and I have recommended that she start atorvastatin 20. Check lipids in 3 months. Assessment & Plan (07/08/2021 8:15 AM ENGINEERING SPECIALIST): Non known CAD or risk equivalent - Last lipid panel obtained 2017 - ASCVD 10 year risk based on those number is 5.8% - recommend lipid panel for review and encourage diet and exercise for risk modification. Resolved Problems Problem Noted Date Diagnosed Date Resolved Date Joint pain, hip 04/26/2012 07/20/2023 Encounters Date Type Department Care Team Description 02/17/2025 Results Follow-Up [facility] Surgery [address] [place] [address] Angelo Ricks MD Pathology 02/13/2025 1:51 PM CDT Anesthesia Event [facility] Surgery [address] [place] [address] Herb Obrien CRNA Rani, Swaroop, MD 02/13/2025 1:28 PM CDT - 02/13/2025 1:57 PM CDT Surgery [facility] Surgery [address] [place] [address] Angelo Ricks MD COLONOSCOPY WITH BIOPSIES 02/13/2025 10:52 AM CDT - 02/13/2025 2:49 PM CDT Hospital Encounter [facility] Surgery [address] [place] [address] Angelo Ricks MD Discharge Disposition: Home or Self Care (Routine Discharge) 02/13/2025 Travel 02/09/2025 8:30 AM CDT - 02/09/2025 11:59 PM CDT Hospital Encounter [facility] Cardiopulmonary Services [address] [place] [address] Brennan Koch MD Discharge Disposition: Home or Self Care (Routine Discharge) 02/09/2025 Travel 02/06/2025 Prep for Procedure [facility] One Day Services [address] [place] [phone] Connie Kim RN 12/29/2024 Telephone [facility] Multispecialty Care - [facility] [address] [facility] [place] [phone] Angelo Ricks MD Prior Authorization (Colonoscopy 66709) from Last 3 Months Immunizations Immunization Administration Dates Next Due Influenza Adult (Generic) [...] Date Smoking Tobacco: Never Smokeless Tobacco: Never Tobacco Cessation:Counseling Given: No Alcohol Use Standard Drinks/Week Comments Yes 0 (1 standard drink = 0.6 oz pur e alcohol) wine once a month PHQ-2 Answer Date Recorded Patient Health Questionnaire-2 Score 1 11/07/2024 Comments No Sex and Gender Information Value Date Recorded Sex Assigned at Female 08/01/2024 1:06 PM ENGINEERING SPECIALIST Legal Sex Female 4:45 PM CDT Gender Identity Female 07/06/2021 4:30 AM ENGINEERING SPECIALIST Sexual Orientation Not on file 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 on file Not on f ile Last Filed Vital Signs Vital Sign Reading Time Taken Comments Blood Pressure 167/83 02/13/2025 2:41 PM CDT Pulse 78 02/13/2025 2:41 PM CDT Temperature 36.5 C (97.7 F) 02/13/2025 11:47 AM CDT Respiratory Rate 16 02/13/2025 2:41 PM CDT Oxygen Saturation 98% 02/13/2025 2:41 PM CDT Inhaled Oxygen Concentration - - Weight 99.8 kg (220 lb) 02/13/2025 11:47 AM CDT Height 160 cm (5' 3) 02/13/2025 11:47 AM CDT Body Mass Index 38.97 02/13/2025 11:47 AM CDT Plan of Treatment Upcoming Encounters Date Type Department Care Team (Late st Contact Info) Description 07/31/2025 10:15 AM ENGINEERING SPECIALIST [facility] [address] [place] [phone] Miguel Nguyen MD Three [facility]. [address] [place], [place] [phone] Loreta Ramirez PA [address] [facility], [address] [place], [place] [phone] Health Maintenance Due Date Last Done Comments Hepatitis C 1976 Pneumococcal Vaccine: 50+ Years (1 of 1 - PCV) 2008 Zoster Vaccines (1 of 2) 2008 Mammogram Screening 07/11/2015 07/11/2013 RSV Immunization or 60+ Years (1 - Risk 60-74 years 1-dose series) 2018 Dexa Scan (General) 2023 07/11/2013 COVID-19 Vaccine (4 - season) 2025 04/08/2021, 06/11/2020, 05/25/2020 Influenza Adult (#1) 2025 04/04/2021, 03/19/2020, 03/04/2020, Additional history exists DTaP, Tdap and Td Vaccines (4 - Td or Tdap) 09/24/2033 09/25/2023, 03/09/2017, 08/17/2013 Colorectal Cancer Screening Colonoscopy (10 Years) 02/13/2035 02/13/2025 PHQ-2 (Physician Hiko) Completed 11/07/2024 Meningococcal B Vaccine Aged Out No l onger eligible based on patient's age to complete this topic Meningococcal Vaccine Aged Out No concepcion fiona eligible based on patient's age to complete this topic RSV Immunizations Under 20 Months Aged Out No longer eligible based on patient's age to complete this topic Procedures Procedure Name Priority Date/Time Associated Diagnosis Comments COLONOSCOPY FLX DX W/COLLJ SPEC WHEN PFRMD 02/13/2025 1:52 PM CDT Change in bowel habit Diarrhea, unspecified type Case Notes C PATHOLOGY Routine 02/13/2025 12:00 AM CDT ECG 12-LEAD Routine 02/09/2025 8:48 AM CDT Preop testing MG SCREENING JULIA DIGI Routine 07/11/2013 3:48 PM ENGINEERING SPECIALIST BONE DENSITY/DEXA Routine 07/11/2013 2:3 3 PM ENGINEERING SPECIALIST from Last 3 Months or Most Recently Relevant to Health Maintenance Results * Pathology (02/13/2025 12:00 AM CDT) PATHOLOGY [facility] Department of Laboratory Medicine [address] [place] [address] , extension [phone] Pathology Report Surgical Pathology Report Name: CHRISTI MEI Specimen #: [id number] Age: 10 1960 (Age: 64) Location: [facility] Sex: F Procedure Date: 02/13/2025 Hospital #: [id number] Date Received: 02/16/2025 Date Reported: 02/17/2025 Provider: ANGELO RICKS MD Source: Colon, left, biopsies Clinical History: Diarrhea and change in bowel habits. FINAL DIAGNOSIS: Left colon, biopsy: Benign colonic mucosa with no significant histopathologic abnormalities. Negative for microscopic colitis, active colitis, granulomas, dysplasia, or malignancy. Gross Description: Received in formalin, labeled with a patient label and as left colon biopsy are 6 pieces of figueroa tissue ranging from 0.2 to 0.4 cm. The specimen is entirely submitted in cassette 1. Gross examination (when applicable) was performed at [facility], [address] [place] [address]. This case was interpreted and signed out at [facility] [address] [place] [address]. Electronically Signed Out SWETHA DAUGHERTY MD [facility] TISSUE COLON STRUCTURE / Unknown 02/13/2025 2:09 PM CDT us Angelo Ricks MD PATHOLOGY/CYTOLOGY ORDERABLES Fi nal Result [facility] [address] [place] [address], [id number] * ECG 12-Lead (02/09/2025 8:48 AM CDT) 02/09/2025 8:48 AM CDT Narrative [facility] RAD - 02/10/2025 6:16 PM CDT [facility] Test Date: 2025-02-09 Pat Name: [facility] Department: 85 Room: Gender: Female Research Chef: : 1960 Requested By: BRENNAN KOCH Order Number: [id number] Reading MD: Miguelangel Damian Measurements Intervals [place] Rate: 68 P: 71 OR: 193 QRS: 83 QRSD: 113 T: 81 QT: 414 QTc: 442 Interpretive Statements SINUS RHYTHM INCOMPLETE RIGHT BUNDLE BRANCH BLOCK [90+ ms QRS DURATION, TERMINAL R IN V1/V2, 40+ ms S IN I/aVL/V4/V5/V6] Compared to ECG 11/11/2021 07:15:28 No significant changes Procedure Note Miguelangel Damian MD - 02/10/2025 [facility] Test Date: 2025-02-09 Pat Name: [facility] Department: 85 Room: Gender: Female Research Chef: : 1960 Requested By: BRENNAN KOCH Order Number: [id number] Reading BROOKE Damian Measurements Intervals [place] Rate: 68 P: 71 OR: 193 QRS: 83 QRSD: 113 T: 81 QT: 414 QTc: 442 Interpretive Statements SINUS RHYTHM INCOMPLETE RIGHT BUNDLE BRANCH BLOCK [90+ ms QRS DURATION, TERMINAL RIN V1/V2, 40+ ms S IN I/aVL/V4/V5/V6] Compared to ECG 11/11/2021 07:15:28 No significant changes Brennan Koch MD ECG ORDERABLES Final Result [facility] * MG SCREENING JULIA DIGI (07/11/2013 3:48 PM ENGINEERING SPECIALIST) Anatomical Region Laterality Modality Breast Bilateral Mammography 07/11/2013 3:48 PM ENGINEERING SPECIALIST 07/11/2013 3:48 PM ENGINEERING SPECIALIST Narrative 07/11/2013 4:44 PM ENGINEERING SPECIALIST CHRISTI MEI ORDERING MD: TYE BARROW ACCT: [id number] ADMIT/SERVICE DATE: 07/11/13 DISCHARGE DATE: : 1960 PT TYPE: REG CLI SEX: F ORD SITE: [facility] STUDY DATE REPORT # PROCEDURE CODE PROCEDURE 07/11/13 [id number] SCMAMDGB MG SCREEN MAMMO DIGITAL BI EXTORDERID [id number] CHART DOCUMENT DIVISION OF RADIOLOGY ACCESSION # EXAM DATE EXAM DESCRIPTION [id number] 07/11/2013 MG SCREEN MAMMO DIGITAL BI IMAGING [...] 07/11/2013 4:02 P JOB NO: DOC NO: [id number] CC: Procedure Note Rayna Coe MD - 03/27/2018 CHRISTI MEI ORDERING MD: TYE BARROW ACCT: [id number] ADMIT/SERVICE DATE: 07/11/13 DISCHARGE DATE: : 1960 PT TYPE: REG CLI SEX: F ORD SITE: [facility] STUDY DATE REPORT # PROCEDURE CODE PROCEDURE 07/11/13 [id number] SCMAMDGB MG SCREEN MAMMO DIGITAL BI EXTORDERID [id number] CHART DOCUMENT DIVISION OF RADIOLOGY ACCESSION # EXAM DATE EXAM DESCRIPTION [id number] 07/11/2013 MG SCREEN MAMMO DIGITAL BI IMAGING [...] 07/11/2013 4:02 P JOB NO: DOC NO: [id number] CC: Tye GONZALEZ MAMMO Final Result * BONE DENSITY/DEXA (07/11/2013 2:33 PM ENGINEERING SPECIALIST) Anatomical Region Laterality Modality Bone Bone Density 07/11/2013 2:33 PM ENGINEERING SPECIALIST 07/11/2013 2:33 PM ENGINEERING SPECIALIST Narrative 07/11/2013 3:42 PM ENGINEERING SPECIALIST CHRISTI MEI MD: TYE BARROW C ACCT: [id number] ADMIT/SERVICE DATE: 07/11/13 DISCHARGE DATE: : 1960 PT TYPE: REG CLI SEX: F ORD SITE: [facility] STUDY DATE REPORT # PROCEDURE CODE PROCEDURE 07/11/13 [id number] DEXASCAN XR DEXA SCAN EXTORDERID [id number] CHART DOCUMENT DIVISION OF RADIOLOGY ACCESSION # EXAM DATE EXAM DESCRIPTION [id number] 07/11/2013 XR DEXA SCAN IMAGING STUDIES: BONE [...] 07/11/2013 2:48 P JOB NO: DOC NO: [id number] CC: Procedure Note Rayna Coe MD - 03/28/2018 CHRISTI MEI ORDERING MD: TYE BARROW C ACCT: [id number] ADMIT/SERVICE DATE: 07/11/13 DISCHARGE DATE: : 1960 PT TYPE: REG CLI SEX: F ORD SITE: [facility] STUDY DATE REPORT # PROCEDURE CODE PROCEDURE 07/11/13 [id number] DEXASCAN XR DEXA SCAN EXTORDERID [id number] CHART DOCUMENT DIVISION OF RADIOLOGY ACCESSION # EXAM DATE EXAM DESCRIPTION [id number] 07/11/2013 XR DEXA SCAN IMAGING STUDIES: BONE [...] 07/11/2013 2:48 P JOB NO: DOC NO: [id number] CC: Tye Mike [facility] DEXA Final Result from Last 3 Months or Most Recently Relevant to Health Maintenance Insurance Care Teams Absorption Plant Operator Relationship Specialty Start Date End Date Cee Nava FNP [address] [place] [address] PCP - General Nurse Practitioner Family 10/30/24 Miguel Nguyen MD [facility] [address] [place] [address] Security Officer CARDIOVASCULAR DISEASE 07/27/17
--- OUTSIDE RECORDS SUMMARY | 2025-03-09 14:30 | XMS_ITS | Encounter Summary ---
Author Organization [facility] Address [address] [place] [address] Care Team Providers Care Grid Maker Name Role Phone Miguel Nguyen MD Unavailable [phone] Lenard Barr MD Primary Care Provider [phone] Cee Nava Primary Care Provider [phone] Encounter Details Date Type Department Care Team (Late st Contact Info) Description 07/25/2022 Abstract [facility] [address] Asher Aparicio [place] Social History Tobacco Use [...] Sex Assigned at Female 08/01/2024 1:06 PM ELECTRICAL ASSISTANT Legal Sex Female 4:45 PM CDT Gender Identity Female 07/06/2021 4:30 AM ELECTRICAL ASSISTANT Sexual Orientation Not on file 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 Unable to assess 07/21/2022 3:16 PM ELECTRICAL ASSISTANT documented as of this encounter Plan of Treatment Upcoming Encounters Date Type Department Care Team (Late st Contact Info) Description 07/31/2025 10:15 AM ELECTRICAL ASSISTANT Office Visit [facility] [address] [place] [phone] Miguel Nguyen MD Three [facility]. [address] [place], [place] [phone] Loreta Ramirez PA [address] [facility], [address] [place], [place] [phone] documented as of this encounter Procedures Procedure [...] Edited Result - Final * ALT/SGPT (11/14/2023) Pathologist [facility] ALT 15 11/14/2023 Default History Genericprovider LABORATORY Edited Result - Final * LIPID PANEL (08/10/2023) Pathologist [facility] CHOLESTEROL 243 HDL 88 TRIGLYCERIDES 61 NON HDL CHOLESTEROL 155 LDL (CALCULATED) 140 08/10/2023 Default History Genericprovider LABORATORY Edited Result - Final * CK (CPK) (08/10/2023) Pathologist [facility] CPK 47 08/10/2023 Default History Genericprovider LABORATORY Edited Result - Final * CBC (OUTSIDE LAB) (08/10/2023) Pathologist [facility] WBC 5.9 HGB 11.7 HCT 35.6 PLT 317 08/10/2023 Default History Genericprovider LAB-OUTSIDE/ABST RACTED Final Result * COMPREHENSIVE METABOLIC PANEL (11/22/2022) Pathologist [facility] SODIUM S/P/B 132 GLUCOSE 110 mg/dL BUN 17 CREATININE S/P/B 0.70 0.5 - 1.0 CALCIUM S/P/B 9.2 POTASSIUM S/P/B 4.5 CHLORIDE S/P/B 95 GFR ESTIMATE 97 Default History Genericprovider LABORATORY Final Result * COMPREHENSIVE METABOLIC PANEL (11/10/2022) Pathologist [facility] SODIUM S/P/B 130 GLUCOSE 100 mg/dL AST 21 BUN 7 CREATININE S/P/B 0.63 0.5 - 1.0 CALCIUM S/P/B 8.4 POTASSIUM S/P/B 3.6 CHLORIDE S/P/B 91 ALT 24 GFR ESTIMATE 99 Default History Genericprovider LABORATORY Final Result * BNP (12/23/2021) [facility] B TYPE NATRIURETIC PEPTIDE 44 12/23/2021 Result [facility] Default [facility] Genericprovider LABORATORY Final Result * COMPREHENSIVE METABOLIC PANEL (12/23/2021) [facility] SODIUM S/P/B 138 GLUCOSE 95 mg/dL AST 16 BUN 11 CREATININE S/P/B 0.79 0.5 - 1.0 CALCIUM S/P/B 9.1 POTASSIUM S/P/B 4.3 CHLORIDE S/P/B 100 ALT 23 GFR ESTIMATE 84 Result [facility] Genericprovider LABORATORY Final Result * LIPID PANEL (12/23/2021) [facility] CHOLESTEROL 241 TRIGLYCERIDES 83 HDL 83 LDL (CALCULATED) 140 NON HDL CHOLESTEROL 158 Result [facility] History Genericprovider LABORATORY Final Result * CBC, MANUAL DIFF (12/23/2021) [facility] WBC 5.5 HGB 12.1 HCT 35.9 PLT 310 Result [facility] History Genericprovider LABORATORY Final Result * THYROID STIM HORMONE, TSH (12/23/2021) [facility] TSH 1.06 Default History Genericprovider LABORATORY Final Result documented in this encounter Visit Diagnoses Not on filedocumented in this encounter Additional Health Concerns Assessment Noted Time PHQ-9 Depression Total Score: 0 03/04/20 22 12:51 PM ELECTRICAL ASSISTANT documented as of this encounter Care Teams Grid Maker Relationship Specialty Start Date End Date Lenard Barr MD [facility] [place] [address] PCP - General FAMILY PRACTICE 07/05/22 10/29/24 Cee Nava FNP [address] [place] [address] PCP - General Nurse Practitioner Family 10/30/24 Miguel Nguyen MD [facility] [address] [place] [address] [place] Seismographer CARDIOVASCULAR DISEASE 07/27/17 documented as of this encounter
== END 2025-03-09 13:38 | disposition home or self-care (01) ==
LOC: ANHFOHIMG 13:38
PROVIDERS: Visit Provider Internal Medicine
DX: M81.0 Age-related osteoporosis without current pathological fracture (principal); E55.9 Vitamin D deficiency, unspecified; I10 Essential (primary) hypertension; R73.9 Hyperglycemia, unspecified; E87.1 Hypo-osmolality and hyponatremia; E03.9 Hypothyroidism, unspecified; E78.2 Mixed hyperlipidemia
CPT/HCPCS: 77080; 77081

== ENCOUNTER 2025-03-25 15:49 | Outpatient (CLI) | payer BC, SELFPAY ==
--- NOTE | ~2025-03-25 | US_ITS ---
US thyroid INDICATION: Thyroid goiter TECHNIQUE: Real-time sonographic images of the thyroid gland were obtained. COMPARISON: Ultrasound dated 07/17/2024 FINDINGS: The right thyroid lobe measures 4.7 x 1.5 x 1.7 cm. The left thyroid lobe measures 4.3 x 1.7 x 1.2 cm. There is normal echotexture and echogenicity throughout the thyroid gland. In the right lobe there is an oval solid hypoechoic wider than tall circumscribed mass without echogenic foci measuring 9 mm, TR 4 in the right lobe there is a hypoechoic solid wider than tall circumscribed mass without echogenic foci measuring 9 mm, TR 4. The left lobe there is a complex solid hypoechoic mass measuring 1.5 x 1 x 1 cm with macrocalcifications and ill-defined margins, TR 4. Normal vascular flow is present. IMPRESSION: 1. Enlargement of complex 1.5 cm left thyroid mass. Ultrasound-guided fine- needle aspiration biopsy recommended. Reviewed, dictated and finalized at location O. IMPRESSION: 1. Enlargement of complex 1.5 cm left thyroid mass. Ultrasound-guided fine-nee dle aspiration biopsy recommended.
== END 2025-03-25 15:50 | disposition home or self-care (01) ==
LOC: MICIMG 15:49
PROVIDERS: PCP Nurse Practitioner Family; Visit Provider Internal Medicine
DX: E04.1 Nontoxic single thyroid nodule (principal)
CPT/HCPCS: 76536

== ENCOUNTER 2025-04-06 14:00 | Outpatient (RCR) | payer BC, SELFPAY ==
--- NOTE | 2025-02-23 15:03 | PTOPEVAL1 ---
Assessment and note entered by Kathleen Carmona, PT Evaluation Information Assessment Status Evaluation ICD-10 Condition Codes (PT) Pain in right ankle and joints of right foot M25. 571,Abnormalities of gait and mobility R26.9, Weakness R53.1 Onset November 20 Subjective Information Fell November 20, fractures 5th met and R lat malleolus. Was in a boot, went to [facility] Feb 04 so was sent to [facility]. Was able to see them and she said to get out of the boot, to do PT, and ankle brace. Has bone growth stimulator and has been using about 3 weeks because did not come immediately after apt with Dr. Smith. With the boot has been sitting with her feet up for the most part, working with a rolling table from home this summer and hasn't been doing anything. Wore brace all weekend and found out needs to wear brace and shoe when she is upright Will be returning to work tomorrow. Was able to walk the mall and walked more than had all summer and only had a little pain that tylenol was able to take care of the pain PLOF was able to walk in yard and do yard work without issue Reported Pain Level Pain Score 2: Self Report Assessment PT Clinical Summary Pt presents wiht R lateral malleoli and 5th metatarsal fracture non-healing after a fall on . She now has a bone stimulator she has been using about three weeks to assist with this healing. Overall she maintained good motion and fair strength though weight bearing use with her brace is still unstable. She also shows a mild R gluteal weakness possibly related to lack of use over the summer. She reports very minimal discomfort though peroneal tendon appears to be clicking with eversion active ROM though is pain- free. Pt was advised for activity she may resume lite walking on level surfaces increasing slowly as her body tolerates and also in stationary recumbent bike as an option for fitness at this time. Pt will greatly benefit from physical therapy in order to progress her strengthening, stability, and functional use to meet her goals and return to PLOF. Plan of Care Interventions Electrical Stimulation,Gait Training,Hot Pack/Cold Pack,Manual Therapy,Neuro Re-education,Patient/ Caregiver Education,Therapeutic Activities, Therapeutic Exercise,Self-Care/Home Management, Other Other Interventions Taping PT Services Indicated Yes Treatment Frequency and 2x weekly x 12 visits Duration These treatments will address the objective and functional deficits as defined above. The patient will be advanced safely and appropriately in order for the patient to progress towards his/her prior level of function. Additional exercises will be introduced and as well as a comprehensive home exercise program upon discharge, if needed, ?to ensure carryover of functional gains achieved in the clinic. This treatment plan has been reviewed and agreement upon by the patient.
--- NOTE | 2025-02-23 15:03 | OPREHPOC ---
Outpatient Therapy Plan of Care This is a Multidisciplinary Plan of Care that may contain components documented by all disciplines (PT, OT, and ST.) PT Problem 1 PT Problem #1 Knowledge Deficit PT Goal 1 Goal / Goal Update Pt will be independent in HEP Pt will verbalize understanding of diagnosis and prognosis Target Visit 6 PT Problem 2 PT Problem #2 Pain PT Goal 1 Goal / Goal Update Pt will report greatest pain level at 3/10 or less to improve ADLs and activities Target Visit 6 PT Goal 2 Goal / Goal Update Pt will report resolution of pain to return to PLOF Target Visit 12 PT Problem 3 PT Problem #3 Impaired Strength PT Goal 1 Goal / Goal Update Pt will demonstrate ankle strength of 4/5 in all tested planes for improved functional use and stability Target Visit 6 PT Goal 2 Goal / Goal Update Pt will demonstrate ankle strength of 5/5 in all tested planes for improved functional use and stability Target Visit 12 PT Problem 4 PT Problem #4 Impaired Balance PT Goal 1 Goal / Goal Update Pt will demonstrate ability to perform single leg stance RLE of 5 seconds to improve overall balance and stability Target Visit 12
--- NOTE | 2025-04-06 16:50 | PTOPDC ---
Assessment and note entered by Kathleen Carmona, PT Evaluation Information Assessment Status Discharge ICD-10 Condition Codes (PT) Pain in right ankle and joints of right foot M25. 571,Abnormalities of gait and mobility R26.9, Weakness R53.1 Onset November 20 Subjective Information Pt states is still getting swelling after she is active and not wearing her brace. Has not tried wearing just the compression sock while being very active Reports feeling 85% improved Still is uncomfortable coming up on tippy toes, and the swelling are the last bit to get better. Was able to walk around her block almost a mile, was a little slow and a little sore but did ok. Reported Pain Level Pain Score 0: Self Report Assessment PT Clinical Summary Pt has attended therapy consistently after her right ankle fracture. She has progressed very well in all aspects including ROM, flexibility, strength, and gait pattern. Reports she wears her brace still for outside activities. She She reports her pain at worst rating is a 2/10 and most of the time is at 0/10. She reports feeling 85% improved overall. Her HEP has been updated, she has been encouraged to continue wearing her brace with high level and outside activities. Pt appears to be at a point in her therapy which she no longer requires skilled services to continue toward her overall goals, thus is being discharged from her POC at this time. Plan of Care PT Services Indicated No
== END 2025-04-07 09:32 | disposition home or self-care (01) ==
LOC: ANHHIPT 14:00
DX: M79.671 Pain in right foot (principal); M79.672 Pain in left foot
CPT/HCPCS: 97014; 97110; 97112; 97162; 97530; 97750; G0283

== ENCOUNTER 2025-04-07 09:02 | Outpatient (CLI) | payer BC, SELFPAY ==
--- OUTSIDE RECORDS SUMMARY | 2024-12-15 02:45 | XMS_ITS ---
Author Organization [facility] [employer] [facility] Address [address] [facility] [address] [place] [address] Care Team Providers Care Optimization Consultant Name Role Phone Rohan Jerry Unavailable [phone] REASON FOR VISIT Patient sent a message on Sunday requesting a telehealth visit Social History Sex Assigned At : Social History Observation Description Sex Assigned At Female Encounters Encounter Location Date Provider Diagnosis [facility] [employer] [facility] [address] [facility] [address] [place] [address] 12/15/2024 Rohan Jerry Plan Of Treatment Next Appt Details Provider Name:Rohan herman, 05/22/2025 11:15:00 AM, [address], [facility] [address], [place], [address], Progress Notes * CHRISTI MEIDOB:[birth year] (65 yo F)Acc No.[id number]:12/15/2024 Patient: Sherly CHRISTI MEJIA Provider: PRAFUL MICHEL :1960 A ge:64 Y S ex:Female Date:12/15/2024 Address:[address] [place] [id number] Subjective: * Chief Complaints: * P atient sent a message on Sunday requesting a telehealth visit Billing Information: * Procedure Codes: * Electronic signature of PRAFUL Ayala on 04/07/2025 at 09:58 AM RFID SPECIALIST Sign off status: Pending * Provider: PRAFUL MICHEL Date: 0 12/15/2024 Generated for Cordell ballesteros/Martha/Chandu on: 1 06/07/2024 09:58 AM RFID SPECIALIST
--- OUTSIDE RECORDS SUMMARY | 2024-12-16 03:15 | XMS_ITS ---
Author Organization [facility] [employer] Address [address] [place] [address] [place] [address] Care Team Providers Care Acrobatic Rigger Name Role Phone Rohan Jerry Unavailable [phone] REASON FOR VISIT r/s from 12/15 Medications Medication SIG (Take, Route, Frequency, Duration) Notes Start Date End Date Status TEGretol-XR 200 MG Tablet Extended Release 12 Hour Oral 09/18/2023 Active Losartan Potassium 100 MG Tablet Oral 09/18/2023 Active Alosetron HCl 0.5 mg Tablet Oral 09/18/2023 Active tiZANidine HCl 4 MG Tablet Oral 09/18/2023 Active ProAir HFA 108 (90 Base) MCG/ACT Aerosol Solution Inhalation 09/18/2023 Active TIADYLT ER 240 MG CAPSULE,EXTENDED RELEASE *Reorder from [employer] for eRx and Interaction Alerts* 09/18/2023 Active Acetaminophen Extra Strength 500 MG Tablet Oral 09/18/2023 Activ e Rosuvastatin Calcium 5 MG Tablet Oral 09/18/2023 Active hydrALAZINE HCl 10 MG Tablet Oral 09/18/2023 Active ALPRAZolam 0.5 MG Tablet Oral 09/18/2023 Active Spironolactone 25 MG Tablet Oral 09/18/2023 Active Levothyroxine Sodium 75 MCG Tablet Oral 09/18/2023 Active Pantoprazole Sodium 40 MG Tablet Delayed Release Oral 09/18/2023 Active busPIRone HCl 7.5 MG Tablet 1 tablet Orally Twice a day; Duration: 90 days Active Escitalopram Oxalate 20 MG Tablet 1 tablet Oral Once a day; Duration: 90 days Active Hyoscyamine Sulfate 0.125 MG Tablet Sublingual Sublingual 09/18/2023 Active Social History Sex Assigned At : Social History Observation Description Sex Assigned At Female Encounters Encounter Location Date Provider Diagnosis [facility] [address] [facility] [address] [place] [address] 12/16/2024 Rohan Jerry Plan Of Treatment Next Appt Details Provider Name:Rohan Chapincito Johnna virgil, 05/22/2025 11:15:00 AM, [address], [facility] [address], [place], [address], Progress Notes * CHRISTI MEI JDOB:[birth year] (65 yo F)Acc No.[id number]:12/16/2024 Patient: Sherly CHRISTI MEJIA Provider: PRAFUL MICHEL :1960 A ge:64 Y S ex:Female Date:12/16/2024 Address:[address] [place], [place] [phone] Subjective: * Chief Complaints: * R /s from 12/15 * Medications: T akingEscitalopram Oxalate 20 MG Tablet 1 tablet Oral Once a day busPIRone HCl 7.5 MG Tablet 1 tablet Orally Twice a day Pantoprazole Sodium 40 MG Tablet Delayed Release Oral Levothyroxine Sodium 75 MCG Tablet Oral Acetaminophen Extra Strength 500 MG Tablet Oral TIADYLT ER 240 MG CAPSULE,EXTENDED RELEASE , Notes to Pharmacist: *Reorder from [facility] for eRx and Interaction Alerts*ALPRAZolam 0.5 MG Tablet Oral hydrALAZINE HCl 10 MG Tablet Oral Rosuvastatin Calcium 5 MG Tablet Oral ProAir HFA 108 (90 Base) MCG/ACT Aerosol Solution Inhalation tiZANidine HCl 4 MG Tablet Oral Alosetron HCl 0.5 mg Tablet Oral Losartan Potassium 100 MG Tablet Oral TEGretol- XR 200 MG Tablet Extended Release 12 Hour Oral Hyoscyamine Sulfate 0.125 MG Tablet Sublingual Sublingual Spironolactone 25 MG Tablet Oral Taking Escitalopram Oxalate 20 MG Tablet 1 tablet Oral Once a day Taking busPIRone HCl 7.5 MG Tablet 1 tablet Orally Twice a day Taking Pantoprazole Sodium 40 MG Tablet Delayed Release Oral Taking Levothyroxine Sodium 75 MCG Tablet Oral Taking Acetaminophen Extra Strength 500 MG Tablet Oral Taking TIADYLT ER 240 MG CAPSULE,EXTENDED RELEASE , Notes to Pharmacist: *Reorder from [facility] for eRx and Interaction Alerts*Taking ALPRAZolam 0.5 MG Tablet Oral Taking hydrALAZINE HCl 10 MG Tablet Oral Taking Rosuvastatin Calcium 5 MG Tablet Oral Taking ProAir HFA 108 (90 Base) MCG/ACT Aerosol Solution Inhalation Taking tiZANidine HCl 4 MG Tablet Oral Taking Alosetron HCl 0.5 mg Tablet Oral Taking Losartan Potassium 100 MG Tablet Oral Taking TEGretol-XR 200 MG Tablet Extended Release 12 Hour Oral Taking Hyoscyamine Sulfate 0.125 MG Tablet Sublingual Sublingual Taking Spironolactone 25 MG Tablet Oral Billing Information: * Procedure Codes: * Electronic signature of PRAFUL Ayala on 04/07/2025 at 09:57 AM [employer] 7 8 TUTOR Sign off status: Pending * Provider: PRAFUL MICHEL Date: 0 12/16/2024 Generated for Cordell ballesteros/Martha/Chandu on: 1 06/07/2024 09:57 AM [employer] 8 TUTOR
[2025-04-07] MEDS: COSYNTROPIN 0.25 MG/ML VIAL IM (09:37)
--- OUTSIDE RECORDS SUMMARY | 2025-04-07 09:58 | XMS_ITS | Patient Health Record ---
Author Organization [facility] Address [address] [place] [address] Care Team Providers Care Yarding Engineer Name Role Phone Kam Francis Primary Care [...] Vaccine Pfizer 2ND IM Intramuscular 06/11/2020 Administered Transport Nurse: [employer]. EUA given. Patient tolerated well. Plan Of Treatment No Information
--- OUTSIDE RECORDS SUMMARY | 2025-04-07 09:58 | XMS_ITS | Patient Health Record ---
Author Organization [facility] Address [address] [place] [address] Care Team Providers Care Emergency Vehicle Dispatcher Name Role Phone Rohan Jerry Unavailable [phone] Allergies Allergen (clinical drug ingredient) Drug/Non Drug [...] ER 240 MG CAPSULE,EXTENDED RELEASE *Reorder from PT [place] [facility] for eRx and Interaction Alerts* 09/18/2023 Active [...] Status Risk Notes Problem Generalized anxiety disorder (55964991) Generalized anxiety disorder (F41.1) Active confirmed Problem Posttraumatic stress disorder (05898425) Post-traumatic stress disorder, chronic (F43.12) Active confirmed Problem Primary insomnia (8239110) Primary insomnia (F51.01) Active confirmed Problem Recurrent major depression (42074006) Depression, major, recurrent, 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) Active confirmed Vital Signs Heart Rate 88 /min 10/02/2024 Height-cm 165.10 cm 10/02/2024 Blood pressure diastolic 80 mm Hg 10/02/2024 Weight-kg 93.44 kg 10/02/2024 Height 65.00 in 10/02/2024 Blood pressure systolic 126 mm Hg 10/02/2024 Weight 206 lbs 10/02/2024 BMI 34.28 kg/m2 10/02/2024 Encounters Encounter [facility] Date [facility] [address] [address] 08/21/2024 Rohan Jerry Encounter for screen ing for cardiovascular disorders Z13.6 ; Dietary counseling and surveillance Z71.3 ; Generalized anxiety disorder F41.1 ; Post-traumatic stress disorder, chronic F43.12 ; Other fatigue R53.83 ; Primary insomnia F51.01 and Depression, major, recurrent, in remission F33.[address] [address] 10/02/2024 Rohan Jerry Encounter for screen ing for cardiovascular disorders Z13.6 ; Dietary counseling and surveillance Z71.3 ; Generalized anxiety disorder F41.1 ; Post-traumatic stress disorder, chronic F43.12 ; Other fatigue R53.83 ; Primary insomnia F51.01 and Depression, major, recurrent, in remission F33.[address] [address] 01/23/2025 Rohan Jerry Generalized anxiety disorder F41.1 ; Post-traumatic stress disorder, chronic F43.12 ; Other fatigue R53.83 ; Primary insomnia F51.01 ; Depression, major, recurrent, in remission F33.40 and Obstructive sleep apnea, adult G47.[address] [address] 02/20/2025 Rohan Jerry Generalized anxiety disorder F41.1 ; Post-traumatic stress disorder, chronic F43.12 ; Other fatigue R53.83 ; Primary insomnia F51.01 ; Depression, major, recurrent, in remission F33.40 and Obstructive sleep apnea, adult G47.33 [facility] [address] [address] 12/12/2024 Rohan Jerry [facility] [address] [place] [address] 01/23/2025 Rohangabriele Jerry Primary insomnia F51 .01 [facility] [address] [place] [address] 12/13/2024 Rohan Jerry Assessments Encounter Date Diagnosis [...] - Encourage patient to follow up with triage assistant regarding thyroid biopsy results - Discuss strategies [...] her work performance, leading her to consider custodial. Plan: - Continue Lexapro 20 mg PO [...] total daily dose). She reports improvement with [id number] tinnitus medication (lipo-flavonoid). Plan: - Continue carbamazepine [...] Plan: - Patient to follow up with triage assistant - Reassess thyroid function and medication management [...] 05/22/2025 11:15:00 AM, [address], [facility] [address], [address], Insurance Providers Payer Name Payer Address Payer Phone Subscriber Number Group Number Insured Name Patient Relationship to Insured Coverage Start Date Coverage End Date [facility] [address] [place] [address] [id number] CHRISTI GOLDBERG Self - patient is the [...] Surgical History Surgery Date(Month/Year) Removal of gallbladder (49414) Procedure on neck (132119264) Removal of ovarian cyst (050399181) Any surgical history Cataract surgery (07710) Carpal tunnel surgery (30762) Colectomy (93570) Appendectomy (89383) Procedure on back ([id number])
--- OUTSIDE RECORDS SUMMARY | 2025-04-07 09:58 | XMS_ITS | Clinical Summary ---
Author Organization [facility] Address [address] [place] [address] Care Team Providers Care General Repairer Name Role Phone Cee Nava NP Primary Care Provider [phone] Allergies Active Allergy Reactions Criticality Noted Date [...] tablet Take 25 mg by mouth early breastfeeding care specialist before breakfast. Active carBAMazepine (TEGretol) 200 mg tablet Take [...] Multi Collagen 1 tab in AM Active glucosamine-cho ndroitin 500-400 mg capsule Take 3 capsules by [...] daily . Active alosetron (LOTRONEX) 0.5 mg tabletIndicatio ns:Diarrhea Predominant Irritable Bowel Syndrome Take 0.5 mg by mouth daily Indications: Diarrhea Predominant Irritable Colon. Active CALCIUM ORAL Take 1,600 mg by mouth daily . Active hydrALAZINE (APRESOLINE) 10 mg tabletIndicatio ns:hypertension Take 20 mg by mouth 2 (two) times a day Active denosumab (PROLIA) 60 mg/mL syringe Inject under the skin once Active rosuvastatin (CRESTOR) 5 mg tablet Take 1 tablet (5 mg total) by mouth daily Active albuterol HFA (PROVENTIL HFA,VENTOLIN HFA,PROAIR HFA) 90 mcg/actuation inhaler INHALE 2 PUFFS EVERY 4 HOURS NEEDED FOR WHEEZE OR FOR SHORTNESS OF BREATH Active busPIRone (BUSPAR) 7.5 mg tablet Take 1 tablet (7.5 mg total) by mouth 2 (two) times a day 5 Active escitalopram (LEXAPRO) 20 mg tablet Take 1 tablet (20 mg total) by mouth daily 4 Active hyoscyamine (LEVSIN) 0.[address] by sublingual route. 2 Active levocetirizine (XYZAL) 5 mg tablet Take 1 tablet (5 mg total) by mouth daily Active pantoprazole DR (PROTONIX) 40 mg EC tablet Take 1 tablet (40 mg total) by mouth daily Active Xifaxan 550 mg tablet TAKE 1 TABLET ORALLY THREE TIMES A DAY FOR 14 DAYS 5 Active Sunosi 75 mg tablet Take 1 tablet (75 mg total) by mouth every morning Active tiZANidine (ZANAFLEX) 4 mg tablet Take 1 tablet (4 mg total) by mouth every 6 (six) hours as needed Active vilazodone (VIIBRYD) 40 mg tabletIndicatio ns:major depressive disorder Take 40 mg by mouth every morning. 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 Gauthier is doing extremely well after [...] Encounters Date Type Department Care Team Description 03/25/2025 Telephone [facility] [address] [place] [address] Ele Davies 03/25/2025 Telephone [facility] [address] [place] [id number] Ele Davies 03/23/2025 9:00 AM CDT Office Visit [facility] Medicine Epilepsy [address] [place] [address] [place] [address] Earl Navarrete MD PhD Seizure-like activity (HCC) (Primary Dx) 03/23/2025 Telephone [facility] Epilepsy [address] [place] [address] [place] [address] Earl Navarrete MD PhD 03/16/2025 11:07 AM CDT - 03/16/2025 11:59 PM CDT Hospital Encounter [address] [place] [address] Pain in right foot Discharge Disposition: Discharge to home or self care 03/16/2025 11:07 AM CDT - 03/16/2025 11:59 PM CDT Hospital Encounter [address] [place] [address] Pain in joint involving right ankle and foot Discharge Disposition: Discharge to home or self care 03/16/2025 10:45 AM CDT Office Visit [facility] Medicine Orthopaedic Surgery [address] [place] [address] Medical Office Building [address] [facility] [place] [address] Michael Hein NP Closed nondisplaced fracture of lateral malleolus of right fibula with delayed healing, subsequent encounter (Primary Dx); Closed displaced fracture of fifth metatarsal bone of right foot with delayed healing, subsequent encounter 02/16/2025 2:31 PM CDT - 02/16/2025 11:59 PM CDT Hospital Encounter [address] [place] [address] Pain in both feet Discharge Disposition: Discharge to home or self care 02/16/2025 2:31 PM CDT - 02/16/2025 11:59 PM CDT Hospital Encounter [address] [place] [address] Pain in both feet Discharge Disposition: Discharge to home or self care 02/16/2025 2:30 PM CDT - 02/16/2025 11:59 PM CDT Hospital Encounter [address] [place] [address] Pain in both feet Discharge Disposition: Discharge to home or self care 02/16/2025 2:15 PM CDT Office Visit [facility] Medicine Orthopaedic Surgery [address] [facility] Medical Office Building [address] [place] [address] Michael Hein, CEE Pain in both feet (Primary Dx) from Last 3 Months Surgical History Surgery Date Site/Laterality Comments APPENDECTOMY CHOLECYSTECTOMY OVARIAN CYSTECTOMY BREAST LUMPECTOMY CERVICAL FUSION CARPAL TUNNEL RELEASE LUMBAR FUSION 02/02/2018 - 03/03/2018 L4-5 Lumbar Fusion (Dr. Wesley) SPINE SURGERY Neck - 2024; lower back - 2014 CATARACT EXTRACTION 2014 TOTAL HIP ARTHROPLASTY 06/04/2022 - 06/03/2023 Left Medical History Medical History Date Comments Postmenopausal [...] Family History Medical History Relation Name Comments Hypertension Brother 1 Gonzalo Hyman Stroke Brother 1 Gonzalo Hyman Colonic polyp Brother 2 Miguelangel Hypertension Brother 2 Miguelangel Cancer Father Brandyn Hyman Depression Father Brandyn Hyman Diabetes Father Brandyn Boogie Hypertension Father Brandyn Hyman Kidney disease Father Brandyn Hyman Hearing loss Maternal Grandmother Christel Mizer Arthritis Mother Lizbeth Rodriguesvan Hearing loss Mother Lizbeth Barrera Hypertension Mother Lizbeth Barrera Low Back Pain Mother Lizbeth Barrera Alzheimer's disease Mother's Sister Juan Alzheimer's disease Paternal Grandmother Raeann Heart disease Sister Thyroid disease Sister Relation Name Status Comments Brother 1 Gonzalo Boogie Alive Brother 2 Imguelangel Alive Father Brandyn Boogie Maternal Grandmother Christel Mizer Mother Lizbeth Michaudlivan Alive Mother's Sister Juan Unknown Paternal Grandmother Raeann Sister Alive Social History Tobacco Use Types [...] Sign Reading Time Taken Comments Blood Pressure 144/81 03/23/2025 8:53 AM CDT Pulse 80 03/23/2025 8:53 AM CDT Temperature 37.4 C (99.4 F) 02/08/2018 8:01 AM CDT Respiratory Rate 12 08/14/2019 2:14 PM CDT Oxygen Saturation 98% 02/08/2018 8:01 AM CDT Inhaled Oxygen Concentration - - Weight 98.4 kg (217 lb) 03/23/2025 8:53 AM CDT Height 160 cm (5' 3) 03/23/2025 8:53 AM CDT Body Mass Index 38.44 03/23/2025 8:53 AM CDT Plan of Treatment Health Maintenance Due Date Last Done Comments Breast Cancer Screening-Mammogram 1958 Colon Cancer Screening-Colonoscopy 1958 Depression Screening 1958 Fall Risk Assessment 1958 Hepatitis C Screening 1958 Hepatitis B Screening 1976 Pneumococcal vaccine 65+ (1 of 2 - PCV) 1977 Zoster Vaccine (1 of 2) 2008 Osteoporosis Screening-Bone Density Scan 07/11/2015 07/11/2013 Well Visit 65+ 2023 Covid-19 Vaccine (5 - 2024-2 6 season) 2025 04/17/2024, 04/08/2021, 06/11/2020, Additional history exists Influenza Vaccine (#1) 2025 , 04/04/2021, 03/19/2020, Additional history exists DTaP/Tdap/Td Vaccine (4 - Td or Tdap) 09/24/2033 09/25/2023, 03/09/2017, 08/17/2013 Medical Devices Implanted Type Area Container Repairer Device Identifier Shelf Expiration Date Model / Serial / Lot Core Link [id number] [place] 6.5mm 40mm Spine Pedicle Screw Bone 5500 Series - [id number] Implanted:Qty: 4 on 02/06/2018 by Boogie Wesley MD at [facility] Screw N/A: Lumbar-Sacral Spine Core Link [id number] / / Core Link [id number] [place] Screw Set 5500 Series - [id number] Implanted:Qty: 4 on 02/06/2018 by Boogie Wesley MD at [facility] Screw N/A: Vertebrae Core Link [id number] / / Core Link [id number] [place] 5.5mm 35mm Line Prebent [place]an Spinal Nonsterile 5500 Series - [id number] Implanted:Qty: 1 on 02/06/2018 by Boogie Wesley MD at [facility] N/A: Vertebrae Core Link [id number] / / Core Link [id number] [place] 5.5mm 40mm Line Prebent Estevan Spinal Nonsterile 5500 Series - [id number] Implanted:Qty: 1 on 02/06/2018 by Boogie Wesley MD at [facility] N/A: Vertebrae Core Link [id number] / / Procedures Procedure Name Priority Date/Time Associated Diagnosis Comments XR FOOT RIGHT 3 OR MORE VIEWS Schedule Routine, Read Routine (OP Routine) 03/16/2025 11:19 AM CDT Pain in right foot XR ANKLE RIGHT 2 VIEWS Schedule Routine, Read Routine (OP Routine) 03/16/2025 11:19 AM CDT Pain in joint involving right ankle and foot XR FOOT RIGHT 3 OR MORE VIEWS [...] 3 Months Results * XR Foot Right 3+ View (03/16/2025 11:19 AM CDT) Anatomical Region Laterality Modality Lower Extremities, Foot Right Digital Radiography 03/17/2025 1:34 PM CDT Narrative 03/17/2025 1:34 PM CDT EXAMINATION: XR ANKLE RIGHT 2 VIEWS, XR FOOT RIGHT 3 OR MORE VIEWS DATE: 03/16/2025 11:15 AM HISTORY: JOINT PAIN, ANKLE COMPARISON: 02/16/2025. FINDINGS: Lateral malleolus fracture is unchanged in alignment and position. There is bone remodeling but fracture lines still present. There is lateral soft tissue swelling. Joint space is not widened. Talar dome is intact. The oblique fifth metatarsal fracture has slightly displaced medially on these views which may be related to technique. Calcified callus has developed. Joint spaces are preserved. Electronically signed by: Gabe Ibarra M.D. Procedure Note Gabe Ibarra MD - 03/17/2025 EXAMINATION: XR ANKLE RIGHT 2 VIEWS, XR FOOT RIGHT 3 OR MORE VIEWS DATE: 03/16/2025 11:15 AM HISTORY: JOINT PAIN, ANKLE COMPARISON: 02/16/2025. FINDINGS: Lateral malleolus fracture is unchanged in alignment and position. There is bone remodeling but fracture lines still present. There is lateral soft tissue swelling. Joint space is not widened. Talar dome is intact. The oblique fifth metatarsal fracture has slightly displaced medially on these views which may be related to technique. Calcified callus has developed. Joint spaces are preserved. Electronically signed by: Gabe Ibarra M.D. Michael Hein NP IMG XR PROCEDURES Final Re sult * XR Ankle Right 2 Views (03/16/2025 11:19 AM CDT) Anatomical Region Laterality Modality Lower Extremities, Ankle Right Digital Radiography 03/17/2025 1:34 PM CDT Narrative 03/17/2025 1:34 PM CDT EXAMINATION: XR ANKLE RIGHT 2 VIEWS, XR FOOT RIGHT 3 OR MORE VIEWS DATE: 03/16/2025 11:15 AM HISTORY: JOINT PAIN, ANKLE COMPARISON: 02/16/2025. FINDINGS: Lateral malleolus fracture is unchanged in alignment and position. There is bone remodeling but fracture lines still present. There is lateral soft tissue swelling. Joint space is not widened. Talar dome is intact. The oblique fifth metatarsal fracture has slightly displaced medially on these views which may be related to technique. Calcified callus has developed. Joint spaces are preserved. Electronically signed by: Gabe Ibarra M.D. Procedure Note Gabe Ibarra MD - 03/17/2025 EXAMINATION: XR ANKLE RIGHT 2 VIEWS, XR FOOT RIGHT 3 OR MORE VIEWS DATE: 03/16/2025 11:15 AM HISTORY: JOINT PAIN, ANKLE COMPARISON: 02/16/2025. FINDINGS: Lateral malleolus fracture is unchanged in alignment and position. There is bone remodeling but fracture lines still present. There is lateral soft tissue swelling. Joint space is not widened. Talar dome is intact. The oblique fifth metatarsal fracture has slightly displaced medially on these views which may be related to technique. Calcified callus has developed. Joint spaces are preserved. Electronically signed by: Gabe Ibarra M.D. Michael Hein NP IMG XR PROCEDURES Final Re sult * XR Foot Right 3 or More [...] by: Angie Collado M.D. us Michael Hein SUPERVISOR LINE DEPARTMENT IMG XR PROCEDURES Final Re sult * [...] by: Angie Collado M.D. us Michael Hein SUPERVISOR LINE DEPARTMENT IMG XR PROCEDURES Final Re sult * [...] by: Angie Collado M.D. us Michael Hein SUPERVISOR LINE DEPARTMENT IMG XR PROCEDURES Final Re sult from Last 3 Months Insurance Journalism Online [place] [employer] Online [facility] [employer] Online [employer] Advance Directives For more information, please contact: [phone] * Full Code (Latest Code Status on File) Date Activated Date Inactivated Comments 02/06/2018 12:33 PM 02/08/2018 2:59 PM Care Teams General Repairer Relationship Specialty Start Date End Date Cee Nava NP [address] [place] [id number] PCP - General Nurse Practitioner 12/10/24
[2025-04-07 10:43] LABS: Alanine Aminotransferase 21 U/L (6-35); Albumin Level 4.4 g/dL (3.5-5.1); Alkaline Phosphatase 64 U/L (38-126); Anion Gap 7 mmol/L (4-12); Aspartate Amino Transferase 27 U/L (14-36); Bilirubin,Total 0.3 mg/dL (0.2-1.3); Blood Urea Nitrogen 16 mg/dL (7-17); Calcium 8.9 mg/dL (8.4-10.2); Carbon Dioxide 30 mmol/L (22-30); Chloride 93 mmol/L (98-107); Estimated Glomerular Filt Rate > 60; Glucose 63 mg/dL (65-110); Potassium 4.1 mmol/L (3.4-5.0); Sodium 130 mmol/L (137-145); Total Protein 7.4 g/dL (6.3-8.2)
[2025-04-07 12:04] LABS: Cortisol 60 Minute 31.30 ug/dL
[2025-04-08 11:09] LABS: Carbamazepine (Tegretol) 9.8 ug/mL (4.0-12.0)
== END 2025-04-07 09:03 | disposition home or self-care (01) ==
PROVIDERS: Psychiatry & Neurology Neurology; PCP Nurse Practitioner Family; Visit Provider Internal Medicine
DX: R73.9 Hyperglycemia, unspecified (principal); I10 Essential (primary) hypertension; E03.9 Hypothyroidism, unspecified; E78.2 Mixed hyperlipidemia; E87.1 Hypo-osmolality and hyponatremia; E55.9 Vitamin D deficiency, unspecified; E04.2 Nontoxic multinodular goiter; M81.0 Age-related osteoporosis without current pathological fracture
CPT/HCPCS: 36415; 80053; 80156; 82533; 96372; J0834

== ENCOUNTER 2025-05-04 09:08 | Outpatient (CLI) | payer BC, SELFPAY ==
--- NOTE | ~2025-05-04 | MM_ITS ---
EXAMINATION: MM screening lizbet BI w tl HISTORY: Screening TECHNIQUE: Craniocaudal and mediolateral oblique 3-D tomosynthesis images were obtained and synthetic 2-D images were generated. CAD analysis was submitted and interpreted. COMPARISON: Comparison to multiple prior studies sequentially, with oldest reviewed study dated 02/21/2019. BREAST PARENCHYMAL COMPOSITION: Not dense: There are scattered areas of fibroglandular density. FINDINGS: There is no evidence of suspicious mass, calcification, or architectural distortion to suggest malignancy in either breast. There has been no suspicious interval change. IMPRESSION: 1. No mammographic evidence of malignancy. 2. Recommend routine screening mammography in one year. BI-RADS Category 1: Negative Reviewed, dictated and finalized at location I. [facility]
--- OUTSIDE RECORDS SUMMARY | 2025-05-04 09:49 | XMS_ITS | Patient Health Record ---
Author Organization [facility] [employer] Address [address] [place] [address] Care Team Providers Care Personal Development Coach Name Role Phone Rohan Jerry Unavailable [phone] Allergies Allergen (clinical drug ingredient) Drug/Non Drug [...] 500 MG Tablet Oral 09/18/2023 Activ e Spironolactone 25 MG Tablet Oral 09/18/2023 Active TIADYLT ER 240 MG CAPSULE,EXTENDED RELEASE *Reorder from [facility] for eRx and Interaction Alerts* 09/18/2023 Active [...] Base) MCG/ACT Aerosol Solution Inhalation 09/18/2023 Active tiZANidine HCl 4 MG Tablet Oral 09/18/2023 Active busPIRone HCl 10 MG Capsule TAKE 1 TABLET BY MOUTH TWICE A DAY; Duration: 90 Active Immunizations Vaccine Route Administration Date Status [...] Status Risk Notes Problem Generalized anxiety disorder (78668753) Generalized anxiety disorder (F41.1) Active confirmed Problem Posttraumatic stress disorder (20863283) Post-traumatic stress disorder, chronic (F43.12) Active confirmed Problem Primary insomnia (1173172) Primary insomnia (F51.01) Active confirmed Problem Recurrent major depression (75228216) Depression, major, recurrent, 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) Active confirmed Vital Signs Heart Rate 88 /min 10/02/2024 Height-cm 165.10 cm 10/02/2024 Blood pressure diastolic 80 mm Hg 10/02/2024 Weight-kg 93.44 kg 10/02/2024 Height 65.00 in 10/02/2024 Blood pressure systolic 126 mm Hg 10/02/2024 Weight 206 lbs 10/02/2024 BMI 34.28 kg/m2 10/02/2024 Encounters Encounter Location Date Provider Diagnosis [address] [address] 08/21/2024 Rohan Jerry Encounter for screen ing for cardiovascular disorders Z13.6 ; Dietary counseling and surveillance Z71.3 ; Generalized anxiety disorder F41.1 ; Post-traumatic stress disorder, chronic F43.12 ; Other fatigue R53.83 ; Primary insomnia F51.01 and Depression, major, recurrent, in remission F33.[address] [address] 10/02/2024 Rohan Jerry Encounter for screen ing for cardiovascular disorders Z13.6 ; Dietary counseling and surveillance Z71.3 ; Generalized anxiety disorder F41.1 ; Post-traumatic stress disorder, chronic F43.12 ; Other fatigue R53.83 ; Primary insomnia F51.01 and Depression, major, recurrent, in remission F33.[address] [address] 01/23/2025 Rohan Jerry Generalized anxiety disorder F41.1 ; Post-traumatic stress disorder, chronic F43.12 ; Other fatigue R53.83 ; Primary insomnia F51.01 ; Depression, major, recurrent, in remission F33.40 and Obstructive sleep apnea, adult G47.[address] [address] 02/20/2025 Rohan Jerry Generalized anxiety disorder F41.1 ; Post-traumatic stress disorder, chronic F43.12 ; Other fatigue R53.83 ; Primary insomnia F51.01 ; Depression, major, recurrent, in remission F33.40 and Obstructive sleep apnea, adult G47.[address] [address] 12/12/2024 Rohan Jerry [facility], [facility] [address] [place] [address] 01/23/2025 Rohangabriele Jerry Primary insomnia F51 .01 [facility] [address] [facility] [address] [place] [address] 12/13/2024 Rohan Jerry Assessments Encounter Date Diagnosis [...] - Encourage patient to follow up with on air talent regarding thyroid biopsy results - Discuss strategies [...] her work performance, leading her to consider longterm. Plan: - Continue Lexapro 20 mg PO [...] total daily dose). She reports improvement with gjnb-otz-qaiuzaj tinnitus medication (lipo-flavonoid). Plan: - Continue carbamazepine [...] Plan: - Patient to follow up with [employer] [facility] - Reassess thyroid function and medication management [...] 05/22/2025 11:15:00 AM, [address], [facility] [address], [place], [address], Insurance Providers Payer Name Payer Address Payer Phone Subscriber Number Group Number Insured Name Patient Relationship to Insured Coverage Start Date Coverage End Date [facility] [address] [place] [address] [id number] CHRISTI GOLDBERG Self - patient is the [...] Surgical History Surgery Date(Month/Year) Removal of gallbladder (64245) Procedure on neck (816128882) Removal of ovarian cyst (349864295) Any surgical history Cataract surgery (24538) Carpal tunnel surgery (57228) Colectomy (58859) Appendectomy (17003) Procedure on back ([id number])
--- OUTSIDE RECORDS SUMMARY | 2025-05-04 09:50 | XMS_ITS | Clinical Summary ---
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 Active carBAMazepine (TEGretol) 200 [...] every 6 (six) hours as needed Active Active Problems Problem Noted Date Diagnosed [...] 08/14/2019 Assessment & Plan (08/08/2018 5:30 PM CLAY THROWER): Ms. Gauthier is doing extremely well after [...] Encounters Date Type Department Care Team Description 04/28/2025 Telephone [facility] Neuro[facility] [address] [place] [address] Ele Davies 04/13/2025 1:45 PM CLAY THROWER Office Visit [facility] Medicine Orthopaedic Surgery [address] [place] [address] Medical Office Building [address] [place] [address] Michael Hein, OSTOMY CARE NURSE Closed displaced fracture of fifth metatarsal bone of right foot with delayed healing, subsequent encounter (Primary Dx); Closed nondisplaced fracture of lateral malleolus of right fibula with delayed healing, subsequent encounter 04/13/2025 1:38 PM CLAY THROWER - 04/13/2025 11:59 PM CLAY THROWER Hospital Encounter [address] [place] [address] Closed nondisplaced fracture of lateral malleolus of right fibula with delayed healing, subsequent encounter Discharge Disposition: Discharge to home or self care 04/13/2025 1:38 PM CLAY THROWER - 04/13/2025 11:59 PM CLAY THROWER Hospital Encounter [address] MOB [address] [address] Closed displaced fracture of fifth metatarsal bone of right foot with delayed healing, subsequent encounter Discharge Disposition: Discharge to home or self care 03/25/2025 Telephone [facility] [address] [place] [address] Ele Davies 03/25/2025 Telephone [facility] [address] [place] [address] Ele Davies 03/23/2025 9:00 AM CDT Office Visit [facility] Medicine Epilepsy [address] [facility] 6th [place] [address] [place] [address] Earl Navarrete MD PhD Seizure-like activity (HCC) (Primary Dx) 03/23/2025 Telephone [facility] Medicine Epilepsy [address] [facility] 6th [place] [address] [place] [address] Earl Navarrete MD PhD 03/16/2025 11:07 AM CDT - 03/16/2025 11:59 PM CDT Hospital Encounter [address] [address] Pain in right foot Discharge Disposition: Discharge to home or self care 03/16/2025 11:07 AM CDT - 03/16/2025 11:59 PM CDT Hospital Encounter [address] [facility] [address] [place] [address] Pain in joint involving right ankle and foot Discharge Disposition: Discharge to home or self care 03/16/2025 10:45 AM CDT Office Visit [facility] Medicine Orthopaedic Surgery [address] [place] [address] Medical Office Building [address] [place] [address] Michael Hein, CEE Closed nondisplaced fracture of lateral malleolus of right fibula with delayed healing, subsequent encounter (Primary Dx); Closed displaced fracture of fifth metatarsal bone of right foot with delayed healing, subsequent encounter 02/16/2025 2:31 PM CDT - 02/16/2025 11:59 PM CDT Hospital Encounter [address] [place] [address] Pain in both feet Discharge Disposition: Discharge to home or self care 02/16/2025 2:31 PM CDT - 02/16/2025 11:59 PM CDT Hospital Encounter [address] [place] [address] Pain in both feet Discharge Disposition: Discharge to home or self care 02/16/2025 2:30 PM CDT - 02/16/2025 11:59 PM CDT Hospital Encounter [address] [place] [address] Pain in both feet Discharge Disposition: Discharge to home or self care 02/16/2025 2:15 PM CDT Office Visit [facility] Medicine Orthopaedic Surgery [address] [place] [address] Medical Office Building [address] [place] [address] Michael Hein, CEE Pain in both feet (Primary Dx) from Last 3 Months Surgical History Surgery Date Site/Laterality Comments APPENDECTOMY CHOLECYSTECTOMY OVARIAN CYSTECTOMY BREAST LUMPECTOMY CERVICAL FUSION CARPAL TUNNEL RELEASE LUMBAR FUSION 02/02/2018 - 03/03/2018 L4-5 Lumbar Fusion (Dr. Wesley) SPINE SURGERY Neck - 2024; lower back - 2014 CATARACT EXTRACTION 2015 TOTAL HIP ARTHROPLASTY 06/04/2022 - 06/03/2023 Left [...] Relation Name Comments Hypertension Brother 1 Gonzalo Boogie Stroke Brother 1 Gonzalo Boogie Colonic polyp Brother 2 Miguelangel Hypertension Brother [...] Brother 1 Gonzalo Boogie Alive Brother 2 Miguelangel Alive Father Brandyn Hyman Maternal Grandmother Christel Mizer Mother Lizbeth Michaudlivan [...] - - Weight 98.4 kg (217 lb) 04/13/2025 1:36 PM CLAY THROWER Height 160 cm (5' 3) 04/13/2025 1:36 PM CLAY THROWER Body Mass Index 38.44 04/13/2025 1:36 PM CLAY THROWER Plan of Treatment Health Maintenance Due Date [...] 03/09/2017, 08/17/2013 Medical Devices Implanted Type Area Used Car Sales Supervisor Device Identifier Shelf Expiration Date Model / Serial / Lot Core Link [id number] [place] 6.5mm 40mm Spine Pedicle Screw Bone 5500 Series - [id number] Implanted:Qty: 4 on 02/06/2018 by Boogie Wesley MD at [facility] Screw N/A: Lumbar-Sacral Spine Core Link [id number] / / Core Link [id number] [place] Screw Set 5500 Series - [id number] Implanted:Qty: 4 on 02/06/2018 by Boogie Wesley MD at [facility] Screw N/A: Vertebrae Core Link [id number] / / Core Link [id number] [place] 5.5mm 35mm Line Prebent [place] Spinal Nonsterile 5500 Series - [id number] Implanted:Qty: 1 on 02/06/2018 by Boogie Wesley MD at [facility] N/A: Vertebrae Core Link [id number] / / Core Link [id number] [place] 5.5mm 40mm Line Prebent [place] Spinal Nonsterile 5500 Series - [id number] Implanted:Qty: 1 on 02/06/2018 by Boogie Wesley MD at [facility] N/A: Vertebrae Core Link [id number] / / Procedures Procedure Name Priority Date/Time Associated Diagnosis Comments XR FOOT RIGHT 3 OR MORE VIEWS Schedule Routine, Read Routine (OP Routine) 04/13/2025 1:47 PM CLAY THROWER Closed displaced fracture of fifth metatarsal bone of right foot with delayed healing, subsequent encounter XR ANKLE RIGHT 3 OR MORE VIEWS Schedule Routine, Read Routine (OP Routine) 04/13/2025 1:47 PM CLAY THROWER Closed nondisplaced fracture of lateral malleolus of right fibula with delayed healing, subsequent encounter XR FOOT RIGHT 3 OR MORE VIEWS [...] XR Foot Right 3 or More Views (04/13/2025 1:47 PM CLAY THROWER) Anatomical Region Laterality Modality Lower Extremities, Foot Right Digital Radiography 04/13/2025 3:36 PM CLAY THROWER Impressions 04/13/2025 3:36 PM CLAY THROWER FINDINGS/IMPRESSION: Weightbearing exam demonstrates: There has been interval progression of healing and unchanged alignment of previously described fifth metatarsal shaft fracture . There has been interval progression of healing and unchanged alignment of previously described distal fibular fracture with intra-articular extent . Bipartite os peroneum. Plantar calcaneal enthesophyte. The forefoot alignment is normal. The Lisfranc interval is normal. The plantar arch is normal. The ankle mortise is intact. Electronically signed by: Lalo May MD Narrative 04/13/2025 3:36 PM CLAY THROWER EXAMINATION: XR FOOT RIGHT 3 OR MORE VIEWS, XR ANKLE RIGHT 3 OR MORE VIEWS COMPARISON: 03/16/2025 HISTORY: right foot pain - WB Procedure Note Lalo May MD - 04/13/2025 EXAMINATION: XR FOOT RIGHT 3 OR MORE VIEWS, XR ANKLE RIGHT 3 OR MORE VIEWS COMPARISON: 03/16/2025 HISTORY: right foot pain - WB IMPRESSION: FINDINGS/IMPRESSION: Weightbearing exam demonstrates: There has been interval progression of healing and unchanged alignment of previously described fifth metatarsal shaft fracture . There has been interval progression of healing and unchanged alignment of previously described distal fibular fracture with intra-articular extent . Bipartite os peroneum. Plantar calcaneal enthesophyte. The forefoot alignment is normal. The Lisfranc interval is normal. The plantar arch is normal. The ankle mortise is intact. Electronically signed by: Lalo May MD Michael Hein OSTOMY CARE NURSE IMG XR PROCEDURES Final Re sult * XR Ankle Right 3 or More Views (04/13/2025 1:47 PM CLAY THROWER) Anatomical Region Laterality Modality Lower Extremities, Ankle Right Digital Radiography 04/13/2025 3:36 PM CLAY THROWER Impressions 04/13/2025 3:36 PM CLAY THROWER FINDINGS/IMPRESSION: Weightbearing exam demonstrates: There has been interval progression of healing and unchanged alignment of previously described fifth metatarsal shaft fracture . There has been interval progression of healing and unchanged alignment of previously described distal fibular fracture with intra-articular extent . Bipartite os peroneum. Plantar calcaneal enthesophyte. The forefoot alignment is normal. The Lisfranc interval is normal. The plantar arch is normal. The ankle mortise is intact. Electronically signed by: Lalo May MD Narrative 04/13/2025 3:36 PM CLAY THROWER EXAMINATION: XR FOOT RIGHT 3 OR MORE VIEWS, XR ANKLE RIGHT 3 OR MORE VIEWS COMPARISON: 03/16/2025 HISTORY: right foot pain - WB Procedure Note Lalo May MD - 04/13/2025 EXAMINATION: XR FOOT RIGHT 3 OR MORE VIEWS, XR ANKLE RIGHT 3 OR MORE VIEWS COMPARISON: 03/16/2025 HISTORY: right foot pain - WB IMPRESSION: FINDINGS/IMPRESSION: Weightbearing exam demonstrates: There has been interval progression of healing and unchanged alignment of previously described fifth metatarsal shaft fracture . There has been interval progression of healing and unchanged alignment of previously described distal fibular fracture with intra-articular extent . Bipartite os peroneum. Plantar calcaneal enthesophyte. The forefoot alignment is normal. The Lisfranc interval is normal. The plantar arch is normal. The ankle mortise is intact. Electronically signed by: Lalo May MD us Michael Hein OSTOMY CARE NURSE IMG XR PROCEDURES Final Re sult * XR Foot Right 3+ View (03/16/2025 [...] by: Gabe Ibarra M.D. Michael Hein NP [facility] [place] XR PROCEDURES Final Re sult * XR [...] signed by: Gabe Ibarra M.D. Michael Hein OSTOMY CARE NURSE IM XR PROCEDURES Final Re sult * XR [...] by: Angie Collado M.D. us Michael Hein OSTOMY CARE NURSE IMG XR PROCEDURES Final Re sult * [...] signed by: Angie Collado M.D. Michael Hein OSTOMY CARE NURSE IMG XR PROCEDURES Final Re sult * [...] signed by: Angie Collado M.D. Michael Hein OSTOMY CARE NURSE IMG XR PROCEDURES Final Re sult from Last 3 Months Insurance BLUE ACCESS OOS BLUE ACCESS OOS Advance Directives For more information, please contact: [phone] * Full Code (Latest Code Status on File) Date Activated Date Inactivated Comments 02/06/2018 12:33 PM 02/08/2018 2:59 PM Care Teams Orientation And Mobility Instructor Relationship Specialty Start Date End Date Cee Nava NP [address] [place] [id number] PCP - General Nurse Practitioner 12/10/24
== END 2025-05-04 09:09 | disposition home or self-care (01) ==
PROVIDERS: PCP Nurse Practitioner Family; Visit Provider Internal Medicine
DX: Z12.31 Encounter for screening mammogram for malignant neoplasm of breast (principal)
CPT/HCPCS: 77063; 77067